=== PATIENT | female | born 1950 | race Hispanic/Latino ===

== ENCOUNTER 2017-12-27 13:54 | Inpatient (IN) | payer MEDICARE, OTHER ==
[2017-12-27] MEDS ORDERED: Sodium Chloride 0.9% 1,000 ML IV STA ×6 (14:08→19:44)
--- NOTE | 2017-12-27 14:12 | ED PDOC ---
HPI: General Adult Time Seen by Provider: 12/27/17 14:00 Chief Complaint (Nursing): Altered Mental Status History Per: Family Onset/Duration Of Symptoms: Days (3) Current Symptoms Are (Timing): Still Present Severity: Moderate Additional Complaint(s): Brought by family for poor PO intake x 3 days. Denies vomiting diarrhea or fever. Pt has not been seeing her MD x few months. Past Medical History Vital Signs: Last Vital Signs Temp Pulse 113 H 12/27/17 14:04 Resp 12 12/27/17 14:04 BP 113/47 L 12/27/17 14:04 Pulse Ox 97 12/27/17 14:04 - Medical History PMH: CAD, HTN Denies: Chronic Kidney Disease Other PMH: CREST - Family History Family History: States: Unknown Family Hx - Home Medications Home Medications: Ambulatory Orders Medication Instructions Recorded Cyclobenzaprine [Cyclobenzaprine 10 mg PO BID #15 tab 12/17/15 HCl] Ibuprofen [Motrin Tab] 600 mg PO Q6 #30 tab 12/17/15 - Allergies Allergies/Adverse Reactions: Allergies Allergy/AdvReac Type Severity Reaction Status Date / Time No Known Allergies Allergy Verified 12/17/15 03:08 Review of Systems Review Of Systems: ROS cannot be obtained secondary to pt's inabilty to answer questions. Physical Exam - Reviewed Nursing Documentation Reviewed: Yes Vital Signs Reviewed: Yes - Physical Exam Appears: Positive for: Non-toxic, No Acute Distress Head Exam: Positive for: ATRAUMATIC, NORMAL INSPECTION, NORMOCEPHALIC Skin: Positive for: Normal Color, Warm, DRY Eye Exam: Positive for: EOMI, Normal appearance, PERRL ENT: Positive for: Other (Mucous membranes dry) Neck: Positive for: Normal, Painless ROM Cardiovascular/Chest: Positive for: Regular Rate, Rhythm, Tachycardia Respiratory: Positive for: CNT, Normal Breath Sounds Gastrointestinal/Abdominal: Positive for: Normal Exam, Soft Back: Positive for: Normal Inspection Extremity: Positive for: Normal ROM Neurologic/Psych: Negative for: Alert (lethargic), Motor/Sensory Deficits - Laboratory Results Result Diagrams: 12/27/17 14:45 - ECG O2 Sat by Pulse Oximetry: 97 Disposition - Clinical Impression Clinical Impression: DKA (diabetic ketoacidoses) - Patient ED Disposition Is Patient to be Admitted: Transfer of Care - Disposition Disposition: Transfer of Care Disposition Time: 15:07 Condition: GUARDED Forms: [employer] (Emirati) Patient Signed Over To: Aggie Benson
[2017-12-27 14:32] LABS: ABG ALLEN TEST YES; ARTERIAL BLOOD GAS HCO3 13.1 mmol/L (21-28); ARTERIAL BLOOD GAS O2 SAT 74.8 % (95-98); ARTERIAL BLOOD GAS PCO2 30 mm/Hg (35-45); ARTERIAL BLOOD GAS PH 7.22 (7.35-7.45); ARTERIAL BLOOD GAS PO2 41 mm/Hg (80-100); ARTERIAL BLOOD GAS TCO2 13.2 mmol/L (22-28)
[2017-12-27] MEDS ORDERED: Glucagon Recombinant 1 mg Inj IM PRN ×2 (14:37→19:05)
[2017-12-27] MEDS ORDERED: Dextrose 50% SYRINGE Inj (50 ml) IV PRN (14:37)
[2017-12-27 14:56] LABS: BASO # 0.2 K/uL (0.0-0.2); BASO % 1.2 % (0.0-2.0); HEMOGLOBIN 14.1 g/dL (12.0-16.0); LYMPH # 0.4 K/uL (1.0-4.3); LYMPH % 2.6 % (20.0-40.0); MEAN CELL VOLUME 96.1 fl (81.0-99.0); MEAN CORPUSCULAR HEMOGLOBIN 28.8 pg (27.0-31.0); MEAN PLATELET VOLUME 11.7 fl (7.2-11.7); MONO # 0.5 K/uL (0.0-0.8); MONO % 3.7 % (0.0-10.0); NEUT # 13.7 K/uL (1.8-7.0); NEUT % 92.5 % (50.0-75.0); NRBC % 0.2 % (0.0-0.0); WHITE BLOOD COUNT 14.8 K/uL (4.8-10.8)
[2017-12-27 15:17] LABS: TROPONIN I 0.091 ng/mL (0.00-0.120)
[2017-12-27 15:32] LABS: ALBUMIN 3.4 g/dL (3.5-5.0); CALCIUM 7.1 mg/dL (8.4-10.2)
--- NOTE | 2017-12-27 15:44 | ED PDOC ---
- Laboratory Results Result Diagrams: 12/27/17 14:45 12/27/17 14:45 - ECG O2 Sat by Pulse Oximetry: 97 (RA) Pulse Ox Interpretation: Normal - Core Measure Core Measure Indicators: Code Sepsis - Critical Care Total Time (In Min): 60 Medical Decision Making Medical Decision Making: Time: 1500 -- Patient endorsed to me by Dr. Christensen, pending labs, reassessment and final ER disposition. 16:20 Unable to establish Randolph catheter, discussed with Dr. Young, will perform cystoscopy tomorrow @ 11 AM, NPO after midnight. 17:[address] Berry. 18:[address] Kang, states pt is 8 L behind, prerenal, recommends 150 cc/hr for next 4 L. Scribe Attestation: Documented by Senthil Choe, acting as a scribe Trung Benson MD. Provider Scribe Attestation: All medical record entries made by the Scribe were at my direction and personally dictated by me. I have reviewed the chart and agree that the record accurately reflects my personal performance of the history, physical exam, medical decision making, and the department course for this patient. I have also personally directed, reviewed, and agree with the discharge instructions and disposition. Disposition - Clinical Impression Clinical Impression: DKA (diabetic ketoacidoses), Sepsis - POA Present On Arrival: Poor Glycemic Control, Pressure Ulcer Core Measure Indicators: Code Sepsis - Disposition Disposition: Admitted as In-Patient Disposition Time: 17:06 Condition: SERIOUS
[2017-12-27] MEDS ORDERED: cefTRIAXone (Rocephin) 1 gm Inj ONE (15:57)
[2017-12-27 16:01] LABS: LYMPHOCYTE 2 % (20-50); MONOCYTE 3 % (0-10); NEUTROPHIL 95 % (42-75); TOTAL CELLS COUNTED 100
[2017-12-27 16:14] LABS: PLATELET ESTIMATE NORMAL (NORMAL)
[2017-12-27 16:16] LABS: ANISOCYTOSIS SLIGHT; OVALOCYTES SLIGHT; PLATELET CLUMPS PRESENT; POIKILOCYTOSIS SLIGHT
[2017-12-27 16:18] LABS: PLATELET COUNT 184 K/uL (130-400)
--- NOTE | 2017-12-27 16:18 | RAD ---
Date of service: 12/27/2017 HISTORY: cough COMPARISON: Comparison is made to the previous study dated 06/30/2013 FINDINGS: LUNGS: This suspicious for new consolidation or mass at the central portion of the left lung since the previous exam. Further assessment by CT is recommended. Left lung appears smaller than the right. PLEURA: No significant pleural effusion identified, no pneumothorax apparent. CARDIOVASCULAR: Normal. OSSEOUS STRUCTURES: No significant abnormalities. VISUALIZED UPPER ABDOMEN: Normal. OTHER FINDINGS: None. IMPRESSION: Suspicious for new mass in the central portion of the central portion of the left lung. Further assessment by CT is suggested.
[2017-12-27] MEDS ORDERED: Vancomycin 1 g Inj ONE (17:16)
--- NOTE | 2017-12-27 18:31 | CP.PCM.CON ---
History of Present Illness - History of Present Illness History of Present Illness: 67 YOF was brought to ER with confusion , being non-verbal . As per family she has been confused and lethargic for 2 days and today found on her bed with urine and fecal incontinent. She was brought to ER, was hypotensive and confused , barely verbal. He BS was > 1000 and blood work showed she was in sever e DKA. No fever, SOB or cough. She has h/o DM but was not taking any meds for sometimes, no previous lab result is available. In Er she was started on IVF, insulin drip and after 3 liters of NS bolus BP improved and pt was able to talk but still was confused when I saw the pt. She was moving alls her limbs , there was no sei zure, and there no facial droop. When she would talk, was talking in clear words. She was not in any respiratory distress, no cough, was not in any pain. Review of Systems - Review of Systems Systems not reviewed;Unavailable: Altered Mental Status - Constitutional Constitutional: As Per HPI - EENT Eyes: As Per HPI Nose/Mouth/Throat: As Per HPI - Cardiovascular Cardiovascular: As Per HPI - Respiratory Respiratory: As Per HPI - Gastrointestinal Gastrointestinal: As Per HPI Past Patient History - Past Social History Smoking Status: Never Smoked - CARDIAC Hx Hypertension: Yes - PULMONARY Hx Respiratory Disorders: No - NEUROLOGICAL Hx Neurological Disorder: No - HEENT Hx HEENT Problems: No - RENAL Hx Chronic Kidney Disease: No - ENDOCRINE/METABOLIC Hx Endocrine Disorders: No - HEMATOLOGICAL/ONCOLOGICAL Hx Blood Disorders: No - INTEGUMENTARY Hx Dermatological Problems: No - MUSCULOSKELETAL/RHEUMATOLOGICAL Hx Musculoskeletal Disorders: Yes - GASTROINTESTINAL Hx Gastrointestinal Disorders: No - GENITOURINARY/GYNECOLOGICAL Hx Genitourinary Disorders: No - PSYCHIATRIC Hx Psychophysiologic Disorder: No Hx Substance Use: No - SURGICAL HISTORY Hx Surgeries: No Meds Allergies/Adverse Reactions: Allergies Allergy/AdvReac Type Severity Reaction Status Date / Time No Known Allergies Allergy Verified 12/17/15 03:08 - Medications Medications: Current Medications Dextrose (Dextrose 50% Inj) 0 ml IV STAT PRN; Protocol PRN Reason: Hypoglycemia Protocol Dextrose (Glutose 15) 0 gm PO ONCE PRN; Protocol PRN Reason: Hypoglycemia Protocol Glucagon (Glucagen Diagnostic Kit) 0 mg IM STAT PRN; Protocol PRN Reason: Hypoglycemia Protocol Insulin Human Regular 100 (units/ Sodium Chloride) 101 mls @ 9.09 mls/hr IV [id number] PORFIRIO; Protocol Last Admin: 12/27/17 15:46 Dose: 9.09 mls/hr Vancomycin HCl 1 gm/ Sodium (Chloride) 250 mls @ 166.667 mls/hr IVPB STAT STA; Protocol Stop: 12/27/17 18:38 Last Admin: 12/27/17 17:10 Dose: 166.667 mls/hr Physical Exam - Constitutional Appears: Well - Head Exam Head Exam: ATRAUMATIC - Eye Exam Eye Exam: Normal appearance - ENT Exam ENT Exam: Mucous Membranes Dry, Mucous Membranes Moist - Neck Exam Neck exam: Positive for: Full Rom - Respiratory Exam Respiratory Exam: NORMAL BREATHING PATTERN - Cardiovascular Exam Cardiovascular Exam: REGULAR RHYTHM Results - Vital Signs Recent Vital Signs: Last Vital Signs Temp Pulse 130 H 12/27/17 15:46 Resp 22 12/27/17 15:46 BP 136/69 12/27/17 15:46 Pulse Ox 97 12/27/17 18:12 - Labs Result Diagrams: 12/27/17 14:45 12/27/17 14:45 Labs: Laboratory Results - last 24 hr 12/27/17 12/27/17 12/27/17 14:02 14:08 14:45 WBC 14.8 H RBC 4.90 Hgb 14.1 Hct 47.1 H MCV 96.1 MCH 28.8 MCHC 30.0 L RDW 17.0 H Plt Count 184 MPV 11.7 Neut % (Auto) 92.5 H Lymph % (Auto) 2.6 L [place] % (Auto) 3.7 Eos % (Auto) 0.0 Baso % (Auto) 1.2 Neut # (Auto) 13.7 H Lymph # (Auto) 0.4 L [place] # (Auto) 0.5 Eos # (Auto) 0.0 Baso # (Auto) 0.2 Neutrophils % (Manual) 95 H Lymphocytes % (Manual) 2 L Monocytes % (Manual) 3 Platelet Estimate Normal Plt Clumps, EDTA Present Poikilocytosis (manual Slight Anisocytosis (manual) Slight Ovalocytes Slight pCO2 30 L pO2 41 L* HCO3 13.1 L ABG pH 7.22 L ABG Total CO2 13.2 L ABG O2 Saturation 74.8 L ABG Base Excess -14.1 L Holden Test Yes ABG Potassium 5.6 H A-a O2 Difference 150.0 Sodium 142.0 Chloride 88.0 L Glucose > 750 H* Lactate 7.0 H* Vent Mode Nc FiO2 32.0 Blood Gas Comments Nc 3 lpm Crit Value Called To Dr. tina mitchell Crit Value Called By Dolores Crit Value Read Back Y Blood Gas Notified Time 1431 Potassium Carbon Dioxide Anion Gap BUN Creatinine Est GFR ( Amer) Est GFR (Non-Af Amer) POC Glucose (mg/dL) > 500 H* Random Glucose Calcium Total Bilirubin AST ALT Alkaline Phosphatase Troponin I Total Protein Albumin Globulin Albumin/Globulin Ratio Arterial Blood Potassium 5.6 H 12/27/17 12/27/17 14:45 17:01 WBC RBC Hgb Hct MCV MCH MCHC RDW Plt Count MPV Neut % (Auto) Lymph % (Auto) [place] % (Auto) Eos % (Auto) Baso % (Auto) Neut # (Auto) Lymph # (Auto) [place] # (Auto) Eos # (Auto) Baso # (Auto) Neutrophils % (Manual) Lymphocytes % (Manual) Monocytes % (Manual) Platelet Estimate Plt Clumps, EDTA Poikilocytosis (manual Anisocytosis (manual) Ovalocytes pCO2 pO2 HCO3 ABG pH ABG Total CO2 ABG O2 Saturation ABG Base Excess Holden Test ABG Potassium A-a O2 Difference Sodium 142 Chloride 92 L Glucose Lactate Vent Mode FiO2 Blood Gas Comments Crit Value Called To Crit Value Called By Crit Value Read Back Blood Gas Notified Time Potassium 5.3 H Carbon Dioxide 11 L* Anion Gap 44 H BUN 112 H* Creatinine 2.7 H Est GFR ( Amer) 21 Est GFR (Non-Af Amer) 18 POC Glucose (mg/dL) > 500 H* Random Glucose 1028 H* Calcium 7.1 L Total Bilirubin 2.8 H AST 334 H ALT 181 H Alkaline Phosphatase 281 H Troponin I 0.0910 Total Protein 6.7 Albumin 3.4 L Globulin 3.3 Albumin/Globulin Ratio 1.0 Arterial Blood Potassium Assessment & Plan - Assessment and Plan (Free Text) Assessment: DKA: h/o type 2 DM, was not taking any meds Acute kidney injury: pre-renal azotemia Hypotension: dehydartion AMS: DKA Plan: IVF NS 3 lit and then NS at 200 cc/h Insulin drip started at ER at 9 unit/h, will continue , BS q one hours BMP q 6 hours DVT prophlaxis , lovenox. endocrinology consult.
[2017-12-27 19:05] LABS: VENOUS BLOOD GAS BASE EXCESS -12.4 mmol/L (0.0-2.0); VENOUS BLOOD GAS PCO2 31 mmHg (40-60); VENOUS BLOOD GAS PO2 47 mm/Hg (30-55); VENOUS BLOOD PH 7.25 (7.32-7.43)
[2017-12-27 23:28] LABS: SQUAMOUS EPITHIAL 1 /hpf (0-5); URINE AMORPHOUS SEDIMENT RARE /ul (<OCC); URINE BACTERIA FEW (<OCC); URINE BILIRUBIN SMALL (NEGATIVE); URINE BLOOD LARGE (NEGATIVE); URINE CLARITY CLOUDY (Clear); URINE COLOR AMBER (YELLOW); URINE GLUCOSE (UA) >=500 mg/dL (Normal); URINE LEUKOCYTE ESTERASE LARGE Leu/uL (Negative); URINE PROTEIN 100 mg/dL (NEGATIVE); WBC CLUMPS FEW /hpf
[2017-12-27 23:38] LABS: ALB/GLOB RATIO 0.8 (1.0-2.1); ALBUMIN 2.7 g/dL (3.5-5.0); CALCIUM 6.3 mg/dL (8.4-10.2)
--- NOTE | 2017-12-28 00:46 | CP.PCM.HP ---
History of Present Illness - History of Present Illness History of Present Illness: CC: Lethargic and Poor PO Intake History of Present Illness: History from her son Julian nad Daughter Carmela who are at the bed side. A 67 yoF was brought to ER with Lethargy, poor Po intake, and being non-verbal . As per family she has been sick for a week but got confused and lethargic for the last 2 -3 days. Today she was found on her bed with urine and fecal incontinent when she was brought to ER. In the ER she was hypotensive, Le thargic, barely verbal, Dehydrated, and further work up showed Blood sugar > 1000 mg/dl, severe DKA/HHS with S. Osmolality>400, Acute Renal Failure, and UTI and Pressure Ulcers with Sepsis. No fever, SOB or cough. She has h/o DM but was not taking any meds for sometimes, no previous lab result is available. In the ER she was also Hypotensive improved after 3 liters of NS boluses BP improved. Patient was also stated with Insulin drip and IV Antibiotics. Pt was able to talk but still was drowsy. She was moving alls her limbs , there was no seizure, or facial droop. She was not in any respiratory distress, no cough, or was not in any pain. She was also found to have Lung Mass on CXR. Present on Admission - Present on Admission Any Indicators Present on Admission: Yes History of Uncontrolled Diabetes: Yes Decubitus Ulcer Present: Yes (Sacral) Decubitus Ulcer Stage: II Review of Systems - Review of Systems All systems: reviewed and no additional remarkable complaints except Review of Systems: As per HPI Past Patient History - Past Medical History & Family History Past Medical History?: Yes Pertinent Family History: Cancer in her Mother - Past Social History Smoking Status: Heavy Smoker > 10 Cigarettes Daily Alcohol: None Drugs: Denies - CARDIAC Hx Hypercholesterolemia: Yes Hx Hypertension: Yes - PULMONARY Hx Respiratory Disorders: No - NEUROLOGICAL Hx Neurological Disorder: No - HEENT Hx HEENT Problems: No - RENAL Hx Chronic Kidney Disease: No - ENDOCRINE/METABOLIC Hx Endocrine Disorders: No Hx Diabetes Mellitus Type 2: Yes - HEMATOLOGICAL/ONCOLOGICAL Hx Blood Disorders: No - INTEGUMENTARY Hx Dermatological Problems: No - MUSCULOSKELETAL/RHEUMATOLOGICAL Hx Musculoskeletal Disorders: Yes - GASTROINTESTINAL Hx Gastrointestinal Disorders: No - GENITOURINARY/GYNECOLOGICAL Hx Genitourinary Disorders: No - PSYCHIATRIC Hx Psychophysiologic Disorder: No - SURGICAL HISTORY Hx Surgeries: No Meds Allergies/Adverse Reactions: Allergies Allergy/AdvReac Type Severity Reaction Status Date / Time No Known Allergies Allergy Verified 12/17/15 03:08 Physical Exam - Constitutional Appears: Toxic, In Acute Distress, Older Than Stated Age, Confused, Chronically Ill - Head Exam Head Exam: ATRAUMATIC, NORMAL INSPECTION, NORMOCEPHALIC - Eye Exam Eye Exam: Normal appearance, PERRL - ENT Exam ENT Exam: Mucous Membranes Dry - Neck Exam Neck exam: Positive for: Normal Inspection. Negative for: Lymphadenopathy, Thyromegaly - Respiratory Exam Respiratory Exam: Clear to Auscultation Bilateral, NORMAL BREATHING PATTERN - Cardiovascular Exam Cardiovascular Exam: Tachycardia, +S1, +S2 - GI/Abdominal Exam GI & Abdominal Exam: Normal Bowel Sounds, Soft. absent: Guarding, Rebound, Rigid - Neurological Exam Neurological exam: Abnormal Gait, Altered, Motor Sensory Deficit - Psychiatric Exam Psychiatric exam: Flat Affect - Skin Skin Exam: Dry, Erythema, Normal Color Additional comments: Sacral Pressure Ulcer Results - Vital Signs Recent Vital Signs: Last Vital Signs Temp 98.7 F 12/27/17 23:25 Pulse 132 H 12/27/17 23:25 Resp 19 12/27/17 23:25 BP 117/72 12/27/17 23:25 Pulse Ox 100 12/27/17 22:47 - Labs Result Diagrams: 12/29/17 06:00 12/29/17 06:00 Labs: Laboratory Results - last 24 hr 12/27/17 12/27/17 12/27/17 14:02 14:08 14:45 WBC 14.8 H RBC 4.90 Hgb 14.1 Hct 47.1 H MCV 96.1 MCH 28.8 MCHC 30.0 L RDW 17.0 H Plt Count 184 MPV 11.7 Neut % (Auto) 92.5 H Lymph % (Auto) 2.6 L [place] % (Auto) 3.7 Eos % (Auto) 0.0 Baso % (Auto) 1.2 Neut # (Auto) 13.7 H Lymph # (Auto) 0.4 L [place] # (Auto) 0.5 Eos # (Auto) 0.0 Baso # (Auto) 0.2 Neutrophils % (Manual) 95 H Lymphocytes % (Manual) 2 L Monocytes % (Manual) 3 Platelet Estimate Normal Plt Clumps, EDTA Present Poikilocytosis (manual Slight Anisocytosis (manual) Slight Ovalocytes Slight pCO2 30 L pO2 41 L* HCO3 13.1 L ABG pH 7.22 L ABG Total CO2 13.2 L ABG O2 Saturation 74.8 L ABG Base Excess -14.1 L Holden Test Yes ABG Potassium 5.6 H VBG pH VBG pCO2 VBG HCO3 VBG Total CO2 VBG O2 Sat (Calc) VBG Base Excess A-a O2 Difference 150.0 Sodium 142.0 Chloride 88.0 L Glucose > 750 H* Lactate 7.0 H* Vent Mode Nc FiO2 32.0 Blood Gas Comments Nc 3 lpm Crit Value Called To Dr. tina mitchell Crit Value Called By Dolores Crit Value Read Back Y Blood Gas Notified Time 1431 Potassium Carbon Dioxide Anion Gap BUN Creatinine Est GFR ( Amer) Est GFR (Non-Af Amer) POC Glucose (mg/dL) > 500 H* Random Glucose Serum Osmolality Calcium Phosphorus Magnesium Total Bilirubin AST ALT Alkaline Phosphatase Troponin I Total Protein Albumin Globulin Albumin/Globulin Ratio Arterial Blood Potassium 5.6 H Urine Color Urine Clarity Urine pH Ur Specific Brant Urine Protein Urine Glucose (UA) Urine Ketones Urine Blood Urine Nitrate Urine Bilirubin Urine Urobilinogen Ur Leukocyte Esterase Urine RBC (Auto) Urine WBC Clumps (Auto) Urine Microscopic WBC Ur Squamous Epith Cells Amorphous Sediment Urine Bacteria Hyaline Casts 12/27/17 12/27/17 12/27/17 14:45 15:00 17:01 WBC RBC Hgb Hct MCV MCH MCHC RDW Plt Count MPV Neut % (Auto) Lymph % (Auto) [place] % (Auto) Eos % (Auto) Baso % (Auto) Neut # (Auto) Lymph # (Auto) [place] # (Auto) Eos # (Auto) Baso # (Auto) Neutrophils % (Manual) Lymphocytes % (Manual) Monocytes % (Manual) Platelet Estimate Plt Clumps, EDTA Poikilocytosis (manual Anisocytosis (manual) Ovalocytes pCO2 pO2 HCO3 ABG pH ABG Total CO2 ABG O2 Saturation ABG Base Excess Holden Test ABG Potassium VBG pH VBG pCO2 VBG HCO3 VBG Total CO2 VBG O2 Sat (Calc) VBG Base Excess A-a O2 Difference Sodium 142 Chloride 92 L Glucose Lactate Vent Mode FiO2 Blood Gas Comments Crit Value Called To Crit Value Called By Crit Value Read Back Blood Gas Notified Time Potassium 5.3 H Carbon Dioxide 11 L* Anion Gap 44 H BUN 112 H* Creatinine 2.7 H Est GFR ( Amer) 21 Est GFR (Non-Af Amer) 18 POC Glucose (mg/dL) > 500 H* Random Glucose 1028 H* Serum Osmolality Calcium 7.1 L Phosphorus Magnesium 3.0 H Total Bilirubin 2.8 H AST 334 H ALT 181 H Alkaline Phosphatase 281 H Troponin I 0.0910 Total Protein 6.7 Albumin 3.4 L Globulin 3.3 Albumin/Globulin Ratio 1.0 Arterial Blood Potassium Urine Color Urine Clarity Urine pH Ur Specific Brant Urine Protein Urine Glucose (UA) Urine Ketones Urine Blood Urine Nitrate Urine Bilirubin Urine Urobilinogen Ur Leukocyte Esterase Urine RBC (Auto) Urine WBC Clumps (Auto) Urine Microscopic WBC Ur Squamous Epith Cells Amorphous Sediment Urine Bacteria Hyaline Casts 12/27/17 12/27/17 12/27/17 18:25 18:30 18:52 WBC RBC Hgb Hct MCV MCH MCHC RDW Plt Count MPV Neut % (Auto) Lymph % (Auto) [place] % (Auto) Eos % (Auto) Baso % (Auto) Neut # (Auto) Lymph # (Auto) [place] # (Auto) Eos # (Auto) Baso # (Auto) Neutrophils % (Manual) Lymphocytes % (Manual) Monocytes % (Manual) Platelet Estimate Plt Clumps, EDTA Poikilocytosis (manual Anisocytosis (manual) Ovalocytes pCO2 pO2 47 HCO3 ABG pH ABG Total CO2 ABG O2 Saturation ABG Base Excess Holden Test ABG Potassium VBG pH 7.25 L VBG pCO2 31 L VBG HCO3 14.7 VBG Total CO2 14.6 L VBG O2 Sat (Calc) 80.0 H VBG Base Excess -12.4 L A-a O2 Difference Sodium 196.0 H* Chloride 124.0 H Glucose 598 H* D Lactate 4.9 H* Vent Mode FiO2 21.0 Blood Gas Comments Vbg Crit Value Called To Gia marin r.n. Crit Value Called By Dolores Crit Value Read Back Y Blood Gas Notified Time 190 Potassium Carbon Dioxide Anion Gap BUN Creatinine Est GFR ( Amer) Est GFR (Non-Af Amer) POC Glucose (mg/dL) > 500 H* Random Glucose Serum Osmolality 446 H Calcium Phosphorus Magnesium Total Bilirubin AST ALT Alkaline Phosphatase Troponin I Total Protein Albumin Globulin Albumin/Globulin Ratio Arterial Blood Potassium Urine Color Urine Clarity Urine pH Ur Specific Brant Urine Protein Urine Glucose (UA) Urine Ketones Urine Blood Urine Nitrate Urine Bilirubin Urine Urobilinogen Ur Leukocyte Esterase Urine RBC (Auto) Urine WBC Clumps (Auto) Urine Microscopic WBC Ur Squamous Epith Cells Amorphous Sediment Urine Bacteria Hyaline Casts 12/27/17 12/27/17 12/27/17 20:09 23:00 23:00 WBC RBC Hgb Hct MCV MCH MCHC RDW Plt Count MPV Neut % (Auto) Lymph % (Auto) [place] % (Auto) Eos % (Auto) Baso % (Auto) Neut # (Auto) Lymph # (Auto) [place] # (Auto) Eos # (Auto) Baso # (Auto) Neutrophils % (Manual) Lymphocytes % (Manual) Monocytes % (Manual) Platelet Estimate Plt Clumps, EDTA Poikilocytosis (manual Anisocytosis (manual) Ovalocytes pCO2 pO2 HCO3 ABG pH ABG Total CO2 ABG O2 Saturation ABG Base Excess Holden Test ABG Potassium VBG pH VBG pCO2 VBG HCO3 VBG Total CO2 VBG O2 Sat (Calc) VBG Base Excess A-a O2 Difference Sodium 148 Chloride 111 H D Glucose Lactate Vent Mode FiO2 Blood Gas Comments Crit Value Called To Crit Value Called By Crit Value Read Back Blood Gas Notified Time Potassium 3.1 L Carbon Dioxide 22 Anion Gap 18 BUN 104 H* Creatinine 2.4 H Est GFR ( Amer) 25 Est GFR (Non-Af Amer) 20 POC Glucose (mg/dL) > 500 H* Random Glucose 375 H Serum Osmolality Calcium 6.3 L Phosphorus Magnesium Total Bilirubin 1.8 H AST 313 H ALT 162 H Alkaline Phosphatase 223 H D Troponin I Total Protein 5.8 L Albumin 2.7 L D Globulin 3.1 Albumin/Globulin Ratio 0.8 L Arterial Blood Potassium Urine Color Michelle Urine Clarity Cloudy Urine pH 5.0 Ur Specific Brant 1.018 Urine Protein 100 Urine Glucose (UA) >=500 Urine Ketones 20 Urine Blood Large Urine Nitrate Negative Urine Bilirubin Small Urine Urobilinogen 4.0 H Ur Leukocyte Esterase Large Urine RBC (Auto) 67 H Urine WBC Clumps (Auto) Few H Urine Microscopic WBC 269 H Ur Squamous Epith Cells 1 Amorphous Sediment Rare H Urine Bacteria Few H Hyaline Casts 3-5 H 12/27/17 23:00 WBC RBC Hgb Hct MCV MCH MCHC RDW Plt Count MPV Neut % (Auto) Lymph % (Auto) [place] % (Auto) Eos % (Auto) Baso % (Auto) Neut # (Auto) Lymph # (Auto) [place] # (Auto) Eos # (Auto) Baso # (Auto) Neutrophils % (Manual) Lymphocytes % (Manual) Monocytes % (Manual) Platelet Estimate Plt Clumps, EDTA Poikilocytosis (manual Anisocytosis (manual) Ovalocytes pCO2 pO2 HCO3 ABG pH ABG Total CO2 ABG O2 Saturation ABG Base Excess Holden Test ABG Potassium VBG pH VBG pCO2 VBG HCO3 VBG Total CO2 VBG O2 Sat (Calc) VBG Base Excess A-a O2 Difference Sodium Chloride Glucose Lactate Vent Mode FiO2 Blood Gas Comments Crit Value Called To Crit Value Called By Crit Value Read Back Blood Gas Notified Time Potassium Carbon Dioxide Anion Gap BUN Creatinine Est GFR ( Amer) Est GFR (Non-Af Amer) POC Glucose (mg/dL) Random Glucose Serum Osmolality Calcium Phosphorus 3.8 Magnesium 2.1 Total Bilirubin AST ALT Alkaline Phosphatase Troponin I Total Protein Albumin Globulin Albumin/Globulin Ratio Arterial Blood Potassium Urine Color Urine Clarity Urine pH Ur Specific Brant Urine Protein Urine Glucose (UA) Urine Ketones Urine Blood Urine Nitrate Urine Bilirubin Urine Urobilinogen Ur Leukocyte Esterase Urine RBC (Auto) Urine WBC Clumps (Auto) Urine Microscopic WBC Ur Squamous Epith Cells Amorphous Sediment Urine Bacteria Hyaline Casts - Imaging and Cardiology Chest x-ray Status: Report reviewed by me Additional comment: Date of service: 12/27/2017 HISTORY: cough COMPARISON: Comparison is made to the previous study dated 06/30/2013 FINDINGS: LUNGS: This suspicious for new consolidation or mass at the central portion of the left lung since the previous exam. Further assessment by CT is recommended. Left lung appears smaller than the right. PLEURA: No significant pleural effusion identified, no pneumothorax apparent. CARDIOVASCULAR: Normal. OSSEOUS STRUCTURES: No significant abnormalities. VISUALIZED UPPER ABDOMEN: Normal. OTHER FINDINGS: None. IMPRESSION: Suspicious for new mass in the central portion of the central portion of the left lung. Further assessment by CT is suggested. Assessment & Plan (1) Altered mental status Assessment and Plan: Metabolic Encephalopathy: Sepsis, Uremia and Metabolic Acidosis Treat the Underlying Problem Monitor in ICU Status: Acute Priority: High (2) DKA (diabetic ketoacidoses) Assessment and Plan: HHS, Hypotension Bolus IVF PRN Hypotension Continue IVF Insulin Drip 9 Units/Hr Replenish Electrolytes BMP Q4hrs VBG Q4hrs Accu-check Q1hr HgA1C Status: Acute Priority: High (3) Sepsis Assessment and Plan: UTI and Sacral Pressure Ulcer Stage II IV Rocephin and Vamcomycin IVF Blood and Urine Cultures Wound CAre daily Status: Acute Priority: High (4) Lung mass Assessment and Plan: CT Chest W/O Contrast Status: Acute Priority: High (5) Acute renal failure (ARF) Assessment and Plan: Most Likely ATN due to Hypotension and Dehydration IVF RX DKA/HHS and Sepsis Urine NA Nephrology Consult Status: Acute Priority: High (6) Gait abnormality Status: Acute Priority: Medium (7) DVT prophylaxis Status: Inactive Priority: High
[2017-12-28] MEDS: Potassium Chloride 20 MEQ in Sodium Chloride 0.45% 1,000 ML IV SCH ×2 (02:00→03:55)
[2017-12-28] MEDS ORDERED: Pneumococcal 23-Valent Vaccine IM ONE (05:00)
[2017-12-28] MEDS ORDERED: Influenza Vaccine 60 MCG/0.5 ML SYR (3 yr & up) IM ONE (06:00)
[2017-12-28 06:19] LABS: CALCIUM 6.2 mg/dL (8.4-10.2)
[2017-12-28 06:31] LABS: BASO % 0.2 % (0.0-2.0); HEMOGLOBIN 12.2 g/dL (12.0-16.0); LYMPH # 0.8 K/uL (1.0-4.3); LYMPH % 5.9 % (20.0-40.0); MEAN CELL VOLUME 86.3 fl (81.0-99.0); MEAN CORPUSCULAR HEMOGLOBIN 28.9 pg (27.0-31.0); MEAN CORPUSCULAR HGB CONC 33.5 g/dL (33.0-37.0); MEAN PLATELET VOLUME 10.3 fl (7.2-11.7); MONO # 0.5 K/uL (0.0-0.8); MONO % 3.6 % (0.0-10.0); NEUT # 12.5 K/uL (1.8-7.0); NEUT % 90.3 % (50.0-75.0); NRBC % 0.1 % (0.0-0.0); PLATELET COUNT 116 K/uL (130-400); RBC 4.22 Mil/uL (3.80-5.20); RED CELL DISTRIBUTION WIDTH 16.1 % (11.5-14.5); WHITE BLOOD COUNT 13.9 K/uL (4.8-10.8)
[2017-12-28] MEDS ORDERED: Insulin Detemir 100 Units/ml Inj SC STA (06:33)
[2017-12-28] MEDS ORDERED: Dextrose 5%/0.45% NS 1,000 ML IV SCH (06:45)
--- NOTE | 2017-12-28 07:12 | CARD ---
APPROVED REPORT Date of service: 12/27/2017 EKG Measurement Heart [id number] <Conclusion> Atrial flutter with variable AV block Left anterior fascicular block Abnormal ECG
[2017-12-28 07:17] LABS: TROPONIN I 0.166 ng/mL (0.00-0.120)
[2017-12-28] MEDS ORDERED: Insulin Lispro (humaLOG) 100 Units/ml Inj SC SCH (07:30)
[2017-12-28 07:32] LABS: BANDS 2 % (0-2); LYMPHOCYTE 4 % (20-50); MONOCYTE 2 % (0-10); NEUTROPHIL 92 % (42-75); PLATELET ESTIMATE DECREASED (NORMAL); TOTAL CELLS COUNTED 100
--- NOTE | 2017-12-28 08:11 | CP.CCUPN ---
CCU Subjective - Physician Review Events Since Last Encounter (Free Text): 12/28/17 08:06 awake , looks comfortable, but very confused, does not know where she is or anything why she is here . Insulin was DCed last night as BS improved and IG closed, not on any s/q insulin at the moment, was held due to dropping BS. BP has been stable , still oliguric and bun/farmer vegetable not improving, has received 7 liters of fluid. Also has been in a flutter and SR intermittently overnight. Bladder scan did not show much urine in bladder. Bladder is not distended and abdomen is soft, non-tender. CT abdomen dose and report pending CCU Objective - Vital Signs / Intake & Output Vital Signs (Last 4 hours): Vital Signs Pulse Resp BP Pulse Ox 12/28/17 06:00 113 H 18 94/62 L 97 Intake and Output (Last 8hrs): Intake & Output 12/27/17 12/28/17 12/28/17 22:59 06:59 14:59 Intake Total 1961 Balance 1961 Weight 189 lb Intake: IV 1950 Intake, Piggyback 11 Oral 0 - Physical Exam Narrative Physical Exam (Free Text): 12/28/17 08:11 P/E Neck: No JVD Lungs: No ronchi, crackles Abdomen: soft, non-tender Ext: No edema heart: No gallop - Medications Active Medications: Active Medications Generic Name Dose Route Start Last Admin Trade Name Freq PRN Reason Stop Dose Admin Dextrose 0 ml 12/27/17 14:37 Dextrose 50% Inj IV STAT PRN Hypoglycemia Protocol Protocol Dextrose 0 gm 12/27/17 14:37 Glutose 15 PO ONCE PRN Hypoglycemia Protocol Protocol Dextrose 0 ml 12/27/17 19:05 Dextrose 50% Inj IV STAT PRN Hypoglycemia Protocol Protocol Dextrose 0 gm 12/27/17 19:05 Glutose 15 PO ONCE PRN Hypoglycemia Protocol Protocol Glucagon 0 mg 12/27/17 14:37 Glucagen Diagnostic Kit IM STAT PRN Hypoglycemia Protocol Protocol Glucagon 0 mg 12/27/17 19:05 Glucagen Diagnostic Kit IM STAT PRN Hypoglycemia Protocol Protocol Heparin Sodium (Porcine) 5,000 units 12/28/17 01:00 12/28/17 02:10 Heparin SC 5,000 units Q8 PORFIRIO Administration Protocol Dextrose/Sodium Chloride 1,000 mls @ 125 mls/hr 12/28/17 06:45 10/14/18 07:07 Dextrose 5%/0.45% Ns 1000 Ml IV 12/29/17 06:37 125 mls/hr .Q8H PORFIRIO Administration Insulin Human Lispro 0 units 12/28/17 07:30 12/28/17 07:41 Humalog SC Not Given ACHS [facility] Protocol - Patient Studies Lab Studies: Lab Studies 12/28/17 12/28/17 12/28/17 Range/Units 07:06 05:30 05:27 WBC 13.9 H (4.8-10.8) K/uL RBC 4.22 (3.80-5.20) Mil/uL Hgb 12.2 (12.0-16.0) g/dL Hct 36.4 (34.0-47.0) % MCV 86.3 D (81.0-99.0) fl MCH 28.9 (27.0-31.0) pg MCHC 33.5 (33.0-37.0) g/dL RDW 16.1 H (11.5-14.5) % Plt Count 116 L D (130-400) K/uL MPV 10.3 (7.2-11.7) fl Neut % (Auto) 90.3 H (50.0-75.0) % Lymph % (Auto) 5.9 L (20.0-40.0) % Blair % (Auto) 3.6 (0.0-10.0) % Eos % (Auto) 0.0 (0.0-4.0) % Baso % (Auto) 0.2 (0.0-2.0) % Neut # (Auto) 12.5 H (1.8-7.0) K/uL Lymph # (Auto) 0.8 L (1.0-4.3) K/uL Blair # (Auto) 0.5 (0.0-0.8) K/uL Eos # (Auto) 0.0 (0.0-0.7) K/uL Baso # (Auto) 0.0 (0.0-0.2) K/uL Neutrophils % (Manual) 92 H (42-75) % Band Neutrophils % 2 (0-2) % Lymphocytes % (Manual) 4 L (20-50) % Monocytes % (Manual) 2 (0-10) % Platelet Estimate Decreased L (NORMAL) Plt Clumps, EDTA Poikilocytosis (manual Anisocytosis (manual) Ovalocytes pCO2 (35-45) mm/Hg pO2 (80-100) mm/Hg HCO3 (21-28) mmol/L ABG pH (7.35-7.45) ABG Total CO2 (22-28) mmol/L ABG O2 Saturation (95-98) % ABG Base Excess (-2.0-3.0) mmol/L Holden Test ABG Potassium (3.6-5.2) mmol/L VBG pH (7.32-7.43) VBG pCO2 (40-60) mmHg VBG HCO3 mmol/L VBG Total CO2 (22-28) mmol/L VBG O2 Sat (Calc) (40-65) % VBG Base Excess (0.0-2.0) mmol/L A-a O2 Difference mm/Hg Sodium (132-148) mmol/L Chloride (98-107) mmol/L Glucose (65-105) mg/dL Lactate (0.7-2.1) mmol/L Vent Mode FiO2 % Blood Gas Comments Crit Value Called To Crit Value Called By Crit Value Read Back Blood Gas Notified Time Potassium (3.6-5.0) MMOL/L Carbon Dioxide (22-30) mmol/L Anion Gap (10-20) BUN (7-17) mg/dl Creatinine (0.7-1.2) mg/dl Est GFR ( Amer) Est GFR (Non-Af Amer) POC Glucose (mg/dL) 92 123 H (65-110) mg/dL Random Glucose (65-105) mg/dL Serum Osmolality (272-300) mosm/kg Calcium (8.4-10.2) mg/dL Phosphorus (2.5-4.5) mg/dl Magnesium (1.6-2.3) MG/DL Total Bilirubin (0.2-1.3) mg/dl AST (14-36) U/L ALT (9-52) U/L Alkaline Phosphatase (38-126) U/L Troponin I (0.00-0.120) ng/mL NT-Pro-B Natriuret Pep (0-900) pg/ml Total Protein (6.3-8.2) G/DL Albumin (3.5-5.0) g/dL Globulin (2.2-3.9) gm/dL Albumin/Globulin Ratio (1.0-2.1) TSH 3rd Generation (0.46-4.68) mIU/ML Arterial Blood Potassium (3.6-5.2) mmol/L Urine Color (YELLOW) Urine Clarity (Clear) Urine pH (5.0-8.0) Ur Specific Watson (1.003-1.030) Urine Protein (NEGATIVE) mg/dL Urine Glucose (UA) (Normal) mg/dL Urine Ketones (NEGATIVE) mg/dL Urine Blood (NEGATIVE) Urine Nitrate (NEGATIVE) Urine Bilirubin (NEGATIVE) Urine Urobilinogen (0.2-1.0) mg/dL Ur Leukocyte Esterase (Negative) Terry/uL Urine RBC (Auto) (0-3) /hpf Urine WBC Clumps (Auto) (NONE) /hpf Urine Microscopic WBC (0-5) /hpf Ur Squamous Epith Cells (0-5) /hpf Amorphous Sediment (<OCC) /ul Urine Bacteria (<OCC) Hyaline Casts (0-2) /hpf 12/28/17 12/28/17 12/28/17 Range/Units 05:00 04:41 03:42 WBC (4.8-10.8) K/uL RBC (3.80-5.20) Mil/uL Hgb (12.0-16.0) g/dL Hct (34.0-47.0) % MCV (81.0-99.0) fl MCH (27.0-31.0) pg MCHC (33.0-37.0) g/dL RDW (11.5-14.5) % Plt Count (130-400) K/uL MPV (7.2-11.7) fl Neut % (Auto) (50.0-75.0) % Lymph % (Auto) (20.0-40.0) % Blair % (Auto) (0.0-10.0) % Eos % (Auto) (0.0-4.0) % Baso % (Auto) (0.0-2.0) % Neut # (Auto) (1.8-7.0) K/uL Lymph # (Auto) (1.0-4.3) K/uL Blair # (Auto) (0.0-0.8) K/uL Eos # (Auto) (0.0-0.7) K/uL Baso # (Auto) (0.0-0.2) K/uL Neutrophils % (Manual) (42-75) % Band Neutrophils % (0-2) % Lymphocytes % (Manual) (20-50) % Monocytes % (Manual) (0-10) % Platelet Estimate (NORMAL) Plt Clumps, EDTA Poikilocytosis (manual Anisocytosis (manual) Ovalocytes pCO2 (35-45) mm/Hg pO2 (80-100) mm/Hg HCO3 (21-28) mmol/L ABG pH (7.35-7.45) ABG Total CO2 (22-28) mmol/L ABG O2 Saturation (95-98) % ABG Base Excess (-2.0-3.0) mmol/L Holden Test ABG Potassium (3.6-5.2) mmol/L VBG pH (7.32-7.43) VBG pCO2 (40-60) mmHg VBG HCO3 mmol/L VBG Total CO2 (22-28) mmol/L VBG O2 Sat (Calc) (40-65) % VBG Base Excess (0.0-2.0) mmol/L A-a O2 Difference mm/Hg Sodium 147 (132-148) mmol/L Chloride 113 H (98-107) mmol/L Glucose (65-105) mg/dL Lactate (0.7-2.1) mmol/L Vent Mode FiO2 % Blood Gas Comments Crit Value Called To Crit Value Called By Crit Value Read Back Blood Gas Notified Time Potassium 4.1 (3.6-5.0) MMOL/L Carbon Dioxide 30 (22-30) mmol/L Anion Gap 8 L (10-20) BUN 100 H* (7-17) mg/dl Creatinine 2.2 H (0.7-1.2) mg/dl Est GFR ( Amer) 27 Est GFR (Non-Af Amer) 22 POC Glucose (mg/dL) 179 H 188 H (65-110) mg/dL Random Glucose 99 (65-105) mg/dL Serum Osmolality (272-300) mosm/kg Calcium 6.2 L (8.4-10.2) mg/dL Phosphorus (2.5-4.5) mg/dl Magnesium (1.6-2.3) MG/DL Total Bilirubin (0.2-1.3) mg/dl AST (14-36) U/L ALT (9-52) U/L Alkaline Phosphatase (38-126) U/L Troponin I 0.1660 H* (0.00-0.120) ng/mL NT-Pro-B Natriuret Pep 5150 H (0-900) pg/ml Total Protein (6.3-8.2) G/DL Albumin (3.5-5.0) g/dL Globulin (2.2-3.9) gm/dL Albumin/Globulin Ratio (1.0-2.1) TSH 3rd Generation 0.19 L (0.46-4.68) mIU/ML Arterial Blood Potassium (3.6-5.2) mmol/L Urine Color (YELLOW) Urine Clarity (Clear) Urine pH (5.0-8.0) Ur Specific Watson (1.003-1.030) Urine Protein (NEGATIVE) mg/dL Urine Glucose (UA) (Normal) mg/dL Urine Ketones (NEGATIVE) mg/dL Urine Blood (NEGATIVE) Urine Nitrate (NEGATIVE) Urine Bilirubin (NEGATIVE) Urine Urobilinogen (0.2-1.0) mg/dL Ur Leukocyte Esterase (Negative) Terry/uL Urine RBC (Auto) (0-3) /hpf Urine WBC Clumps (Auto) (NONE) /hpf Urine Microscopic WBC (0-5) /hpf Ur Squamous Epith Cells (0-5) /hpf Amorphous Sediment (<OCC) /ul Urine Bacteria (<OCC) Hyaline Casts (0-2) /hpf 12/28/17 12/28/17 12/28/17 Range/Units 02:28 01:29 00:40 WBC (4.8-10.8) K/uL RBC (3.80-5.20) Mil/uL Hgb (12.0-16.0) g/dL Hct (34.0-47.0) % MCV (81.0-99.0) fl MCH (27.0-31.0) pg MCHC (33.0-37.0) g/dL RDW (11.5-14.5) % Plt Count (130-400) K/uL MPV (7.2-11.7) fl Neut % (Auto) (50.0-75.0) % Lymph % (Auto) (20.0-40.0) % Blair % (Auto) (0.0-10.0) % Eos % (Auto) (0.0-4.0) % Baso % (Auto) (0.0-2.0) % Neut # (Auto) (1.8-7.0) K/uL Lymph # (Auto) (1.0-4.3) K/uL Blair # (Auto) (0.0-0.8) K/uL Eos # (Auto) (0.0-0.7) K/uL Baso # (Auto) (0.0-0.2) K/uL Neutrophils % (Manual) (42-75) % Band Neutrophils % (0-2) % Lymphocytes % (Manual) (20-50) % Monocytes % (Manual) (0-10) % Platelet Estimate (NORMAL) Plt Clumps, EDTA Poikilocytosis (manual Anisocytosis (manual) Ovalocytes pCO2 (35-45) mm/Hg pO2 (80-100) mm/Hg HCO3 (21-28) mmol/L ABG pH (7.35-7.45) ABG Total CO2 (22-28) mmol/L ABG O2 Saturation (95-98) % ABG Base Excess (-2.0-3.0) mmol/L Holden Test ABG Potassium (3.6-5.2) mmol/L VBG pH (7.32-7.43) VBG pCO2 (40-60) mmHg VBG HCO3 mmol/L VBG Total CO2 (22-28) mmol/L VBG O2 Sat (Calc) (40-65) % VBG Base Excess (0.0-2.0) mmol/L A-a O2 Difference mm/Hg Sodium (132-148) mmol/L Chloride (98-107) mmol/L Glucose (65-105) mg/dL Lactate (0.7-2.1) mmol/L Vent Mode FiO2 % Blood Gas Comments Crit Value Called To Crit Value Called By Crit Value Read Back Blood Gas Notified Time Potassium (3.6-5.0) MMOL/L Carbon Dioxide (22-30) mmol/L Anion Gap (10-20) BUN (7-17) mg/dl Creatinine (0.7-1.2) mg/dl Est GFR ( Amer) Est GFR (Non-Af Amer) POC Glucose (mg/dL) 203 H 264 H 301 H (65-110) mg/dL Random Glucose (65-105) mg/dL Serum Osmolality (272-300) mosm/kg Calcium (8.4-10.2) mg/dL Phosphorus (2.5-4.5) mg/dl Magnesium (1.6-2.3) MG/DL Total Bilirubin (0.2-1.3) mg/dl AST (14-36) U/L ALT (9-52) U/L Alkaline Phosphatase (38-126) U/L Troponin I (0.00-0.120) ng/mL NT-Pro-B Natriuret Pep (0-900) pg/ml Total Protein (6.3-8.2) G/DL Albumin (3.5-5.0) g/dL Globulin (2.2-3.9) gm/dL Albumin/Globulin Ratio (1.0-2.1) TSH 3rd Generation (0.46-4.68) mIU/ML Arterial Blood Potassium (3.6-5.2) mmol/L Urine Color (YELLOW) Urine Clarity (Clear) Urine pH (5.0-8.0) Ur Specific Watson (1.003-1.030) Urine Protein (NEGATIVE) mg/dL Urine Glucose (UA) (Normal) mg/dL Urine Ketones (NEGATIVE) mg/dL Urine Blood (NEGATIVE) Urine Nitrate (NEGATIVE) Urine Bilirubin (NEGATIVE) Urine Urobilinogen (0.2-1.0) mg/dL Ur Leukocyte Esterase (Negative) Terry/uL Urine RBC (Auto) (0-3) /hpf Urine WBC Clumps (Auto) (NONE) /hpf Urine Microscopic WBC (0-5) /hpf Ur Squamous Epith Cells (0-5) /hpf Amorphous Sediment (<OCC) /ul Urine Bacteria (<OCC) Hyaline Casts (0-2) /hpf 12/27/17 12/27/17 12/27/17 Range/Units 23:55 23:00 23:00 WBC (4.8-10.8) K/uL RBC (3.80-5.20) Mil/uL Hgb (12.0-16.0) g/dL Hct (34.0-47.0) % MCV (81.0-99.0) fl MCH (27.0-31.0) pg MCHC (33.0-37.0) g/dL RDW (11.5-14.5) % Plt Count (130-400) K/uL MPV (7.2-11.7) fl Neut % (Auto) (50.0-75.0) % Lymph % (Auto) (20.0-40.0) % Blair % (Auto) (0.0-10.0) % Eos % (Auto) (0.0-4.0) % Baso % (Auto) (0.0-2.0) % Neut # (Auto) (1.8-7.0) K/uL Lymph # (Auto) (1.0-4.3) K/uL Blair # (Auto) (0.0-0.8) K/uL Eos # (Auto) (0.0-0.7) K/uL Baso # (Auto) (0.0-0.2) K/uL Neutrophils % (Manual) (42-75) % Band Neutrophils % (0-2) % Lymphocytes % (Manual) (20-50) % Monocytes % (Manual) (0-10) % Platelet Estimate (NORMAL) Plt Clumps, EDTA Poikilocytosis (manual Anisocytosis (manual) Ovalocytes pCO2 (35-45) mm/Hg pO2 (80-100) mm/Hg HCO3 (21-28) mmol/L ABG pH (7.35-7.45) ABG Total CO2 (22-28) mmol/L ABG O2 Saturation (95-98) % ABG Base Excess (-2.0-3.0) mmol/L Holden Test ABG Potassium (3.6-5.2) mmol/L VBG pH (7.32-7.43) VBG pCO2 (40-60) mmHg VBG HCO3 mmol/L VBG Total CO2 (22-28) mmol/L VBG O2 Sat (Calc) (40-65) % VBG Base Excess (0.0-2.0) mmol/L A-a O2 Difference mm/Hg Sodium 148 (132-148) mmol/L Chloride 111 H D (98-107) mmol/L Glucose (65-105) mg/dL Lactate (0.7-2.1) mmol/L Vent Mode FiO2 % Blood Gas Comments Crit Value Called To Crit Value Called By Crit Value Read Back Blood Gas Notified Time Potassium 3.1 L (3.6-5.0) MMOL/L Carbon Dioxide 22 (22-30) mmol/L Anion Gap 18 (10-20) BUN 104 H* (7-17) mg/dl Creatinine 2.4 H (0.7-1.2) mg/dl Est GFR ( Amer) 25 Est GFR (Non-Af Amer) 20 POC Glucose (mg/dL) 390 H (65-110) mg/dL Random Glucose 375 H (65-105) mg/dL Serum Osmolality (272-300) mosm/kg Calcium 6.3 L (8.4-10.2) mg/dL Phosphorus 3.8 (2.5-4.5) mg/dl Magnesium 2.1 (1.6-2.3) MG/DL Total Bilirubin 1.8 H (0.2-1.3) mg/dl AST 313 H (14-36) U/L ALT 162 H (9-52) U/L Alkaline Phosphatase 223 H D (38-126) U/L Troponin I (0.00-0.120) ng/mL NT-Pro-B Natriuret Pep (0-900) pg/ml Total Protein 5.8 L (6.3-8.2) G/DL Albumin 2.7 L D (3.5-5.0) g/dL Globulin 3.1 (2.2-3.9) gm/dL Albumin/Globulin Ratio 0.8 L (1.0-2.1) TSH 3rd Generation (0.46-4.68) mIU/ML Arterial Blood Potassium (3.6-5.2) mmol/L Urine Color (YELLOW) Urine Clarity (Clear) Urine pH (5.0-8.0) Ur Specific Watson (1.003-1.030) Urine Protein (NEGATIVE) mg/dL Urine Glucose (UA) (Normal) mg/dL Urine Ketones (NEGATIVE) mg/dL Urine Blood (NEGATIVE) Urine Nitrate (NEGATIVE) Urine Bilirubin (NEGATIVE) Urine Urobilinogen (0.2-1.0) mg/dL Ur Leukocyte Esterase (Negative) Terry/uL Urine RBC (Auto) (0-3) /hpf Urine WBC Clumps (Auto) (NONE) /hpf Urine Microscopic WBC (0-5) /hpf Ur Squamous Epith Cells (0-5) /hpf Amorphous Sediment (<OCC) /ul Urine Bacteria (<OCC) Hyaline Casts (0-2) /hpf 12/27/17 12/27/17 12/27/17 Range/Units 23:00 20:09 18:52 WBC (4.8-10.8) K/uL RBC (3.80-5.20) Mil/uL Hgb (12.0-16.0) g/dL Hct (34.0-47.0) % MCV (81.0-99.0) fl MCH (27.0-31.0) pg MCHC (33.0-37.0) g/dL RDW (11.5-14.5) % Plt Count (130-400) K/uL MPV (7.2-11.7) fl Neut % (Auto) (50.0-75.0) % Lymph % (Auto) (20.0-40.0) % Blair % (Auto) (0.0-10.0) % Eos % (Auto) (0.0-4.0) % Baso % (Auto) (0.0-2.0) % Neut # (Auto) (1.8-7.0) K/uL Lymph # (Auto) (1.0-4.3) K/uL Blair # (Auto) (0.0-0.8) K/uL Eos # (Auto) (0.0-0.7) K/uL Baso # (Auto) (0.0-0.2) K/uL Neutrophils % (Manual) (42-75) % Band Neutrophils % (0-2) % Lymphocytes % (Manual) (20-50) % Monocytes % (Manual) (0-10) % Platelet Estimate (NORMAL) Plt Clumps, EDTA Poikilocytosis (manual Anisocytosis (manual) Ovalocytes pCO2 (35-45) mm/Hg pO2 47 (80-100) mm/Hg HCO3 (21-28) mmol/L ABG pH (7.35-7.45) ABG Total CO2 (22-28) mmol/L ABG O2 Saturation (95-98) % ABG Base Excess (-2.0-3.0) mmol/L Holden Test ABG Potassium (3.6-5.2) mmol/L VBG pH 7.25 L (7.32-7.43) VBG pCO2 31 L (40-60) mmHg VBG HCO3 14.7 mmol/L VBG Total CO2 14.6 L (22-28) mmol/L VBG O2 Sat (Calc) 80.0 H (40-65) % VBG Base Excess -12.4 L (0.0-2.0) mmol/L A-a O2 Difference mm/Hg Sodium 196.0 H* (132-148) mmol/L Chloride 124.0 H (98-107) mmol/L Glucose 598 H* D (65-105) mg/dL Lactate 4.9 H* (0.7-2.1) mmol/L Vent Mode FiO2 21.0 % Blood Gas Comments Vbg Crit Value Called To Gia marin r.n. Crit Value Called By Dolores Crit Value Read Back Y Blood Gas Notified Time 190 Potassium (3.6-5.0) MMOL/L Carbon Dioxide (22-30) mmol/L Anion Gap (10-20) BUN (7-17) mg/dl Creatinine (0.7-1.2) mg/dl Est GFR ( Amer) Est GFR (Non-Af Amer) POC Glucose (mg/dL) > 500 H* (65-110) mg/dL Random Glucose (65-105) mg/dL Serum Osmolality (272-300) mosm/kg Calcium (8.4-10.2) mg/dL Phosphorus (2.5-4.5) mg/dl Magnesium (1.6-2.3) MG/DL Total Bilirubin (0.2-1.3) mg/dl AST (14-36) U/L ALT (9-52) U/L Alkaline Phosphatase (38-126) U/L Troponin I (0.00-0.120) ng/mL NT-Pro-B Natriuret Pep (0-900) pg/ml Total Protein (6.3-8.2) G/DL Albumin (3.5-5.0) g/dL Globulin (2.2-3.9) gm/dL Albumin/Globulin Ratio (1.0-2.1) TSH 3rd Generation (0.46-4.68) mIU/ML Arterial Blood Potassium (3.6-5.2) mmol/L Urine Color Michelle (YELLOW) Urine Clarity Cloudy (Clear) Urine pH 5.0 (5.0-8.0) Ur Specific Watson 1.018 (1.003-1.030) Urine Protein 100 (NEGATIVE) mg/dL Urine Glucose (UA) >=500 (Normal) mg/dL Urine Ketones 20 (NEGATIVE) mg/dL Urine Blood Large (NEGATIVE) Urine Nitrate Negative (NEGATIVE) Urine Bilirubin Small (NEGATIVE) Urine Urobilinogen 4.0 H (0.2-1.0) mg/dL Ur Leukocyte Esterase Large (Negative) Terry/uL Urine RBC (Auto) 67 H (0-3) /hpf Urine WBC Clumps (Auto) Few H (NONE) /hpf Urine Microscopic WBC 269 H (0-5) /hpf Ur Squamous Epith Cells 1 (0-5) /hpf Amorphous Sediment Rare H (<OCC) /ul Urine Bacteria Few H (<OCC) Hyaline Casts 3-5 H (0-2) /hpf 12/27/17 12/27/17 12/27/17 Range/Units 18:30 18:25 17:01 WBC (4.8-10.8) K/uL RBC (3.80-5.20) Mil/uL Hgb (12.0-16.0) g/dL Hct (34.0-47.0) % MCV (81.0-99.0) fl MCH (27.0-31.0) pg MCHC (33.0-37.0) g/dL RDW (11.5-14.5) % Plt Count (130-400) K/uL MPV (7.2-11.7) fl Neut % (Auto) (50.0-75.0) % Lymph % (Auto) (20.0-40.0) % Blair % (Auto) (0.0-10.0) % Eos % (Auto) (0.0-4.0) % Baso % (Auto) (0.0-2.0) % Neut # (Auto) (1.8-7.0) K/uL Lymph # (Auto) (1.0-4.3) K/uL Blair # (Auto) (0.0-0.8) K/uL Eos # (Auto) (0.0-0.7) K/uL Baso # (Auto) (0.0-0.2) K/uL Neutrophils % (Manual) (42-75) % Band Neutrophils % (0-2) % Lymphocytes % (Manual) (20-50) % Monocytes % (Manual) (0-10) % Platelet Estimate (NORMAL) Plt Clumps, EDTA Poikilocytosis (manual Anisocytosis (manual) Ovalocytes pCO2 (35-45) mm/Hg pO2 (80-100) mm/Hg HCO3 (21-28) mmol/L ABG pH (7.35-7.45) ABG Total CO2 (22-28) mmol/L ABG O2 Saturation (95-98) % ABG Base Excess (-2.0-3.0) mmol/L Holden Test ABG Potassium (3.6-5.2) mmol/L VBG pH (7.32-7.43) VBG pCO2 (40-60) mmHg VBG HCO3 mmol/L VBG Total CO2 (22-28) mmol/L VBG O2 Sat (Calc) (40-65) % VBG Base Excess (0.0-2.0) mmol/L A-a O2 Difference mm/Hg Sodium (132-148) mmol/L Chloride (98-107) mmol/L Glucose (65-105) mg/dL Lactate (0.7-2.1) mmol/L Vent Mode FiO2 % Blood Gas Comments Crit Value Called To Crit Value Called By Crit Value Read Back Blood Gas Notified Time Potassium (3.6-5.0) MMOL/L Carbon Dioxide (22-30) mmol/L Anion Gap (10-20) BUN (7-17) mg/dl Creatinine (0.7-1.2) mg/dl Est GFR ( Amer) Est GFR (Non-Af Amer) POC Glucose (mg/dL) > 500 H* > 500 H* (65-110) mg/dL Random Glucose (65-105) mg/dL Serum Osmolality 446 H (272-300) mosm/kg Calcium (8.4-10.2) mg/dL Phosphorus (2.5-4.5) mg/dl Magnesium (1.6-2.3) MG/DL Total Bilirubin (0.2-1.3) mg/dl AST (14-36) U/L ALT (9-52) U/L Alkaline Phosphatase (38-126) U/L Troponin I (0.00-0.120) ng/mL NT-Pro-B Natriuret Pep (0-900) pg/ml Total Protein (6.3-8.2) G/DL Albumin (3.5-5.0) g/dL Globulin (2.2-3.9) gm/dL Albumin/Globulin Ratio (1.0-2.1) TSH 3rd Generation (0.46-4.68) mIU/ML Arterial Blood Potassium (3.6-5.2) mmol/L Urine Color (YELLOW) Urine Clarity (Clear) Urine pH (5.0-8.0) Ur Specific Watson (1.003-1.030) Urine Protein (NEGATIVE) mg/dL Urine Glucose (UA) (Normal) mg/dL Urine Ketones (NEGATIVE) mg/dL Urine Blood (NEGATIVE) Urine Nitrate (NEGATIVE) Urine Bilirubin (NEGATIVE) Urine Urobilinogen (0.2-1.0) mg/dL Ur Leukocyte Esterase (Negative) Terry/uL Urine RBC (Auto) (0-3) /hpf Urine WBC Clumps (Auto) (NONE) /hpf Urine Microscopic WBC (0-5) /hpf Ur Squamous Epith Cells (0-5) /hpf Amorphous Sediment (<OCC) /ul Urine Bacteria (<OCC) Hyaline Casts (0-2) /hpf 12/27/17 12/27/17 12/27/17 Range/Units 15:00 14:45 14:45 WBC 14.8 H (4.8-10.8) K/uL RBC 4.90 (3.80-5.20) Mil/uL Hgb 14.1 (12.0-16.0) g/dL Hct 47.1 H (34.0-47.0) % MCV 96.1 (81.0-99.0) fl MCH 28.8 (27.0-31.0) pg MCHC 30.0 L (33.0-37.0) g/dL RDW 17.0 H (11.5-14.5) % Plt Count 184 (130-400) K/uL MPV 11.7 (7.2-11.7) fl Neut % (Auto) 92.5 H (50.0-75.0) % Lymph % (Auto) 2.6 L (20.0-40.0) % Blair % (Auto) 3.7 (0.0-10.0) % Eos % (Auto) 0.0 (0.0-4.0) % Baso % (Auto) 1.2 (0.0-2.0) % Neut # (Auto) 13.7 H (1.8-7.0) K/uL Lymph # (Auto) 0.4 L (1.0-4.3) K/uL Blair # (Auto) 0.5 (0.0-0.8) K/uL Eos # (Auto) 0.0 (0.0-0.7) K/uL Baso # (Auto) 0.2 (0.0-0.2) K/uL Neutrophils % (Manual) 95 H (42-75) % Band Neutrophils % (0-2) % Lymphocytes % (Manual) 2 L (20-50) % Monocytes % (Manual) 3 (0-10) % Platelet Estimate Normal (NORMAL) Plt Clumps, EDTA Present Poikilocytosis (manual Slight Anisocytosis (manual) Slight Ovalocytes Slight pCO2 (35-45) mm/Hg pO2 (80-100) mm/Hg HCO3 (21-28) mmol/L ABG pH (7.35-7.45) ABG Total CO2 (22-28) mmol/L ABG O2 Saturation (95-98) % ABG Base Excess (-2.0-3.0) mmol/L Holden Test ABG Potassium (3.6-5.2) mmol/L VBG pH (7.32-7.43) VBG pCO2 (40-60) mmHg VBG HCO3 mmol/L VBG Total CO2 (22-28) mmol/L VBG O2 Sat (Calc) (40-65) % VBG Base Excess (0.0-2.0) mmol/L A-a O2 Difference mm/Hg Sodium 142 (132-148) mmol/L Chloride 92 L (98-107) mmol/L Glucose (65-105) mg/dL Lactate (0.7-2.1) mmol/L Vent Mode FiO2 % Blood Gas Comments Crit Value Called To Crit Value Called By Crit Value Read Back Blood Gas Notified Time Potassium 5.3 H (3.6-5.0) MMOL/L Carbon Dioxide 11 L* (22-30) mmol/L Anion Gap 44 H (10-20) BUN 112 H* (7-17) mg/dl Creatinine 2.7 H (0.7-1.2) mg/dl Est GFR ( Amer) 21 Est GFR (Non-Af Amer) 18 POC Glucose (mg/dL) (65-110) mg/dL Random Glucose 1028 H* (65-105) mg/dL Serum Osmolality (272-300) mosm/kg Calcium 7.1 L (8.4-10.2) mg/dL Phosphorus (2.5-4.5) mg/dl Magnesium 3.0 H (1.6-2.3) MG/DL Total Bilirubin 2.8 H (0.2-1.3) mg/dl AST 334 H (14-36) U/L ALT 181 H (9-52) U/L Alkaline Phosphatase 281 H (38-126) U/L Troponin I 0.0910 (0.00-0.120) ng/mL NT-Pro-B Natriuret Pep (0-900) pg/ml Total Protein 6.7 (6.3-8.2) G/DL Albumin 3.4 L (3.5-5.0) g/dL Globulin 3.3 (2.2-3.9) gm/dL Albumin/Globulin Ratio 1.0 (1.0-2.1) TSH 3rd Generation (0.46-4.68) mIU/ML Arterial Blood Potassium (3.6-5.2) mmol/L Urine Color (YELLOW) Urine Clarity (Clear) Urine pH (5.0-8.0) Ur Specific Watson (1.003-1.030) Urine Protein (NEGATIVE) mg/dL Urine Glucose (UA) (Normal) mg/dL Urine Ketones (NEGATIVE) mg/dL Urine Blood (NEGATIVE) Urine Nitrate (NEGATIVE) Urine Bilirubin (NEGATIVE) Urine Urobilinogen (0.2-1.0) mg/dL Ur Leukocyte Esterase (Negative) Terry/uL Urine RBC (Auto) (0-3) /hpf Urine WBC Clumps (Auto) (NONE) /hpf Urine Microscopic WBC (0-5) /hpf Ur Squamous Epith Cells (0-5) /hpf Amorphous Sediment (<OCC) /ul Urine Bacteria (<OCC) Hyaline Casts (0-2) /hpf 12/27/17 12/27/17 Range/Units 14:08 14:02 WBC (4.8-10.8) K/uL RBC (3.80-5.20) Mil/uL Hgb (12.0-16.0) g/dL Hct (34.0-47.0) % MCV (81.0-99.0) fl MCH (27.0-31.0) pg MCHC (33.0-37.0) g/dL RDW (11.5-14.5) % Plt Count (130-400) K/uL MPV (7.2-11.7) fl Neut % (Auto) (50.0-75.0) % Lymph % (Auto) (20.0-40.0) % Blair % (Auto) (0.0-10.0) % Eos % (Auto) (0.0-4.0) % Baso % (Auto) (0.0-2.0) % Neut # (Auto) (1.8-7.0) K/uL Lymph # (Auto) (1.0-4.3) K/uL Blair # (Auto) (0.0-0.8) K/uL Eos # (Auto) (0.0-0.7) K/uL Baso # (Auto) (0.0-0.2) K/uL Neutrophils % (Manual) (42-75) % Band Neutrophils % (0-2) % Lymphocytes % (Manual) (20-50) % Monocytes % (Manual) (0-10) % Platelet Estimate (NORMAL) Plt Clumps, EDTA Poikilocytosis (manual Anisocytosis (manual) Ovalocytes pCO2 30 L (35-45) mm/Hg pO2 41 L* (80-100) mm/Hg HCO3 13.1 L (21-28) mmol/L ABG pH 7.22 L (7.35-7.45) ABG Total CO2 13.2 L (22-28) mmol/L ABG O2 Saturation 74.8 L (95-98) % ABG Base Excess -14.1 L (-2.0-3.0) mmol/L Holden Test Yes ABG Potassium 5.6 H (3.6-5.2) mmol/L VBG pH (7.32-7.43) VBG pCO2 (40-60) mmHg VBG HCO3 mmol/L VBG Total CO2 (22-28) mmol/L VBG O2 Sat (Calc) (40-65) % VBG Base Excess (0.0-2.0) mmol/L A-a O2 Difference 150.0 mm/Hg Sodium 142.0 (132-148) mmol/L Chloride 88.0 L (98-107) mmol/L Glucose > 750 H* (65-105) mg/dL Lactate 7.0 H* (0.7-2.1) mmol/L Vent Mode Nc FiO2 32.0 % Blood Gas Comments Nc 3 lpm Crit Value Called To Dr. tina mitchell Crit Value Called By Dolores Crit Value Read Back Y Blood Gas Notified Time 1431 Potassium (3.6-5.0) MMOL/L Carbon Dioxide (22-30) mmol/L Anion Gap (10-20) BUN (7-17) mg/dl Creatinine (0.7-1.2) mg/dl Est GFR ( Amer) Est GFR (Non-Af Amer) POC Glucose (mg/dL) > 500 H* (65-110) mg/dL Random Glucose (65-105) mg/dL Serum Osmolality (272-300) mosm/kg Calcium (8.4-10.2) mg/dL Phosphorus (2.5-4.5) mg/dl Magnesium (1.6-2.3) MG/DL Total Bilirubin (0.2-1.3) mg/dl AST (14-36) U/L ALT (9-52) U/L Alkaline Phosphatase (38-126) U/L Troponin I (0.00-0.120) ng/mL NT-Pro-B Natriuret Pep (0-900) pg/ml Total Protein (6.3-8.2) G/DL Albumin (3.5-5.0) g/dL Globulin (2.2-3.9) gm/dL Albumin/Globulin Ratio (1.0-2.1) TSH 3rd Generation (0.46-4.68) mIU/ML Arterial Blood Potassium 5.6 H (3.6-5.2) mmol/L Urine Color (YELLOW) Urine Clarity (Clear) Urine pH (5.0-8.0) Ur Specific Watson (1.003-1.030) Urine Protein (NEGATIVE) mg/dL Urine Glucose (UA) (Normal) mg/dL Urine Ketones (NEGATIVE) mg/dL Urine Blood (NEGATIVE) Urine Nitrate (NEGATIVE) Urine Bilirubin (NEGATIVE) Urine Urobilinogen (0.2-1.0) mg/dL Ur Leukocyte Esterase (Negative) Terry/uL Urine RBC (Auto) (0-3) /hpf Urine WBC Clumps (Auto) (NONE) /hpf Urine Microscopic WBC (0-5) /hpf Ur Squamous Epith Cells (0-5) /hpf Amorphous Sediment (<OCC) /ul Urine Bacteria (<OCC) Hyaline Casts (0-2) /hpf Laboratory Results - last 24 hr 12/27/17 12/27/17 12/27/17 14:02 14:08 14:45 WBC 14.8 H RBC 4.90 Hgb 14.1 Hct 47.1 H MCV 96.1 MCH 28.8 MCHC 30.0 L RDW 17.0 H Plt Count 184 MPV 11.7 Neut % (Auto) 92.5 H Lymph % (Auto) 2.6 L Blair % (Auto) 3.7 Eos % (Auto) 0.0 Baso % (Auto) 1.2 Neut # (Auto) 13.7 H Lymph # (Auto) 0.4 L Blair # (Auto) 0.5 Eos # (Auto) 0.0 Baso # (Auto) 0.2 Neutrophils % (Manual) 95 H Band Neutrophils % Lymphocytes % (Manual) 2 L Monocytes % (Manual) 3 Platelet Estimate Normal Plt Clumps, EDTA Present Poikilocytosis (manual Slight Anisocytosis (manual) Slight Ovalocytes Slight pCO2 30 L pO2 41 L* HCO3 13.1 L ABG pH 7.22 L ABG Total CO2 13.2 L ABG O2 Saturation 74.8 L ABG Base Excess -14.1 L Holden Test Yes ABG Potassium 5.6 H VBG pH VBG pCO2 VBG HCO3 VBG Total CO2 VBG O2 Sat (Calc) VBG Base Excess A-a O2 Difference 150.0 Sodium 142.0 Chloride 88.0 L Glucose > 750 H* Lactate 7.0 H* Vent Mode Nc FiO2 32.0 Blood Gas Comments Nc 3 lpm Crit Value Called To Dr. tina mitchell Crit Value Called By Dolores Crit Value Read Back Y Blood Gas Notified Time 1431 Potassium Carbon Dioxide Anion Gap BUN Creatinine Est GFR ( Amer) Est GFR (Non-Af Amer) POC Glucose (mg/dL) > 500 H* Random Glucose Serum Osmolality Calcium Phosphorus Magnesium Total Bilirubin AST ALT Alkaline Phosphatase Troponin I NT-Pro-B Natriuret Pep Total Protein Albumin Globulin Albumin/Globulin Ratio TSH 3rd Generation Arterial Blood Potassium 5.6 H Urine Color Urine Clarity Urine pH Ur Specific Watson Urine Protein Urine Glucose (UA) Urine Ketones Urine Blood Urine Nitrate Urine Bilirubin Urine Urobilinogen Ur Leukocyte Esterase Urine RBC (Auto) Urine WBC Clumps (Auto) Urine Microscopic WBC Ur Squamous Epith Cells Amorphous Sediment Urine Bacteria Hyaline Casts 12/27/17 12/27/17 12/27/17 14:45 15:00 17:01 WBC RBC Hgb Hct MCV MCH MCHC RDW Plt Count MPV Neut % (Auto) Lymph % (Auto) Blair % (Auto) Eos % (Auto) Baso % (Auto) Neut # (Auto) Lymph # (Auto) Blair # (Auto) Eos # (Auto) Baso # (Auto) Neutrophils % (Manual) Band Neutrophils % Lymphocytes % (Manual) Monocytes % (Manual) Platelet Estimate Plt Clumps, EDTA Poikilocytosis (manual Anisocytosis (manual) Ovalocytes pCO2 pO2 HCO3 ABG pH ABG Total CO2 ABG O2 Saturation ABG Base Excess Holden Test ABG Potassium VBG pH VBG pCO2 VBG HCO3 VBG Total CO2 VBG O2 Sat (Calc) VBG Base Excess A-a O2 Difference Sodium 142 Chloride 92 L Glucose Lactate Vent Mode FiO2 Blood Gas Comments Crit Value Called To Crit Value Called By Crit Value Read Back Blood Gas Notified Time Potassium 5.3 H Carbon Dioxide 11 L* Anion Gap 44 H BUN 112 H* Creatinine 2.7 H Est GFR ( Amer) 21 Est GFR (Non-Af Amer) 18 POC Glucose (mg/dL) > 500 H* Random Glucose 1028 H* Serum Osmolality Calcium 7.1 L Phosphorus Magnesium 3.0 H Total Bilirubin 2.8 H AST 334 H ALT 181 H Alkaline Phosphatase 281 H Troponin I 0.0910 NT-Pro-B Natriuret Pep Total Protein 6.7 Albumin 3.4 L Globulin 3.3 Albumin/Globulin Ratio 1.0 TSH 3rd Generation Arterial Blood Potassium Urine Color Urine Clarity Urine pH Ur Specific Watson Urine Protein Urine Glucose (UA) Urine Ketones Urine Blood Urine Nitrate Urine Bilirubin Urine Urobilinogen Ur Leukocyte Esterase Urine RBC (Auto) Urine WBC Clumps (Auto) Urine Microscopic WBC Ur Squamous Epith Cells Amorphous Sediment Urine Bacteria Hyaline Casts 12/27/17 12/27/17 12/27/17 18:25 18:30 18:52 WBC RBC Hgb Hct MCV MCH MCHC RDW Plt Count MPV Neut % (Auto) Lymph % (Auto) Blair % (Auto) Eos % (Auto) Baso % (Auto) Neut # (Auto) Lymph # (Auto) Blair # (Auto) Eos # (Auto) Baso # (Auto) Neutrophils % (Manual) Band Neutrophils % Lymphocytes % (Manual) Monocytes % (Manual) Platelet Estimate Plt Clumps, EDTA Poikilocytosis (manual Anisocytosis (manual) Ovalocytes pCO2 pO2 47 HCO3 ABG pH ABG Total CO2 ABG O2 Saturation ABG Base Excess Holden Test ABG Potassium VBG pH 7.25 L VBG pCO2 31 L VBG HCO3 14.7 VBG Total CO2 14.6 L VBG O2 Sat (Calc) 80.0 H VBG Base Excess -12.4 L A-a O2 Difference Sodium 196.0 H* Chloride 124.0 H Glucose 598 H* D Lactate 4.9 H* Vent Mode FiO2 21.0 Blood Gas Comments Vbg Crit Value Called To Gai marin r.n. Crit Value Called By Dolores Caballero Value Read Back Y Blood Gas Notified Time 1903 Potassium Carbon Dioxide Anion Gap BUN Creatinine Est GFR ( Amer) Est GFR (Non-Af Amer) POC Glucose (mg/dL) > 500 H* Random Glucose Serum Osmolality 446 H Calcium Phosphorus Magnesium Total Bilirubin AST ALT Alkaline Phosphatase Troponin I NT-Pro-B Natriuret Pep Total Protein Albumin Globulin Albumin/Globulin Ratio TSH 3rd Generation Arterial Blood Potassium Urine Color Urine Clarity Urine pH Ur Specific Watson Urine Protein Urine Glucose (UA) Urine Ketones Urine Blood Urine Nitrate Urine Bilirubin Urine Urobilinogen Ur Leukocyte Esterase Urine RBC (Auto) Urine WBC Clumps (Auto) Urine Microscopic WBC Ur Squamous Epith Cells Amorphous Sediment Urine Bacteria Hyaline Casts 12/27/17 12/27/17 12/27/17 20:09 23:00 23:00 WBC RBC Hgb Hct MCV MCH MCHC RDW Plt Count MPV Neut % (Auto) Lymph % (Auto) Blair % (Auto) Eos % (Auto) Baso % (Auto) Neut # (Auto) Lymph # (Auto) Blair # (Auto) Eos # (Auto) Baso # (Auto) Neutrophils % (Manual) Band Neutrophils % Lymphocytes % (Manual) Monocytes % (Manual) Platelet Estimate Plt Clumps, EDTA Poikilocytosis (manual Anisocytosis (manual) Ovalocytes pCO2 pO2 HCO3 ABG pH ABG Total CO2 ABG O2 Saturation ABG Base Excess Holden Test ABG Potassium VBG pH VBG pCO2 VBG HCO3 VBG Total CO2 VBG O2 Sat (Calc) VBG Base Excess A-a O2 Difference Sodium 148 Chloride 111 H D Glucose Lactate Vent Mode FiO2 Blood Gas Comments Crit Value Called To Crit Value Called By Crit Value Read Back Blood Gas Notified Time Potassium 3.1 L Carbon Dioxide 22 Anion Gap 18 BUN 104 H* Creatinine 2.4 H Est GFR ( Amer) 25 Est GFR (Non-Af Amer) 20 POC Glucose (mg/dL) > 500 H* Random Glucose 375 H Serum Osmolality Calcium 6.3 L Phosphorus Magnesium Total Bilirubin 1.8 H AST 313 H ALT 162 H Alkaline Phosphatase 223 H D Troponin I NT-Pro-B Natriuret Pep Total Protein 5.8 L Albumin 2.7 L D Globulin 3.1 Albumin/Globulin Ratio 0.8 L TSH 3rd Generation Arterial Blood Potassium Urine Color Michelle Urine Clarity Cloudy Urine pH 5.0 Ur Specific Watson 1.018 Urine Protein 100 Urine Glucose (UA) >=500 Urine Ketones 20 Urine Blood Large Urine Nitrate Negative Urine Bilirubin Small Urine Urobilinogen 4.0 H Ur Leukocyte Esterase Large Urine RBC (Auto) 67 H Urine WBC Clumps (Auto) Few H Urine Microscopic WBC 269 H Ur Squamous Epith Cells 1 Amorphous Sediment Rare H Urine Bacteria Few H Hyaline Casts 3-5 H 1012/27/17 12/28/17 23:00 23:55 00:40 WBC RBC Hgb Hct MCV MCH MCHC RDW Plt Count MPV Neut % (Auto) Lymph % (Auto) Blair % (Auto) Eos % (Auto) Baso % (Auto) Neut # (Auto) Lymph # (Auto) Blair # (Auto) Eos # (Auto) Baso # (Auto) Neutrophils % (Manual) Band Neutrophils % Lymphocytes % (Manual) Monocytes % (Manual) Platelet Estimate Plt Clumps, EDTA Poikilocytosis (manual Anisocytosis (manual) Ovalocytes pCO2 pO2 HCO3 ABG pH ABG Total CO2 ABG O2 Saturation ABG Base Excess Holden Test ABG Potassium VBG pH VBG pCO2 VBG HCO3 VBG Total CO2 VBG O2 Sat (Calc) VBG Base Excess A-a O2 Difference Sodium Chloride Glucose Lactate Vent Mode FiO2 Blood Gas Comments Crit Value Called To Crit Value Called By Crit Value Read Back Blood Gas Notified Time Potassium Carbon Dioxide Anion Gap BUN Creatinine Est GFR ( Amer) Est GFR (Non-Af Amer) POC Glucose (mg/dL) 390 H 301 H Random Glucose Serum Osmolality Calcium Phosphorus 3.8 Magnesium 2.1 Total Bilirubin AST ALT Alkaline Phosphatase Troponin I NT-Pro-B Natriuret Pep Total Protein Albumin Globulin Albumin/Globulin Ratio TSH 3rd Generation Arterial Blood Potassium Urine Color Urine Clarity Urine pH Ur Specific Watson Urine Protein Urine Glucose (UA) Urine Ketones Urine Blood Urine Nitrate Urine Bilirubin Urine Urobilinogen Ur Leukocyte Esterase Urine RBC (Auto) Urine WBC Clumps (Auto) Urine Microscopic WBC Ur Squamous Epith Cells Amorphous Sediment Urine Bacteria Hyaline Casts 12/28/17 12/28/17 12/28/17 01:29 02:28 03:42 WBC RBC Hgb Hct MCV MCH MCHC RDW Plt Count MPV Neut % (Auto) Lymph % (Auto) Blair % (Auto) Eos % (Auto) Baso % (Auto) Neut # (Auto) Lymph # (Auto) Blair # (Auto) Eos # (Auto) Baso # (Auto) Neutrophils % (Manual) Band Neutrophils % Lymphocytes % (Manual) Monocytes % (Manual) Platelet Estimate Plt Clumps, EDTA Poikilocytosis (manual Anisocytosis (manual) Ovalocytes pCO2 pO2 HCO3 ABG pH ABG Total CO2 ABG O2 Saturation ABG Base Excess Holden Test ABG Potassium VBG pH VBG pCO2 VBG HCO3 VBG Total CO2 VBG O2 Sat (Calc) VBG Base Excess A-a O2 Difference Sodium Chloride Glucose Lactate Vent Mode FiO2 Blood Gas Comments Crit Value Called To Crit Value Called By Crit Value Read Back Blood Gas Notified Time Potassium Carbon Dioxide Anion Gap BUN Creatinine Est GFR ( Amer) Est GFR (Non-Af Amer) POC Glucose (mg/dL) 264 H 203 H 188 H Random Glucose Serum Osmolality Calcium Phosphorus Magnesium Total Bilirubin AST ALT Alkaline Phosphatase Troponin I NT-Pro-B Natriuret Pep Total Protein Albumin Globulin Albumin/Globulin Ratio TSH 3rd Generation Arterial Blood Potassium Urine Color Urine Clarity Urine pH Ur Specific Watson Urine Protein Urine Glucose (UA) Urine Ketones Urine Blood Urine Nitrate Urine Bilirubin Urine Urobilinogen Ur Leukocyte Esterase Urine RBC (Auto) Urine WBC Clumps (Auto) Urine Microscopic WBC Ur Squamous Epith Cells Amorphous Sediment Urine Bacteria Hyaline Casts 12/28/17 12/28/17 12/28/17 04:41 05:00 05:27 WBC RBC Hgb Hct MCV MCH MCHC RDW Plt Count MPV Neut % (Auto) Lymph % (Auto) Blair % (Auto) Eos % (Auto) Baso % (Auto) Neut # (Auto) Lymph # (Auto) Blair # (Auto) Eos # (Auto) Baso # (Auto) Neutrophils % (Manual) Band Neutrophils % Lymphocytes % (Manual) Monocytes % (Manual) Platelet Estimate Plt Clumps, EDTA Poikilocytosis (manual Anisocytosis (manual) Ovalocytes pCO2 pO2 HCO3 ABG pH ABG Total CO2 ABG O2 Saturation ABG Base Excess Holden Test ABG Potassium VBG pH VBG pCO2 VBG HCO3 VBG Total CO2 VBG O2 Sat (Calc) VBG Base Excess A-a O2 Difference Sodium 147 Chloride 113 H Glucose Lactate Vent Mode FiO2 Blood Gas Comments Crit Value Called To Crit Value Called By Crit Value Read Back Blood Gas Notified Time Potassium 4.1 Carbon Dioxide 30 Anion Gap 8 L BUN 100 H* Creatinine 2.2 H Est GFR ( Amer) 27 Est GFR (Non-Af Amer) 22 POC Glucose (mg/dL) 179 H 123 H Random Glucose 99 Serum Osmolality Calcium 6.2 L Phosphorus Magnesium Total Bilirubin AST ALT Alkaline Phosphatase Troponin I 0.1660 H* NT-Pro-B Natriuret Pep 5150 H Total Protein Albumin Globulin Albumin/Globulin Ratio TSH 3rd Generation 0.19 L Arterial Blood Potassium Urine Color Urine Clarity Urine pH Ur Specific Watson Urine Protein Urine Glucose (UA) Urine Ketones Urine Blood Urine Nitrate Urine Bilirubin Urine Urobilinogen Ur Leukocyte Esterase Urine RBC (Auto) Urine WBC Clumps (Auto) Urine Microscopic WBC Ur Squamous Epith Cells Amorphous Sediment Urine Bacteria Hyaline Casts 12/28/17 12/28/17 05:30 07:06 WBC 13.9 H RBC 4.22 Hgb 12.2 Hct 36.4 MCV 86.3 D MCH 28.9 MCHC 33.5 RDW 16.1 H Plt Count 116 L D MPV 10.3 Neut % (Auto) 90.3 H Lymph % (Auto) 5.9 L Blair % (Auto) 3.6 Eos % (Auto) 0.0 Baso % (Auto) 0.2 Neut # (Auto) 12.5 H Lymph # (Auto) 0.8 L Blair # (Auto) 0.5 Eos # (Auto) 0.0 Baso # (Auto) 0.0 Neutrophils % (Manual) 92 H Band Neutrophils % 2 Lymphocytes % (Manual) 4 L Monocytes % (Manual) 2 Platelet Estimate Decreased L Plt Clumps, EDTA Poikilocytosis (manual Anisocytosis (manual) Ovalocytes pCO2 pO2 HCO3 ABG pH ABG Total CO2 ABG O2 Saturation ABG Base Excess Holden Test ABG Potassium VBG pH VBG pCO2 VBG HCO3 VBG Total CO2 VBG O2 Sat (Calc) VBG Base Excess A-a O2 Difference Sodium Chloride Glucose Lactate Vent Mode FiO2 Blood Gas Comments Crit Value Called To Crit Value Called By Crit Value Read Back Blood Gas Notified Time Potassium Carbon Dioxide Anion Gap BUN Creatinine Est GFR ( Amer) Est GFR (Non-Af Amer) POC Glucose (mg/dL) 92 Random Glucose Serum Osmolality Calcium Phosphorus Magnesium Total Bilirubin AST ALT Alkaline Phosphatase Troponin I NT-Pro-B Natriuret Pep Total Protein Albumin Globulin Albumin/Globulin Ratio TSH 3rd Generation Arterial Blood Potassium Urine Color Urine Clarity Urine pH Ur Specific Watson Urine Protein Urine Glucose (UA) Urine Ketones Urine Blood Urine Nitrate Urine Bilirubin Urine Urobilinogen Ur Leukocyte Esterase Urine RBC (Auto) Urine WBC Clumps (Auto) Urine Microscopic WBC Ur Squamous Epith Cells Amorphous Sediment Urine Bacteria Hyaline Casts EKG/Cardiology Studies: Cardiology / EKG Studies 12/27/17 14:08 ELECTROCARDIOGRAM Stat Comment: Mode Of Transportation: Reason For Exam: Dehydration Fingerstick Blood Sugar Results: 92 Critical Care Progress Note - Nutrition Nutrition: Nutrition Category Date Time Status Heart Healthy Diet [DIET] Diets 12/28/17 Breakfast Active Assessment/Plan - Assessment and Plan (Free Text) Assessment: ASSESSMENT: DKA: non-complaint to diabetic meds: DKA improved with aggressive hydration and insulin drip, now developing mild hypernatremia due to 7 liters of NS infusion. AMS: not sure its new or old, will talk to family to get history, will consult neuro, if new. Some degree of AMS was expected with DKA but it not improving, again probably due to hyperosmolar effect of very high BS and very severe dehydration. JOVANNA : pre-renal/ATN from dehydration, DKA, r/o hydro, A flutter: New onset , due to electrolytes shift, imbalance. also has slightly high TNI, due t JOVANNA HTN: h/o HTN, BP is slightly low now UTI: UA this morning suggesting UTI with high count of WBCs in urine, PLAN: Change IVF to 1/2 NS at 75 cc/h, Endocrinology consult Cardiology consult Urologist to see the pt today Urine culture and sensitivity , will start ceftriaxone, empirically Will consider neuro consult if AMS found to a be a new finding CT abdomen.
[2017-12-28] MEDS ORDERED: Sodium Chloride 0.45% 1,000 ML IV SCH (08:30)
[2017-12-28 08:31] LABS: CALCIUM 6.5 mg/dL (8.4-10.2)
--- NOTE | 2017-12-28 10:36 | CP.PCM.CON ---
History of Present Illness - History of Present Illness History of Present Illness: 67 u/o female was brought to ER with confusion , being non-verbal . As per family she has been confused and lethargic for 2 days today found on her bed with urine and fecal incontinent. She was brought to ER, was hypotensive and confused , barely verbal. BS was > 1000 and blood work showed she was in sever e DKA. No fever, SOB or cough. She has h/o DM but was not taking any meds for sometimes. Pt is awake this AM but ? confused .. cannot answer questions Caradiology consul called for Atrial Flutter w/ RVR and elevated Troponin EKG: Atrial Flutter @ 114BPM Troponin: 0.1660 Creatinine: 2.2 BNP: 104 PMH: DM DKA ATN HTN UTI Dehydration Review of Systems - Review of Systems Systems not reviewed;Unavailable: Altered Mental Status - Constitutional Constitutional: Fatigue, Malaise, Weakness Past Patient History - Past Medical History & Family History Past Medical History?: Yes - Past Social History Smoking Status: Never Smoked - CARDIAC Hx Hypertension: Yes - PULMONARY Hx Respiratory Disorders: No - NEUROLOGICAL Hx Neurological Disorder: No - HEENT Hx HEENT Problems: No - RENAL Hx Chronic Kidney Disease: No - ENDOCRINE/METABOLIC Hx Endocrine Disorders: No Hx Diabetes Mellitus Type 2: Yes - HEMATOLOGICAL/ONCOLOGICAL Hx Blood Disorders: No - INTEGUMENTARY Hx Dermatological Problems: No - MUSCULOSKELETAL/RHEUMATOLOGICAL Hx Musculoskeletal Disorders: Yes - GASTROINTESTINAL Hx Gastrointestinal Disorders: No - GENITOURINARY/GYNECOLOGICAL Hx Genitourinary Disorders: No - PSYCHIATRIC Hx Psychophysiologic Disorder: No - SURGICAL HISTORY Hx Surgeries: No - ANESTHESIA Hx Anesthesia: No Meds Allergies/Adverse Reactions: Allergies Allergy/AdvReac Type Severity Reaction Status Date / Time No Known Allergies Allergy Verified 12/17/15 03:08 - Medications Medications: Current Medications Dextrose (Dextrose 50% Inj) 0 ml IV STAT PRN; Protocol PRN Reason: Hypoglycemia Protocol Dextrose (Glutose 15) 0 gm PO ONCE PRN; Protocol PRN Reason: Hypoglycemia Protocol Dextrose (Dextrose 50% Inj) 0 ml IV STAT PRN; Protocol PRN Reason: Hypoglycemia Protocol Dextrose (Glutose 15) 0 gm PO ONCE PRN; Protocol PRN Reason: Hypoglycemia Protocol Digoxin (Lanoxin) 0.25 mg IVP DAILY PORFIRIO Glucagon (Glucagen Diagnostic Kit) 0 mg IM STAT PRN; Protocol PRN Reason: Hypoglycemia Protocol Glucagon (Glucagen Diagnostic Kit) 0 mg IM STAT PRN; Protocol PRN Reason: Hypoglycemia Protocol Heparin Sodium (Porcine) (Heparin) 5,000 units SC Q8 PORFRIIO; Protocol Last Admin: 12/28/17 10:00 Dose: 5,000 units Dextrose/Sodium Chloride (Dextrose 5%/0.45% Ns 1000 Ml) 1,000 mls @ 125 mls/hr IV .Q8H PORFIRIO Stop: 12/29/17 06:37 Last Admin: 12/28/17 07:07 Dose: 125 mls/hr Sodium Chloride (Sodium Chloride 0.45%) 1,000 mls @ 75 mls/hr IV .[id number] PORFIRIO Stop: 12/29/17 08:24 Last Admin: 12/28/17 10:02 Dose: 75 mls/hr Insulin Human Lispro (Humalog) 0 units SC ACHS PORFIRIO; Protocol Last Admin: 12/28/17 07:41 Dose: Not Given Physical Exam - Constitutional Appears: Toxic, Unkempt, Older Than Stated Age, Confused - Head Exam Head Exam: ATRAUMATIC - Respiratory Exam Respiratory Exam: Rales, Rhonchi - Cardiovascular Exam Cardiovascular Exam: Irregular Rhythm Results - Vital Signs Recent Vital Signs: Last Vital Signs Temp 96.6 F L 12/28/17 08:00 Pulse 121 H 12/28/17 08:00 Resp 23 12/28/17 08:00 BP 98/41 L 12/28/17 08:00 Pulse Ox 98 12/28/17 08:00 - Labs Result Diagrams: 12/28/17 05:30 12/28/17 07:50 Labs: Laboratory Results - last 24 hr 12/27/17 12/27/17 12/27/17 14:02 14:08 14:45 WBC 14.8 H RBC 4.90 Hgb 14.1 Hct 47.1 H MCV 96.1 MCH 28.8 MCHC 30.0 L RDW 17.0 H Plt Count 184 MPV 11.7 Neut % (Auto) 92.5 H Lymph % (Auto) 2.6 L [place] % (Auto) 3.7 Eos % (Auto) 0.0 Baso % (Auto) 1.2 Neut # (Auto) 13.7 H Lymph # (Auto) 0.4 L [place] # (Auto) 0.5 Eos # (Auto) 0.0 Baso # (Auto) 0.2 Neutrophils % (Manual) 95 H Band Neutrophils % Lymphocytes % (Manual) 2 L Monocytes % (Manual) 3 Platelet Estimate Normal Plt Clumps, EDTA Present Poikilocytosis (manual Slight Anisocytosis (manual) Slight Ovalocytes Slight pCO2 30 L pO2 41 L* HCO3 13.1 L ABG pH 7.22 L ABG Total CO2 13.2 L ABG O2 Saturation 74.8 L ABG Base Excess -14.1 L [place] Test Yes ABG Potassium 5.6 H VBG pH VBG pCO2 VBG HCO3 VBG Total CO2 VBG O2 Sat (Calc) VBG Base Excess A-a O2 Difference 150.0 Sodium 142.0 Chloride 88.0 L Glucose > 750 H* Lactate 7.0 H* Vent Mode Nc FiO2 32.0 Blood Gas Comments Nc 3 lpm Crit Value Called To Dr. tina mitchell Crit Value Called By Dolores Crit Value Read Back Y Blood Gas Notified Time 1431 Potassium Carbon Dioxide Anion Gap BUN Creatinine Est GFR ( Amer) Est GFR (Non-Af Amer) POC Glucose (mg/dL) > 500 H* Random Glucose Serum Osmolality Calcium Phosphorus Magnesium Total Bilirubin AST ALT Alkaline Phosphatase Troponin I NT-Pro-B Natriuret Pep Total Protein Albumin Globulin Albumin/Globulin Ratio TSH 3rd Generation Arterial Blood Potassium 5.6 H Urine Color Urine Clarity Urine pH Ur Specific [place] Urine Protein Urine Glucose (UA) Urine Ketones Urine Blood Urine Nitrate Urine Bilirubin Urine Urobilinogen Ur Leukocyte Esterase Urine RBC (Auto) Urine WBC Clumps (Auto) Urine Microscopic WBC Ur Squamous Epith Cells Amorphous Sediment Urine Bacteria Hyaline Casts 12/27/17 12/27/17 12/27/17 14:45 15:00 17:01 WBC RBC Hgb Hct MCV MCH MCHC RDW Plt Count MPV Neut % (Auto) Lymph % (Auto) [place] % (Auto) Eos % (Auto) Baso % (Auto) Neut # (Auto) Lymph # (Auto) [place] # (Auto) Eos # (Auto) Baso # (Auto) Neutrophils % (Manual) Band Neutrophils % Lymphocytes % (Manual) Monocytes % (Manual) Platelet Estimate Plt Clumps, EDTA Poikilocytosis (manual Anisocytosis (manual) Ovalocytes pCO2 pO2 HCO3 ABG pH ABG Total CO2 ABG O2 Saturation ABG Base Excess [place] Test ABG Potassium VBG pH VBG pCO2 VBG HCO3 VBG Total CO2 VBG O2 Sat (Calc) VBG Base Excess A-a O2 Difference Sodium 142 Chloride 92 L Glucose Lactate Vent Mode FiO2 Blood Gas Comments Crit Value Called To Crit Value Called By Crit Value Read Back Blood Gas Notified Time Potassium 5.3 H Carbon Dioxide 11 L* Anion Gap 44 H BUN 112 H* Creatinine 2.7 H Est GFR ( Amer) 21 Est GFR (Non-Af Amer) 18 POC Glucose (mg/dL) > 500 H* Random Glucose 1028 H* Serum Osmolality Calcium 7.1 L Phosphorus Magnesium 3.0 H Total Bilirubin 2.8 H AST 334 H ALT 181 H Alkaline Phosphatase 281 H Troponin I 0.0910 NT-Pro-B Natriuret Pep Total Protein 6.7 Albumin 3.4 L Globulin 3.3 Albumin/Globulin Ratio 1.0 TSH 3rd Generation Arterial Blood Potassium Urine Color Urine Clarity Urine pH Ur Specific [place] Urine Protein Urine Glucose (UA) Urine Ketones Urine Blood Urine Nitrate Urine Bilirubin Urine Urobilinogen Ur Leukocyte Esterase Urine RBC (Auto) Urine WBC Clumps (Auto) Urine Microscopic WBC Ur Squamous Epith Cells Amorphous Sediment Urine Bacteria Hyaline Casts 12/27/17 12/27/17 12/27/17 18:25 18:30 18:52 WBC RBC Hgb Hct MCV MCH MCHC RDW Plt Count MPV Neut % (Auto) Lymph % (Auto) [place] % (Auto) Eos % (Auto) Baso % (Auto) Neut # (Auto) Lymph # (Auto) [place] # (Auto) Eos # (Auto) Baso # (Auto) Neutrophils % (Manual) Band Neutrophils % Lymphocytes % (Manual) Monocytes % (Manual) Platelet Estimate Plt Clumps, EDTA Poikilocytosis (manual Anisocytosis (manual) Ovalocytes pCO2 pO2 47 HCO3 ABG pH ABG Total CO2 ABG O2 Saturation ABG Base Excess [place] Test ABG Potassium VBG pH 7.25 L VBG pCO2 31 L VBG HCO3 14.7 VBG Total CO2 14.6 L VBG O2 Sat (Calc) 80.0 H VBG Base Excess -12.4 L A-a O2 Difference Sodium 196.0 H* Chloride 124.0 H Glucose 598 H* D Lactate 4.9 H* Vent Mode FiO2 21.0 Blood Gas Comments Vbg Crit Value Called To Gia marin r.n. Crit Value Called By Dolores Crit Value Read Back Y Blood Gas Notified Time 1903 Potassium Carbon Dioxide Anion Gap BUN Creatinine Est GFR ( Amer) Est GFR (Non-Af Amer) POC Glucose (mg/dL) > 500 H* Random Glucose Serum Osmolality 446 H Calcium Phosphorus Magnesium Total Bilirubin AST ALT Alkaline Phosphatase Troponin I NT-Pro-B Natriuret Pep Total Protein Albumin Globulin Albumin/Globulin Ratio TSH 3rd Generation Arterial Blood Potassium Urine Color Urine Clarity Urine pH Ur Specific [place] Urine Protein Urine Glucose (UA) Urine Ketones Urine Blood Urine Nitrate Urine Bilirubin Urine Urobilinogen Ur Leukocyte Esterase Urine RBC (Auto) Urine WBC Clumps (Auto) Urine Microscopic WBC Ur Squamous Epith Cells Amorphous Sediment Urine Bacteria Hyaline Casts 12/27/17 12/27/17 12/27/17 20:09 23:00 23:00 WBC RBC Hgb Hct MCV MCH MCHC RDW Plt Count MPV Neut % (Auto) Lymph % (Auto) [place] % (Auto) Eos % (Auto) Baso % (Auto) Neut # (Auto) Lymph # (Auto) [place] # (Auto) Eos # (Auto) Baso # (Auto) Neutrophils % (Manual) Band Neutrophils % Lymphocytes % (Manual) Monocytes % (Manual) Platelet Estimate Plt Clumps, EDTA Poikilocytosis (manual Anisocytosis (manual) Ovalocytes pCO2 pO2 HCO3 ABG pH ABG Total CO2 ABG O2 Saturation ABG Base Excess [place] Test ABG Potassium VBG pH VBG pCO2 VBG HCO3 VBG Total CO2 VBG O2 Sat (Calc) VBG Base Excess A-a O2 Difference Sodium 148 Chloride 111 H D Glucose Lactate Vent Mode FiO2 Blood Gas Comments Crit Value Called To Crit Value Called By Crit Value Read Back Blood Gas Notified Time Potassium 3.1 L Carbon Dioxide 22 Anion Gap 18 BUN 104 H* Creatinine 2.4 H Est GFR ( Amer) 25 Est GFR (Non-Af Amer) 20 POC Glucose (mg/dL) > 500 H* Random Glucose 375 H Serum Osmolality Calcium 6.3 L Phosphorus Magnesium Total Bilirubin 1.8 H AST 313 H ALT 162 H Alkaline Phosphatase 223 H D Troponin I NT-Pro-B Natriuret Pep Total Protein 5.8 L Albumin 2.7 L D Globulin 3.1 Albumin/Globulin Ratio 0.8 L TSH 3rd Generation Arterial Blood Potassium Urine Color Michelle Urine Clarity Cloudy Urine pH 5.0 Ur Specific [place] 1.018 Urine Protein 100 Urine Glucose (UA) >=500 Urine Ketones 20 Urine Blood Large Urine Nitrate Negative Urine Bilirubin Small Urine Urobilinogen 4.0 H Ur Leukocyte Esterase Large Urine RBC (Auto) 67 H Urine WBC Clumps (Auto) Few H Urine Microscopic WBC 269 H Ur Squamous Epith Cells 1 Amorphous Sediment Rare H Urine Bacteria Few H Hyaline Casts 3-5 H 12/27/17 12/27/17 12/28/17 23:00 23:55 00:40 WBC RBC Hgb Hct MCV MCH MCHC RDW Plt Count MPV Neut % (Auto) Lymph % (Auto) [place] % (Auto) Eos % (Auto) Baso % (Auto) Neut # (Auto) Lymph # (Auto) [place] # (Auto) Eos # (Auto) Baso # (Auto) Neutrophils % (Manual) Band Neutrophils % Lymphocytes % (Manual) Monocytes % (Manual) Platelet Estimate Plt Clumps, EDTA Poikilocytosis (manual Anisocytosis (manual) Ovalocytes pCO2 pO2 HCO3 ABG pH ABG Total CO2 ABG O2 Saturation ABG Base Excess [place] Test ABG Potassium VBG pH VBG pCO2 VBG HCO3 VBG Total CO2 VBG O2 Sat (Calc) VBG Base Excess A-a O2 Difference Sodium Chloride Glucose Lactate Vent Mode FiO2 Blood Gas Comments Crit Value Called To Crit Value Called By Crit Value Read Back Blood Gas Notified Time Potassium Carbon Dioxide Anion Gap BUN Creatinine Est GFR ( Amer) Est GFR (Non-Af Amer) POC Glucose (mg/dL) 390 H 301 H Random Glucose Serum Osmolality Calcium Phosphorus 3.8 Magnesium 2.1 Total Bilirubin AST ALT Alkaline Phosphatase Troponin I NT-Pro-B Natriuret Pep Total Protein Albumin Globulin Albumin/Globulin Ratio TSH 3rd Generation Arterial Blood Potassium Urine Color Urine Clarity Urine pH Ur Specific [place] Urine Protein Urine Glucose (UA) Urine Ketones Urine Blood Urine Nitrate Urine Bilirubin Urine Urobilinogen Ur Leukocyte Esterase Urine RBC (Auto) Urine WBC Clumps (Auto) Urine Microscopic WBC Ur Squamous Epith Cells Amorphous Sediment Urine Bacteria Hyaline Casts 12/28/17 12/28/17 12/28/17 01:29 02:28 03:42 WBC RBC Hgb Hct MCV MCH MCHC RDW Plt Count MPV Neut % (Auto) Lymph % (Auto) [place] % (Auto) Eos % (Auto) Baso % (Auto) Neut # (Auto) Lymph # (Auto) [place] # (Auto) Eos # (Auto) Baso # (Auto) Neutrophils % (Manual) Band Neutrophils % Lymphocytes % (Manual) Monocytes % (Manual) Platelet Estimate Plt Clumps, EDTA Poikilocytosis (manual Anisocytosis (manual) Ovalocytes pCO2 pO2 HCO3 ABG pH ABG Total CO2 ABG O2 Saturation ABG Base Excess [place] Test ABG Potassium VBG pH VBG pCO2 VBG HCO3 VBG Total CO2 VBG O2 Sat (Calc) VBG Base Excess A-a O2 Difference Sodium Chloride Glucose Lactate Vent Mode FiO2 Blood Gas Comments Crit Value Called To Crit Value Called By Crit Value Read Back Blood Gas Notified Time Potassium Carbon Dioxide Anion Gap BUN Creatinine Est GFR ( Amer) Est GFR (Non-Af Amer) POC Glucose (mg/dL) 264 H 203 H 188 H Random Glucose Serum Osmolality Calcium Phosphorus Magnesium Total Bilirubin AST ALT Alkaline Phosphatase Troponin I NT-Pro-B Natriuret Pep Total Protein Albumin Globulin Albumin/Globulin Ratio TSH 3rd Generation Arterial Blood Potassium Urine Color Urine Clarity Urine pH Ur Specific [place] Urine Protein Urine Glucose (UA) Urine Ketones Urine Blood Urine Nitrate Urine Bilirubin Urine Urobilinogen Ur Leukocyte Esterase Urine RBC (Auto) Urine WBC Clumps (Auto) Urine Microscopic WBC Ur Squamous Epith Cells Amorphous Sediment Urine Bacteria Hyaline Casts 12/28/17 12/28/17 12/28/17 04:41 05:00 05:27 WBC RBC Hgb Hct MCV MCH MCHC RDW Plt Count MPV Neut % (Auto) Lymph % (Auto) [place] % (Auto) Eos % (Auto) Baso % (Auto) Neut # (Auto) Lymph # (Auto) [place] # (Auto) Eos # (Auto) Baso # (Auto) Neutrophils % (Manual) Band Neutrophils % Lymphocytes % (Manual) Monocytes % (Manual) Platelet Estimate Plt Clumps, EDTA Poikilocytosis (manual Anisocytosis (manual) Ovalocytes pCO2 pO2 HCO3 ABG pH ABG Total CO2 ABG O2 Saturation ABG Base Excess [place] Test ABG Potassium VBG pH VBG pCO2 VBG HCO3 VBG Total CO2 VBG O2 Sat (Calc) VBG Base Excess A-a O2 Difference Sodium 147 Chloride 113 H Glucose Lactate Vent Mode FiO2 Blood Gas Comments Crit Value Called To Crit Value Called By Crit Value Read Back Blood Gas Notified Time Potassium 4.1 Carbon Dioxide 30 Anion Gap 8 L BUN 100 H* Creatinine 2.2 H Est GFR ( Amer) 27 Est GFR (Non-Af Amer) 22 POC Glucose (mg/dL) 179 H 123 H Random Glucose 99 Serum Osmolality Calcium 6.2 L Phosphorus Magnesium Total Bilirubin AST ALT Alkaline Phosphatase Troponin I 0.1660 H* NT-Pro-B Natriuret Pep 5150 H Total Protein Albumin Globulin Albumin/Globulin Ratio TSH 3rd Generation 0.19 L Arterial Blood Potassium Urine Color Urine Clarity Urine pH Ur Specific [place] Urine Protein Urine Glucose (UA) Urine Ketones Urine Blood Urine Nitrate Urine Bilirubin Urine Urobilinogen Ur Leukocyte Esterase Urine RBC (Auto) Urine WBC Clumps (Auto) Urine Microscopic WBC Ur Squamous Epith Cells Amorphous Sediment Urine Bacteria Hyaline Casts 12/28/17 12/28/17 12/28/17 05:30 07:06 07:50 WBC 13.9 H RBC 4.22 Hgb 12.2 Hct 36.4 MCV 86.3 D MCH 28.9 MCHC 33.5 RDW 16.1 H Plt Count 116 L D MPV 10.3 Neut % (Auto) 90.3 H Lymph % (Auto) 5.9 L [place] % (Auto) 3.6 Eos % (Auto) 0.0 Baso % (Auto) 0.2 Neut # (Auto) 12.5 H Lymph # (Auto) 0.8 L [place] # (Auto) 0.5 Eos # (Auto) 0.0 Baso # (Auto) 0.0 Neutrophils % (Manual) 92 H Band Neutrophils % 2 Lymphocytes % (Manual) 4 L Monocytes % (Manual) 2 Platelet Estimate Decreased L Plt Clumps, EDTA Poikilocytosis (manual Anisocytosis (manual) Ovalocytes pCO2 pO2 HCO3 ABG pH ABG Total CO2 ABG O2 Saturation ABG Base Excess [place] Test ABG Potassium VBG pH VBG pCO2 VBG HCO3 VBG Total CO2 VBG O2 Sat (Calc) VBG Base Excess A-a O2 Difference Sodium 146 Chloride 111 H Glucose Lactate Vent Mode FiO2 Blood Gas Comments Crit Value Called To Crit Value Called By Crit Value Read Back Blood Gas Notified Time Potassium 4.7 Carbon Dioxide 28 Anion Gap 12 BUN 104 H* Creatinine 2.2 H Est GFR ( Amer) 27 Est GFR (Non-Af Amer) 22 POC Glucose (mg/dL) 92 Random Glucose 135 H Serum Osmolality Calcium 6.5 L Phosphorus Magnesium Total Bilirubin AST ALT Alkaline Phosphatase Troponin I NT-Pro-B Natriuret Pep Total Protein Albumin Globulin Albumin/Globulin Ratio TSH 3rd Generation Arterial Blood Potassium Urine Color Urine Clarity Urine pH Ur Specific [place] Urine Protein Urine Glucose (UA) Urine Ketones Urine Blood Urine Nitrate Urine Bilirubin Urine Urobilinogen Ur Leukocyte Esterase Urine RBC (Auto) Urine WBC Clumps (Auto) Urine Microscopic WBC Ur Squamous Epith Cells Amorphous Sediment Urine Bacteria Hyaline Casts Assessment & Plan (1) Atrial flutter with rapid ventricular response Assessment and Plan: Pt's is in Atrial Flutter w/ RVR HR will not come down until metabolic status improves Elevated troponin secondary to Atrial Flutter w/RVR and ATN and dehydration Status: Acute (2) DKA (diabetic ketoacidoses) Status: Acute (3) ATN (acute tubular necrosis) Status: Acute (4) Dehydration Status: Acute (5) Sepsis Status: Acute
[2017-12-28] MEDS: Digoxin 500 mcg/2ml (0.5 mg/2ml) Inj IVP SCH (10:38)
--- NOTE | 2017-12-28 11:05 | CT ---
Date of service: 12/27/2017 PROCEDURE: CT Chest without contrast HISTORY: Mass on CXR COMPARISON: Comparison is made to the previous CT of the abdomen and pelvis with contrast dated 09/24/2012 TECHNIQUE: Contiguous axial images were obtained through the chest without intravenous contrast enhancement. Sagittal and coronal reconstructions were performed. Radiation dose (DLP): 821.22 mGy-cm. This CT exam was performed using one or more of the following dose reduction techniques: Automated exposure control, adjustment of the mA and/or kV according to patient size, and/or use of iterative reconstruction technique. FINDINGS: LUNGS: There is large central left upper lobe mass lesion associated with almost complete collapse of left upper lobe. The mass is extending to the left hilum and associated with complete obstruction of the left upper lobe pulmonary artery. The exact size and border of this mass is not well visualized due lack of IV contrast administration. The mass is likely extending to the right hilum and associated with bulging in the left fissure. Findings highly suspicious for malignant neoplasm in the left lung upper lobe. There are small nodular opacity seen in the left lung lower lobe may represent infectious process or less likely metastasis. There is calcified nodule in the right lung upper lobe measures 4 millimeter image 71 series 3. MEDIASTINUM: The thoracic aorta is ectatic and tortuous. The main pulmonary artery is mildly enlarged . the heart is upper normal limit in size. No evidence of pericardial effusion. Suspicious for right hilar lymphadenopathy extending to the left precarinal region. PLEURA: No pleural fluid. No pneumothorax. BONES: There is sclerotic heterogeneous bony lesion in the T9 vertebral body suspicious for osseous metastasis. UPPER ABDOMEN: The patient had at CT of the abdomen was performed concurrently and reported separately. Multiple metastasis in the liver noted. Large nodule or mass in the right adrenal gland. OTHER FINDINGS: Diffuse mild esophageal mucosal thickening noted. The thyroid gland is heterogeneous mildly enlarged without evidence of discrete mass. There is lobulated soft tissue mass lesion at the right breast measures 2.7 x 2.8 centimeter suspicious for malignant breast neoplasm. The differential consideration includes metastasis. IMPRESSION: Large left upper lobe central mass extending to the left hilum and associated with post obstruction atelectasis of the left upper lobe highly suspicious for left upper lobe bronchial carcinoma. Further assessment by bronchoscopy is recommended. Right hilar lymphadenopathy extending to the left precarinal region. Small nodular opacity at the left lung lower lobe may represent infectious process versus less likely metastasis. Heterogeneous sclerotic bony lesion at T9 vertebral body suspicious for metastasis. Adjacent soft tissue mass in the T9 perivertebral region likely represent metastasis. Liver metastasis. Soft tissue mass lesion at the right breast measures 2.8 centimeter in the largest transverse diameter and 2.7 centimeter in the AP diameter suspicious for malignant neoplasm. Preliminary report with concordance findings was submitted by [facility] Radiology at 828 p.m. on 12/27/2017.
--- NOTE | 2017-12-28 11:21 | CT ---
Date of service: 12/27/2017 PROCEDURE: CT Abdomen and Pelvis without intravenous contrast HISTORY: Abd pain COMPARISON: Comparison is made to the previous CT of the abdomen and pelvis with contrast dated 09/24/[address] of the chest with contrast dated 12/18/2011 TECHNIQUE: Axial and reformatted coronal and sagittal CT images of the abdomen and pelvis were obtained without IV or oral contrast administration. CT of the chest was obtained concurrently and reported separately.. Contrast dose: 0 Radiation dose: Total exam DLP = 821.22 mGy-cm. This CT exam was performed using one or more of the following dose reduction techniques: Automated exposure control, adjustment of the mA and/or kV according to patient size, and/or use of iterative reconstruction technique. FINDINGS: LOWER THORAX: Small nodular opacities noted at the left lung lower lobe may represent infectious process versus less likely metastasis. Soft tissue mass lesion at the right breast measures 3 centimeter suspicious for primary breast neoplasm. LIVER: Multiple heterogeneous slightly low-attenuation mass lesion in the liver likely represent metastasis. GALLBLADDER AND BILE DUCTS: No evidence of acute cholecystitis. The gallbladder is mildly to moderately distended. PANCREAS: Unremarkable. No gross lesion or ductal dilatation. SPLEEN: Unremarkable. ADRENALS: Mild nodular enlargement of the right adrenal gland is again noted. KIDNEYS AND URETERS: Unremarkable. No hydronephrosis. No solid mass. VASCULATURE: There is mild aneurysmal dilatation of the abdominal aorta measures up to 3.8 centimeter which has increased since the previous exam in 2012. Diffuse atherosclerotic calcification is noted. The IVC is normal in caliber. BOWEL: Colonic diverticulosis are noted without evidence of diverticulitis. No obstruction. No gross mural thickening. APPENDIX: No evidence of appendicitis. PERITONEUM: Unremarkable. No free fluid. No free air. LYMPH NODES: Unremarkable. No enlarged lymph nodes. BLADDER: Unremarkable. REPRODUCTIVE: Unremarkable. BONES: There is subacute fracture at the left inferior pubic ramus noted. There is mildly sclerotic heterogeneous bony lesion at the posterior aspect of the left iliac bone. Findings suspicious for metastasis. Again noted is sclerotic bony lesion adjacent to the left sacroiliac joint likely benign. Interval appearance of sclerotic destructive bony lesion at L1 vertebral body since the previous exam. The possibility of metastasis should be considered. T9 sclerotic bony lesion is also noted suspicious for osseous metastasis. There are severe degenerative changes at the mid and lower lumbar spine. OTHER FINDINGS: . IMPRESSION: Multiple soft tissue mass lesions in the liver consistent with liver metastasis. Stable nodular opacities at the right adrenal since the previous study likely benign. Distended gallbladder without evidence of acute cholecystitis. Interval appearance of sclerotic bony lesion at L1 and left posterior iliac bone suspicious for metastasis. Interval worsening of infra renal aortic aneurysm since the previous study measures 3.8 centimeter. Additional findings as described above. Preliminary report with concordance findings [facility] at 8:40 p.m. on 12/27/2017.
--- NOTE | 2017-12-28 12:27 | CT ---
Date of service: 12/28/2017 PROCEDURE: CT HEAD WITHOUT CONTRAST. HISTORY: AMS, acute , COMPARISON: None available. TECHNIQUE: Axial computed tomography images were obtained through the head/brain without intravenous contrast. Radiation dose: Total exam DLP = 818.06 mGy-cm. This CT exam was performed using one or more of the following dose reduction techniques: Automated exposure control, adjustment of the mA and/or kV according to patient size, and/or use of iterative reconstruction technique. FINDINGS: HEMORRHAGE: No intracranial hemorrhage. BRAIN: No mass effect or edema. Mild atrophy and mild white matter changes suggestive but nonspecific for chronic microvascular ischemic disease. VENTRICLES: Unremarkable. No hydrocephalus. CALVARIUM: Unremarkable. PARANASAL SINUSES: Unremarkable as visualized. No significant inflammatory changes. MASTOID AIR CELLS: Unremarkable as visualized. No inflammatory changes. OTHER FINDINGS: None. IMPRESSION: No evidence of acute intracranial hemorrhage mass effect or midline shift. Mild atrophy and mild white matter changes suggestive of chronic microvascular ischemic disease.
[2017-12-28] MEDS: Insulin Lispro (humaLOG) 100 Units/ml Inj SC SCH ×3 (12:46→22:30)
[2017-12-28] MEDS ORDERED: Piperacillin/Tazobact 3.375 GM in Sodium Chloride 0.9% 100 ML IVPB SCH (13:00)
--- NOTE | 2017-12-28 13:05 | CP.PCM.CON ---
History of Present Illness - History of Present Illness History of Present Illness: Infectious Disease Consultation Note- asked to see this patient at the request of for UTi/ bacteremia and sepsis. HPI- History obtained from the patient and her family at he bedside. Pt. is a 67 year old female who was brought in to the ED by her family because of increased weakness and lethargy in past few days and pt. was apparently found incontinent of bowel or urine at home. per family pt. does have h/o asthma but she as found to be in DKA here in hospital and they mention that this is new diagnosis and she did not have h/o diabetes. Patient herself states that she has been weak and more lethargic in past couple of weeks along with nausea and vomiting.She denies any diarrhea. She was found to have high wbc, + UA and prelim blood cx GNR and hence i'm asked to evaluate and help with antibiotic management. per nurse pt. has stage 1-2 sacral decub as well. pt. is also hypotensive with minimal urine output. Review of Systems - Review of Systems Review of Systems: ROS- denies any fever or chills, + cough , denies any sob,d enies any chest pain, + nausea , + weakness, denies any dysurea. as per nurse has BM but was not diarrhea Past Patient History - Past Medical History & Family History Past Medical History?: Yes - Past Social History Smoking Status: Never Smoked Home Situation {Lives}: With Family - CARDIAC Hx Hypertension: Yes - PULMONARY Hx Asthma: Yes - NEUROLOGICAL Hx Neurological Disorder: No - HEENT Hx HEENT Problems: No - RENAL Hx Chronic Kidney Disease: No - ENDOCRINE/METABOLIC Hx Endocrine Disorders: No - HEMATOLOGICAL/ONCOLOGICAL Hx Blood Disorders: No - INTEGUMENTARY Hx Dermatological Problems: No - MUSCULOSKELETAL/RHEUMATOLOGICAL Hx Musculoskeletal Disorders: Yes - GASTROINTESTINAL Hx Gastrointestinal Disorders: No - GENITOURINARY/GYNECOLOGICAL Hx Genitourinary Disorders: No - PSYCHIATRIC Hx Psychophysiologic Disorder: No - SURGICAL HISTORY Hx Surgeries: No - ANESTHESIA Hx Anesthesia: No Meds Allergies/Adverse Reactions: Allergies Allergy/AdvReac Type Severity Reaction Status Date / Time No Known Allergies Allergy Verified 12/17/15 03:08 - Medications Medications: Current Medications Dextrose (Dextrose 50% Inj) 0 ml IV STAT PRN; Protocol PRN Reason: Hypoglycemia Protocol Dextrose (Glutose 15) 0 gm PO ONCE PRN; Protocol PRN Reason: Hypoglycemia Protocol Dextrose (Dextrose 50% Inj) 0 ml IV STAT PRN; Protocol PRN Reason: Hypoglycemia Protocol Dextrose (Glutose 15) 0 gm PO ONCE PRN; Protocol PRN Reason: Hypoglycemia Protocol Digoxin (Lanoxin) 0.25 mg IVP DAILY [facility] Last Admin: 12/28/17 10:38 Dose: 0.25 mg Glucagon (Glucagen Diagnostic Kit) 0 mg IM STAT PRN; Protocol PRN Reason: Hypoglycemia Protocol Glucagon (Glucagen Diagnostic Kit) 0 mg IM STAT PRN; Protocol PRN Reason: Hypoglycemia Protocol Heparin Sodium (Porcine) (Heparin) 5,000 units SC Q8 [facility]; Protocol Last Admin: 12/28/17 10:00 Dose: 5,000 units Dextrose/Sodium Chloride (Dextrose 5%/0.45% Ns 1000 Ml) 1,000 mls @ 125 mls/hr IV .Q8H [facility] Stop: 12/29/17 06:37 Last Admin: 12/28/17 07:07 Dose: 125 mls/hr Sodium Chloride (Sodium Chloride 0.45%) 1,000 mls @ 75 mls/hr IV .[id number] [facility] Stop: 12/29/17 08:24 Last Admin: 12/28/17 10:02 Dose: 75 mls/hr Ceftriaxone Sodium 1 gm/ (Sodium Chloride) 100 mls @ 100 mls/hr IVPB DAILY [facility]; Protocol Last Admin: 12/28/17 12:32 Dose: 100 mls/hr Vasopressin 100 units/ Sodium (Chloride) 105 mls @ 1.89 mls/hr IV .Q24H [facility]; Protocol Piperacillin Sod/Tazobactam (Sod 3.375 gm/ Sodium Chloride) 100 mls @ 100 mls/hr IVPB Q8 [facility]; Protocol Insulin Human Lispro (Humalog) 0 units SC ACHS [facility] Last Admin: 12/28/17 12:46 Dose: 3 units Methimazole (Tapazole) 5 mg PO BID [facility] Physical Exam - Constitutional Appears: Chronically Ill Additional comments: weak - Head Exam Head Exam: ATRAUMATIC - ENT Exam ENT Exam: Normal Oropharynx - Neck Exam Neck exam: Positive for: Full Rom - Respiratory Exam Respiratory Exam: NORMAL BREATHING PATTERN Additional comments: exp wheezing b/l - Cardiovascular Exam Cardiovascular Exam: RRR, +S1, +S2 - GI/Abdominal Exam GI & Abdominal Exam: Normal Bowel Sounds, Soft Additional comments: + mild tenderness with palpation no guarding, no rebound - Extremities Exam Additional comments: no edema b/l LE - Neurological Exam Additional comments: awake oriented x 2 - Skin Additional comments: sacral decub very small opening scant stage 1-2 clear dischartge, no malodor - Additional Findings Additional findings: lines- right femoral TLC ho cath Results - Vital Signs Recent Vital Signs: Last Vital Signs Temp 96.6 F L 12/28/17 08:00 Pulse 121 H 12/28/17 08:00 Resp 23 12/28/17 08:00 BP 98/41 L 12/28/17 08:00 Pulse Ox 98 12/28/17 08:00 - Labs Result Diagrams: 12/28/17 05:30 12/28/17 07:50 Labs: Laboratory Results - last 24 hr 12/27/17 12/27/17 12/27/17 14:02 14:08 14:45 WBC 14.8 H RBC 4.90 Hgb 14.1 Hct 47.1 H MCV 96.1 MCH 28.8 MCHC 30.0 L RDW 17.0 H Plt Count 184 MPV 11.7 Neut % (Auto) 92.5 H Lymph % (Auto) 2.6 L [place] % (Auto) 3.7 Eos % (Auto) 0.0 Baso % (Auto) 1.2 Neut # (Auto) 13.7 H Lymph # (Auto) 0.4 L [place] # (Auto) 0.5 Eos # (Auto) 0.0 Baso # (Auto) 0.2 Neutrophils % (Manual) 95 H Band Neutrophils % Lymphocytes % (Manual) 2 L Monocytes % (Manual) 3 Platelet Estimate Normal Plt Clumps, EDTA Present Poikilocytosis (manual Slight Anisocytosis (manual) Slight Ovalocytes Slight pCO2 30 L pO2 41 L* HCO3 13.1 L ABG pH 7.22 L ABG Total CO2 13.2 L ABG O2 Saturation 74.8 L ABG Base Excess -14.1 L Holden Test Yes ABG Potassium 5.6 H VBG pH VBG pCO2 VBG HCO3 VBG Total CO2 VBG O2 Sat (Calc) VBG Base Excess A-a O2 Difference 150.0 Sodium 142.0 Chloride 88.0 L Glucose > 750 H* Lactate 7.0 H* Vent Mode Nc FiO2 32.0 Blood Gas Comments Nc 3 lpm Crit Value Called To Dr. tina mitchell Crit Value Called By Dolores Crit Value Read Back Y Blood Gas Notified Time 1431 Potassium Carbon Dioxide Anion Gap BUN Creatinine Est GFR ( Amer) Est GFR (Non-Af Amer) POC Glucose (mg/dL) > 500 H* Random Glucose Serum Osmolality Calcium Phosphorus Magnesium Total Bilirubin AST ALT Alkaline Phosphatase Troponin I NT-Pro-B Natriuret Pep Total Protein Albumin Globulin Albumin/Globulin Ratio TSH 3rd Generation Arterial Blood Potassium 5.6 H Urine Color Urine Clarity Urine pH Ur Specific [place] Urine Protein Urine Glucose (UA) Urine Ketones Urine Blood Urine Nitrate Urine Bilirubin Urine Urobilinogen Ur Leukocyte Esterase Urine RBC (Auto) Urine WBC Clumps (Auto) Urine Microscopic WBC Ur Squamous Epith Cells Amorphous Sediment Urine Bacteria Hyaline Casts 12/27/17 12/27/17 12/27/17 14:45 15:00 17:01 WBC RBC Hgb Hct MCV MCH MCHC RDW Plt Count MPV Neut % (Auto) Lymph % (Auto) [place] % (Auto) Eos % (Auto) Baso % (Auto) Neut # (Auto) Lymph # (Auto) [place] # (Auto) Eos # (Auto) Baso # (Auto) Neutrophils % (Manual) Band Neutrophils % Lymphocytes % (Manual) Monocytes % (Manual) Platelet Estimate Plt Clumps, EDTA Poikilocytosis (manual Anisocytosis (manual) Ovalocytes pCO2 pO2 HCO3 ABG pH ABG Total CO2 ABG O2 Saturation ABG Base Excess [place] Test ABG Potassium VBG pH VBG pCO2 VBG HCO3 VBG Total CO2 VBG O2 Sat (Calc) VBG Base Excess A-a O2 Difference Sodium 142 Chloride 92 L Glucose Lactate Vent Mode FiO2 Blood Gas Comments Crit Value Called To Crit Value Called By Crit Value Read Back Blood Gas Notified Time Potassium 5.3 H Carbon Dioxide 11 L* Anion Gap 44 H BUN 112 H* Creatinine 2.7 H Est GFR ( Amer) 21 Est GFR (Non-Af Amer) 18 POC Glucose (mg/dL) > 500 H* Random Glucose 1028 H* Serum Osmolality Calcium 7.1 L Phosphorus Magnesium 3.0 H Total Bilirubin 2.8 H AST 334 H ALT 181 H Alkaline Phosphatase 281 H Troponin I 0.0910 NT-Pro-B Natriuret Pep Total Protein 6.7 Albumin 3.4 L Globulin 3.3 Albumin/Globulin Ratio 1.0 TSH 3rd Generation Arterial Blood Potassium Urine Color Urine Clarity Urine pH Ur Specific [place] Urine Protein Urine Glucose (UA) Urine Ketones Urine Blood Urine Nitrate Urine Bilirubin Urine Urobilinogen Ur Leukocyte Esterase Urine RBC (Auto) Urine WBC Clumps (Auto) Urine Microscopic WBC Ur Squamous Epith Cells Amorphous Sediment Urine Bacteria Hyaline Casts 12/27/17 12/27/17 12/27/17 18:25 18:30 18:52 WBC RBC Hgb Hct MCV MCH MCHC RDW Plt Count MPV Neut % (Auto) Lymph % (Auto) [place] % (Auto) Eos % (Auto) Baso % (Auto) Neut # (Auto) Lymph # (Auto) [place] # (Auto) Eos # (Auto) Baso # (Auto) Neutrophils % (Manual) Band Neutrophils % Lymphocytes % (Manual) Monocytes % (Manual) Platelet Estimate Plt Clumps, EDTA Poikilocytosis (manual Anisocytosis (manual) Ovalocytes pCO2 pO2 47 HCO3 ABG pH ABG Total CO2 ABG O2 Saturation ABG Base Excess [place] Test ABG Potassium VBG pH 7.25 L VBG pCO2 31 L VBG HCO3 14.7 VBG Total CO2 14.6 L VBG O2 Sat (Calc) 80.0 H VBG Base Excess -12.4 L A-a O2 Difference Sodium 196.0 H* Chloride 124.0 H Glucose 598 H* D Lactate 4.9 H* Vent Mode FiO2 21.0 Blood Gas Comments Vbg Crit Value Called To Gia marin r.n. Crit Value Called By Dolores Crijaison Value Read Back Y Blood Gas Notified Time 1903 Potassium Carbon Dioxide Anion Gap BUN Creatinine Est GFR ( Amer) Est GFR (Non-Af Amer) POC Glucose (mg/dL) > 500 H* Random Glucose Serum Osmolality 446 H Calcium Phosphorus Magnesium Total Bilirubin AST ALT Alkaline Phosphatase Troponin I NT-Pro-B Natriuret Pep Total Protein Albumin Globulin Albumin/Globulin Ratio TSH 3rd Generation Arterial Blood Potassium Urine Color Urine Clarity Urine pH Ur Specific [place] Urine Protein Urine Glucose (UA) Urine Ketones Urine Blood Urine Nitrate Urine Bilirubin Urine Urobilinogen Ur Leukocyte Esterase Urine RBC (Auto) Urine WBC Clumps (Auto) Urine Microscopic WBC Ur Squamous Epith Cells Amorphous Sediment Urine Bacteria Hyaline Casts 12/27/17 12/27/17 12/27/17 20:09 23:00 23:00 WBC RBC Hgb Hct MCV MCH MCHC RDW Plt Count MPV Neut % (Auto) Lymph % (Auto) [place] % (Auto) Eos % (Auto) Baso % (Auto) Neut # (Auto) Lymph # (Auto) [place] # (Auto) Eos # (Auto) Baso # (Auto) Neutrophils % (Manual) Band Neutrophils % Lymphocytes % (Manual) Monocytes % (Manual) Platelet Estimate Plt Clumps, EDTA Poikilocytosis (manual Anisocytosis (manual) Ovalocytes pCO2 pO2 HCO3 ABG pH ABG Total CO2 ABG O2 Saturation ABG Base Excess [place] Test ABG Potassium VBG pH VBG pCO2 VBG HCO3 VBG Total CO2 VBG O2 Sat (Calc) VBG Base Excess A-a O2 Difference Sodium 148 Chloride 111 H D Glucose Lactate Vent Mode FiO2 Blood Gas Comments Crit Value Called To Crit Value Called By Crit Value Read Back Blood Gas Notified Time Potassium 3.1 L Carbon Dioxide 22 Anion Gap 18 BUN 104 H* Creatinine 2.4 H Est GFR ( Amer) 25 Est GFR (Non-Af Amer) 20 POC Glucose (mg/dL) > 500 H* Random Glucose 375 H Serum Osmolality Calcium 6.3 L Phosphorus Magnesium Total Bilirubin 1.8 H AST 313 H ALT 162 H Alkaline Phosphatase 223 H D Troponin I NT-Pro-B Natriuret Pep Total Protein 5.8 L Albumin 2.7 L D Globulin 3.1 Albumin/Globulin Ratio 0.8 L TSH 3rd Generation Arterial Blood Potassium Urine Color Michelle Urine Clarity Cloudy Urine pH 5.0 Ur Specific [place] 1.018 Urine Protein 100 Urine Glucose (UA) >=500 Urine Ketones 20 Urine Blood Large Urine Nitrate Negative Urine Bilirubin Small Urine Urobilinogen 4.0 H Ur Leukocyte Esterase Large Urine RBC (Auto) 67 H Urine WBC Clumps (Auto) Few H Urine Microscopic WBC 269 H Ur Squamous Epith Cells 1 Amorphous Sediment Rare H Urine Bacteria Few H Hyaline Casts 3-5 H 12/27/17 12/27/17 12/28/17 23:00 23:55 00:40 WBC RBC Hgb Hct MCV MCH MCHC RDW Plt Count MPV Neut % (Auto) Lymph % (Auto) [place] % (Auto) Eos % (Auto) Baso % (Auto) Neut # (Auto) Lymph # (Auto) [place] # (Auto) Eos # (Auto) Baso # (Auto) Neutrophils % (Manual) Band Neutrophils % Lymphocytes % (Manual) Monocytes % (Manual) Platelet Estimate Plt Clumps, EDTA Poikilocytosis (manual Anisocytosis (manual) Ovalocytes pCO2 pO2 HCO3 ABG pH ABG Total CO2 ABG O2 Saturation ABG Base Excess [place] Test ABG Potassium VBG pH VBG pCO2 VBG HCO3 VBG Total CO2 VBG O2 Sat (Calc) VBG Base Excess A-a O2 Difference Sodium Chloride Glucose Lactate Vent Mode FiO2 Blood Gas Comments Crit Value Called To Crit Value Called By Crit Value Read Back Blood Gas Notified Time Potassium Carbon Dioxide Anion Gap BUN Creatinine Est GFR ( Amer) Est GFR (Non-Af Amer) POC Glucose (mg/dL) 390 H 301 H Random Glucose Serum Osmolality Calcium Phosphorus 3.8 Magnesium 2.1 Total Bilirubin AST ALT Alkaline Phosphatase Troponin I NT-Pro-B Natriuret Pep Total Protein Albumin Globulin Albumin/Globulin Ratio TSH 3rd Generation Arterial Blood Potassium Urine Color Urine Clarity Urine pH Ur Specific [place] Urine Protein Urine Glucose (UA) Urine Ketones Urine Blood Urine Nitrate Urine Bilirubin Urine Urobilinogen Ur Leukocyte Esterase Urine RBC (Auto) Urine WBC Clumps (Auto) Urine Microscopic WBC Ur Squamous Epith Cells Amorphous Sediment Urine Bacteria Hyaline Casts 12/28/17 12/28/17 12/28/17 01:29 02:28 03:42 WBC RBC Hgb Hct MCV MCH MCHC RDW Plt Count MPV Neut % (Auto) Lymph % (Auto) [place] % (Auto) Eos % (Auto) Baso % (Auto) Neut # (Auto) Lymph # (Auto) [place] # (Auto) Eos # (Auto) Baso # (Auto) Neutrophils % (Manual) Band Neutrophils % Lymphocytes % (Manual) Monocytes % (Manual) Platelet Estimate Plt Clumps, EDTA Poikilocytosis (manual Anisocytosis (manual) Ovalocytes pCO2 pO2 HCO3 ABG pH ABG Total CO2 ABG O2 Saturation ABG Base Excess [place] Test ABG Potassium VBG pH VBG pCO2 VBG HCO3 VBG Total CO2 VBG O2 Sat (Calc) VBG Base Excess A-a O2 Difference Sodium Chloride Glucose Lactate Vent Mode FiO2 Blood Gas Comments Crit Value Called To Crit Value Called By Crit Value Read Back Blood Gas Notified Time Potassium Carbon Dioxide Anion Gap BUN Creatinine Est GFR ( Amer) Est GFR (Non-Af Amer) POC Glucose (mg/dL) 264 H 203 H 188 H Random Glucose Serum Osmolality Calcium Phosphorus Magnesium Total Bilirubin AST ALT Alkaline Phosphatase Troponin I NT-Pro-B Natriuret Pep Total Protein Albumin Globulin Albumin/Globulin Ratio TSH 3rd Generation Arterial Blood Potassium Urine Color Urine Clarity Urine pH Ur Specific [place] Urine Protein Urine Glucose (UA) Urine Ketones Urine Blood Urine Nitrate Urine Bilirubin Urine Urobilinogen Ur Leukocyte Esterase Urine RBC (Auto) Urine WBC Clumps (Auto) Urine Microscopic WBC Ur Squamous Epith Cells Amorphous Sediment Urine Bacteria Hyaline Casts 12/28/17 12/28/17 12/28/17 04:41 05:00 05:27 WBC RBC Hgb Hct MCV MCH MCHC RDW Plt Count MPV Neut % (Auto) Lymph % (Auto) [place] % (Auto) Eos % (Auto) Baso % (Auto) Neut # (Auto) Lymph # (Auto) [place] # (Auto) Eos # (Auto) Baso # (Auto) Neutrophils % (Manual) Band Neutrophils % Lymphocytes % (Manual) Monocytes % (Manual) Platelet Estimate Plt Clumps, EDTA Poikilocytosis (manual Anisocytosis (manual) Ovalocytes pCO2 pO2 HCO3 ABG pH ABG Total CO2 ABG O2 Saturation ABG Base Excess [place] Test ABG Potassium VBG pH VBG pCO2 VBG HCO3 VBG Total CO2 VBG O2 Sat (Calc) VBG Base Excess A-a O2 Difference Sodium 147 Chloride 113 H Glucose Lactate Vent Mode FiO2 Blood Gas Comments Crit Value Called To Crit Value Called By Crit Value Read Back Blood Gas Notified Time Potassium 4.1 Carbon Dioxide 30 Anion Gap 8 L BUN 100 H* Creatinine 2.2 H Est GFR ( Amer) 27 Est GFR (Non-Af Amer) 22 POC Glucose (mg/dL) 179 H 123 H Random Glucose 99 Serum Osmolality Calcium 6.2 L Phosphorus Magnesium Total Bilirubin AST ALT Alkaline Phosphatase Troponin I 0.1660 H* NT-Pro-B Natriuret Pep 5150 H Total Protein Albumin Globulin Albumin/Globulin Ratio TSH 3rd Generation 0.19 L Arterial Blood Potassium Urine Color Urine Clarity Urine pH Ur Specific [place] Urine Protein Urine Glucose (UA) Urine Ketones Urine Blood Urine Nitrate Urine Bilirubin Urine Urobilinogen Ur Leukocyte Esterase Urine RBC (Auto) Urine WBC Clumps (Auto) Urine Microscopic WBC Ur Squamous Epith Cells Amorphous Sediment Urine Bacteria Hyaline Casts 12/28/17 12/28/1718 05:30 07:06 07:50 WBC 13.9 H RBC 4.22 Hgb 12.2 Hct 36.4 MCV 86.3 D MCH 28.9 MCHC 33.5 RDW 16.1 H Plt Count 116 L D MPV 10.3 Neut % (Auto) 90.3 H Lymph % (Auto) 5.9 L [place] % (Auto) 3.6 Eos % (Auto) 0.0 Baso % (Auto) 0.2 Neut # (Auto) 12.5 H Lymph # (Auto) 0.8 L [place] # (Auto) 0.5 Eos # (Auto) 0.0 Baso # (Auto) 0.0 Neutrophils % (Manual) 92 H Band Neutrophils % 2 Lymphocytes % (Manual) 4 L Monocytes % (Manual) 2 Platelet Estimate Decreased L Plt Clumps, EDTA Poikilocytosis (manual Anisocytosis (manual) Ovalocytes pCO2 pO2 HCO3 ABG pH ABG Total CO2 ABG O2 Saturation ABG Base Excess [place] Test ABG Potassium VBG pH VBG pCO2 VBG HCO3 VBG Total CO2 VBG O2 Sat (Calc) VBG Base Excess A-a O2 Difference Sodium 146 Chloride 111 H Glucose Lactate Vent Mode FiO2 Blood Gas Comments Crit Value Called To Crit Value Called By Crit Value Read Back Blood Gas Notified Time Potassium 4.7 Carbon Dioxide 28 Anion Gap 12 BUN 104 H* Creatinine 2.2 H Est GFR ( Amer) 27 Est GFR (Non-Af Amer) 22 POC Glucose (mg/dL) 92 Random Glucose 135 H Serum Osmolality Calcium 6.5 L Phosphorus Magnesium Total Bilirubin AST ALT Alkaline Phosphatase Troponin I NT-Pro-B Natriuret Pep Total Protein Albumin Globulin Albumin/Globulin Ratio TSH 3rd Generation Arterial Blood Potassium Urine Color Urine Clarity Urine pH Ur Specific [place] Urine Protein Urine Glucose (UA) Urine Ketones Urine Blood Urine Nitrate Urine Bilirubin Urine Urobilinogen Ur Leukocyte Esterase Urine RBC (Auto) Urine WBC Clumps (Auto) Urine Microscopic WBC Ur Squamous Epith Cells Amorphous Sediment Urine Bacteria Hyaline Casts Laboratory Results - last 72 hr 12/27/17 12/27/17 12/27/17 14:02 14:08 14:45 WBC 14.8 H RBC 4.90 Hgb 14.1 Hct 47.1 H MCV 96.1 MCH 28.8 MCHC 30.0 L RDW 17.0 H Plt Count 184 MPV 11.7 Neut % (Auto) 92.5 H Lymph % (Auto) 2.6 L [place] % (Auto) 3.7 Eos % (Auto) 0.0 Baso % (Auto) 1.2 Neut # (Auto) 13.7 H Lymph # (Auto) 0.4 L [place] # (Auto) 0.5 Eos # (Auto) 0.0 Baso # (Auto) 0.2 Neutrophils % (Manual) 95 H Band Neutrophils % Lymphocytes % (Manual) 2 L Monocytes % (Manual) 3 Platelet Estimate Normal Plt Clumps, EDTA Present Poikilocytosis (manual Slight Anisocytosis (manual) Slight Ovalocytes Slight pCO2 30 L pO2 41 L* HCO3 13.1 L ABG pH 7.22 L ABG Total CO2 13.2 L ABG O2 Saturation 74.8 L ABG Base Excess -14.1 L Hold[place] Test Yes ABG Potassium 5.6 H VBG pH VBG pCO2 VBG HCO3 VBG Total CO2 VBG O2 Sat (Calc) VBG Base Excess A-a O2 Difference 150.0 Sodium 142.0 Chloride 88.0 L Glucose > 750 H* Lactate 7.0 H* Vent Mode Nc FiO2 32.0 Blood Gas Comments Nc 3 lpm Crit Value Called To Dr. tina mitchell Crit Value Called By Dolores Crit Value Read Back Y Blood Gas Notified Time 1431 Potassium Carbon Dioxide Anion Gap BUN Creatinine Est GFR ( Amer) Est GFR (Non-Af Amer) POC Glucose (mg/dL) > 500 H* Random Glucose Serum Osmolality Calcium Phosphorus Magnesium Total Bilirubin AST ALT Alkaline Phosphatase Troponin I NT-Pro-B Natriuret Pep Total Protein Albumin Globulin Albumin/Globulin Ratio TSH 3rd Generation Arterial Blood Potassium 5.6 H Urine Color Urine Clarity Urine pH Ur Specific [place] Urine Protein Urine Glucose (UA) Urine Ketones Urine Blood Urine Nitrate Urine Bilirubin Urine Urobilinogen Ur Leukocyte Esterase Urine RBC (Auto) Urine WBC Clumps (Auto) Urine Microscopic WBC Ur Squamous Epith Cells Amorphous Sediment Urine Bacteria Hyaline Casts 12/27/17 12/27/17 12/27/17 14:45 15:00 17:01 WBC RBC Hgb Hct MCV MCH MCHC RDW Plt Count MPV Neut % (Auto) Lymph % (Auto) [place] % (Auto) Eos % (Auto) Baso % (Auto) Neut # (Auto) Lymph # (Auto) [place] # (Auto) Eos # (Auto) Baso # (Auto) Neutrophils % (Manual) Band Neutrophils % Lymphocytes % (Manual) Monocytes % (Manual) Platelet Estimate Plt Clumps, EDTA Poikilocytosis (manual Anisocytosis (manual) Ovalocytes pCO2 pO2 HCO3 ABG pH ABG Total CO2 ABG O2 Saturation ABG Base Excess [place] Test ABG Potassium VBG pH VBG pCO2 VBG HCO3 VBG Total CO2 VBG O2 Sat (Calc) VBG Base Excess A-a O2 Difference Sodium 142 Chloride 92 L Glucose Lactate Vent Mode FiO2 Blood Gas Comments Crit Value Called To Crit Value Called By Crit Value Read Back Blood Gas Notified Time Potassium 5.3 H Carbon Dioxide 11 L* Anion Gap 44 H BUN 112 H* Creatinine 2.7 H Est GFR ( Amer) 21 Est GFR (Non-Af Amer) 18 POC Glucose (mg/dL) > 500 H* Random Glucose 1028 H* Serum Osmolality Calcium 7.1 L Phosphorus Magnesium 3.0 H Total Bilirubin 2.8 H AST 334 H ALT 181 H Alkaline Phosphatase 281 H Troponin I 0.0910 NT-Pro-B Natriuret Pep Total Protein 6.7 Albumin 3.4 L Globulin 3.3 Albumin/Globulin Ratio 1.0 TSH 3rd Generation Arterial Blood Potassium Urine Color Urine Clarity Urine pH Ur Specific [place] Urine Protein Urine Glucose (UA) Urine Ketones Urine Blood Urine Nitrate Urine Bilirubin Urine Urobilinogen Ur Leukocyte Esterase Urine RBC (Auto) Urine WBC Clumps (Auto) Urine Microscopic WBC Ur Squamous Epith Cells Amorphous Sediment Urine Bacteria Hyaline Casts 12/27/17 12/27/17 12/27/17 18:25 18:30 18:52 WBC RBC Hgb Hct MCV MCH MCHC RDW Plt Count MPV Neut % (Auto) Lymph % (Auto) [place] % (Auto) Eos % (Auto) Baso % (Auto) Neut # (Auto) Lymph # (Auto) [place] # (Auto) Eos # (Auto) Baso # (Auto) Neutrophils % (Manual) Band Neutrophils % Lymphocytes % (Manual) Monocytes % (Manual) Platelet Estimate Plt Clumps, EDTA Poikilocytosis (manual Anisocytosis (manual) Ovalocytes pCO2 pO2 47 HCO3 ABG pH ABG Total CO2 ABG O2 Saturation ABG Base Excess [place] Test ABG Potassium VBG pH 7.25 L VBG pCO2 31 L VBG HCO3 14.7 VBG Total CO2 14.6 L VBG O2 Sat (Calc) 80.0 H VBG Base Excess -12.4 L A-a O2 Difference Sodium 196.0 H* Chloride 124.0 H Glucose 598 H* D Lactate 4.9 H* Vent Mode FiO2 21.0 Blood Gas Comments Vbg Crit Value Called To Gia marin r.n. Crit Value Called By Dolores Crit Value Read Back Y Blood Gas Notified Time 190 Potassium Carbon Dioxide Anion Gap BUN Creatinine Est GFR ( Amer) Est GFR (Non-Af Amer) POC Glucose (mg/dL) > 500 H* Random Glucose Serum Osmolality 446 H Calcium Phosphorus Magnesium Total Bilirubin AST ALT Alkaline Phosphatase Troponin I NT-Pro-B Natriuret Pep Total Protein Albumin Globulin Albumin/Globulin Ratio TSH 3rd Generation Arterial Blood Potassium Urine Color Urine Clarity Urine pH Ur Specific [place] Urine Protein Urine Glucose (UA) Urine Ketones Urine Blood Urine Nitrate Urine Bilirubin Urine Urobilinogen Ur Leukocyte Esterase Urine RBC (Auto) Urine WBC Clumps (Auto) Urine Microscopic WBC Ur Squamous Epith Cells Amorphous Sediment Urine Bacteria Hyaline Casts 12/27/17 12/27/17 12/27/17 20:09 23:00 23:00 WBC RBC Hgb Hct MCV MCH MCHC RDW Plt Count MPV Neut % (Auto) Lymph % (Auto) [place] % (Auto) Eos % (Auto) Baso % (Auto) Neut # (Auto) Lymph # (Auto) [place] # (Auto) Eos # (Auto) Baso # (Auto) Neutrophils % (Manual) Band Neutrophils % Lymphocytes % (Manual) Monocytes % (Manual) Platelet Estimate Plt Clumps, EDTA Poikilocytosis (manual Anisocytosis (manual) Ovalocytes pCO2 pO2 HCO3 ABG pH ABG Total CO2 ABG O2 Saturation ABG Base Excess [place] Test ABG Potassium VBG pH VBG pCO2 VBG HCO3 VBG Total CO2 VBG O2 Sat (Calc) VBG Base Excess A-a O2 Difference Sodium 148 Chloride 111 H D Glucose Lactate Vent Mode FiO2 Blood Gas Comments Crit Value Called To Crit Value Called By Crit Value Read Back Blood Gas Notified Time Potassium 3.1 L Carbon Dioxide 22 Anion Gap 18 BUN 104 H* Creatinine 2.4 H Est GFR ( Amer) 25 Est GFR (Non-Af Amer) 20 POC Glucose (mg/dL) > 500 H* Random Glucose 375 H Serum Osmolality Calcium 6.3 L Phosphorus Magnesium Total Bilirubin 1.8 H AST 313 H ALT 162 H Alkaline Phosphatase 223 H D Troponin I NT-Pro-B Natriuret Pep Total Protein 5.8 L Albumin 2.7 L D Globulin 3.1 Albumin/Globulin Ratio 0.8 L TSH 3rd Generation Arterial Blood Potassium Urine Color Michelle Urine Clarity Cloudy Urine pH 5.0 Ur Specific [place] 1.018 Urine Protein 100 Urine Glucose (UA) >=500 Urine Ketones 20 Urine Blood Large Urine Nitrate Negative Urine Bilirubin Small Urine Urobilinogen 4.0 H Ur Leukocyte Esterase Large Urine RBC (Auto) 67 H Urine WBC Clumps (Auto) Few H Urine Microscopic WBC 269 H Ur Squamous Epith Cells 1 Amorphous Sediment Rare H Urine Bacteria Few H Hyaline Casts 3-5 H 12/27/17 12/27/17 12/28/17 23:00 23:55 00:40 WBC RBC Hgb Hct MCV MCH MCHC RDW Plt Count MPV Neut % (Auto) Lymph % (Auto) [place] % (Auto) Eos % (Auto) Baso % (Auto) Neut # (Auto) Lymph # (Auto) [place] # (Auto) Eos # (Auto) Baso # (Auto) Neutrophils % (Manual) Band Neutrophils % Lymphocytes % (Manual) Monocytes % (Manual) Platelet Estimate Plt Clumps, EDTA Poikilocytosis (manual Anisocytosis (manual) Ovalocytes pCO2 pO2 HCO3 ABG pH ABG Total CO2 ABG O2 Saturation ABG Base Excess Hold[place] Test ABG Potassium VBG pH VBG pCO2 VBG HCO3 VBG Total CO2 VBG O2 Sat (Calc) VBG Base Excess A-a O2 Difference Sodium Chloride Glucose Lactate Vent Mode FiO2 Blood Gas Comments Crit Value Called To Crit Value Called By Crit Value Read Back Blood Gas Notified Time Potassium Carbon Dioxide Anion Gap BUN Creatinine Est GFR ( Amer) Est GFR (Non-Af Amer) POC Glucose (mg/dL) 390 H 301 H Random Glucose Serum Osmolality Calcium Phosphorus 3.8 Magnesium 2.1 Total Bilirubin AST ALT Alkaline Phosphatase Troponin I NT-Pro-B Natriuret Pep Total Protein Albumin Globulin Albumin/Globulin Ratio TSH 3rd Generation Arterial Blood Potassium Urine Color Urine Clarity Urine pH Ur Specific [place] Urine Protein Urine Glucose (UA) Urine Ketones Urine Blood Urine Nitrate Urine Bilirubin Urine Urobilinogen Ur Leukocyte Esterase Urine RBC (Auto) Urine WBC Clumps (Auto) Urine Microscopic WBC Ur Squamous Epith Cells Amorphous Sediment Urine Bacteria Hyaline Casts 12/28/17 12/28/17 12/28/17 01:29 02:28 03:42 WBC RBC Hgb Hct MCV MCH MCHC RDW Plt Count MPV Neut % (Auto) Lymph % (Auto) [place] % (Auto) Eos % (Auto) Baso % (Auto) Neut # (Auto) Lymph # (Auto) [place] # (Auto) Eos # (Auto) Baso # (Auto) Neutrophils % (Manual) Band Neutrophils % Lymphocytes % (Manual) Monocytes % (Manual) Platelet Estimate Plt Clumps, EDTA Poikilocytosis (manual Anisocytosis (manual) Ovalocytes pCO2 pO2 HCO3 ABG pH ABG Total CO2 ABG O2 Saturation ABG Base Excess Holden Test ABG Potassium VBG pH VBG pCO2 VBG HCO3 VBG Total CO2 VBG O2 Sat (Calc) VBG Base Excess A-a O2 Difference Sodium Chloride Glucose Lactate Vent Mode FiO2 Blood Gas Comments Crit Value Called To Crit Value Called By Crit Value Read Back Blood Gas Notified Time Potassium Carbon Dioxide Anion Gap BUN Creatinine Est GFR ( Amer) Est GFR (Non-Af Amer) POC Glucose (mg/dL) 264 H 203 H 188 H Random Glucose Serum Osmolality Calcium Phosphorus Magnesium Total Bilirubin AST ALT Alkaline Phosphatase Troponin I NT-Pro-B Natriuret Pep Total Protein Albumin Globulin Albumin/Globulin Ratio TSH 3rd Generation Arterial Blood Potassium Urine Color Urine Clarity Urine pH Ur Specific [place] Urine Protein Urine Glucose (UA) Urine Ketones Urine Blood Urine Nitrate Urine Bilirubin Urine Urobilinogen Ur Leukocyte Esterase Urine RBC (Auto) Urine WBC Clumps (Auto) Urine Microscopic WBC Ur Squamous Epith Cells Amorphous Sediment Urine Bacteria Hyaline Casts 12/28/17 12/28/17 12/28/17 04:41 05:00 05:27 WBC RBC Hgb Hct MCV MCH MCHC RDW Plt Count MPV Neut % (Auto) Lymph % (Auto) [place] % (Auto) Eos % (Auto) Baso % (Auto) Neut # (Auto) Lymph # (Auto) [place] # (Auto) Eos # (Auto) Baso # (Auto) Neutrophils % (Manual) Band Neutrophils % Lymphocytes % (Manual) Monocytes % (Manual) Platelet Estimate Plt Clumps, EDTA Poikilocytosis (manual Anisocytosis (manual) Ovalocytes pCO2 pO2 HCO3 ABG pH ABG Total CO2 ABG O2 Saturation ABG Base Excess Holden Test ABG Potassium VBG pH VBG pCO2 VBG HCO3 VBG Total CO2 VBG O2 Sat (Calc) VBG Base Excess A-a O2 Difference Sodium 147 Chloride 113 H Glucose Lactate Vent Mode FiO2 Blood Gas Comments Crit Value Called To Crit Value Called By Crit Value Read Back Blood Gas Notified Time Potassium 4.1 Carbon Dioxide 30 Anion Gap 8 L BUN 100 H* Creatinine 2.2 H Est GFR ( Amer) 27 Est GFR (Non-Af Amer) 22 POC Glucose (mg/dL) 179 H 123 H Random Glucose 99 Serum Osmolality Calcium 6.2 L Phosphorus Magnesium Total Bilirubin AST ALT Alkaline Phosphatase Troponin I 0.1660 H* NT-Pro-B Natriuret Pep 5150 H Total Protein Albumin Globulin Albumin/Globulin Ratio TSH 3rd Generation 0.19 L Arterial Blood Potassium Urine Color Urine Clarity Urine pH Ur Specific [place] Urine Protein Urine Glucose (UA) Urine Ketones Urine Blood Urine Nitrate Urine Bilirubin Urine Urobilinogen Ur Leukocyte Esterase Urine RBC (Auto) Urine WBC Clumps (Auto) Urine Microscopic WBC Ur Squamous Epith Cells Amorphous Sediment Urine Bacteria Hyaline Casts 12/28/17 12/28/17 12/28/17 05:30 07:06 07:50 WBC 13.9 H RBC 4.22 Hgb 12.2 Hct 36.4 MCV 86.3 D MCH 28.9 MCHC 33.5 RDW 16.1 H Plt Count 116 L D MPV 10.3 Neut % (Auto) 90.3 H Lymph % (Auto) 5.9 L [place] % (Auto) 3.6 Eos % (Auto) 0.0 Baso % (Auto) 0.2 Neut # (Auto) 12.5 H Lymph # (Auto) 0.8 L [place] # (Auto) 0.5 Eos # (Auto) 0.0 Baso # (Auto) 0.0 Neutrophils % (Manual) 92 H Band Neutrophils % 2 Lymphocytes % (Manual) 4 L Monocytes % (Manual) 2 Platelet Estimate Decreased L Plt Clumps, EDTA Poikilocytosis (manual Anisocytosis (manual) Ovalocytes pCO2 pO2 HCO3 ABG pH ABG Total CO2 ABG O2 Saturation ABG Base Excess Holden Test ABG Potassium VBG pH VBG pCO2 VBG HCO3 VBG Total CO2 VBG O2 Sat (Calc) VBG Base Excess A-a O2 Difference Sodium 146 Chloride 111 H Glucose Lactate Vent Mode FiO2 Blood Gas Comments Crit Value Called To Crit Value Called By Crit Value Read Back Blood Gas Notified Time Potassium 4.7 Carbon Dioxide 28 Anion Gap 12 BUN 104 H* Creatinine 2.2 H Est GFR ( Amer) 27 Est GFR (Non-Af Amer) 22 POC Glucose (mg/dL) 92 Random Glucose 135 H Serum Osmolality Calcium 6.5 L Phosphorus Magnesium Total Bilirubin AST ALT Alkaline Phosphatase Troponin I NT-Pro-B Natriuret Pep Total Protein Albumin Globulin Albumin/Globulin Ratio TSH 3rd Generation Arterial Blood Potassium Urine Color Urine Clarity Urine pH Ur Specific [place] Urine Protein Urine Glucose (UA) Urine Ketones Urine Blood Urine Nitrate Urine Bilirubin Urine Urobilinogen Ur Leukocyte Esterase Urine RBC (Auto) Urine WBC Clumps (Auto) Urine Microscopic WBC Ur Squamous Epith Cells Amorphous Sediment Urine Bacteria Hyaline Casts Microbiology 12/27/17 14:49 Blood-Venous Blood Culture - Preliminary Gram Negative Zacarias 12/27/17 14:49 Blood-Venous Gram Stain - Final Accession No. 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 Further assessment by CT is recommended. Left lung appears smaller than the right. PLEURA: No significant pleural effusion identified, no pneumothorax apparent. CARDIOVASCULAR: Normal. OSSEOUS STRUCTURES: No significant abnormalities. VISUALIZED UPPER ABDOMEN: Normal. OTHER FINDINGS: None. IMPRESSION: Suspicious for new mass in the central portion of the central portion of the left lung. Further assessment by CT is suggested. Accession No. 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 Sagittal and coronal reconstructions were performed. Radiation dose (DLP): 821.22 mGy-cm. This CT exam was performed using one or more of the following dose reduction techniques: Automated exposure control, adjustment of the mA and/or kV according to patient size, and/or use of iterative reconstruction technique. FINDINGS: LUNGS: There is large central left upper lobe mass lesion associated with almost complete collapse of left upper lobe. The mass is extending to the left hilum and associated with complete obstruction of the left upper lobe pulmonary artery. The exact size and border of this mass is not well visualized due lack of IV contrast administration. The mass is likely extending to the right hilum and associated with bulging in the left fissure. Findings highly suspicious for malignant neoplasm in the left lung upper lobe. There are small nodular opacity seen in the left lung lower lobe may represent infectious process or less likely metastasis. There is calcified nodule in the right lung upper lobe measures 4 millimeter image 71 series 3. MEDIASTINUM: The thoracic aorta is ectatic and tortuous. The main pulmonary artery is mildly enlarged . the heart is upper normal limit in size. No evidence of pericardial effusion. Suspicious for right hilar lymphadenopathy extending to the left precarinal region. PLEURA: No pleural fluid. No pneumothorax. BONES: There is sclerotic heterogeneous bony lesion in the T9 vertebral body suspicious for osseous metastasis. UPPER ABDOMEN: The patient had at CT of the abdomen was performed concurrently and reported separately. Multiple metastasis in the liver noted. Large nodule or mass in the right adrenal gland. OTHER FINDINGS: Diffuse mild esophageal mucosal thickening noted. The thyroid gland is heterogeneous mildly enlarged without evidence of discrete mass. There is lobulated soft tissue mass lesion at the right breast measures 2.7 x 2.8 centimeter suspicious for malignant breast neoplasm. The differential consideration includes metastasis. IMPRESSION: Large left upper lobe central mass extending to the left hilum and associated with post obstruction atelectasis of the left upper lobe highly suspicious for left upper lobe bronchial carcinoma. Further assessment by bronchoscopy is recommended. Right hilar lymphadenopathy extending to the left precarinal region. Small nodular opacity at the left lung lower lobe may represent infectious process versus less likely metastasis. Heterogeneous sclerotic bony lesion at T9 vertebral body suspicious for metastasis. Adjacent soft tissue mass in the T9 perivertebral region likely represent metastasis. Liver metastasis. Soft tissue mass lesion at the right breast measures 2.8 centimeter in the largest transverse diameter and 2.7 centimeter in the AP diameter suspicious for malignant neoplasm. Preliminary report with concordance findings was submitted by [facility] at 828 p.m. on 12/27/2017. Accession No. 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 CT of the chest was obtained concurrently and reported separately.. Contrast dose: 0 Radiation dose: Total exam DLP = 821.22 mGy-cm. This CT exam was performed using one or more of the following dose reduction techniques: Automated exposure control, adjustment of the mA and/or kV according to patient size, and/or use of iterative reconstruction technique. FINDINGS: LOWER THORAX: Small nodular opacities noted at the left lung lower lobe may represent infectious process versus less likely metastasis. Soft tissue mass lesion at the right breast measures 3 centimeter suspicious for primary breast neoplasm. LIVER: Multiple heterogeneous slightly low-attenuation mass lesion in the liver likely represent metastasis. GALLBLADDER AND BILE DUCTS: No evidence of acute cholecystitis. The gallbladder is mildly to moderately distended. PANCREAS: Unremarkable. No gross lesion or ductal dilatation. SPLEEN: Unremarkable. ADRENALS: Mild nodular enlargement of the right adrenal gland is again noted. KIDNEYS AND URETERS: Unremarkable. No hydronephrosis. No solid mass. VASCULATURE: There is mild aneurysmal dilatation of the abdominal aorta measures up to 3.8 centimeter which has increased since the previous exam in 2012. Diffuse a therosclerotic calcification is noted. The IVC is normal in caliber. BOWEL: Colonic diverticulosis are noted without evidence of diverticulitis. No obstruction. No gross mural thickening. APPENDIX: No evidence of appendicitis. PERITONEUM: Unremarkable. No free fluid. No free air. LYMPH NODES: Unremarkable. No enlarged lymph nodes. BLADDER: Unremarkable. REPRODUCTIVE: Unremarkable. BONES: There is subacute fracture at the left inferior pubic ramus noted. There is mildly sclerotic heterogeneous bony lesion at the posterior aspect of the left iliac bone. Findings suspicious for metastasis. Again noted is sclerotic bony lesion adjacent to the left sacroiliac joint likely benign. Interval appearance of sclerotic destructive bony lesion at L1 vertebral body since the previous exam. The possibility of metastasis should be considered. T9 sclerotic bony lesion is also noted suspicious for osseous metastasis. There are severe degenerative changes at the mid and lower lumbar spine. OTHER FINDINGS: . IMPRESSION: Multiple soft tissue mass lesions in the liver consistent with liver metastasis. Stable nodular opacities at the right adrenal since the previous study likely benign. Distended gallbladder without evidence of acute cholecystitis. Interval appearance of sclerotic bony lesion at L1 and left posterior iliac bone suspicious for metastasis. Interval worsening of infra renal aortic aneurysm since the previous study measures 3.8 centimeter. Additional findings as described above. Preliminary report with concordance findings was submitted by [facility] at 8:40 p.m. on 12/27/2017. Accession No. 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 HISTORY: AMS, acute , COMPARISON: None available. TECHNIQUE: Axial computed tomography images were obtained through the head/brain without intravenous contrast. Radiation dose: Total exam DLP = 818.06 mGy-cm. This CT exam was performed using one or more of the following dose reduction techniques: Automated exposure control, adjustment of the mA and/or kV according to patient size, and/or use of iterative reconstruction technique. FINDINGS: HEMORRHAGE: No intracranial hemorrhage. BRAIN: No mass effect or edema. Mild atrophy and mild white matter changes suggestive but nonspecific for chronic microvascular ischemic disease. VENTRICLES: Unremarkable. No hydrocephalus. CALVARIUM: Unremarkable. PARANASAL SINUSES: Unremarkable as visualized. No significant inflammatory changes. MASTOID AIR CELLS: Unremarkable as visualized. No inflammatory changes. OTHER FINDINGS: None. IMPRESSION: No evidence of acute intracranial hemorrhage mass effect or midline shift. Mild atrophy and mild white matter changes suggestive of chronic microvascular ischemic disease. Assessment & Plan (1) Sepsis Status: Acute (2) Dehydration Status: Acute (3) DKA (diabetic ketoacidoses) Status: Acute (4) Acute renal disease Status: Acute (5) Bacteremia due to Gram-negative bacteria Status: Acute (6) UTI (urinary tract infection) Status: Acute - Assessment and Plan (Free Text) Assessment: A/P- 67 year old female admitted with weakness and lethargy found to be in DKA and GNR bacteremia and ct abd/chest reported as left lung mass with liver mets . pt. is weak but foolows commands. afebrile has minimal leukocytosis. GNR bacteremia source most lilkey new findings of lung mass with liver mets . plan- await ID and sensitivity of the GNR in blood cx. check urien cx. advise to start pt. on IV meropnem pending Id and sens of the GNR in blood cx. in light of the acute renal insufficienct advise to start pt. on linezolid for empiric staph coverage for now. monitor platelts while on linezolid. check 2 more blood cx. check TTE r/o vegetations. advise oncology consultation based on CT reports. all labs and imaging and chart notes reviewed. case d/w at length. Thank you for allowing met o take part in the care of this patient. Critical care time spent 50 minutes.
[2017-12-28] MEDS: Albuterol-Ipratrop 3 mg / 0.5 (3 ml) UD INH PRN (13:51)
[2017-12-28] MEDS ORDERED: Phenylephrine 60 MG in Sodium Chloride 0.9% 250 ML IV SCH (15:15)
[2017-12-28] MEDS ORDERED: Sodium Chloride 0.9% 500 ML IV ONE (15:19)
--- NOTE | 2017-12-28 15:22 | CP.PCM.CON ---
History of Present Illness - History of Present Illness History of Present Illness: 67 yo female with pmh/o hypertension, ? dm, ex smomer was admitted to ICU thru ER with poor po intake for few days as per pt's family, pt was found to have very high blood sugars >1000, scacty, thick ,yellow urine , elkevated bun/cr, acidosis. pt was admitted to ICU for DKA. renal consult is requsted by ER physician Aggie Fagan . case d/w Er physicial last night. now is awake following simple command, pt is in A flutter, hypotensive, received about 7-8 lit ivf since admission. now blood c/w are positive for GNR. pt has a living will, now DNR/ DNI. on pressors and on iv abx as per ID Review of Systems - Review of Systems All systems: reviewed and no additional remarkable complaints except Review of Systems: poor po intake, severe dehydration - Constitutional Constitutional: As Per HPI Additional comments: poor po intake for few days - EENT Eyes: As Per HPI Ears: As Per HPI Nose/Mouth/Throat: As Per HPI - Breasts Breasts: As Per HPI - Cardiovascular Cardiovascular: As Per HPI - Respiratory Respiratory: As Per HPI - Genitourinary Genitourinary: As Per HPI - Musculoskeletal Musculoskeletal: As Per HPI - Integumentary Integumentary: As Per HPI - Neurological Neurological: As Per HPI - Psychiatric Psychiatric: As Per HPI - Endocrine Endocrine: As Per HPI - Hematologic/Lymphatic Hematologic: As Per HPI Past Patient History - Past Medical History & Family History Past Medical History?: Yes - Past Social History Smoking Status: Never Smoked Home Situation {Lives}: With Family - CARDIAC Hx Hypertension: Yes - PULMONARY Hx Asthma: Yes - NEUROLOGICAL Hx Neurological Disorder: No - HEENT Hx HEENT Problems: No - RENAL Hx Chronic Kidney Disease: No - ENDOCRINE/METABOLIC Hx Endocrine Disorders: No - HEMATOLOGICAL/ONCOLOGICAL Hx Blood Disorders: No - INTEGUMENTARY Hx Dermatological Problems: No - MUSCULOSKELETAL/RHEUMATOLOGICAL Hx Musculoskeletal Disorders: Yes - GASTROINTESTINAL Hx Gastrointestinal Disorders: No - GENITOURINARY/GYNECOLOGICAL Hx Genitourinary Disorders: No - PSYCHIATRIC Hx Psychophysiologic Disorder: No - SURGICAL HISTORY Hx Surgeries: No - ANESTHESIA Hx Anesthesia: No Meds Allergies/Adverse Reactions: Allergies Allergy/AdvReac Type Severity Reaction Status Date / Time No Known Allergies Allergy Verified 10/02/16 03:08 - Medications Medications: Current Medications Albuterol/Ipratropium (Duoneb 3 Mg/0.5 Mg (3 Ml) Ud) 3 ml INH RQ4 PRN PRN Reason: Shortness of Breath Last Admin: 12/28/17 13:51 Dose: 3 ml Dextrose (Dextrose 50% Inj) 0 ml IV STAT PRN; Protocol PRN Reason: Hypoglycemia Protocol Dextrose (Glutose 15) 0 gm PO ONCE PRN; Protocol PRN Reason: Hypoglycemia Protocol Dextrose (Dextrose 50% Inj) 0 ml IV STAT PRN; Protocol PRN Reason: Hypoglycemia Protocol Dextrose (Glutose 15) 0 gm PO ONCE PRN; Protocol PRN Reason: Hypoglycemia Protocol Digoxin (Lanoxin) 0.25 mg IVP DAILY PORFIRIO Last Admin: 12/28/17 10:38 Dose: 0.25 mg Glucagon (Glucagen Diagnostic Kit) 0 mg IM STAT PRN; Protocol PRN Reason: Hypoglycemia Protocol Glucagon (Glucagen Diagnostic Kit) 0 mg IM STAT PRN; Protocol PRN Reason: Hypoglycemia Protocol Heparin Sodium (Porcine) (Heparin) 5,000 units SC Q8 PORFIRIO; Protocol Last Admin: 12/28/17 10:00 Dose: 5,000 units Vasopressin 100 units/ Sodium (Chloride) 105 mls @ 1.89 mls/hr IV .Q24H PORFIRIO; Protocol Last Titration: 12/28/17 15:10 Dose: 0.04 units/min, 2.52 mls/hr Meropenem 1 gm/ Sodium (Chloride) 100 mls @ 100 mls/hr IVPB Q12 PORFIRIO; Protocol Daptomycin 340 mg/ Sodium (Chloride) 100 mls @ 100 mls/hr IV Q24H PORFIRIO; Protocol Stop: 01/02/18 14:01 Phenylephrine HCl 60 mg/ (Sodium Chloride) 256 mls @ 5.12 mls/hr IV .Q24H PORFIRIO; Protocol Stop: 12/29/17 15:14 Sodium Chloride (Sodium Chloride 0.9%) 1,000 mls @ 100 mls/hr IV .Q10H PORFIRIO Stop: 12/29/17 15:19 Sodium Chloride (Sodium Chloride 0.9%) 500 mls @ 500 mls/hr IV .Q1H ONE Stop: 12/28/17 16:18 Insulin Human Lispro (Humalog) 0 units SC ACHS PORFIRIO Last Admin: 12/28/17 12:46 Dose: 3 units Methimazole (Tapazole) 5 mg PO BID [facility] Physical Exam - Constitutional Appears: Toxic, Chronically Ill - Head Exam Head Exam: ATRAUMATIC, NORMAL INSPECTION, NORMOCEPHALIC - Eye Exam Eye Exam: EOMI, Normal appearance, PERRL Pupil Exam: NORMAL ACCOMODATION - ENT Exam ENT Exam: Mucous Membranes Dry - Neck Exam Neck exam: Positive for: Full Rom, Normal Inspection - Respiratory Exam Respiratory Exam: Decreased Breath Sounds Additional comments: left upper lung decreased bs - Cardiovascular Exam Cardiovascular Exam: Tachycardia, Irregular Rhythm, REGULAR RHYTHM, +S1, +S2 - GI/Abdominal Exam GI & Abdominal Exam: Normal Bowel Sounds, Soft - Rectal Exam Rectal Exam: Deferred - Extremities Exam Additional comments: no edema - Neurological Exam Additional comments: pt ids drowsy, arousable, try to follow commands - Skin Skin Exam: Dry Results - Vital Signs Recent Vital Signs: Last Vital Signs Temp 96.6 F L 12/28/17 08:00 Pulse 100 H 12/28/17 15:00 Resp 33 H 12/28/17 15:00 BP 53/19 L 12/28/17 15:00 Pulse Ox 100 12/28/17 15:00 - Labs Result Diagrams: 12/28/17 05:30 12/28/17 07:50 Labs: Laboratory Results - last 24 hr 12/27/17 12/27/17 12/27/17 14:45 14:45 15:00 WBC RBC Hgb Hct MCV MCH MCHC RDW Plt Count 184 MPV Neut % (Auto) Lymph % (Auto) [place] % (Auto) Eos % (Auto) Baso % (Auto) Neut # (Auto) Lymph # (Auto) [place] # (Auto) Eos # (Auto) Baso # (Auto) Neutrophils % (Manual) 95 H Band Neutrophils % Lymphocytes % (Manual) 2 L Monocytes % (Manual) 3 Platelet Estimate Normal Plt Clumps, EDTA Present Poikilocytosis (manual Slight Anisocytosis (manual) Slight Ovalocytes Slight pO2 VBG pH VBG pCO2 VBG HCO3 VBG Total CO2 VBG O2 Sat (Calc) VBG Base Excess Glucose Lactate FiO2 Blood Gas Comments Crit Value Called To Crit Value Called By Crit Value Read Back Blood Gas Notified Time Sodium 142 Potassium 5.3 H Chloride 92 L Carbon Dioxide 11 L* Anion Gap 44 H BUN 112 H* Creatinine 2.7 H Est GFR ( Amer) 21 Est GFR (Non-Af Amer) 18 POC Glucose (mg/dL) Random Glucose 1028 H* Serum Osmolality Calcium 7.1 L Phosphorus Magnesium 3.0 H Total Bilirubin 2.8 H AST 334 H ALT 181 H Alkaline Phosphatase 281 H Troponin I NT-Pro-B Natriuret Pep Total Protein 6.7 Albumin 3.4 L Globulin 3.3 Albumin/Globulin Ratio 1.0 TSH 3rd Generation Urine Color Urine Clarity Urine pH Ur Specific Cameron Urine Protein Urine Glucose (UA) Urine Ketones Urine Blood Urine Nitrate Urine Bilirubin Urine Urobilinogen Ur Leukocyte Esterase Urine RBC (Auto) Urine WBC Clumps (Auto) Urine Microscopic WBC Ur Squamous Epith Cells Amorphous Sediment Urine Bacteria Hyaline Casts 12/27/17 12/27/17 12/27/17 17:01 18:25 18:30 WBC RBC Hgb Hct MCV MCH MCHC RDW Plt Count MPV Neut % (Auto) Lymph % (Auto) [place] % (Auto) Eos % (Auto) Baso % (Auto) Neut # (Auto) Lymph # (Auto) [place] # (Auto) Eos # (Auto) Baso # (Auto) Neutrophils % (Manual) Band Neutrophils % Lymphocytes % (Manual) Monocytes % (Manual) Platelet Estimate Plt Clumps, EDTA Poikilocytosis (manual Anisocytosis (manual) Ovalocytes pO2 VBG pH VBG pCO2 VBG HCO3 VBG Total CO2 VBG O2 Sat (Calc) VBG Base Excess Glucose Lactate FiO2 Blood Gas Comments Crit Value Called To Crit Value Called By Crit Value Read Back Blood Gas Notified Time Sodium Potassium Chloride Carbon Dioxide Anion Gap BUN Creatinine Est GFR ( Amer) Est GFR (Non-Af Amer) POC Glucose (mg/dL) > 500 H* > 500 H* Random Glucose Serum Osmolality 446 H Calcium Phosphorus Magnesium Total Bilirubin AST ALT Alkaline Phosphatase Troponin I NT-Pro-B Natriuret Pep Total Protein Albumin Globulin Albumin/Globulin Ratio TSH 3rd Generation Urine Color Urine Clarity Urine pH Ur Specific Cameron Urine Protein Urine Glucose (UA) Urine Ketones Urine Blood Urine Nitrate Urine Bilirubin Urine Urobilinogen Ur Leukocyte Esterase Urine RBC (Auto) Urine WBC Clumps (Auto) Urine Microscopic WBC Ur Squamous Epith Cells Amorphous Sediment Urine Bacteria Hyaline Casts 12/27/17 12/27/17 12/27/17 18:52 20:09 23:00 WBC RBC Hgb Hct MCV MCH MCHC RDW Plt Count MPV Neut % (Auto) Lymph % (Auto) [place] % (Auto) Eos % (Auto) Baso % (Auto) Neut # (Auto) Lymph # (Auto) [place] # (Auto) Eos # (Auto) Baso # (Auto) Neutrophils % (Manual) Band Neutrophils % Lymphocytes % (Manual) Monocytes % (Manual) Platelet Estimate Plt Clumps, EDTA Poikilocytosis (manual Anisocytosis (manual) Ovalocytes pO2 47 VBG pH 7.25 L VBG pCO2 31 L VBG HCO3 14.7 VBG Total CO2 14.6 L VBG O2 Sat (Calc) 80.0 H VBG Base Excess -12.4 L Glucose 598 H* D Lactate 4.9 H* FiO2 21.0 Blood Gas Comments Vbg Crit Value Called To Gia marin r.n. Crit Value Called By Dolores Crijaison Value Read Back Y Blood Gas Notified Time 1903 Sodium 196.0 H* Potassium Chloride 124.0 H Carbon Dioxide Anion Gap BUN Creatinine Est GFR ( Amer) Est GFR (Non-Af Amer) POC Glucose (mg/dL) > 500 H* Random Glucose Serum Osmolality Calcium Phosphorus Magnesium Total Bilirubin AST ALT Alkaline Phosphatase Troponin I NT-Pro-B Natriuret Pep Total Protein Albumin Globulin Albumin/Globulin Ratio TSH 3rd Generation Urine Color Michelle Urine Clarity Cloudy Urine pH 5.0 Ur Specific [place] 1.018 Urine Protein 100 Urine Glucose (UA) >=500 Urine Ketones 20 Urine Blood Large Urine Nitrate Negative Urine Bilirubin Small Urine Urobilinogen 4.0 H Ur Leukocyte Esterase Large Urine RBC (Auto) 67 H Urine WBC Clumps (Auto) Few H Urine Microscopic WBC 269 H Ur Squamous Epith Cells 1 Amorphous Sediment Rare H Urine Bacteria Few H Hyaline Casts 3-5 H 12/27/17 12/27/17 12/27/17 23:00 23:00 23:55 WBC RBC Hgb Hct MCV MCH MCHC RDW Plt Count MPV Neut % (Auto) Lymph % (Auto) [place] % (Auto) Eos % (Auto) Baso % (Auto) Neut # (Auto) Lymph # (Auto) [place] # (Auto) Eos # (Auto) Baso # (Auto) Neutrophils % (Manual) Band Neutrophils % Lymphocytes % (Manual) Monocytes % (Manual) Platelet Estimate Plt Clumps, EDTA Poikilocytosis (manual Anisocytosis (manual) Ovalocytes pO2 VBG pH VBG pCO2 VBG HCO3 VBG Total CO2 VBG O2 Sat (Calc) VBG Base Excess Glucose Lactate FiO2 Blood Gas Comments Crit Value Called To Crit Value Called By Crit Value Read Back Blood Gas Notified Time Sodium 148 Potassium 3.1 L Chloride 111 H D Carbon Dioxide 22 Anion Gap 18 BUN 104 H* Creatinine 2.4 H Est GFR ( Amer) 25 Est GFR (Non-Af Amer) 20 POC Glucose (mg/dL) 390 H Random Glucose 375 H Serum Osmolality Calcium 6.3 L Phosphorus 3.8 Magnesium 2.1 Total Bilirubin 1.8 H AST 313 H ALT 162 H Alkaline Phosphatase 223 H D Troponin I NT-Pro-B Natriuret Pep Total Protein 5.8 L Albumin 2.7 L D Globulin 3.1 Albumin/Globulin Ratio 0.8 L TSH 3rd Generation Urine Color Urine Clarity Urine pH Ur Specific [place] Urine Protein Urine Glucose (UA) Urine Ketones Urine Blood Urine Nitrate Urine Bilirubin Urine Urobilinogen Ur Leukocyte Esterase Urine RBC (Auto) Urine WBC Clumps (Auto) Urine Microscopic WBC Ur Squamous Epith Cells Amorphous Sediment Urine Bacteria Hyaline Casts 12/28/17 12/28/17 12/28/17 00:40 01:29 02:28 WBC RBC Hgb Hct MCV MCH MCHC RDW Plt Count MPV Neut % (Auto) Lymph % (Auto) [place] % (Auto) Eos % (Auto) Baso % (Auto) Neut # (Auto) Lymph # (Auto) [place] # (Auto) Eos # (Auto) Baso # (Auto) Neutrophils % (Manual) Band Neutrophils % Lymphocytes % (Manual) Monocytes % (Manual) Platelet Estimate Plt Clumps, EDTA Poikilocytosis (manual Anisocytosis (manual) Ovalocytes pO2 VBG pH VBG pCO2 VBG HCO3 VBG Total CO2 VBG O2 Sat (Calc) VBG Base Excess Glucose Lactate FiO2 Blood Gas Comments Crit Value Called To Crit Value Called By Crit Value Read Back Blood Gas Notified Time Sodium Potassium Chloride Carbon Dioxide Anion Gap BUN Creatinine Est GFR ( Amer) Est GFR (Non-Af Amer) POC Glucose (mg/dL) 301 H 264 H 203 H Random Glucose Serum Osmolality Calcium Phosphorus Magnesium Total Bilirubin AST ALT Alkaline Phosphatase Troponin I NT-Pro-B Natriuret Pep Total Protein Albumin Globulin Albumin/Globulin Ratio TSH 3rd Generation Urine Color Urine Clarity Urine pH Ur Specific [place] Urine Protein Urine Glucose (UA) Urine Ketones Urine Blood Urine Nitrate Urine Bilirubin Urine Urobilinogen Ur Leukocyte Esterase Urine RBC (Auto) Urine WBC Clumps (Auto) Urine Microscopic WBC Ur Squamous Epith Cells Amorphous Sediment Urine Bacteria Hyaline Casts 12/28/17 12/28/17 12/28/17 03:42 04:41 05:00 WBC RBC Hgb Hct MCV MCH MCHC RDW Plt Count MPV Neut % (Auto) Lymph % (Auto) [place] % (Auto) Eos % (Auto) Baso % (Auto) Neut # (Auto) Lymph # (Auto) [place] # (Auto) Eos # (Auto) Baso # (Auto) Neutrophils % (Manual) Band Neutrophils % Lymphocytes % (Manual) Monocytes % (Manual) Platelet Estimate Plt Clumps, EDTA Poikilocytosis (manual Anisocytosis (manual) Ovalocytes pO2 VBG pH VBG pCO2 VBG HCO3 VBG Total CO2 VBG O2 Sat (Calc) VBG Base Excess Glucose Lactate FiO2 Blood Gas Comments Crit Value Called To Crit Value Called By Crit Value Read Back Blood Gas Notified Time Sodium 147 Potassium 4.1 Chloride 113 H Carbon Dioxide 30 Anion Gap 8 L BUN 100 H* Creatinine 2.2 H Est GFR ( Amer) 27 Est GFR (Non-Af Amer) 22 POC Glucose (mg/dL) 188 H 179 H Random Glucose 99 Serum Osmolality Calcium 6.2 L Phosphorus Magnesium Total Bilirubin AST ALT Alkaline Phosphatase Troponin I 0.1660 H* NT-Pro-B Natriuret Pep 5150 H Total Protein Albumin Globulin Albumin/Globulin Ratio TSH 3rd Generation 0.19 L Urine Color Urine Clarity Urine pH Ur Specific [place] Urine Protein Urine Glucose (UA) Urine Ketones Urine Blood Urine Nitrate Urine Bilirubin Urine Urobilinogen Ur Leukocyte Esterase Urine RBC (Auto) Urine WBC Clumps (Auto) Urine Microscopic WBC Ur Squamous Epith Cells Amorphous Sediment Urine Bacteria Hyaline Casts 12/28/17 12/28/17 12/28/17 05:27 05:30 07:06 WBC 13.9 H RBC 4.22 Hgb 12.2 Hct 36.4 MCV 86.3 D MCH 28.9 MCHC 33.5 RDW 16.1 H Plt Count 116 L D MPV 10.3 Neut % (Auto) 90.3 H Lymph % (Auto) 5.9 L [place] % (Auto) 3.6 Eos % (Auto) 0.0 Baso % (Auto) 0.2 Neut # (Auto) 12.5 H Lymph # (Auto) 0.8 L [place] # (Auto) 0.5 Eos # (Auto) 0.0 Baso # (Auto) 0.0 Neutrophils % (Manual) 92 H Band Neutrophils % 2 Lymphocytes % (Manual) 4 L Monocytes % (Manual) 2 Platelet Estimate Decreased L Plt Clumps, EDTA Poikilocytosis (manual Anisocytosis (manual) Ovalocytes pO2 VBG pH VBG pCO2 VBG HCO3 VBG Total CO2 VBG O2 Sat (Calc) VBG Base Excess Glucose Lactate FiO2 Blood Gas Comments Crit Value Called To Crit Value Called By Crit Value Read Back Blood Gas Notified Time Sodium Potassium Chloride Carbon Dioxide Anion Gap BUN Creatinine Est GFR ( Amer) Est GFR (Non-Af Amer) POC Glucose (mg/dL) 123 H 92 Random Glucose Serum Osmolality Calcium Phosphorus Magnesium Total Bilirubin AST ALT Alkaline Phosphatase Troponin I NT-Pro-B Natriuret Pep Total Protein Albumin Globulin Albumin/Globulin Ratio TSH 3rd Generation Urine Color Urine Clarity Urine pH Ur Specific [place] Urine Protein Urine Glucose (UA) Urine Ketones Urine Blood Urine Nitrate Urine Bilirubin Urine Urobilinogen Ur Leukocyte Esterase Urine RBC (Auto) Urine WBC Clumps (Auto) Urine Microscopic WBC Ur Squamous Epith Cells Amorphous Sediment Urine Bacteria Hyaline Casts 12/28/17 07:50 WBC RBC Hgb Hct MCV MCH MCHC RDW Plt Count MPV Neut % (Auto) Lymph % (Auto) [place] % (Auto) Eos % (Auto) Baso % (Auto) Neut # (Auto) Lymph # (Auto) [place] # (Auto) Eos # (Auto) Baso # (Auto) Neutrophils % (Manual) Band Neutrophils % Lymphocytes % (Manual) Monocytes % (Manual) Platelet Estimate Plt Clumps, EDTA Poikilocytosis (manual Anisocytosis (manual) Ovalocytes pO2 VBG pH VBG pCO2 VBG HCO3 VBG Total CO2 VBG O2 Sat (Calc) VBG Base Excess Glucose Lactate FiO2 Blood Gas Comments Crit Value Called To Crit Value Called By Crit Value Read Back Blood Gas Notified Time Sodium 146 Potassium 4.7 Chloride 111 H Carbon Dioxide 28 Anion Gap 12 BUN 104 H* Creatinine 2.2 H Est GFR ( Amer) 27 Est GFR (Non-Af Amer) 22 POC Glucose (mg/dL) Random Glucose 135 H Serum Osmolality Calcium 6.5 L Phosphorus Magnesium Total Bilirubin AST ALT Alkaline Phosphatase Troponin I NT-Pro-B Natriuret Pep Total Protein Albumin Globulin Albumin/Globulin Ratio TSH 3rd Generation Urine Color Urine Clarity Urine pH Ur Specific [place] Urine Protein Urine Glucose (UA) Urine Ketones Urine Blood Urine Nitrate Urine Bilirubin Urine Urobilinogen Ur Leukocyte Esterase Urine RBC (Auto) Urine WBC Clumps (Auto) Urine Microscopic WBC Ur Squamous Epith Cells Amorphous Sediment Urine Bacteria Hyaline Casts - Imaging and Cardiology CT scan - abdomen Status: Report reviewed by me Additional comment: liver mets, rt adreanl mass CT scan - chest Status: Report reviewed by me Additional comment: left upper lobe mass, post obstructive atelectasis of left upper lobe, rt breast mass 2.[address] scan - pelvis Status: Report reviewed by me Chest x-ray Status: Report reviewed by me Assessment & Plan - Assessment and Plan (Free Text) Assessment: 67 yo female with htn, high sugars, increased bun/cr, cluidy urine with nitrite + ve, LE +, wbc+ acidosis, left upper lobe mass, rt breast mass, liver mests, T( vertebralesion, rt adreanl lesion, blood c/s + for GNR 1. Renal failure, most karen JOVANNA sec to severe dehydration sec to DKA and high sugare 2. DKA 3. Granm negative sepsis, most likely source is urine 4. A. flutter 5. hypotension sec to sepsis, 6. left lung mass with liver mets, most karen lung cancer 7. rt breast mass, r/o breast cancer , or mets agree with ivf bolus and ns at 100 m l/hr c/w iv abx asper ID c/w pressors f/u urine c/s pt is DNR/ DNI over all prognosis is very poor consider Hospice evaluation Plan: As above
[2017-12-28] MEDS ORDERED: Sodium Chloride 0.9% 1,000 ML IV SCH (15:30)
[2017-12-28 16:10] LABS: SQUAMOUS EPITHIAL 2 /hpf (0-5); URINE BACTERIA OCC (<OCC); URINE BILIRUBIN NEGATIVE (NEGATIVE); URINE BLOOD LARGE (NEGATIVE); URINE CLARITY CLOUDY (Clear); URINE COLOR AMBER (YELLOW); URINE GLUCOSE (UA) 50 mg/dL (Normal); URINE LEUKOCYTE ESTERASE MOD Leu/uL (Negative); URINE PROTEIN 100 mg/dL (NEGATIVE)
[2017-12-28 16:17] LABS: TROPONIN I 0.162 ng/mL (0.00-0.120)
[2017-12-28] MEDS: methIMAzole 5 MG TAB PO SCH (16:37)
--- NOTE | 2017-12-28 17:47 | RAD ---
Date of service: 12/28/2017 PROCEDURE: CHEST RADIOGRAPH, 1 VIEW HISTORY: CHF, SOB COMPARISON: Comparison is made with 12/27/2017 FINDINGS: LUNGS: Redemonstrated is left central lung mass lesion. The left lung appears smaller than the right. PLEURA: No pneumothorax or pleural fluid seen. CARDIOVASCULAR: Normal. OSSEOUS STRUCTURES: No significant abnormalities. VISUALIZED UPPER ABDOMEN: Normal. OTHER FINDINGS: None. IMPRESSION: No significant interval changes.
[2017-12-28] MEDS: Sodium Chloride 0.9% 1,000 ML IV SCH (19:15)
[2017-12-28] MEDS: Meropenem 1 GM in Sodium Chloride 0.9% 100 ML IVPB SCH (20:37)
--- NOTE | 2017-12-28 21:53 | CON ---
DATE: 12/28/2017 ENDOCRINOLOGY CONSULTATION LOCATION: ICU room 435. HISTORY OF PRESENT ILLNESS: This is a 67-year-old female with progressively worsening generalized body weakness with confusion and hypersomnolence who was admitted here and was found to have marked hyperglycemic accelerations with underlying diabetic ketoacidosis and is now being referred for diabetic evaluation and management. She also was in new onset of rapid atrial flutter and the initial TSH is 0.19 as noted. PAST MEDICAL HISTORY: History of hypertension but has been off medications as per the family. FAMILY HISTORY: Positive for diabetes and hypertension. SOCIAL HISTORY: The patient has a supportive family. No known substance use. REVIEW OF SYSTEMS: Has been noted with the family to have increasing bouts of generalized body weakness with easy fatigability and tiredness and suboptimal energy level. Moreover, she was found to have increasing confusion, disorientation and hypersomnolence as noted. Also admits to visual blurring and bifrontal headaches. No chest pains or palpitations, but admits to progressive shortness of breath especially on exertion. Her oral intake has been variable with nausea, dyspepsia, and suboptimal meal portions. She also admits to marked polyuria, nocturia and polydipsia and was actually found by the family to have recent urinary and fecal incontinence as noted on the day of admission. PHYSICAL EXAMINATION: GENERAL: Average-built female in no apparent distress. VITAL SIGNS: With a blood pressure of 150/90, pulse of 110 beats per minute and irregular, temperature 99, respirations 20. Height is 5 feet 7 inches. Weight is 189 pounds. HEENT: Head is normocephalic. Eyes anicteric with pink conjunctivae. Funduscopy not possible at this time. Ears, nose, and throat otherwise normal. NECK: Supple. Thyroid gland is normal in size. No carotid bruits or any cervical adenopathy. CARDIOPULMONARY: Some adynamic precordium. S1 and S2 are rapid and irregular. Lungs are clear to auscultation. ABDOMEN: Flat, soft with positive bowel sounds. EXTREMITIES: No peripheral edema. Pulses are +2 bilaterally. LABORATORY DATA: Chemistry initially showed a BUN of 112, sodium 142, potassium 5.3, chloride 92, CO2 was 11, glucose 1028, and creatinine 2.7. The glucose was over 500 yesterday but was placed on an insulin drip infusion with remarkable response thereof. ASSESSMENT: This is a 67-year-old female with uncontrolled and decompensated type 2 insulin-requiring diabetes, presenting here with diabetic ketoacidosis and dehydration with concomitant hyperosmolar hyperglycemic state. She also has rapid atrial flutter with a concomitant abnormal thyroid-stimulating hormone suppressed level as noted and the possibility always of subclinical hyperthyroidism, especially with the elderly cannot be excluded at this point in time. PLAN OF MANAGEMENT: The patient received vigorous IV hydration and intensive insulin therapy but because of the supervening early heart failure, the IV fluids have been adjusted and tapered down as noted. She is currently off the insulin drip as noted. We will observe her glycemic fluctuations overnight as the glucose values already have improved remarkably. The glucose values overnight showed glucose levels of 92 to 123 mg/dL. We will continue the minimal IV hydration as given and obtain serial chemistries and supplement accordingly as needed. We will obtain a hemoglobin A1c to confirm her prior glycemic control and the baseline more comprehensive thyroid function testing will be undertaken and detailed orders have been given. We will start her right away on Tapazole given at the low dose of 5 mg b.i.d. especially with underlying atrial flutter as noted. We will titrate incrementally as indicated to optimize metabolic control. We will modify the coverage scale to obviate hypoglycemia and detailed orders have been given. We will consider the addition of oral hypoglycemic therapy after oral intake is resumed as she has a swallowing evaluation pending at this time. We will follow. Angela Copeland MD
--- NOTE | 2017-12-28 23:39 | CP.PCM.PN ---
Subjective - Date & Time of Evaluation Date of Evaluation: 12/28/17 Time of Evaluation: 14:00 - Subjective Subjective: Seen and examined at the bed side. Continue to be Lethargic, and today Hypotensive on Pressors. Also Patient was confirmed to have Possible Stage IV CA from CT scan. ICU Conduit Reamer Operator and I have informed the Children CT finding, and agree with Mother Living will of DNR/DNI. Blood Culture also growing G-ve Rods today. Denies any pain. Objective - Vital Signs/Intake and Output Vital Signs (last 24 hours): Temp Pulse Resp BP Pulse Ox 97.9 F 72 27 H 122/50 L 100 12/28/17 16:48 12/28/17 18:00 12/28/17 18:00 12/28/17 18:00 12/28/17 18:00 Intake and Output: 12/28/17 12/29/17 18:59 06:59 Intake Total 500 Output Total 50 Balance 450 - Medications Medications: Current Medications Albuterol/Ipratropium (Duoneb 3 Mg/0.5 Mg (3 Ml) Ud) 3 ml INH RQ4 PRN PRN Reason: Shortness of Breath Last Admin: 12/28/17 13:51 Dose: 3 ml Dextrose (Dextrose 50% Inj) 0 ml IV STAT PRN; Protocol PRN Reason: Hypoglycemia Protocol Dextrose (Glutose 15) 0 gm PO ONCE PRN; Protocol PRN Reason: Hypoglycemia Protocol Dextrose (Dextrose 50% Inj) 0 ml IV STAT PRN; Protocol PRN Reason: Hypoglycemia Protocol Dextrose (Glutose 15) 0 gm PO ONCE PRN; Protocol PRN Reason: Hypoglycemia Protocol Digoxin (Lanoxin) 0.25 mg IVP DAILY [facility] Last Admin: 12/28/17 10:38 Dose: 0.25 mg Glucagon (Glucagen Diagnostic Kit) 0 mg IM STAT PRN; Protocol PRN Reason: Hypoglycemia Protocol Glucagon (Glucagen Diagnostic Kit) 0 mg IM STAT PRN; Protocol PRN Reason: Hypoglycemia Protocol Heparin Sodium (Porcine) (Heparin) 5,000 units SC Q8 PORFIRIO; Protocol Last Admin: 12/28/17 16:36 Dose: 5,000 units Vasopressin 100 units/ Sodium (Chloride) 105 mls @ 1.89 mls/hr IV .Q24H PORFIRIO; Protocol Last Titration: 12/28/17 17:03 Dose: 0.02 units/min, 1.26 mls/hr Meropenem 1 gm/ Sodium (Chloride) 100 mls @ 100 mls/hr IVPB Q12 PORFIRIO; Protocol Last Admin: 12/28/17 20:37 Dose: 100 mls/hr Daptomycin 340 mg/ Sodium (Chloride) 100 mls @ 100 mls/hr IV Q24H PORFIRIO; Protocol Stop: 01/02/18 14:01 Last Admin: 12/28/17 15:33 Dose: 100 mls/hr Phenylephrine HCl 60 mg/ (Sodium Chloride) 256 mls @ 5.12 mls/hr IV .Q24H PORFIRIO; Protocol Stop: 12/29/17 15:14 Last Admin: 12/28/17 15:51 Dose: 20 mcg/min, 5.12 mls/hr Sodium Chloride (Sodium Chloride 0.9%) 1,000 mls @ 60 mls/hr IV .[id number] PORFIRIO Stop: 12/29/17 19:04 Last Admin: 12/28/17 19:15 Dose: 60 mls/hr Insulin Human Lispro (Humalog) 0 units SC ACHS [facility] Last Admin: 12/28/17 16:37 Dose: 3 units Methimazole (Tapazole) 5 mg PO BID PORFIRIO Last Admin: 12/28/17 16:37 Dose: Not Given - Labs Labs: 12/28/17 05:30 12/28/17 07:50 - Constitutional Appears: No Acute Distress, Older Than Stated Age, Chronically Ill - Head Exam Head Exam: ATRAUMATIC, NORMAL INSPECTION, NORMOCEPHALIC - Eye Exam Eye Exam: EOMI, Normal appearance, PERRL Pupil Exam: NORMAL ACCOMODATION, PERRL - ENT Exam ENT Exam: Mucous Membranes Dry, Normal Exam - Neck Exam Neck Exam: Full ROM, Normal Inspection. absent: Lymphadenopathy - Respiratory Exam Respiratory Exam: Decreased Breath Sounds, Prolonged Expiratory Phase Additional comments: Congested - Cardiovascular Exam Cardiovascular Exam: REGULAR RHYTHM, +S1, +S2. absent: Murmur - GI/Abdominal Exam GI & Abdominal Exam: Soft, Normal Bowel Sounds. absent: Tenderness - Extremities Exam Extremities Exam: Full ROM, Normal Capillary Refill, Normal Inspection. absent: Joint Swelling, Pedal Edema - Back Exam Back Exam: NORMAL INSPECTION - Neurological Exam Neurological Exam: Alert, Altered, Awake, CN II-XII Intact, Normal Gait, Orie nted x3 - Psychiatric Exam Psychiatric exam: Normal Affect, Normal Mood - Skin Skin Exam: Dry, Normal Color, Warm - Additional Findings Additional findings: Date of service: 12/27/2017 PROCEDURE: CT Chest without contrast HISTORY: Mass on CXR COMPARISON: Comparison is made to the previous CT of the abdomen and pelvis with contrast dated 09/24/2012 TECHNIQUE: Contiguous axial images were obtained through the chest without intravenous contrast enhancement. Sagittal and coronal reconstructions were performed. Radiation dose (DLP): 821.22 mGy-cm. This CT exam was performed using one or more of the following dose reduction techniques: Automated exposure control, adjustment of the mA and/or kV according to patient size, and/or use of iterative reconstruction technique. FINDINGS: LUNGS: There is large central left upper lobe mass lesion associated with almost complete collapse of left upper lobe. The mass is extending to the left hilum and associated with complete obstruction of the left upper lobe pulmonary artery. The exact size and border of this mass is not well visualized due lack of IV contrast administration. The mass is likely extending to the right hilum and associated with bulging in the left fissure. Findings highly suspicious for malignant neoplasm in the left lung upper lobe. There are small nodular opacity seen in the left lung lower lobe may represent infectious process or less likely metastasis. There is calcified nodule in the right lung upper lobe measures 4 millimeter image 71 series 3. MEDIASTINUM: The thoracic aorta is ectatic and tortuous. The main pulmonary artery is mildly enlarged . the heart is upper normal limit in size. No evidence of pericardial effusion. Suspicious for right hilar lymphadenopathy extending to the left precarinal region. PLEURA: No pleural fluid. No pneumothorax. BONES: There is sclerotic heterogeneous bony lesion in the T9 vertebral body suspicious for osseous metastasis. UPPER ABDOMEN: The patient had at CT of the abdomen was performed concurrently and reported se parately. Multiple metastasis in the liver noted. Large nodule or mass in the right adrenal gland. OTHER FINDINGS: Diffuse mild esophageal mucosal thickening noted. The thyroid gland is heterogeneous mildly enlarged without evidence of discrete mass. There is lobulated soft tissue mass lesion at the right breast measures 2.7 x 2.8 centimeter suspicious for malignant breast neoplasm. The differential consideration includes metastasis. IMPRESSION: Large left upper lobe central mass extending to the left hilum and associated with post obstruction atelectasis of the left upper lobe highly suspicious for left upper lobe bronchial carcinoma. Further assessment by bronchoscopy is recommended. Right hilar lymphadenopathy extending to the left precarinal region. Small nodular opacity at the left lung lower lobe may represent infectious process versus less likely metastasis. Heterogeneous sclerotic bony lesion at T9 vertebral body suspicious for metastasis. Adjacent soft tissue mass in the T9 perivertebral region likely represent metastasis. Liver metastasis. Soft tissue mass lesion at the right breast measures 2.8 centimeter in the largest transverse diameter and 2.7 centimeter in the AP diameter suspicious for malignant neoplasm. Preliminary report with concordance findings was submitted by [facility] Rad[facility] at 828 p.m. on 12/27/2017. Assessment and Plan (1) Altered mental status Assessment & Plan: Metabolic Encephalopathy: Sepsis, Uremia and Metabolic Acidosis Treat the Underlying Problem Monitor in ICU Status: Acute Priority: High (2) DKA (diabetic ketoacidoses) Assessment and Plan: HHS, Hypotension Bolus IVF PRN Hypotension Continue IVF Insulin Drip 9 Units/Hr Replenish Electrolytes BMP Q4hrs VBG Q4hrs Accu-check Q1hr HgA1C Status: Acute Priority: High (3) Sepstic Shock, Give bactremia Assessment and Plan: UTI and Sacral Pressure Ulcer Stage II IV Merem and Vamcomycin IVF Blood and Urine Cultures Wound CAre daily Status: Acute Priority: High (4) Lung mass, Possible Stage IV Lung Cancer Assessment and Plan: Family Aware Status: Acute Priority: High (5) Acute renal failure (ARF) Assessment and Plan: Most Likely ATN due to Hypotension and Dehydration IVF RX DKA/HHS and Sepsis Urine NA Nephrology Consult Status: Acute Priority: High (6) Gait abnormality Status: Acute Priority: Medium (7) DVT prophylaxis Status: Inactive Priority: High (8) DNR/DNI Status: Acute
[2017-12-29 06:24] LABS: BASO % 0.1 % (0.0-2.0); EOS % 0.3 % (0.0-4.0); HEMOGLOBIN 11.4 g/dL (12.0-16.0); LYMPH # 0.2 K/uL (1.0-4.3); LYMPH % 2.6 % (20.0-40.0); MEAN CELL VOLUME 89.3 fl (81.0-99.0); MEAN CORPUSCULAR HEMOGLOBIN 28.6 pg (27.0-31.0); MEAN PLATELET VOLUME 11.3 fl (7.2-11.7); MONO # 0.3 K/uL (0.0-0.8); NEUT # 8.9 K/uL (1.8-7.0); NRBC % 0.5 % (0.0-0.0); RBC 3.98 Mil/uL (3.80-5.20); RED CELL DISTRIBUTION WIDTH 16.2 % (11.5-14.5); WHITE BLOOD COUNT 9.5 K/uL (4.8-10.8)
[2017-12-29] MEDS: Insulin Lispro (humaLOG) 100 Units/ml Inj SC SCH ×4 (06:33→23:09)
[2017-12-29 06:34] LABS: ALB/GLOB RATIO 0.8 (1.0-2.1); ALBUMIN 2.3 g/dL (3.5-5.0); CALCIUM 6.8 mg/dL (8.4-10.2)
[2017-12-29 06:49] LABS: T4 2.2 ug/dl (5.5-11.0)
[2017-12-29 07:05] LABS: LYMPHOCYTE 2 % (20-50); MONOCYTE 2 % (0-10); NEUTROPHIL 96 % (42-75); TOTAL CELLS COUNTED 100
[2017-12-29 07:06] LABS: PLATELET ESTIMATE DECREASED (NORMAL)
[2017-12-29 07:08] LABS: ANISOCYTOSIS SLIGHT; OVALOCYTES SLIGHT; POIKILOCYTOSIS SLIGHT; TEARDROP CELLS SLIGHT
[2017-12-29 07:09] LABS: PLATELET COUNT 83 K/uL (130-400)
--- NOTE | 2017-12-29 07:35 | CP.CCUPN ---
CCU Subjective - Physician Review Events Since Last Encounter (Free Text): 12/29/17 The patient was Seen/interviewed and examined by me at the bedside during ICU round, Medical records reviewed and Management issues were discussed and formulated with the house staff. Events reviewed Patient awake, looks comfortable, but very confused, follows some commands Remains on Vasopressors Insulin was DCed as BS improved and IG closed, not on any s/q insulin at the moment, was held due to dropping BS. Pt on Insulin Human Lispro (Humalog) 0 units SC ACHS Gram negative bacteremia Afebrile , Reprat Blood C/S negative On IV Meropenem and Daptomycin CCU Objective - Vital Signs / Intake & Output Vital Signs (Last 4 hours): Vital Signs Temp Pulse Resp BP Pulse Ox 12/29/17 07:00 78 29 H 104/71 100 12/29/17 06:30 71 26 H 102/62 99 12/29/17 05:00 69 26 H 97/48 L 98 12/29/17 04:00 98.8 F 103 H 31 H 104/65 99 Intake and Output (Last 8hrs): Intake & Output 12/28/17 12/29/17 12/29/17 22:59 06:59 14:59 Intake Total 680 480 Output Total 50 250 Balance 630 230 Weight 189 lb Intake: IV 580 480 Intake, Piggyback 100 Output: Urine 50 250 Urethral (Randolph) 50 250 Other: # Bowel Movements 3 1 - Physical Exam Physical Exam Limitations: Positive for: Clinical Condition Head: Positive for: Atraumatic, Normocephalic Pupils: Positive for: PERRL Extroacular Muscles: Positive for: EOMI Conjunctiva: Positive for: Normal Mouth: Positive for: Moist Mucous Membranes Pharnyx: Positive for: Normal Neck: Positive for: Normal Range of Motion, Trachea Midline. Negative for: Meningeal Signs, MIDLINE TENDERNESS, Paraspinal Tenderness, JVD, Lymphadenopathy, Bruit, Other Respiratory/Chest: Positive for: Rhonchi. Negative for: Respiratory Distress, Accessory Muscle Use, Wheezes Cardiovascular: Positive for: Regular Rate and Rhythm, Normal S1, S2, Peripheal Pulses Present. Negative for: Tachycardic, Bradycardic Abdomen: Positive for: Normal Bowel Sounds. Negative for: Tenderness, Distention Back: Positive for: Normal Inspection. Negative for: CVA Tenderness Psychiatric: Positive for: Alert. Negative for: Oriented x 3, Anxious, Agitated - Medications Active Medications: Active Medications Generic Name Dose Route Start Last Admin Trade Name Freq PRN Reason Stop Dose Admin Albuterol/Ipratropium 3 ml 12/28/17 13:36 12/28/17 13:51 Duoneb 3 Mg/0.5 Mg (3 Ml) Ud INH 3 ml RQ4 PRN Administration Shortness of Breath Dextrose 0 ml 12/27/17 14:37 Dextrose 50% Inj IV STAT PRN Hypoglycemia Protocol Protocol Dextrose 0 gm 12/27/17 14:37 Glutose 15 PO ONCE PRN Hypoglycemia Protocol Protocol Dextrose 0 ml 12/27/17 19:05 Dextrose 50% Inj IV STAT PRN Hypoglycemia Protocol Protocol Dextrose 0 gm 12/27/17 19:05 Glutose 15 PO ONCE PRN Hypoglycemia Protocol Protocol Digoxin 0.25 mg 12/28/17 10:15 12/28/17 10:38 Lanoxin IVP 0.25 mg DAILY PORFIRIO Administration Glucagon 0 mg 12/27/17 14:37 Glucagen Diagnostic Kit IM STAT PRN Hypoglycemia Protocol Protocol Glucagon 0 mg 12/27/17 19:05 Glucagen Diagnostic Kit IM STAT PRN Hypoglycemia Protocol Protocol Heparin Sodium (Porcine) 5,000 units 12/28/17 01:00 12/29/17 01:30 Heparin SC 5,000 units Q8 PORFIRIO Administration Protocol Vasopressin 100 units/ Sodium 105 mls @ 1.89 mls/hr 12/28/17 13:00 12/28/17 17:03 Chloride IV 0.02 units/min .Q24H PORFIRIO 1.26 mls/hr Titration Protocol 0.03 UNITS/MIN Meropenem 1 gm/ Sodium 100 mls @ 100 mls/hr 12/28/17 21:00 12/28/17 20:37 Chloride IVPB 100 mls/hr Q12 PORFIRIO Administration Protocol Daptomycin 340 mg/ Sodium 100 mls @ 100 mls/hr 12/28/17 14:00 12/28/17 15:33 Chloride IV 01/02/18 14:01 100 mls/hr Q24H PORFIRIO Administration Protocol Phenylephrine HCl 60 mg/ 256 mls @ 5.12 mls/hr 12/28/17 15:15 12/28/17 15:51 Sodium Chloride IV 12/29/17 15:14 20 mcg/min .Q24H PORFIRIO 5.12 mls/hr Administration Protocol 20 MCG/MIN Sodium Chloride 1,000 mls @ 60 mls/hr 12/28/17 19:15 12/28/17 19:15 Sodium Chloride 0.9% IV 12/29/17 19:04 60 mls/hr .[id number] PORFIRIO Administration Insulin Human Lispro 0 units 12/28/17 11:30 12/29/17 06:33 Humalog SC 3 units ACHS PORFIRIO Administration Methimazole 5 mg 12/28/17 17:00 12/28/17 16:37 Tapazole PO Not Given BID PORFIRIO - Patient Studies Lab Studies: Microbiology Studies 12/27/17 14:49 Blood Culture - Preliminary Blood-Venous Gram Negative Zacarias Gram Stain - Final Lab Studies 12/29/17 12/29/17 12/29/17 Range/Units 06:00 06:00 06:00 WBC 9.5 (4.8-10.8) K/uL RBC 3.98 (3.80-5.20) Mil/uL Hgb 11.4 L (12.0-16.0) g/dL Hct 35.6 (34.0-47.0) % MCV 89.3 D (81.0-99.0) fl MCH 28.6 (27.0-31.0) pg MCHC 32.0 L (33.0-37.0) g/dL RDW 16.2 H (11.5-14.5) % Plt Count 83 L D (130-400) K/uL MPV 11.3 (7.2-11.7) fl Neut % (Auto) 94.0 H (50.0-75.0) % Lymph % (Auto) 2.6 L (20.0-40.0) % [place] % (Auto) 3.0 (0.0-10.0) % Eos % (Auto) 0.3 (0.0-4.0) % Baso % (Auto) 0.1 (0.0-2.0) % Neut # (Auto) 8.9 H (1.8-7.0) K/uL Lymph # (Auto) 0.2 L (1.0-4.3) K/uL [place] # (Auto) 0.3 (0.0-0.8) K/uL Eos # (Auto) 0.0 (0.0-0.7) K/uL Baso # (Auto) 0.0 (0.0-0.2) K/uL Neutrophils % (Manual) 96 H (42-75) % Lymphocytes % (Manual) 2 L (20-50) % Monocytes % (Manual) 2 (0-10) % Platelet Estimate Decreased L (NORMAL) Poikilocytosis (manual Slight Anisocytosis (manual) Slight Tear Drop Cells Slight Ovalocytes Slight Sodium 147 (132-148) mmol/l Potassium 4.8 (3.6-5.0) MMOL/L Chloride 112 H (98-107) mmol/L Carbon Dioxide 17 L (22-30) mmol/L Anion Gap 23 H (10-20) BUN 99 H (7-17) mg/dl Creatinine 2.6 H (0.7-1.2) mg/dl Est GFR ( Amer) 22 Est GFR (Non-Af Amer) 18 POC Glucose (mg/dL) (65-110) mg/dL Random Glucose 336 H (65-105) mg/dL Calcium 6.8 L (8.4-10.2) mg/dL Phosphorus 5.6 H (2.5-4.5) mg/dl Magnesium 1.9 (1.6-2.3) MG/DL Total Bilirubin 1.6 H (0.2-1.3) mg/dl AST 234 H D (14-36) U/L ALT 136 H (9-52) U/L Alkaline Phosphatase 325 H D (38-126) U/L Total Creatine Kinase (30-135) U/L Troponin I (0.00-0.120) ng/mL Total Protein 5.1 L (6.3-8.2) G/DL Albumin 2.3 L (3.5-5.0) g/dL Globulin 2.8 (2.2-3.9) gm/dL Albumin/Globulin Ratio 0.8 L (1.0-2.1) Free T4 0.89 (0.78-2.19) ng/dL Thyroxine (T4) 2.20 L (5.5-11.0) ug/dl TSH 3rd Generation 0.15 L (0.46-4.68) mIU/ML Urine Color (YELLOW) Urine Clarity (Clear) Urine pH (5.0-8.0) Ur Specific Cameron (1.003-1.030) Urine Protein (NEGATIVE) mg/dL Urine Glucose (UA) (Normal) mg/dL Urine Ketones (NEGATIVE) mg/dL Urine Blood (NEGATIVE) Urine Nitrate (NEGATIVE) Urine Bilirubin (NEGATIVE) Urine Urobilinogen (0.2-1.0) mg/dL Ur Leukocyte Esterase (Negative) Terry/uL Urine RBC (Auto) (0-3) /hpf Urine Microscopic WBC (0-5) /hpf Ur Squamous Epith Cells (0-5) /hpf Urine Bacteria (<OCC) Urine Yeast (Budding) (NEGATIVE) /hpf 12/29/17 12/28/17 12/28/17 Range/Units 04:09 21:25 16:25 WBC (4.8-10.8) K/uL RBC (3.80-5.20) Mil/uL Hgb (12.0-16.0) g/dL Hct (34.0-47.0) % MCV (81.0-99.0) fl MCH (27.0-31.0) pg MCHC (33.0-37.0) g/dL RDW (11.5-14.5) % Plt Count (130-400) K/uL MPV (7.2-11.7) fl Neut % (Auto) (50.0-75.0) % Lymph % (Auto) (20.0-40.0) % [place] % (Auto) (0.0-10.0) % Eos % (Auto) (0.0-4.0) % Baso % (Auto) (0.0-2.0) % Neut # (Auto) (1.8-7.0) K/uL Lymph # (Auto) (1.0-4.3) K/uL [place] # (Auto) (0.0-0.8) K/uL Eos # (Auto) (0.0-0.7) K/uL Baso # (Auto) (0.0-0.2) K/uL Neutrophils % (Manual) (42-75) % Lymphocytes % (Manual) (20-50) % Monocytes % (Manual) (0-10) % Platelet Estimate (NORMAL) Poikilocytosis (manual Anisocytosis (manual) Tear Drop Cells Ovalocytes Sodium (132-148) mmol/l Potassium (3.6-5.0) MMOL/L Chloride (98-107) mmol/L Carbon Dioxide (22-30) mmol/L Anion Gap (10-20) BUN (7-17) mg/dl Creatinine (0.7-1.2) mg/dl Est GFR ( Amer) Est GFR (Non-Af Amer) POC Glucose (mg/dL) 344 H 297 H 301 H (65-110) mg/dL Random Glucose (65-105) mg/dL Calcium (8.4-10.2) mg/dL Phosphorus (2.5-4.5) mg/dl Magnesium (1.6-2.3) MG/DL Total Bilirubin (0.2-1.3) mg/dl AST (14-36) U/L ALT (9-52) U/L Alkaline Phosphatase (38-126) U/L Total Creatine Kinase (30-135) U/L Troponin I (0.00-0.120) ng/mL Total Protein (6.3-8.2) G/DL Albumin (3.5-5.0) g/dL Globulin (2.2-3.9) gm/dL Albumin/Globulin Ratio (1.0-2.1) Free T4 (0.78-2.19) ng/dL Thyroxine (T4) (5.5-11.0) ug/dl TSH 3rd Generation (0.46-4.68) mIU/ML Urine Color (YELLOW) Urine Clarity (Clear) Urine pH (5.0-8.0) Ur Specific Cameron (1.003-1.030) Urine Protein (NEGATIVE) mg/dL Urine Glucose (UA) (Normal) mg/dL Urine Ketones (NEGATIVE) mg/dL Urine Blood (NEGATIVE) Urine Nitrate (NEGATIVE) Urine Bilirubin (NEGATIVE) Urine Urobilinogen (0.2-1.0) mg/dL Ur Leukocyte Esterase (Negative) Terry/uL Urine RBC (Auto) (0-3) /hpf Urine Microscopic WBC (0-5) /hpf Ur Squamous Epith Cells (0-5) /hpf Urine Bacteria (<OCC) Urine Yeast (Budding) (NEGATIVE) /hpf 12/28/17 12/28/17 12/28/17 Range/Units 15:56 14:40 12:43 WBC (4.8-10.8) K/uL RBC (3.80-5.20) Mil/uL Hgb (12.0-16.0) g/dL Hct (34.0-47.0) % MCV (81.0-99.0) fl MCH (27.0-31.0) pg MCHC (33.0-37.0) g/dL RDW (11.5-14.5) % Plt Count (130-400) K/uL MPV (7.2-11.7) fl Neut % (Auto) (50.0-75.0) % Lymph % (Auto) (20.0-40.0) % [place] % (Auto) (0.0-10.0) % Eos % (Auto) (0.0-4.0) % Baso % (Auto) (0.0-2.0) % Neut # (Auto) (1.8-7.0) K/uL Lymph # (Auto) (1.0-4.3) K/uL [place] # (Auto) (0.0-0.8) K/uL Eos # (Auto) (0.0-0.7) K/uL Baso # (Auto) (0.0-0.2) K/uL Neutrophils % (Manual) (42-75) % Lymphocytes % (Manual) (20-50) % Monocytes % (Manual) (0-10) % Platelet Estimate (NORMAL) Poikilocytosis (manual Anisocytosis (manual) Tear Drop Cells Ovalocytes Sodium (132-148) mmol/l Potassium (3.6-5.0) MMOL/L Chloride (98-107) mmol/L Carbon Dioxide (22-30) mmol/L Anion Gap (10-20) BUN (7-17) mg/dl Creatinine (0.7-1.2) mg/dl Est GFR ( Amer) Est GFR (Non-Af Amer) POC Glucose (mg/dL) 322 H (65-110) mg/dL Random Glucose (65-105) mg/dL Calcium (8.4-10.2) mg/dL Phosphorus (2.5-4.5) mg/dl Magnesium (1.6-2.3) MG/DL Total Bilirubin (0.2-1.3) mg/dl AST (14-36) U/L ALT (9-52) U/L Alkaline Phosphatase (38-126) U/L Total Creatine Kinase 210 H (30-135) U/L Troponin I 0.1620 H* (0.00-0.120) ng/mL Total Protein (6.3-8.2) G/DL Albumin (3.5-5.0) g/dL Globulin (2.2-3.9) gm/dL Albumin/Globulin Ratio (1.0-2.1) Free T4 (0.78-2.19) ng/dL Thyroxine (T4) (5.5-11.0) ug/dl TSH 3rd Generation (0.46-4.68) mIU/ML Urine Color Michelle (YELLOW) Urine Clarity Cloudy (Clear) Urine pH 5.0 (5.0-8.0) Ur Specific Cameron 1.016 (1.003-1.030) Urine Protein 100 (NEGATIVE) mg/dL Urine Glucose (UA) 50 (Normal) mg/dL Urine Ketones Negative (NEGATIVE) mg/dL Urine Blood Large (NEGATIVE) Urine Nitrate Negative (NEGATIVE) Urine Bilirubin Negative (NEGATIVE) Urine Urobilinogen 4.0 H (0.2-1.0) mg/dL Ur Leukocyte Esterase Mod (Negative) Terry/uL Urine RBC (Auto) 7 H (0-3) /hpf Urine Microscopic WBC 29 H (0-5) /hpf Ur Squamous Epith Cells 2 (0-5) /hpf Urine Bacteria Occ H (<OCC) Urine Yeast (Budding) Occ H (NEGATIVE) /hpf 12/28/17 12/28/17 Range/Units 10:36 07:50 WBC (4.8-10.8) K/uL RBC (3.80-5.20) Mil/uL Hgb (12.0-16.0) g/dL Hct (34.0-47.0) % MCV (81.0-99.0) fl MCH (27.0-31.0) pg MCHC (33.0-37.0) g/dL RDW (11.5-14.5) % Plt Count (130-400) K/uL MPV (7.2-11.7) fl Neut % (Auto) (50.0-75.0) % Lymph % (Auto) (20.0-40.0) % [place] % (Auto) (0.0-10.0) % Eos % (Auto) (0.0-4.0) % Baso % (Auto) (0.0-2.0) % Neut # (Auto) (1.8-7.0) K/uL Lymph # (Auto) (1.0-4.3) K/uL [place] # (Auto) (0.0-0.8) K/uL Eos # (Auto) (0.0-0.7) K/uL Baso # (Auto) (0.0-0.2) K/uL Neutrophils % (Manual) (42-75) % Lymphocytes % (Manual) (20-50) % Monocytes % (Manual) (0-10) % Platelet Estimate (NORMAL) Poikilocytosis (manual Anisocytosis (manual) Tear Drop Cells Ovalocytes Sodium 146 (132-148) mmol/l Potassium 4.7 (3.6-5.0) MMOL/L Chloride 111 H (98-107) mmol/L Carbon Dioxide 28 (22-30) mmol/L Anion Gap 12 (10-20) BUN 104 H* (7-17) mg/dl Creatinine 2.2 H (0.7-1.2) mg/dl Est GFR ( Amer) 27 Est GFR (Non-Af Amer) 22 POC Glucose (mg/dL) 175 H (65-110) mg/dL Random Glucose 135 H (65-105) mg/dL Calcium 6.5 L (8.4-10.2) mg/dL Phosphorus (2.5-4.5) mg/dl Magnesium (1.6-2.3) MG/DL Total Bilirubin (0.2-1.3) mg/dl AST (14-36) U/L ALT (9-52) U/L Alkaline Phosphatase (38-126) U/L Total Creatine Kinase (30-135) U/L Troponin I (0.00-0.120) ng/mL Total Protein (6.3-8.2) G/DL Albumin (3.5-5.0) g/dL Globulin (2.2-3.9) gm/dL Albumin/Globulin Ratio (1.0-2.1) Free T4 (0.78-2.19) ng/dL Thyroxine (T4) (5.5-11.0) ug/dl TSH 3rd Generation (0.46-4.68) mIU/ML Urine Color (YELLOW) Urine Clarity (Clear) Urine pH (5.0-8.0) Ur Specific Cameron (1.003-1.030) Urine Protein (NEGATIVE) mg/dL Urine Glucose (UA) (Normal) mg/dL Urine Ketones (NEGATIVE) mg/dL Urine Blood (NEGATIVE) Urine Nitrate (NEGATIVE) Urine Bilirubin (NEGATIVE) Urine Urobilinogen (0.2-1.0) mg/dL Ur Leukocyte Esterase (Negative) Terry/uL Urine RBC (Auto) (0-3) /hpf Urine Microscopic WBC (0-5) /hpf Ur Squamous Epith Cells (0-5) /hpf Urine Bacteria (<OCC) Urine Yeast (Budding) (NEGATIVE) /hpf Laboratory Results - last 24 hr 12/28/17 12/28/17 12/28/17 07:50 10:36 12:43 WBC RBC Hgb Hct MCV MCH MCHC RDW Plt Count MPV Neut % (Auto) Lymph % (Auto) [place] % (Auto) Eos % (Auto) Baso % (Auto) Neut # (Auto) Lymph # (Auto) [place] # (Auto) Eos # (Auto) Baso # (Auto) Neutrophils % (Manual) Lymphocytes % (Manual) Monocytes % (Manual) Platelet Estimate Poikilocytosis (manual Anisocytosis (manual) Tear Drop Cells Ovalocytes Sodium 146 Potassium 4.7 Chloride 111 H Carbon Dioxide 28 Anion Gap 12 BUN 104 H* Creatinine 2.2 H Est GFR ( Amer) 27 Est GFR (Non-Af Amer) 22 POC Glucose (mg/dL) 175 H 322 H Random Glucose 135 H Calcium 6.5 L Phosphorus Magnesium Total Bilirubin AST ALT Alkaline Phosphatase Total Creatine Kinase Troponin I Total Protein Albumin Globulin Albumin/Globulin Ratio Free T4 Thyroxine (T4) TSH 3rd Generation Urine Color Urine Clarity Urine pH Ur Specific Cameron Urine Protein Urine Glucose (UA) Urine Ketones Urine Blood Urine Nitrate Urine Bilirubin Urine Urobilinogen Ur Leukocyte Esterase Urine RBC (Auto) Urine Microscopic WBC Ur Squamous Epith Cells Urine Bacteria Urine Yeast (Budding) 12/28/17 12/28/17 12/28/17 14:40 15:56 16:25 WBC RBC Hgb Hct MCV MCH MCHC RDW Plt Count MPV Neut % (Auto) Lymph % (Auto) [place] % (Auto) Eos % (Auto) Baso % (Auto) Neut # (Auto) Lymph # (Auto) [place] # (Auto) Eos # (Auto) Baso # (Auto) Neutrophils % (Manual) Lymphocytes % (Manual) Monocytes % (Manual) Platelet Estimate Poikilocytosis (manual Anisocytosis (manual) Tear Drop Cells Ovalocytes Sodium Potassium Chloride Carbon Dioxide Anion Gap BUN Creatinine Est GFR ( Amer) Est GFR (Non-Af Amer) POC Glucose (mg/dL) 301 H Random Glucose Calcium Phosphorus Magnesium Total Bilirubin AST ALT Alkaline Phosphatase Total Creatine Kinase 210 H Troponin I 0.1620 H* Total Protein Albumin Globulin Albumin/Globulin Ratio Free T4 Thyroxine (T4) TSH 3rd Generation Urine Color Michelle Urine Clarity Cloudy Urine pH 5.0 Ur Specific Cameron 1.016 Urine Protein 100 Urine Glucose (UA) 50 Urine Ketones Negative Urine Blood Large Urine Nitrate Negative Urine Bilirubin Negative Urine Urobilinogen 4.0 H Ur Leukocyte Esterase Mod Urine RBC (Auto) 7 H Urine Microscopic WBC 29 H Ur Squamous Epith Cells 2 Urine Bacteria Occ H Urine Yeast (Budding) Occ H 12/28/17 12/29/17 12/29/17 21:25 04:09 06:00 WBC RBC Hgb Hct MCV MCH MCHC RDW Plt Count MPV Neut % (Auto) Lymph % (Auto) [place] % (Auto) Eos % (Auto) Baso % (Auto) Neut # (Auto) Lymph # (Auto) [place] # (Auto) Eos # (Auto) Baso # (Auto) Neutrophils % (Manual) Lymphocytes % (Manual) Monocytes % (Manual) Platelet Estimate Poikilocytosis (manual Anisocytosis (manual) Tear Drop Cells Ovalocytes Sodium 147 Potassium 4.8 Chloride 112 H Carbon Dioxide 17 L Anion Gap 23 H BUN 99 H Creatinine 2.6 H Est GFR ( Amer) 22 Est GFR (Non-Af Amer) 18 POC Glucose (mg/dL) 297 H 344 H Random Glucose 336 H Calcium 6.8 L Phosphorus 5.6 H Magnesium 1.9 Total Bilirubin 1.6 H AST 234 H D ALT 136 H Alkaline Phosphatase 325 H D Total Creatine Kinase Troponin I Total Protein 5.1 L Albumin 2.3 L Globulin 2.8 Albumin/Globulin Ratio 0.8 L Free T4 Thyroxine (T4) 2.20 L TSH 3rd Generation 0.15 L Urine Color Urine Clarity Urine pH Ur Specific Cameron Urine Protein Urine Glucose (UA) Urine Ketones Urine Blood Urine Nitrate Urine Bilirubin Urine Urobilinogen Ur Leukocyte Esterase Urine RBC (Auto) Urine Microscopic WBC Ur Squamous Epith Cells Urine Bacteria Urine Yeast (Budding) 12/29/17 12/29/17 06:00 06:00 WBC 9.5 RBC 3.98 Hgb 11.4 L Hct 35.6 MCV 89.3 D MCH 28.6 MCHC 32.0 L RDW 16.2 H Plt Count 83 L D MPV 11.3 Neut % (Auto) 94.0 H Lymph % (Auto) 2.6 L [place] % (Auto) 3.0 Eos % (Auto) 0.3 Baso % (Auto) 0.1 Neut # (Auto) 8.9 H Lymph # (Auto) 0.2 L [place] # (Auto) 0.3 Eos # (Auto) 0.0 Baso # (Auto) 0.0 Neutrophils % (Manual) 96 H Lymphocytes % (Manual) 2 L Monocytes % (Manual) 2 Platelet Estimate Decreased L Poikilocytosis (manual Slight Anisocytosis (manual) Slight Tear Drop Cells Slight Ovalocytes Slight Sodium Potassium Chloride Carbon Dioxide Anion Gap BUN Creatinine Est GFR ( Amer) Est GFR (Non-Af Amer) POC Glucose (mg/dL) Random Glucose Calcium Phosphorus Magnesium Total Bilirubin AST ALT Alkaline Phosphatase Total Creatine Kinase Troponin I Total Protein Albumin Globulin Albumin/Globulin Ratio Free T4 0.89 Thyroxine (T4) TSH 3rd Generation Urine Color Urine Clarity Urine pH Ur Specific Cameron Urine Protein Urine Glucose (UA) Urine Ketones Urine Blood Urine Nitrate Urine Bilirubin Urine Urobilinogen Ur Leukocyte Esterase Urine RBC (Auto) Urine Microscopic WBC Ur Squamous Epith Cells Urine Bacteria Urine Yeast (Budding) Fingerstick Blood Sugar Results: 344 Review of Systems - Cardiovascular Cardiovascular: absent: Chest Pain - Respiratory Respiratory: Cough, Dyspnea, Dyspnea on Exertion. absent: Hemoptysis, Wheezing - Gastrointestinal Gastrointestinal: absent: Abdominal Pain Critical Care Progress Note - Extremities/Vascular Does the Patient have a Central Venous Catheter?: Yes Does the Patient need a Central Venous Catheter?: Yes - Nutrition Nutrition: Nutrition Category Date Time Status NPO Diet [DIET] Diets 12/28/17 Breakfast Active Assessment/Plan (1) Sepsis Current Visit: Yes Status: Acute Priority: High Comment: Gram negative bacteremia Reprat Blood C/S negative Meropenem 1 gm IVPB Q12 PORFIRIO Daptomycin 340 mg/ Sodium (Chloride) 100 mls IV Q24H PORFIRIO (2) UTI (urinary tract infection) Current Visit: Yes Status: Acute Comment: UA this morning suggesting UTI with high count of WBCs in urine Continue current IV Antibiotics (3) ATN (acute tubular necrosis) Current Visit: Yes Status: Acute Priority: High Comment: pre-renal/ATN from dehydration, DKA, R/O hydro IVF to 1/2 NS at 75 cc/H (4) Altered mental status Current Visit: Yes Status: Acute Priority: High (5) Atrial flutter with rapid ventricular response Current Visit: Yes Status: Acute (6) Bacteremia due to Gram-negative bacteria Current Visit: Yes Status: Acute Priority: High (7) DKA (diabetic ketoacidoses) Current Visit: Yes Status: Resolved Priority: Medium Comment: non-complaint to diabetic meds: DKA improved with aggressive hydration and insulin drip Now off insulin drip Endocrinology consult
[2017-12-29] MEDS: Meropenem 1 GM in Sodium Chloride 0.9% 100 ML IVPB SCH ×2 (09:09→23:08)
[2017-12-29] MEDS: methIMAzole 5 MG TAB PO SCH ×2 (09:10→16:08)
[2017-12-29] MEDS: Digoxin 500 mcg/2ml (0.5 mg/2ml) Inj IVP SCH (09:11)
--- NOTE | 2017-12-29 09:17 | CP.PCM.PN ---
Subjective - Date & Time of Evaluation Date of Evaluation: 12/29/17 Time of Evaluation: 09:00 - Subjective Subjective: This morning the patient appears resting comfortably flat in bed, breathing at 16 breaths per minute. Opens her eyes radially on calling and answer simple questions appropriately. The patient was afebrile with sinus rhythm at 84 bpm. Her blood pressure was 104/70 mmHg. Jugular venous pressure was not elevated and there was no edema over lower extremities. Her extremities were warm and nailbeds were pink. There was no central or peripheral cyanosis. Pedal pulses were feeble but present. Lab data was noted. Blood sugar continues to exceed 300 mg percent Azotemia persists, Serum sodium and potassium were normal Findings of CT of the chest and abdomen were noted. Hemodynamically and metabolically the patient appears to be improving with intravenous fluids and anti-biotics. I have requested an electrocardiogram and a portable echocardiogram to assess her left ventricular systolic function Review off an echocardiogram from 2013 reveals a preserved left ventricular systolic function at that time. Given the diffuse nature of her metastatic disease her prognosis appears to be poor. The family has requested a DO NOT RE SUSCITATE status. Objective - Vital Signs/Intake and Output Vital Signs (last 24 hours): Temp Pulse Resp BP Pulse Ox 98.8 F 78 29 H 104/71 100 12/29/17 04:00 12/29/17 07:00 12/29/17 07:00 12/29/17 07:00 12/29/17 07:00 Intake and Output: 12/29/17 12/29/17 06:59 18:59 Intake Total 660 Output Total 250 Balance 410 - Medications Medications: Current Medications Albuterol/Ipratropium (Duoneb 3 Mg/0.5 Mg (3 Ml) Ud) 3 ml INH RQ4 PRN PRN Reason: Shortness of Breath Last Admin: 12/28/17 13:51 Dose: 3 ml Dextrose (Dextrose 50% Inj) 0 ml IV STAT PRN; Protocol PRN Reason: Hypoglycemia Protocol Dextrose (Glutose 15) 0 gm PO ONCE PRN; Protocol PRN Reason: Hypoglycemia Protocol Dextrose (Dextrose 50% Inj) 0 ml IV STAT PRN; Protocol PRN Reason: Hypoglycemia Protocol Dextrose (Glutose 15) 0 gm PO ONCE PRN; Protocol PRN Reason: Hypoglycemia Protocol Digoxin (Lanoxin) 0.25 mg IVP DAILY PORFIRIO Last Admin: 12/29/17 09:11 Dose: 0.25 mg Glucagon (Glucagen Diagnostic Kit) 0 mg IM STAT PRN; Protocol PRN Reason: Hypoglycemia Protocol Glucagon (Glucagen Diagnostic Kit) 0 mg IM STAT PRN; Protocol PRN Reason: Hypoglycemia Protocol Heparin Sodium (Porcine) (Heparin) 5,000 units SC Q8 PORFIRIO; Protocol Last Admin: 12/29/17 09:08 Dose: 5,000 units Vasopressin 100 units/ Sodium (Chloride) 105 mls @ 1.89 mls/hr IV .Q24H PORFIRIO; Protocol Last Titration: 12/28/17 17:03 Dose: 0.02 units/min, 1.26 mls/hr Meropenem 1 gm/ Sodium (Chloride) 100 mls @ 100 mls/hr IVPB Q12 PORFIRIO; Protocol Last Admin: 12/29/17 09:09 Dose: 100 mls/hr Daptomycin 340 mg/ Sodium (Chloride) 100 mls @ 100 mls/hr IV Q24H PORFIRIO; Protocol Stop: 01/02/18 14:01 Last Admin: 12/28/17 15:33 Dose: 100 mls/hr Phenylephrine HCl 60 mg/ (Sodium Chloride) 256 mls @ 5.12 mls/hr IV .Q24H PORFIRIO; Protocol Stop: 12/29/17 15:14 Last Admin: 12/28/17 15:51 Dose: 20 mcg/min, 5.12 mls/hr Sodium Chloride (Sodium Chloride 0.9%) 1,000 mls @ 60 mls/hr IV .[id number] PORFIRIO Stop: 12/29/17 19:04 Last Admin: 12/28/17 19:15 Dose: 60 mls/hr Insulin Human Lispro (Humalog) 0 units SC ACHS [facility] Last Admin: 12/29/17 06:33 Dose: 3 units Methimazole (Tapazole) 5 mg PO BID [facility] Last Admin: 12/29/17 09:10 Dose: Not Given - Labs Labs: 12/29/17 06:00 12/29/17 06:00
[2017-12-29 12:24] VITALS: BMI 29.6
[2017-12-29] MEDS: Sodium Chloride 0.9% 1,000 ML IV SCH (12:28)
--- NOTE | 2017-12-29 13:41 | CP.PCM.PN ---
Subjective - Date & Time of Evaluation Date of Evaluation: 12/29/17 Time of Evaluation: 13:41 - Subjective Subjective: Id note- Pt. seen and examined today in ICU. pt. awake but weak and tired. She denies any fever or chills. Objective - Vital Signs/Intake and Output Vital Signs (last 24 hours): Temp Pulse Resp BP Pulse Ox 97.1 F L 97 H 27 H 108/60 100 12/29/17 12:00 12/29/17 13:00 12/29/17 13:00 12/29/17 13:00 12/29/17 13:00 Intake and Output: 12/29/17 12/29/17 06:59 18:59 Intake Total 660 400 Output Total 250 50 Balance 410 350 - Medications Medications: Current Medications Albuterol/Ipratropium (Duoneb 3 Mg/0.5 Mg (3 Ml) Ud) 3 ml INH RQ4 PRN PRN Reason: Shortness of Breath Last Admin: 12/28/17 13:51 Dose: 3 ml Dextrose (Dextrose 50% Inj) 0 ml IV STAT PRN; Protocol PRN Reason: Hypoglycemia Protocol Dextrose (Glutose 15) 0 gm PO ONCE PRN; Protocol PRN Reason: Hypoglycemia Protocol Dextrose (Dextrose 50% Inj) 0 ml IV STAT PRN; Protocol PRN Reason: Hypoglycemia Protocol Dextrose (Glutose 15) 0 gm PO ONCE PRN; Protocol PRN Reason: Hypoglycemia Protocol Digoxin (Lanoxin) 0.25 mg IVP DAILY [facility] Last Admin: 12/29/17 09:11 Dose: 0.25 mg Glipizide (Glucotrol) 10 mg PO BIDAC PORFIRIO Glucagon (Glucagen Diagnostic Kit) 0 mg IM STAT PRN; Protocol PRN Reason: Hypoglycemia Protocol Glucagon (Glucagen Diagnostic Kit) 0 mg IM STAT PRN; Protocol PRN Reason: Hypoglycemia Protocol Heparin Sodium (Porcine) (Heparin) 5,000 units SC Q8 PORFIRIO; Protocol Last Admin: 12/29/17 09:08 Dose: 5,000 units Vasopressin 100 units/ Sodium (Chloride) 105 mls @ 1.89 mls/hr IV .Q24H PORFIRIO; Protocol Last Titration: 12/28/17 17:03 Dose: 0.02 units/min, 1.26 mls/hr Meropenem 1 gm/ Sodium (Chloride) 100 mls @ 100 mls/hr IVPB Q12 PORFIRIO; Protocol Last Admin: 12/29/17 09:09 Dose: 100 mls/hr Daptomycin 340 mg/ Sodium (Chloride) 100 mls @ 100 mls/hr IV Q24H PORFIRIO; Protocol Stop: 01/02/18 14:01 Last Admin: 12/28/17 15:33 Dose: 100 mls/hr Phenylephrine HCl 60 mg/ (Sodium Chloride) 256 mls @ 5.12 mls/hr IV .Q24H PORFIRIO; Protocol Stop: 12/29/17 15:14 Last Admin: 12/28/17 15:51 Dose: 20 mcg/min, 5.12 mls/hr Sodium Chloride (Sodium Chloride 0.9%) 1,000 mls @ 60 mls/hr IV .[id number] PORFIRIO Stop: 12/29/17 19:04 Last Admin: 12/29/17 12:28 Dose: 60 mls/hr Insulin Detemir (Levemir) 20 units SC HS PORFIRIO Insulin Human Lispro (Humalog) 0 units SC ACHS PORFIRIO Last Admin: 12/29/17 12:27 Dose: 3 units Methimazole (Tapazole) 5 mg PO BID PORFIRIO Last Admin: 12/29/17 09:10 Dose: Not Given - Labs Labs: - Additional Findings Additional findings: Physical Exam - Constitutional Appears: Chronically Ill Additional comments: weak - Head Exam Head Exam: ATRAUMATIC - ENT Exam ENT Exam: Normal Oropharynx - Neck Exam Neck exam: Positive for: Full Rom - Respiratory Exam Respiratory Exam: NORMAL BREATHING PATTERN Additional comments: decreased Breath sounds at bases, no wheezing today - Cardiovascular Exam Cardiovascular Exam: RRR, +S1, +S2 - GI/Abdominal Exam GI & Abdominal Exam: Normal Bowel Sounds, Soft Additional comments: + mild tenderness with palpation no guarding, no rebound - Extremities Exam Additional comments: no edema b/l LE - Neurological Exam Additional comments: awake oriented x 2 Laboratory Results - last 72 hr 12/27/17 12/27/17 12/27/17 14:02 14:08 14:45 WBC 14.8 H RBC 4.90 Hgb 14.1 Hct 47.1 H MCV 96.1 MCH 28.8 MCHC 30.0 L RDW 17.0 H Plt Count 184 MPV 11.7 Neut % (Auto) 92.5 H Lymph % (Auto) 2.6 L [place] % (Auto) 3.7 Eos % (Auto) 0.0 Baso % (Auto) 1.2 Neut # (Auto) 13.7 H Lymph # (Auto) 0.4 L [place] # (Auto) 0.5 Eos # (Auto) 0.0 Baso # (Auto) 0.2 Neutrophils % (Manual) 95 H Band Neutrophils % Lymphocytes % (Manual) 2 L Monocytes % (Manual) 3 Platelet Estimate Normal Plt Clumps, EDTA Present Poikilocytosis (manual Slight Anisocytosis (manual) Slight Tear Drop Cells Ovalocytes Slight pCO2 30 L pO2 41 L* HCO3 13.1 L ABG pH 7.22 L ABG Total CO2 13.2 L ABG O2 Saturation 74.8 L ABG Base Excess -14.1 L Holden Test Yes ABG Potassium 5.6 H VBG pH VBG pCO2 VBG HCO3 VBG Total CO2 VBG O2 Sat (Calc) VBG Base Excess A-a O2 Difference 150.0 Sodium 142.0 Chloride 88.0 L Glucose > 750 H* Lactate 7.0 H* Vent Mode Nc FiO2 32.0 Blood Gas Comments Nc 3 lpm Crit Value Called To Dr. tina mitchell Crit Value Called By Dolores Crit Value Read Back Y Blood Gas Notified Time 1431 Potassium Carbon Dioxide Anion Gap BUN Creatinine Est GFR ( Amer) Est GFR (Non-Af Amer) POC Glucose (mg/dL) > 500 H* Random Glucose Hemoglobin A1c Serum Osmolality Calcium Phosphorus Magnesium Total Bilirubin AST ALT Alkaline Phosphatase Total Creatine Kinase Troponin I NT-Pro-B Natriuret Pep Total Protein Albumin Globulin Albumin/Globulin Ratio Free T4 Thyroxine (T4) TSH 3rd Generation Arterial Blood Potassium 5.6 H Urine Color Urine Clarity Urine pH Ur Specific [place] Urine Protein Urine Glucose (UA) Urine Ketones Urine Blood Urine Nitrate Urine Bilirubin Urine Urobilinogen Ur Leukocyte Esterase Urine RBC (Auto) Urine WBC Clumps (Auto) Urine Microscopic WBC Ur Squamous Epith Cells Amorphous Sediment Urine Bacteria Hyaline Casts Urine Yeast (Budding) 12/27/17 12/27/17 12/27/17 14:45 15:00 17:01 WBC RBC Hgb Hct MCV MCH MCHC RDW Plt Count MPV Neut % (Auto) Lymph % (Auto) [place] % (Auto) Eos % (Auto) Baso % (Auto) Neut # (Auto) Lymph # (Auto) [place] # (Auto) Eos # (Auto) Baso # (Auto) Neutrophils % (Manual) Band Neutrophils % Lymphocytes % (Manual) Monocytes % (Manual) Platelet Estimate Plt Clumps, EDTA Poikilocytosis (manual Anisocytosis (manual) Tear Drop Cells Ovalocytes pCO2 pO2 HCO3 ABG pH ABG Total CO2 ABG O2 Saturation ABG Base Excess Hold[place] Test ABG Potassium VBG pH VBG pCO2 VBG HCO3 VBG Total CO2 VBG O2 Sat (Calc) VBG Base Excess A-a O2 Difference Sodium 142 Chloride 92 L Glucose Lactate Vent Mode FiO2 Blood Gas Comments Crit Value Called To Crit Value Called By Crit Value Read Back Blood Gas Notified Time Potassium 5.3 H Carbon Dioxide 11 L* Anion Gap 44 H BUN 112 H* Creatinine 2.7 H Est GFR ( Amer) 21 Est GFR (Non-Af Amer) 18 POC Glucose (mg/dL) > 500 H* Random Glucose 1028 H* Hemoglobin A1c Serum Osmolality Calcium 7.1 L Phosphorus Magnesium 3.0 H Total Bilirubin 2.8 H AST 334 H ALT 181 H Alkaline Phosphatase 281 H Total Creatine Kinase Troponin I 0.0910 NT-Pro-B Natriuret Pep Total Protein 6.7 Albumin 3.4 L Globulin 3.3 Albumin/Globulin Ratio 1.0 Free T4 Thyroxine (T4) TSH 3rd Generation Arterial Blood Potassium Urine Color Urine Clarity Urine pH Ur Specific [place] Urine Protein Urine Glucose (UA) Urine Ketones Urine Blood Urine Nitrate Urine Bilirubin Urine Urobilinogen Ur Leukocyte Esterase Urine RBC (Auto) Urine WBC Clumps (Auto) Urine Microscopic WBC Ur Squamous Epith Cells Amorphous Sediment Urine Bacteria Hyaline Casts Urine Yeast (Budding) 12/27/17 12/27/17 12/27/17 18:25 18:30 18:52 WBC RBC Hgb Hct MCV MCH MCHC RDW Plt Count MPV Neut % (Auto) Lymph % (Auto) [place] % (Auto) Eos % (Auto) Baso % (Auto) Neut # (Auto) Lymph # (Auto) [place] # (Auto) Eos # (Auto) Baso # (Auto) Neutrophils % (Manual) Band Neutrophils % Lymphocytes % (Manual) Monocytes % (Manual) Platelet Estimate Plt Clumps, EDTA Poikilocytosis (manual Anisocytosis (manual) Tear Drop Cells Ovalocytes pCO2 pO2 47 HCO3 ABG pH ABG Total CO2 ABG O2 Saturation ABG Base Excess Holden Test ABG Potassium VBG pH 7.25 L VBG pCO2 31 L VBG HCO3 14.7 VBG Total CO2 14.6 L VBG O2 Sat (Calc) 80.0 H VBG Base Excess -12.4 L A-a O2 Difference Sodium 196.0 H* Chloride 124.0 H Glucose 598 H* D Lactate 4.9 H* Vent Mode FiO2 21.0 Blood Gas Comments Vbg Crit Value Called To Gia marin r.n. Crit Value Called By Dolores Crit Value Read Back Y Blood Gas Notified Time 190 Potassium Carbon Dioxide Anion Gap BUN Creatinine Est GFR ( Amer) Est GFR (Non-Af Amer) POC Glucose (mg/dL) > 500 H* Random Glucose Hemoglobin A1c Serum Osmolality 446 H Calcium Phosphorus Magnesium Total Bilirubin AST ALT Alkaline Phosphatase Total Creatine Kinase Troponin I NT-Pro-B Natriuret Pep Total Protein Albumin Globulin Albumin/Globulin Ratio Free T4 Thyroxine (T4) TSH 3rd Generation Arterial Blood Potassium Urine Color Urine Clarity Urine pH Ur Specific [place] Urine Protein Urine Glucose (UA) Urine Ketones Urine Blood Urine Nitrate Urine Bilirubin Urine Urobilinogen Ur Leukocyte Esterase Urine RBC (Auto) Urine WBC Clumps (Auto) Urine Microscopic WBC Ur Squamous Epith Cells Amorphous Sediment Urine Bacteria Hyaline Casts Urine Yeast (Budding) 12/27/17 12/27/17 12/27/17 20:09 23:00 23:00 WBC RBC Hgb Hct MCV MCH MCHC RDW Plt Count MPV Neut % (Auto) Lymph % (Auto) [place] % (Auto) Eos % (Auto) Baso % (Auto) Neut # (Auto) Lymph # (Auto) [place] # (Auto) Eos # (Auto) Baso # (Auto) Neutrophils % (Manual) Band Neutrophils % Lymphocytes % (Manual) Monocytes % (Manual) Platelet Estimate Plt Clumps, EDTA Poikilocytosis (manual Anisocytosis (manual) Tear Drop Cells Ovalocytes pCO2 pO2 HCO3 ABG pH ABG Total CO2 ABG O2 Saturation ABG Base Excess [place] Test ABG Potassium VBG pH VBG pCO2 VBG HCO3 VBG Total CO2 VBG O2 Sat (Calc) VBG Base Excess A-a O2 Difference Sodium 148 Chloride 111 H D Glucose Lactate Vent Mode FiO2 Blood Gas Comments Crit Value Called To Crit Value Called By Crit Value Read Back Blood Gas Notified Time Potassium 3.1 L Carbon Dioxide 22 Anion Gap 18 BUN 104 H* Creatinine 2.4 H Est GFR ( Amer) 25 Est GFR (Non-Af Amer) 20 POC Glucose (mg/dL) > 500 H* Random Glucose 375 H Hemoglobin A1c Serum Osmolality Calcium 6.3 L Phosphorus Magnesium Total Bilirubin 1.8 H AST 313 H ALT 162 H Alkaline Phosphatase 223 H D Total Creatine Kinase Troponin I NT-Pro-B Natriuret Pep Total Protein 5.8 L Albumin 2.7 L D Globulin 3.1 Albumin/Globulin Ratio 0.8 L Free T4 Thyroxine (T4) TSH 3rd Generation Arterial Blood Potassium Urine Color Michelle Urine Clarity Cloudy Urine pH 5.0 Ur Specific [place] 1.018 Urine Protein 100 Urine Glucose (UA) >=500 Urine Ketones 20 Urine Blood Large Urine Nitrate Negative Urine Bilirubin Small Urine Urobilinogen 4.0 H Ur Leukocyte Esterase Large Urine RBC (Auto) 67 H Urine WBC Clumps (Auto) Few H Urine Microscopic WBC 269 H Ur Squamous Epith Cells 1 Amorphous Sediment Rare H Urine Bacteria Few H Hyaline Casts 3-5 H Urine Yeast (Budding) 12/27/17 12/27/17 12/28/17 23:00 23:55 00:40 WBC RBC Hgb Hct MCV MCH MCHC RDW Plt Count MPV Neut % (Auto) Lymph % (Auto) [place] % (Auto) Eos % (Auto) Baso % (Auto) Neut # (Auto) Lymph # (Auto) [place] # (Auto) Eos # (Auto) Baso # (Auto) Neutrophils % (Manual) Band Neutrophils % Lymphocytes % (Manual) Monocytes % (Manual) Platelet Estimate Plt Clumps, EDTA Poikilocytosis (manual Anisocytosis (manual) Tear Drop Cells Ovalocytes pCO2 pO2 HCO3 ABG pH ABG Total CO2 ABG O2 Saturation ABG Base Excess [place] Test ABG Potassium VBG pH VBG pCO2 VBG HCO3 VBG Total CO2 VBG O2 Sat (Calc) VBG Base Excess A-a O2 Difference Sodium Chloride Glucose Lactate Vent Mode FiO2 Blood Gas Comments Crit Value Called To Crit Value Called By Crit Value Read Back Blood Gas Notified Time Potassium Carbon Dioxide Anion Gap BUN Creatinine Est GFR ( Amer) Est GFR (Non-Af Amer) POC Glucose (mg/dL) 390 H 301 H Random Glucose Hemoglobin A1c Serum Osmolality Calcium Phosphorus 3.8 Magnesium 2.1 Total Bilirubin AST ALT Alkaline Phosphatase Total Creatine Kinase Troponin I NT-Pro-B Natriuret Pep Total Protein Albumin Globulin Albumin/Globulin Ratio Free T4 Thyroxine (T4) TSH 3rd Generation Arterial Blood Potassium Urine Color Urine Clarity Urine pH Ur Specific [place] Urine Protein Urine Glucose (UA) Urine Ketones Urine Blood Urine Nitrate Urine Bilirubin Urine Urobilinogen Ur Leukocyte Esterase Urine RBC (Auto) Urine WBC Clumps (Auto) Urine Microscopic WBC Ur Squamous Epith Cells Amorphous Sediment Urine Bacteria Hyaline Casts Urine Yeast (Budding) 12/28/17 12/28/17 12/28/17 01:29 02:28 03:42 WBC RBC Hgb Hct MCV MCH MCHC RDW Plt Count MPV Neut % (Auto) Lymph % (Auto) [place] % (Auto) Eos % (Auto) Baso % (Auto) Neut # (Auto) Lymph # (Auto) [place] # (Auto) Eos # (Auto) Baso # (Auto) Neutrophils % (Manual) Band Neutrophils % Lymphocytes % (Manual) Monocytes % (Manual) Platelet Estimate Plt Clumps, EDTA Poikilocytosis (manual Anisocytosis (manual) Tear Drop Cells Ovalocytes pCO2 pO2 HCO3 ABG pH ABG Total CO2 ABG O2 Saturation ABG Base Excess [place] Test ABG Potassium VBG pH VBG pCO2 VBG HCO3 VBG Total CO2 VBG O2 Sat (Calc) VBG Base Excess A-a O2 Difference Sodium Chloride Glucose Lactate Vent Mode FiO2 Blood Gas Comments Crit Value Called To Crit Value Called By Crit Value Read Back Blood Gas Notified Time Potassium Carbon Dioxide Anion Gap BUN Creatinine Est GFR ( Amer) Est GFR (Non-Af Amer) POC Glucose (mg/dL) 264 H 203 H 188 H Random Glucose Hemoglobin A1c Serum Osmolality Calcium Phosphorus Magnesium Total Bilirubin AST ALT Alkaline Phosphatase Total Creatine Kinase Troponin I NT-Pro-B Natriuret Pep Total Protein Albumin Globulin Albumin/Globulin Ratio Free T4 Thyroxine (T4) TSH 3rd Generation Arterial Blood Potassium Urine Color Urine Clarity Urine pH Ur Specific [place] Urine Protein Urine Glucose (UA) Urine Ketones Urine Blood Urine Nitrate Urine Bilirubin Urine Urobilinogen Ur Leukocyte Esterase Urine RBC (Auto) Urine WBC Clumps (Auto) Urine Microscopic WBC Ur Squamous Epith Cells Amorphous Sediment Urine Bacteria Hyaline Casts Urine Yeast (Budding) 12/28/17 12/28/17 12/28/17 04:41 05:00 05:27 WBC RBC Hgb Hct MCV MCH MCHC RDW Plt Count MPV Neut % (Auto) Lymph % (Auto) [place] % (Auto) Eos % (Auto) Baso % (Auto) Neut # (Auto) Lymph # (Auto) [place] # (Auto) Eos # (Auto) Baso # (Auto) Neutrophils % (Manual) Band Neutrophils % Lymphocytes % (Manual) Monocytes % (Manual) Platelet Estimate Plt Clumps, EDTA Poikilocytosis (manual Anisocytosis (manual) Tear Drop Cells Ovalocytes pCO2 pO2 HCO3 ABG pH ABG Total CO2 ABG O2 Saturation ABG Base Excess [place] Test ABG Potassium VBG pH VBG pCO2 VBG HCO3 VBG Total CO2 VBG O2 Sat (Calc) VBG Base Excess A-a O2 Difference Sodium 147 Chloride 113 H Glucose Lactate Vent Mode FiO2 Blood Gas Comments Crit Value Called To Crit Value Called By Crit Value Read Back Blood Gas Notified Time Potassium 4.1 Carbon Dioxide 30 Anion Gap 8 L BUN 100 H* Creatinine 2.2 H Est GFR ( Amer) 27 Est GFR (Non-Af Amer) 22 POC Glucose (mg/dL) 179 H 123 H Random Glucose 99 Hemoglobin A1c Serum Osmolality Calcium 6.2 L Phosphorus Magnesium Total Bilirubin AST ALT Alkaline Phosphatase Total Creatine Kinase Troponin I 0.1660 H* NT-Pro-B Natriuret Pep 5150 H Total Protein Albumin Globulin Albumin/Globulin Ratio Free T4 Thyroxine (T4) TSH 3rd Generation 0.19 L Arterial Blood Potassium Urine Color Urine Clarity Urine pH Ur Specific [place] Urine Protein Urine Glucose (UA) Urine Ketones Urine Blood Urine Nitrate Urine Bilirubin Urine Urobilinogen Ur Leukocyte Esterase Urine RBC (Auto) Urine WBC Clumps (Auto) Urine Microscopic WBC Ur Squamous Epith Cells Amorphous Sediment Urine Bacteria Hyaline Casts Urine Yeast (Budding) 12/28/17 12/28/17 12/28/17 05:30 07:06 07:50 WBC 13.9 H RBC 4.22 Hgb 12.2 Hct 36.4 MCV 86.3 D MCH 28.9 MCHC 33.5 RDW 16.1 H Plt Count 116 L D MPV 10.3 Neut % (Auto) 90.3 H Lymph % (Auto) 5.9 L [place] % (Auto) 3.6 Eos % (Auto) 0.0 Baso % (Auto) 0.2 Neut # (Auto) 12.5 H Lymph # (Auto) 0.8 L [place] # (Auto) 0.5 Eos # (Auto) 0.0 Baso # (Auto) 0.0 Neutrophils % (Manual) 92 H Band Neutrophils % 2 Lymphocytes % (Manual) 4 L Monocytes % (Manual) 2 Platelet Estimate Decreased L Plt Clumps, EDTA Poikilocytosis (manual Anisocytosis (manual) Tear Drop Cells Ovalocytes pCO2 pO2 HCO3 ABG pH ABG Total CO2 ABG O2 Saturation ABG Base Excess [place] Test ABG Potassium VBG pH VBG pCO2 VBG HCO3 VBG Total CO2 VBG O2 Sat (Calc) VBG Base Excess A-a O2 Difference Sodium 146 Chloride 111 H Glucose Lactate Vent Mode FiO2 Blood Gas Comments Crit Value Called To Crit Value Called By Crit Value Read Back Blood Gas Notified Time Potassium 4.7 Carbon Dioxide 28 Anion Gap 12 BUN 104 H* Creatinine 2.2 H Est GFR ( Amer) 27 Est GFR (Non-Af Amer) 22 POC Glucose (mg/dL) 92 Random Glucose 135 H Hemoglobin A1c Serum Osmolality Calcium 6.5 L Phosphorus Magnesium Total Bilirubin AST ALT Alkaline Phosphatase Total Creatine Kinase Troponin I NT-Pro-B Natriuret Pep Total Protein Albumin Globulin Albumin/Globulin Ratio Free T4 Thyroxine (T4) TSH 3rd Generation Arterial Blood Potassium Urine Color Urine Clarity Urine pH Ur Specific [place] Urine Protein Urine Glucose (UA) Urine Ketones Urine Blood Urine Nitrate Urine Bilirubin Urine Urobilinogen Ur Leukocyte Esterase Urine RBC (Auto) Urine WBC Clumps (Auto) Urine Microscopic WBC Ur Squamous Epith Cells Amorphous Sediment Urine Bacteria Hyaline Casts Urine Yeast (Budding) 12/28/17 12/28/17 12/28/17 10:36 12:43 14:40 WBC RBC Hgb Hct MCV MCH MCHC RDW Plt Count MPV Neut % (Auto) Lymph % (Auto) [place] % (Auto) Eos % (Auto) Baso % (Auto) Neut # (Auto) Lymph # (Auto) [place] # (Auto) Eos # (Auto) Baso # (Auto) Neutrophils % (Manual) Band Neutrophils % Lymphocytes % (Manual) Monocytes % (Manual) Platelet Estimate Plt Clumps, EDTA Poikilocytosis (manual Anisocytosis (manual) Tear Drop Cells Ovalocytes pCO2 pO2 HCO3 ABG pH ABG Total CO2 ABG O2 Saturation ABG Base Excess [place] Test ABG Potassium VBG pH VBG pCO2 VBG HCO3 VBG Total CO2 VBG O2 Sat (Calc) VBG Base Excess A-a O2 Difference Sodium Chloride Glucose Lactate Vent Mode FiO2 Blood Gas Comments Crit Value Called To Crit Value Called By Crit Value Read Back Blood Gas Notified Time Potassium Carbon Dioxide Anion Gap BUN Creatinine Est GFR ( Amer) Est GFR (Non-Af Amer) POC Glucose (mg/dL) 175 H 322 H Random Glucose Hemoglobin A1c Serum Osmolality Calcium Phosphorus Magnesium Total Bilirubin AST ALT Alkaline Phosphatase Total Creatine Kinase 210 H Troponin I 0.1620 H* NT-Pro-B Natriuret Pep Total Protein Albumin Globulin Albumin/Globulin Ratio Free T4 Thyroxine (T4) TSH 3rd Generation Arterial Blood Potassium Urine Color Urine Clarity Urine pH Ur Specific [place] Urine Protein Urine Glucose (UA) Urine Ketones Urine Blood Urine Nitrate Urine Bilirubin Urine Urobilinogen Ur Leukocyte Esterase Urine RBC (Auto) Urine WBC Clumps (Auto) Urine Microscopic WBC Ur Squamous Epith Cells Amorphous Sediment Urine Bacteria Hyaline Casts Urine Yeast (Budding) 12/28/17 12/28/17 12/28/17 15:56 16:25 21:25 WBC RBC Hgb Hct MCV MCH MCHC RDW Plt Count MPV Neut % (Auto) Lymph % (Auto) [place] % (Auto) Eos % (Auto) Baso % (Auto) Neut # (Auto) Lymph # (Auto) [place] # (Auto) Eos # (Auto) Baso # (Auto) Neutrophils % (Manual) Band Neutrophils % Lymphocytes % (Manual) Monocytes % (Manual) Platelet Estimate Plt Clumps, EDTA Poikilocytosis (manual Anisocytosis (manual) Tear Drop Cells Ovalocytes pCO2 pO2 HCO3 ABG pH ABG Total CO2 ABG O2 Saturation ABG Base Excess [place] Test ABG Potassium VBG pH VBG pCO2 VBG HCO3 VBG Total CO2 VBG O2 Sat (Calc) VBG Base Excess A-a O2 Difference Sodium Chloride Glucose Lactate Vent Mode FiO2 Blood Gas Comments Crit Value Called To Crit Value Called By Crit Value Read Back Blood Gas Notified Time Potassium Carbon Dioxide Anion Gap BUN Creatinine Est GFR ( Amer) Est GFR (Non-Af Amer) POC Glucose (mg/dL) 301 H 297 H Random Glucose Hemoglobin A1c Serum Osmolality Calcium Phosphorus Magnesium Total Bilirubin AST ALT Alkaline Phosphatase Total Creatine Kinase Troponin I NT-Pro-B Natriuret Pep Total Protein Albumin Globulin Albumin/Globulin Ratio Free T4 Thyroxine (T4) TSH 3rd Generation Arterial Blood Potassium Urine Color Michelle Urine Clarity Cloudy Urine pH 5.0 Ur Specific [place] 1.016 Urine Protein 100 Urine Glucose (UA) 50 Urine Ketones Negative Urine Blood Large Urine Nitrate Negative Urine Bilirubin Negative Urine Urobilinogen 4.0 H Ur Leukocyte Esterase Mod Urine RBC (Auto) 7 H Urine WBC Clumps (Auto) Urine Microscopic WBC 29 H Ur Squamous Epith Cells 2 Amorphous Sediment Urine Bacteria Occ H Hyaline Casts Urine Yeast (Budding) Occ H 12/29/17 12/29/17 12/29/17 04:09 06:00 06:00 WBC RBC Hgb Hct MCV MCH MCHC RDW Plt Count MPV Neut % (Auto) Lymph % (Auto) [place] % (Auto) Eos % (Auto) Baso % (Auto) Neut # (Auto) Lymph # (Auto) [place] # (Auto) Eos # (Auto) Baso # (Auto) Neutrophils % (Manual) Band Neutrophils % Lymphocytes % (Manual) Monocytes % (Manual) Platelet Estimate Plt Clumps, EDTA Poikilocytosis (manual Anisocytosis (manual) Tear Drop Cells Ovalocytes pCO2 pO2 HCO3 ABG pH ABG Total CO2 ABG O2 Saturation ABG Base Excess [place] Test ABG Potassium VBG pH VBG pCO2 VBG HCO3 VBG Total CO2 VBG O2 Sat (Calc) VBG Base Excess A-a O2 Difference Sodium 147 Chloride 112 H Glucose Lactate Vent Mode FiO2 Blood Gas Comments Crit Value Called To Crit Value Called By Crit Value Read Back Blood Gas Notified Time Potassium 4.8 Carbon Dioxide 17 L Anion Gap 23 H BUN 99 H Creatinine 2.6 H Est GFR ( Amer) 22 Est GFR (Non-Af Amer) 18 POC Glucose (mg/dL) 344 H Random Glucose 336 H Hemoglobin A1c 11.6 H Serum Osmolality Calcium 6.8 L Phosphorus 5.6 H Magnesium 1.9 Total Bilirubin 1.6 H AST 234 H D ALT 136 H Alkaline Phosphatase 325 H D Total Creatine Kinase Troponin I NT-Pro-B Natriuret Pep Total Protein 5.1 L Albumin 2.3 L Globulin 2.8 Albumin/Globulin Ratio 0.8 L Free T4 Thyroxine (T4) 2.20 L TSH 3rd Generation 0.15 L Arterial Blood Potassium Urine Color Urine Clarity Urine pH Ur Specific [place] Urine Protein Urine Glucose (UA) Urine Ketones Urine Blood Urine Nitrate Urine Bilirubin Urine Urobilinogen Ur Leukocyte Esterase Urine RBC (Auto) Urine WBC Clumps (Auto) Urine Microscopic WBC Ur Squamous Epith Cells Amorphous Sediment Urine Bacteria Hyaline Casts Urine Yeast (Budding) 12/29/17 12/29/17 06:00 06:00 WBC 9.5 RBC 3.98 Hgb 11.4 L Hct 35.6 MCV 89.3 D MCH 28.6 MCHC 32.0 L RDW 16.2 H Plt Count 83 L D MPV 11.3 Neut % (Auto) 94.0 H Lymph % (Auto) 2.6 L [place] % (Auto) 3.0 Eos % (Auto) 0.3 Baso % (Auto) 0.1 Neut # (Auto) 8.9 H Lymph # (Auto) 0.2 L [place] # (Auto) 0.3 Eos # (Auto) 0.0 Baso # (Auto) 0.0 Neutrophils % (Manual) 96 H Band Neutrophils % Lymphocytes % (Manual) 2 L Monocytes % (Manual) 2 Platelet Estimate Decreased L Plt Clumps, EDTA Poikilocytosis (manual Slight Anisocytosis (manual) Slight Tear Drop Cells Slight Ovalocytes Slight pCO2 pO2 HCO3 ABG pH ABG Total CO2 ABG O2 Saturation ABG Base Excess [place] Test ABG Potassium VBG pH VBG pCO2 VBG HCO3 VBG Total CO2 VBG O2 Sat (Calc) VBG Base Excess A-a O2 Difference Sodium Chloride Glucose Lactate Vent Mode FiO2 Blood Gas Comments Crit Value Called To Crit Value Called By Crit Value Read Back Blood Gas Notified Time Potassium Carbon Dioxide Anion Gap BUN Creatinine Est GFR ( Amer) Est GFR (Non-Af Amer) POC Glucose (mg/dL) Random Glucose Hemoglobin A1c Serum Osmolality Calcium Phosphorus Magnesium Total Bilirubin AST ALT Alkaline Phosphatase Total Creatine Kinase Troponin I NT-Pro-B Natriuret Pep Total Protein Albumin Globulin Albumin/Globulin Ratio Free T4 0.89 Thyroxine (T4) TSH 3rd Generation Arterial Blood Potassium Urine Color Urine Clarity Urine pH Ur Specific [place] Urine Protein Urine Glucose (UA) Urine Ketones Urine Blood Urine Nitrate Urine Bilirubin Urine Urobilinogen Ur Leukocyte Esterase Urine RBC (Auto) Urine WBC Clumps (Auto) Urine Microscopic WBC Ur Squamous Epith Cells Amorphous Sediment Urine Bacteria Hyaline Casts Urine Yeast (Budding) Microbiology 12/28/17 14:40 Blood-Venous Blood Culture - Preliminary NO GROWTH AFTER 24 HOURS 12/28/17 14:40 Blood-Venous Blood Culture - Preliminary NO GROWTH AFTER 24 HOURS 12/27/17 06:00 Naris MRSA Culture (Admit) - Final MRSA NOT DETECTED 12/27/17 14:49 Blood-Venous Blood Culture - Preliminary Gram Negative Zacarias 12/27/17 14:49 Blood-Venous Gram Stain - Final 12/27/17 14:49 Urine,Randolph Urine Culture - Final No Growth (<1,000 CFU/ML) Assessment and Plan (1) Sepsis Status: Acute (2) Dehydration Status: Acute (3) DKA (diabetic ketoacidoses) Status: Acute (4) Acute renal disease Status: Acute (5) Bacteremia due to Gram-negative bacteria Status: Acute (6) UTI (urinary tract infection) Status: Acute - Assessment and Plan (Free Text) Assessment: A/P- 67 year old female admitted with weakness and lethargy found to be in DKA and GNR bacteremia and ct abd/chest reported as left lung mass with liver mets . afebrile minimal leukocytosis has resolved. blood cx- prelim GNR x1 Urine cx- <1000 repeat blood cx 12/28/2017*- neg x 2 so far new findings of lung mass with liver mets . plan- await ID and sensitivity of the GNR in blood cx. advise to continue with IV meropnem pending Id and sens of the GNR in blood cx. day #2 continue with empiric daprtomycin for empiric staph coverage in light of decub ulcer. check TTE r/o vegetations. advise oncology consultation based on CT reports. all labs and imaging and chart notes reviewed. case d/w at length. Critical care time spent 35 min.
--- NOTE | 2017-12-29 13:49 | CP.PCM.CON ---
History of Present Illness - History of Present Illness History of Present Illness: Orthopedic consult: Dr. Burks Patient is a 67 y/o female with PMH of HTN, HLD and DMII admitted due to mental status change. Found to be in DKA/HSS and treated accordingly in ICU. Patient is poor historian, drowsy but answering most questions and following commands. Orthopedics was consulted due to superior and inferior left pubic rami fractures seen on CT pelvis, among multiple site of possible metastasis. Patient does not recall any recent history of falls or injuries. Currently, the patient has no complaints of pain at the left hip/groin, as well as any associated symptoms. She currently denies CP/SOB/N/V/D/fever. Review of Systems - Review of Systems All systems: reviewed and no additional remarkable complaints except Review of Systems: as per HPI Past Patient History - Past Medical History & Family History Past Medical History?: Yes Past Family History: Reviewed and not pertinent - Past Social History Smoking Status: Heavy Smoker > 10 Cigarettes Daily Alcohol: None Drugs: Denies - CARDIAC Hx Hypercholesterolemia: Yes Hx Hypertension: Yes - PULMONARY Hx Respiratory Disorders: No - NEUROLOGICAL Hx Neurological Disorder: No - HEENT Hx HEENT Problems: No - RENAL Hx Chronic Kidney Disease: No - ENDOCRINE/METABOLIC Hx Endocrine Disorders: No Hx Diabetes Mellitus Type 2: Yes - HEMATOLOGICAL/ONCOLOGICAL Hx Blood Disorders: No - INTEGUMENTARY Hx Dermatological Problems: No - MUSCULOSKELETAL/RHEUMATOLOGICAL Hx Musculoskeletal Disorders: Yes - GASTROINTESTINAL Hx Gastrointestinal Disorders: No - GENITOURINARY/GYNECOLOGICAL Hx Genitourinary Disorders: No - PSYCHIATRIC Hx Psychophysiologic Disorder: No - SURGICAL HISTORY Hx Surgeries: No - ANESTHESIA Hx Anesthesia: No Meds Allergies/Adverse Reactions: Allergies Allergy/AdvReac Type Severity Reaction Status Date / Time No Known Allergies Allergy Verified 12/17/15 03:08 - Medications Medications: Current Medications Albuterol/Ipratropium (Duoneb 3 Mg/0.5 Mg (3 Ml) Ud) 3 ml INH RQ4 PRN PRN Reason: Shortness of Breath Last Admin: 12/28/17 13:51 Dose: 3 ml Dextrose (Dextrose 50% Inj) 0 ml IV STAT PRN; Protocol PRN Reason: Hypoglycemia Protocol Dextrose (Glutose 15) 0 gm PO ONCE PRN; Protocol PRN Reason: Hypoglycemia Protocol Dextrose (Dextrose 50% Inj) 0 ml IV STAT PRN; Protocol PRN Reason: Hypoglycemia Protocol Dextrose (Glutose 15) 0 gm PO ONCE PRN; Protocol PRN Reason: Hypoglycemia Protocol Digoxin (Lanoxin) 0.25 mg IVP DAILY [facility] Last Admin: 12/29/17 09:11 Dose: 0.25 mg Glipizide (Glucotrol) 10 mg PO BIDAC [facility] Glucagon (Glucagen Diagnostic Kit) 0 mg IM STAT PRN; Protocol PRN Reason: Hypoglycemia Protocol Glucagon (Glucagen Diagnostic Kit) 0 mg IM STAT PRN; Protocol PRN Reason: Hypoglycemia Protocol Heparin Sodium (Porcine) (Heparin) 5,000 units SC Q8 P[facility]IO; Protocol Last Admin: 12/29/17 09:08 Dose: 5,000 units Vasopressin 100 units/ Sodium (Chloride) 105 mls @ 1.89 mls/hr IV .Q24H P[facility]IRIO; Protocol Last Titration: 12/28/17 17:03 Dose: 0.02 units/min, 1.26 mls/hr Meropenem 1 gm/ Sodium (Chloride) 100 mls @ 100 mls/hr IVPB Q12 P[facility]IO; Protocol Last Admin: 12/29/17 09:09 Dose: 100 mls/hr Daptomycin 340 mg/ Sodium (Chloride) 100 mls @ 100 mls/hr IV Q24H P[facility]FIRIO; Protocol Stop: 01/02/18 14:01 Last Admin: 12/28/17 15:33 Dose: 100 mls/hr Phenylephrine HCl 60 mg/ (Sodium Chloride) 256 mls @ 5.12 mls/hr IV .Q24H P[facility]IO; Protocol Stop: 12/29/17 15:14 Last Admin: 12/28/17 15:51 Dose: 20 mcg/min, 5.12 mls/hr Sodium Chloride (Sodium Chloride 0.9%) 1,000 mls @ 60 mls/hr IV .[id number] [facility] Stop: 12/29/17 19:04 Last Admin: 12/29/17 12:28 Dose: 60 mls/hr Insulin Detemir (Levemir) 20 units SC HS [facility]IO Insulin Human Lispro (Humalog) 0 units SC ACHS [facility] Last Admin: 12/29/17 12:27 Dose: 3 units Methimazole (Tapazole) 5 mg PO BID [facility] Last Admin: 12/29/17 09:10 Dose: Not Given Physical Exam - Constitutional Appears: Well, No Acute Distress Additional comments: drowsy - Head Exam Head Exam: ATRAUMATIC, NORMOCEPHALIC - ENT Exam ENT Exam: Mucous Membranes Moist - Respiratory Exam Respiratory Exam: NORMAL BREATHING PATTERN - Cardiovascular Exam Cardiovascular Exam: +S1, +S2 - GI/Abdominal Exam GI & Abdominal Exam: Soft. absent: Tenderness - Extremities Exam Additional comments: L hip: no tenderness to lateral hip/groin tenderness no lesions/masses sensation intact SP/DP/TN motor intact EHL/FHL/TA/G comps soft NT Results - Vital Signs Recent Vital Signs: Last Vital Signs Temp 97.1 F L 12/29/17 12:00 Pulse 97 H 12/29/17 13:00 Resp 27 H 12/29/17 13:00 BP 108/60 12/29/17 13:00 Pulse Ox 100 12/29/17 13:00 - Labs Result Diagrams: 12/29/17 06:00 12/29/17 06:00 Labs: Laboratory Results - last 24 hr 12/28/17 12/28/17 12/28/17 10:36 12:43 14:40 WBC RBC Hgb Hct MCV MCH MCHC RDW Plt Count MPV Neut % (Auto) Lymph % (Auto) [place] % (Auto) Eos % (Auto) Baso % (Auto) Neut # (Auto) Lymph # (Auto) [place] # (Auto) Eos # (Auto) Baso # (Auto) Neutrophils % (Manual) Lymphocytes % (Manual) Monocytes % (Manual) Platelet Estimate Poikilocytosis (manual Anisocytosis (manual) Tear Drop Cells Ovalocytes Sodium Potassium Chloride Carbon Dioxide Anion Gap BUN Creatinine Est GFR ( Amer) Est GFR (Non-Af Amer) POC Glucose (mg/dL) 175 H 322 H Random Glucose Hemoglobin A1c Calcium Phosphorus Magnesium Total Bilirubin AST ALT Alkaline Phosphatase Total Creatine Kinase 210 H Troponin I 0.1620 H* Total Protein Albumin Globulin Albumin/Globulin Ratio Free T4 Thyroxine (T4) TSH 3rd Generation Urine Color Urine Clarity Urine pH Ur Specific [place] Urine Protein Urine Glucose (UA) Urine Ketones Urine Blood Urine Nitrate Urine Bilirubin Urine Urobilinogen Ur Leukocyte Esterase Urine RBC (Auto) Urine Microscopic WBC Ur Squamous Epith Cells Urine Bacteria Urine Yeast (Budding) 12/28/17 12/28/17 12/28/17 15:56 16:25 21:25 WBC RBC Hgb Hct MCV MCH MCHC RDW Plt Count MPV Neut % (Auto) Lymph % (Auto) [place] % (Auto) Eos % (Auto) Baso % (Auto) Neut # (Auto) Lymph # (Auto) [place] # (Auto) Eos # (Auto) Baso # (Auto) Neutrophils % (Manual) Lymphocytes % (Manual) Monocytes % (Manual) Platelet Estimate Poikilocytosis (manual Anisocytosis (manual) Tear Drop Cells Ovalocytes Sodium Potassium Chloride Carbon Dioxide Anion Gap BUN Creatinine Est GFR ( Amer) Est GFR (Non-Af Amer) POC Glucose (mg/dL) 301 H 297 H Random Glucose Hemoglobin A1c Calcium Phosphorus Magnesium Total Bilirubin AST ALT Alkaline Phosphatase Total Creatine Kinase Troponin I Total Protein Albumin Globulin Albumin/Globulin Ratio Free T4 Thyroxine (T4) TSH 3rd Generation Urine Color Michelle Urine Clarity Cloudy Urine pH 5.0 Ur Specific [place] 1.016 Urine Protein 100 Urine Glucose (UA) 50 Urine Ketones Negative Urine Blood Large Urine Nitrate Negative Urine Bilirubin Negative Urine Urobilinogen 4.0 H Ur Leukocyte Esterase Mod Urine RBC (Auto) 7 H Urine Microscopic WBC 29 H Ur Squamous Epith Cells 2 Urine Bacteria Occ H Urine Yeast (Budding) Occ H 12/29/17 12/29/17 12/29/17 04:09 06:00 06:00 WBC RBC Hgb Hct MCV MCH MCHC RDW Plt Count MPV Neut % (Auto) Lymph % (Auto) [place] % (Auto) Eos % (Auto) Baso % (Auto) Neut # (Auto) Lymph # (Auto) [place] # (Auto) Eos # (Auto) Baso # (Auto) Neutrophils % (Manual) Lymphocytes % (Manual) Monocytes % (Manual) Platelet Estimate Poikilocytosis (manual Anisocytosis (manual) Tear Drop Cells Ovalocytes Sodium 147 Potassium 4.8 Chloride 112 H Carbon Dioxide 17 L Anion Gap 23 H BUN 99 H Creatinine 2.6 H Est GFR ( Amer) 22 Est GFR (Non-Af Amer) 18 POC Glucose (mg/dL) 344 H Random Glucose 336 H Hemoglobin A1c 11.6 H Calcium 6.8 L Phosphorus 5.6 H Magnesium 1.9 Total Bilirubin 1.6 H AST 234 H D ALT 136 H Alkaline Phosphatase 325 H D Total Creatine Kinase Troponin I Total Protein 5.1 L Albumin 2.3 L Globulin 2.8 Albumin/Globulin Ratio 0.8 L Free T4 Thyroxine (T4) 2.20 L TSH 3rd Generation 0.15 L Urine Color Urine Clarity Urine pH Ur Specific [place] Urine Protein Urine Glucose (UA) Urine Ketones Urine Blood Urine Nitrate Urine Bilirubin Urine Urobilinogen Ur Leukocyte Esterase Urine RBC (Auto) Urine Microscopic WBC Ur Squamous Epith Cells Urine Bacteria Urine Yeast (Budding) 12/29/17 12/29/17 06:00 06:00 WBC 9.5 RBC 3.98 Hgb 11.4 L Hct 35.6 MCV 89.3 D MCH 28.6 MCHC 32.0 L RDW 16.2 H Plt Count 83 L D MPV 11.3 Neut % (Auto) 94.0 H Lymph % (Auto) 2.6 L [place] % (Auto) 3.0 Eos % (Auto) 0.3 Baso % (Auto) 0.1 Neut # (Auto) 8.9 H Lymph # (Auto) 0.2 L [place] # (Auto) 0.3 Eos # (Auto) 0.0 Baso # (Auto) 0.0 Neutrophils % (Manual) 96 H Lymphocytes % (Manual) 2 L Monocytes % (Manual) 2 Platelet Estimate Decreased L Poikilocytosis (manual Slight Anisocytosis (manual) Slight Tear Drop Cells Slight Ovalocytes Slight Sodium Potassium Chloride Carbon Dioxide Anion Gap BUN Creatinine Est GFR ( Amer) Est GFR (Non-Af Amer) POC Glucose (mg/dL) Random Glucose Hemoglobin A1c Calcium Phosphorus Magnesium Total Bilirubin AST ALT Alkaline Phosphatase Total Creatine Kinase Troponin I Total Protein Albumin Globulin Albumin/Globulin Ratio Free T4 0.89 Thyroxine (T4) TSH 3rd Generation Urine Color Urine Clarity Urine pH Ur Specific [place] Urine Protein Urine Glucose (UA) Urine Ketones Urine Blood Urine Nitrate Urine Bilirubin Urine Urobilinogen Ur Leukocyte Esterase Urine RBC (Auto) Urine Microscopic WBC Ur Squamous Epith Cells Urine Bacteria Urine Yeast (Budding) Assessment & Plan (1) Closed fracture of pubic ramus Assessment and Plan: Patient is a 67y/o with incidental subacute/healing left superior and inferior pubic rami fractures -No acute orthopedic intervention needed, recommend conservative management -PT/OT WBAT with assistive device once medically cleared -dedicated pelvic xray -above d/w Dr. Burks in agreement Status: Inactive - Date & Time Date: 12/29/17 Time: 08:30 Radiology Interpretation - Notes: Notes:: Accession No. : [id number] Patient Name / ID : WILLI GRANDA / [id number] Exam Date : 12/27/2017 19:59:18 ( Approved ) Study Comment : Sex / Age : F / 67Y Creator : Yair Orlando MD Dictator : Yair Orlando MD Can Patcher : Quality Analyst/Technical Writer : Yair Orlando MD Approver2 : Report Date : 12/28/2017 11:17:32 My Comment : Date of service: 12/27/2017 PROCEDURE: CT Abdomen and Pelvis without intravenous contrast HISTORY: Abd pain COMPARISON: Comparison is made to the previous CT of the abdomen and pelvis with contrast dated 09/24/[address] of the chest with contrast dated 12/18/2011 TECHNIQUE: Axial and reformatted coronal and sagittal CT images of the abdomen and pelvis were obtained without IV or oral contrast administration. CT of the chest was obtained concurrently and reported separately.. Contrast dose: 0 Radiation dose: Total exam DLP = 821.22 mGy-cm. This CT exam was performed using one or more of the following dose reduction techniques: Automated exposure control, adjustment of the mA and/or kV according to patient size, and/or use of iterative reconstruction technique. FINDINGS: LOWER THORAX: Small nodular opacities noted at the left lung lower lobe may represent infectious process versus less likely metastasis. Soft tissue mass lesion at the right breast measures 3 centimeter suspicious for primary breast neoplasm. LIVER: Multiple heterogeneous slightly low-attenuation mass lesion in the liver likely represent metastasis. GALLBLADDER AND BILE DUCTS: No evidence of acute cholecystitis. The gallbladder is mildly to moderately distended. PANCREAS: Unremarkable. No gross lesion or ductal dilatation. SPLEEN: Unremarkable. ADRENALS: Mild nodular enlargement of the right adrenal gland is again noted. KIDNEYS AND URETERS: Unremarkable. No hydronephrosis. No solid mass. VASCULATURE: There is mild aneurysmal dilatation of the abdominal aorta measures up to 3.8 centimeter which has increased since the previous exam in 2012. Diffuse atherosclerotic calcification is noted. The IVC is normal in caliber. BOWEL: Colonic diverticulosis are noted without evidence of diverticulitis. No obstr uction. No gross mural thickening. APPENDIX: No evidence of appendicitis. PERITONEUM: Unremarkable. No free fluid. No free air. LYMPH NODES: Unremarkable. No enlarged lymph nodes. BLADDER: Unremarkable. REPRODUCTIVE: Unremarkable. BONES: There is subacute fracture at the left inferior pubic ramus noted. There is mildly sclerotic heterogeneous bony lesion at the posterior aspect of the left iliac bone. Findings suspicious for metastasis. Again noted is sclerotic bony lesion adjacent to the left sacroiliac joint likely benign. Interval appearance of sclerotic destructive bony lesion at L1 vertebral body since the previous exam. The possibility of metastasis should be considered. T9 sclerotic bony lesion is also noted suspicious for osseous metastasis. There are severe degenerative changes at the mid and lower lumbar spine. OTHER FINDINGS: . IMPRESSION: Multiple soft tissue mass lesions in the liver consistent with liver metastasis. Stable nodular opacities at the right adrenal since the previous study likely benign. Distended gallbladder without evidence of acute cholecystitis. Interval appearance of sclerotic bony lesion at L1 and left posterior iliac bone suspicious for metastasis. Interval worsening of infra renal aortic aneurysm since the previous study measures 3.8 centimeter. Additional findings as described above. Preliminary report with concordance findings was submitted by [facility] at 8:40 p.m. on 12/27/2017.
--- NOTE | 2017-12-29 15:11 | CARD ---
APPROVED REPORT Date of service: 12/29/2017 EKG Measurement Heart [id number] <Conclusion> Normal sinus rhythm ST & Marked T wave abnormality, consider anterolateral ischemia Prolonged QT Abnormal ECG
--- NOTE | 2017-12-29 15:53 | PN ---
DATE: 12/29/2017 ENDO FOLLOWUP NOTE LOCATION: In room 435 ICU. SUBJECTIVE: This is a 67-year-old female with recent uncontrolled type 2 insulin-requiring diabetes, presenting here with marked hyperglycemic accelerations with concomitant diabetic ketoacidosis and has since then been slowly improving with glycemic fluctuations as noted overnight. She has been taken off the insulin drip at this time. Her glucose values have ranged overnight from 297 to 344 mg/dL. LABORATORY DATA: Her latest chemistry showed a BUN of 99, sodium 147, potassium 4.8, chloride 112, CO2 of 17, glucose is 336, and creatinine is 2.6 ASSESSMENT AND PLAN: So at this time, we will consider the addition of both basal and bolus insulin regimen to optimize metabolic control. However, at this point to simplify her regimen, we will start with basal insulin and Levemir given as 20 units subcutaneously at bedtime daily to start tonight. We will add glipizide given as 10 mg b.i.d. before meals as ordered. We will consider the addition of Januvia adjusted to underlying renal insufficiency if indicated. We will modify the coverage scale to obviate hypoglycemia and detailed orders have been given. We will continue also the intravenous hydration as given to optimize the lost fluids and electrolytes as noted. We will follow and advise accordingly. We will also continue the Tapazole given as 5 mg b.i.d. after meals because of the initial presentation of atrial flutter with suppressed thyroid stimulating hormone as noted. We will follow and advise accordingly. Angela Copeland MD
--- NOTE | 2017-12-29 17:46 | RAD ---
PROCEDURE: Left Hip X-ray Radiographs. HISTORY: Left pelvic fracture. COMPARISON: 12/27/2017 CT abdomen and pelvis. Summary of findings on the comparison examination: Subacute fracture left inferior pubic ramus. FINDINGS: BONES: Incompletely visible left ischial fracture. The finding is marked on the study for review. JOINTS: Evidence of osteonecrosis right hip. SOFT TISSUES: Normal. OTHER FINDINGS: Catheter identified in the pelvis likely within a decompressed urinary bladder. Venous access catheter identified in the left common iliac vein. IMPRESSION: Confirmation left ischial fracture. No significant interval change compared to the prior examination(s).
--- NOTE | 2017-12-29 18:54 | CP.PCM.PN ---
Subjective - Date & Time of Evaluation Date of Evaluation: 12/29/17 Time of Evaluation: 18:54 - Subjective Subjective: 67 yo WF with pmh/o htn, dm, DKA, gram neg sepsis, s/p A flutter, left UL mass, possible livermets, rt breast mass, rt adrenal mass with renal failure, pt is drowsy, arousable, not in distress Objective - Vital Signs/Intake and Output Vital Signs (last 24 hours): Temp Pulse Resp BP Pulse Ox 97.4 F L 93 H 22 102/58 L 99 12/29/17 16:00 12/29/17 18:00 12/29/17 18:00 12/29/17 18:00 12/29/17 18:00 Intake and Output: 12/29/17 12/29/17 06:59 18:59 Intake Total 660 860 Output Total 250 200 Balance 410 660 - Medications Medications: Current Medications Albuterol/Ipratropium (Duoneb 3 Mg/0.5 Mg (3 Ml) Ud) 3 ml INH RQ4 PRN PRN Reason: Shortness of Breath Last Admin: 12/28/17 13:51 Dose: 3 ml Dextrose (Dextrose 50% Inj) 0 ml IV STAT PRN; Protocol PRN Reason: Hypoglycemia Protocol Dextrose (Glutose 15) 0 gm PO ONCE PRN; Protocol PRN Reason: Hypoglycemia Protocol Dextrose (Dextrose 50% Inj) 0 ml IV STAT PRN; Protocol PRN Reason: Hypoglycemia Protocol Dextrose (Glutose 15) 0 gm PO ONCE PRN; Protocol PRN Reason: Hypoglycemia Protocol Digoxin (Lanoxin) 0.25 mg IVP DAILY [facility] Last Admin: 12/29/17 09:11 Dose: 0.25 mg Glipizide (Glucotrol) 10 mg PO BIDAC [facility] Last Admin: 12/29/17 16:08 Dose: Not Given Glucagon (Glucagen Diagnostic Kit) 0 mg IM STAT PRN; Protocol PRN Reason: Hypoglycemia Protocol Glucagon (Glucagen Diagnostic Kit) 0 mg IM STAT PRN; Protocol PRN Reason: Hypoglycemia Protocol Heparin Sodium (Porcine) (Heparin) 5,000 units SC Q8 [facility]; Protocol Last Admin: 12/29/17 16:06 Dose: 5,000 units Vasopressin 100 units/ Sodium (Chloride) 105 mls @ 1.89 mls/hr IV .Q24H [facility]; Protocol Last Titration: 12/28/17 17:03 Dose: 0.02 units/min, 1.26 mls/hr Meropenem 1 gm/ Sodium (Chloride) 100 mls @ 100 mls/hr IVPB Q12 [facility]; Protocol Last Admin: 12/29/17 09:09 Dose: 100 mls/hr Daptomycin 340 mg/ Sodium (Chloride) 100 mls @ 100 mls/hr IV Q24H [facility]; Protocol Stop: 01/02/18 14:01 Last Admin: 12/29/17 14:57 Dose: 100 mls/hr Sodium Chloride (Sodium Chloride 0.9%) 1,000 mls @ 60 mls/hr IV .[id number] [facility] Stop: 12/29/17 19:04 Last Admin: 12/29/17 12:28 Dose: 60 mls/hr Insulin Detemir (Levemir) 20 units SC HS [facility] Insulin Human Lispro (Humalog) 0 units SC ACHS [facility] Last Admin: 12/29/17 16:07 Dose: Not Given Methimazole (Tapazole) 5 mg PO BID [facility] Last Admin: 12/29/17 16:08 Dose: Not Given - Labs Labs: 12/29/17 06:00 12/29/17 06:00 - Constitutional Appears: Well, No Acute Distress - Head Exam Head Exam: ATRAUMATIC - Eye Exam Eye Exam: EOMI, Normal appearance, PERRL - ENT Exam ENT Exam: Mucous Membranes Moist - Neck Exam Neck Exam: Full ROM, Normal Inspection - Respiratory Exam Respiratory Exam: Decreased Breath Sounds Additional comments: decreased bs left upper chest, clear b/l - Cardiovascular Exam Cardiovascular Exam: +S1, +S2 - GI/Abdominal Exam GI & Abdominal Exam: Soft, Normal Bowel Sounds - Rectal Exam Rectal Exam: Deferred - Extremities Exam Additional comments: no edema of legs - Neurological Exam Additional comments: drowsy,arousable - Skin Skin Exam: Normal Color, Warm Assessment and Plan - Assessment and Plan (Free Text) Assessment: 67 yo female with htn, high sugars, increased bun/cr, cluidy urine with nitrite + ve, LE +, wbc+ acidosis, left upper lobe mass, rt breast mass, liver mests, T( vertebral lesion, rt adreanl lesion, blood c/s + for GNR 1. Renal failure, most likley JOVANNA sec to severe dehydration sec to DKA and high sugare 2. DKA 3. Granm negative sepsis, most likely source is urine 4. A. flutter 5. hypotension sec to sepsis, 6. left lung mass with liver mets, most likley lung cancer 7. Rt breast mass, r/o breast cancer , or mets renal function is slightly better c/w iv abx as per ID c/w pressors f/u urine c/s pt is DNR/ DNI over all prognosis is very poor d/w pt's family at bed side
[2017-12-29] MEDS ORDERED: Insulin Detemir 100 Units/ml Inj SC SCH (22:00)
[2017-12-29] MEDS: Proshield Plus GEL TOP SCH (23:10)
[2017-12-30] MEDS: Proshield Plus GEL TOP SCH ×3 (01:30→17:13)
[2017-12-30 05:19] LABS: BASO % 0.1 % (0.0-2.0); HEMOGLOBIN 11.3 g/dL (12.0-16.0); LYMPH # 0.6 K/uL (1.0-4.3); MEAN CELL VOLUME 87.4 fl (81.0-99.0); MEAN CORPUSCULAR HEMOGLOBIN 28.8 pg (27.0-31.0); MEAN CORPUSCULAR HGB CONC 32.9 g/dL (33.0-37.0); MEAN PLATELET VOLUME 10.8 fl (7.2-11.7); MONO # 0.1 K/uL (0.0-0.8); MONO % 1.2 % (0.0-10.0); NEUT # 10.4 K/uL (1.8-7.0); NEUT % 93.7 % (50.0-75.0); NRBC % 0.3 % (0.0-0.0); PLATELET COUNT 51 K/uL (130-400); RBC 3.93 Mil/uL (3.80-5.20); RED CELL DISTRIBUTION WIDTH 16.3 % (11.5-14.5); WHITE BLOOD COUNT 11.1 K/uL (4.8-10.8)
[2017-12-30 05:48] LABS: ALB/GLOB RATIO 0.8 (1.0-2.1); ALBUMIN 2.2 g/dL (3.5-5.0); CALCIUM 7.3 mg/dL (8.4-10.2)
[2017-12-30] MEDS: Insulin Lispro (humaLOG) 100 Units/ml Inj SC SCH ×4 (06:42→21:42)
[2017-12-30 08:30] LABS: BANDS 5 % (0-2); LYMPHOCYTE 4 % (20-50); MONOCYTE 3 % (0-10); NEUTROPHIL 88 % (42-75); NUCLEATED RED BLOOD CELL 1 % (0-0); TOTAL CELLS COUNTED 100
[2017-12-30 08:31] LABS: ANISOCYTOSIS SLIGHT; PLATELET ESTIMATE DECREASED (NORMAL)
[2017-12-30 08:32] LABS: HYPOCHROMIC SLIGHT; OVALOCYTES SLIGHT; TOXIC GRANULATION PRESENT
--- NOTE | 2017-12-30 08:46 | CARD ---
APPROVED REPORT Date of service: 12/29/2017 EXAM: Two-dimensional and M-mode echocardiogram with Doppler and color Doppler. Other Information Quality : GoodRhythm : NSR INDICATION Infection:Subacute bacterial endocarditis 2D DIMENSIONS IVSd1.42 (0.7-1.1cm)LVDd4.41 (3.9-5.9cm) LVOT Diameter2.43 (1.8-2.4cm)PWd1.17 (0.7-1.1cm) IVSs1.66 (0.8-1.2cm)LVDs2.86 (2.5-4.0cm) FS (%) 35.2 %PWs1.40 (0.8-1.2cm) M-Mode DIMENSIONS Left Atrium (MM)4.32 (2.5-4.0cm)Aortic Root3.26 (2.2-3.7cm) Aortic Cusp Exc.2.15 (1.5-2.0cm) Mitral Valve E/A ratio0.0 TDI E/Lateral E'0.0E/Medial E'0.0 Tricuspid Valve TR Peak [id number] [id number] Peak Gr.30mmHg [id number] LEFT VENTRICLE The left ventricle is normal size. There is mild concentric left ventricular hypertrophy. The left ventricular function is normal. LVEF is 65-70%. There is normal LV segmental wall motion. Pt has atrial flutter. RIGHT VENTRICLE The right ventricle is normal size. There is normal right ventricular wall thickness. The right ventricular systolic function is normal. ATRIA The left atrium is mildly dilated. The right atrium size is normal. AORTIC VALVE The aortic valve is mildly sclerotic. No aortic regurgitation is present. There is no aortic valvular stenosis. MITRAL VALVE The mitral valve is normal in structure. There is no mitral valve stenosis. Mitral regurgitation is trace. TRICUSPID VALVE The tricuspid valve is normal in structure. There is moderate to severe tricuspid regurgitation. Right ventricular systolic pressure is estimated at 43 mmHg. There is moderate pulmonary hypertension. PULMONIC VALVE The pulmonary valve is normal in structure. There is no pulmonic valvular regurgitation. GREAT VESSELS The aortic root is normal in size. The IVC is normal in size and collapses >50% with inspiration. PERICARDIAL EFFUSION The pericardium appears normal. <Conclusion> The left ventricle is normal size. There is mild concentric left ventricular hypertrophy. There is normal LV segmental wall motion. The left ventricular function is normal. LVEF is 65-70%. There is moderate to severe tricuspid regurgitation. There is moderate pulmonary hypertension.
[2017-12-30] MEDS: Meropenem 1 GM in Sodium Chloride 0.9% 100 ML IVPB SCH (08:53)
[2017-12-30] MEDS: methIMAzole 5 MG TAB PO SCH ×2 (08:58→17:15)
--- NOTE | 2017-12-30 09:26 | CP.PCM.PN ---
Subjective - Date & Time of Evaluation Date of Evaluation: 12/30/17 Time of Evaluation: 09:26 - Subjective Subjective: 67 yo WF with pmh/o htn, dm, DKA, gram neg sepsis, s/p A flutter, left UL mass, possible livermets, rt breast mass, rt adrenal mass with renal failure, pt is drowsy, arousable, pt not in distress, no complaints, no sob Objective - Vital Signs/Intake and Output Vital Signs (last 24 hours): Temp Pulse Resp BP Pulse Ox 98.5 F 65 19 112/58 L 97 12/30/17 08:00 12/30/17 08:00 12/30/17 08:00 12/30/17 08:00 12/30/17 07:00 Intake and Output: 12/30/17 12/30/17 06:59 18:59 Intake Total 660 200 Output Total 2300 Balance -1640 200 - Medications Medications: Current Medications Albuterol/Ipratropium (Duoneb 3 Mg/0.5 Mg (3 Ml) Ud) 3 ml INH RQ4 PRN PRN Reason: Shortness of Breath Last Admin: 12/28/17 13:51 Dose: 3 ml Dextrose (Dextrose 50% Inj) 0 ml IV STAT PRN; Protocol PRN Reason: Hypoglycemia Protocol Dextrose (Glutose 15) 0 gm PO ONCE PRN; Protocol PRN Reason: Hypoglycemia Protocol Dextrose (Dextrose 50% Inj) 0 ml IV STAT PRN; Protocol PRN Reason: Hypoglycemia Protocol Dextrose (Glutose 15) 0 gm PO ONCE PRN; Protocol PRN Reason: Hypoglycemia Protocol Digoxin (Lanoxin) 0.25 mg IVP DAILY [facility] Last Admin: 12/29/17 09:11 Dose: 0.25 mg Dimethicone (Proshield Plus Skin Protectant) 1 applic TOP Q8 [facility] Last Admin: 12/30/17 08:56 Dose: 1 applic Glipizide (Glucotrol) 10 mg PO BIDAC [facility] Last Admin: 12/30/17 08:59 Dose: Not Given Glucagon (Glucagen Diagnostic Kit) 0 mg IM STAT PRN; Protocol PRN Reason: Hypoglycemia Protocol Glucagon (Glucagen Diagnostic Kit) 0 mg IM STAT PRN; Protocol PRN Reason: Hypoglycemia Protocol Heparin Sodium (Porcine) (Heparin) 5,000 units SC Q8 [facility]; Protocol Last Admin: 12/30/17 08:55 Dose: 5,000 units Vasopressin 100 units/ Sodium (Chloride) 105 mls @ 1.89 mls/hr IV .Q24H [facility]; Protocol Last Titration: 12/28/17 17:03 Dose: 0.02 units/min, 1.26 mls/hr Meropenem 1 gm/ Sodium (Chloride) 100 mls @ 100 mls/hr IVPB Q12 [facility]; Protocol Last Admin: 12/30/17 08:53 Dose: 100 mls/hr Daptomycin 340 mg/ Sodium (Chloride) 100 mls @ 100 mls/hr IV Q24H [facility]; Protocol Stop: 01/02/18 14:01 Last Admin: 12/29/17 14:57 Dose: 100 mls/hr Insulin Detemir (Levemir) 20 units SC HS [facility] Last Admin: 12/29/17 23:10 Dose: 20 units Insulin Human Lispro (Humalog) 0 units SC ACHS [facility] Last Admin: 12/30/17 06:42 Dose: Not Given Methimazole (Tapazole) 5 mg PO BID [facility] Last Admin: 12/30/17 08:58 Dose: Not Given Nystatin (Nystop Topical Powder) 1 applic TOP TID [facility] Last Admin: 12/30/17 08:58 Dose: 1 applic - Labs Labs: 12/30/17 04:35 12/30/17 04:35 - Constitutional Appears: No Acute Distress - Head Exam Head Exam: ATRAUMATIC, NORMAL INSPECTION, NORMOCEPHALIC - Eye Exam Eye Exam: EOMI, Normal appearance, PERRL Pupil Exam: NORMAL ACCOMODATION - ENT Exam ENT Exam: Mucous Membranes Moist - Neck Exam Neck Exam: Full ROM, Normal Inspection - Respiratory Exam Additional comments: decreased bs left upper chest, rt side crackles + - Cardiovascular Exam Cardiovascular Exam: REGULAR RHYTHM, +S1, +S2 - GI/Abdominal Exam GI & Abdominal Exam: Soft, Normal Bowel Sounds - Rectal Exam Rectal Exam: Deferred - Neurological Exam Neurological Exam: Alert, Awake, CN II-XII Intact, Oriented x3 - Psychiatric Exam Psychiatric exam: Normal Affect - Skin Skin Exam: Normal Color, Warm Assessment and Plan - Assessment and Plan (Free Text) Assessment: 67 yo female with htn, high sugars, increased bun/cr, cluidy urine with nitrite + ve, LE +, wbc+ acidosis, left upper lobe mass, rt breast mass, liver mests, T( vertebral lesion, rt adreanl lesion, blood c/s + for GNR 1. Renal failure, most likely JOVANNA sec to severe dehydration sec to DKA and high sugars 2. DKA 3. Granm negative sepsis, most likely source is urine 4. A. flutter 5. hypotension sec to sepsis, 6. left lung mass with liver mets, most likley lung cancer 7. Rt breast mass, r/o breast cancer , or mets renal function is slightly better, s.r 2.3 today c/w iv abx as per ID c/w pressors as needed pt is DNR/ DNI over all prognosis is very poor
--- NOTE | 2017-12-30 09:51 | CP.PCM.PN ---
Subjective - Date & Time of Evaluation Date of Evaluation: 12/30/17 Time of Evaluation: 09:20 - Subjective Subjective: Easily arousable (Pt appears drowsy) In no distress Answers simple questions readily, appropriately Afebrile Sinus rhythm at 84 BPM, BP 108/66 mm Hg No rales, no gallop Copious urine out put Azotemia begining to resolve AST/ALT improving Echo images from yesterday's study rewiewed LV syst function preserved Mild/Moderate pulm hypertension (PA syst pressure 43 mm Hg) Stable from cardiac point of view. Objective - Vital Signs/Intake and Output Vital Signs (last 24 hours): Temp Pulse Resp BP Pulse Ox 98.5 F 65 19 112/58 L 97 12/30/17 08:00 12/30/17 08:00 12/30/17 08:00 12/30/17 08:00 12/30/17 07:00 Intake and Output: 12/30/17 12/30/17 06:59 18:59 Intake Total 660 200 Output Total 2300 Balance -1640 200 - Medications Medications: Current Medications Albuterol/Ipratropium (Duoneb 3 Mg/0.5 Mg (3 Ml) Ud) 3 ml INH RQ4 PRN PRN Reason: Shortness of Breath Last Admin: 12/28/17 13:51 Dose: 3 ml Dextrose (Dextrose 50% Inj) 0 ml IV STAT PRN; Protocol PRN Reason: Hypoglycemia Protocol Dextrose (Glutose 15) 0 gm PO ONCE PRN; Protocol PRN Reason: Hypoglycemia Protocol Dextrose (Dextrose 50% Inj) 0 ml IV STAT PRN; Protocol PRN Reason: Hypoglycemia Protocol Dextrose (Glutose 15) 0 gm PO ONCE PRN; Protocol PRN Reason: Hypoglycemia Protocol Digoxin (Lanoxin) 0.25 mg IVP DAILY [facility] Last Admin: 12/29/17 09:11 Dose: 0.25 mg Dimethicone (Proshield Plus Skin Protectant) 1 applic TOP Q8 [facility] Last Admin: 12/30/17 08:56 Dose: 1 applic Glipizide (Glucotrol) 10 mg PO BIDAC [facility] Last Admin: 12/30/17 08:59 Dose: Not Given Glucagon (Glucagen Diagnostic Kit) 0 mg IM STAT PRN; Protocol PRN Reason: Hypoglycemia Protocol Glucagon (Glucagen Diagnostic Kit) 0 mg IM STAT PRN; Protocol PRN Reason: Hypoglycemia Protocol Heparin Sodium (Porcine) (Heparin) 5,000 units SC Q8 [facility]; Protocol Last Admin: 12/30/17 08:55 Dose: 5,000 units Vasopressin 100 units/ Sodium (Chloride) 105 mls @ 1.89 mls/hr IV .Q24H [facility]; Protocol Last Titration: 12/28/17 17:03 Dose: 0.02 units/min, 1.26 mls/hr Meropenem 1 gm/ Sodium (Chloride) 100 mls @ 100 mls/hr IVPB Q12 [facility]; Protocol Last Admin: 12/30/17 08:53 Dose: 100 mls/hr Daptomycin 340 mg/ Sodium (Chloride) 100 mls @ 100 mls/hr IV Q24H [facility]; Protocol Stop: 01/02/18 14:01 Last Admin: 12/29/17 14:57 Dose: 100 mls/hr Insulin Detemir (Levemir) 20 units SC HS [facility] Last Admin: 12/29/17 23:10 Dose: 20 units Insulin Human Lispro (Humalog) 0 units SC ACHS [facility] Last Admin: 12/30/17 06:42 Dose: Not Given Methimazole (Tapazole) 5 mg PO BID [facility] Last Admin: 12/30/17 08:58 Dose: Not Given Nystatin (Nystop Topical Powder) 1 applic TOP TID [facility] Last Admin: 12/30/17 08:58 Dose: 1 applic - Labs Labs: 12/30/17 04:35 12/30/17 04:35
--- NOTE | 2017-12-30 10:40 | CP.PCM.PN ---
Subjective - Date & Time of Evaluation Date of Evaluation: 12/29/17 Time of Evaluation: 21:45 - Subjective Subjective: Seen and examined at the bed side. Patient is critically sick on 2 Pressors with Vasopressin and Levophed, and Minimal Urine output. Patient continue to be drowsy but arousable. No fever or Hypothermia. Blood culture growing G- Negative Rods. Patient denies pain. ID, Cardiology, Pulmonary and Orthopedist input appreciated. Objective - Vital Signs/Intake and Output Vital Signs (last 24 hours): Temp Pulse Resp BP Pulse Ox 98.5 F 65 19 112/58 L 97 12/30/17 08:00 12/30/17 08:00 12/30/17 08:00 12/30/17 08:00 12/30/17 07:00 Intake and Output: 12/30/17 12/30/17 06:59 18:59 Intake Total 660 200 Output Total 2300 Balance -1640 200 - Medications Medications: Current Medications Albuterol/Ipratropium (Duoneb 3 Mg/0.5 Mg (3 Ml) Ud) 3 ml INH RQ4 PRN PRN Reason: Shortness of Breath Last Admin: 12/28/17 13:51 Dose: 3 ml Dextrose (Dextrose 50% Inj) 0 ml IV STAT PRN; Protocol PRN Reason: Hypoglycemia Protocol Dextrose (Glutose 15) 0 gm PO ONCE PRN; Protocol PRN Reason: Hypoglycemia Protocol Dextrose (Dextrose 50% Inj) 0 ml IV STAT PRN; Protocol PRN Reason: Hypoglycemia Protocol Dextrose (Glutose 15) 0 gm PO ONCE PRN; Protocol PRN Reason: Hypoglycemia Protocol Digoxin (Lanoxin) 0.25 mg IVP DAILY [facility] Last Admin: 12/29/17 09:11 Dose: 0.25 mg Dimethicone (Proshield Plus Skin Protectant) 1 applic TOP Q8 [facility] Last Admin: 12/30/17 08:56 Dose: 1 applic Glipizide (Glucotrol) 10 mg PO BIDAC [facility] Last Admin: 12/30/17 08:59 Dose: Not Given Glucagon (Glucagen Diagnostic Kit) 0 mg IM STAT PRN; Protocol PRN Reason: Hypoglycemia Protocol Glucagon (Glucagen Diagnostic Kit) 0 mg IM STAT PRN; Protocol PRN Reason: Hypoglycemia Protocol Heparin Sodium (Porcine) (Heparin) 5,000 units SC Q8 [facility]; Protocol Last Admin: 12/30/17 08:55 Dose: 5,000 units Vasopressin 100 units/ Sodium (Chloride) 105 mls @ 1.89 mls/hr IV .Q24H [facility]; Protocol Last Titration: 12/28/17 17:03 Dose: 0.02 units/min, 1.26 mls/hr Meropenem 1 gm/ Sodium (Chloride) 100 mls @ 100 mls/hr IVPB Q12 [facility]; Protocol Last Admin: 12/30/17 08:53 Dose: 100 mls/hr Daptomycin 340 mg/ Sodium (Chloride) 100 mls @ 100 mls/hr IV Q24H [facility]; Protocol Stop: 01/02/18 14:01 Last Admin: 12/29/17 14:57 Dose: 100 mls/hr Insulin Detemir (Levemir) 20 units SC HS [facility] Last Admin: 12/29/17 23:10 Dose: 20 units Insulin Human Lispro (Humalog) 0 units SC ACHS [facility] Last Admin: 12/30/17 06:42 Dose: Not Given Methimazole (Tapazole) 5 mg PO BID [facility] Last Admin: 12/30/17 08:58 Dose: Not Given Nystatin (Nystop Topical Powder) 1 applic TOP TID [facility] Last Admin: 12/30/17 08:58 Dose: 1 applic - Labs Labs: 12/30/17 04:35 12/30/17 04:35 - Constitutional Appears: Toxic, In Acute Distress, Older Than Stated Age - Eye Exam Eye Exam: PERRL Pupil Exam: NORMAL ACCOMODATION - ENT Exam ENT Exam: Mucous Membranes Dry - Neck Exam Neck Exam: Full ROM - Respiratory Exam Respiratory Exam: Decreased Breath Sounds, NORMAL BREATHING PATTERN - Cardiovascular Exam Cardiovascular Exam: REGULAR RHYTHM, +S1, +S2, Murmur - GI/Abdominal Exam GI & Abdominal Exam: Soft, Normal Bowel Sounds. absent: Tenderness - Extremities Exam Extremities Exam: absent: Pedal Edema - Back Exam Back Exam: NORMAL INSPECTION Additional comments: + Stage II Sacral Decubitus Ulcer, and Bruises - Neurological Exam Neurological Exam: Altered, Awake - Psychiatric Exam Psychiatric exam: Flat Affect - Skin Skin Exam: Abrasion, Dry, Pallor, Warm Assessment and Plan (1) Altered mental status Assessment & Plan: Metabolic Encephalopathy: Sepsis, Uremia and Metabolic Acidosis Treat the Underlying Problem Continue monitor in ICU Status: Acute Priority: High (2) DKA (diabetic ketoacidoses)- Resolved Type II DM Assessment and Plan: HHS, Hypotension on Levophed and Vasopressin Bolus IVF PRN Continue IVF Replenish Electrolytes BMP Q12 hrs ACHS with Coverage HgA1C- 11.6 Status: Acute Priority: High (3) Septic Shock, G -ve Bactremia Assessment and Plan: UTI and Sacral Pressure Ulcer Stage II IV Merem and Vamcomycin IVF Blood and Urine Cultures Wound Care daily Status: Acute Priority: High (4) Lung mass, Possible Stage IV Lung Cancer Assessment and Plan: Family Aware Will Need Tissue Dx when patient stable Status: Acute Priority: High (5) Acute Renal Failure (ARF) Assessment and Plan: Most Likely ATN due to Hypotension and Dehydration IVF RX DKA/HHS and Sepsis Urine NA Nephrology Consult Status: Acute Priority: High (6) Gait abnormality Status: Acute Priority: Medium (7) DVT prophylaxis Status: Inactive Priority: High (8) DNR/DNI Status: Acute Status: Chronic
--- NOTE | 2017-12-30 11:02 | CP.PCM.PN ---
Subjective - Date & Time of Evaluation Date of Evaluation: 12/30/17 Time of Evaluation: 11:02 - Subjective Subjective: ID Note- Pt. seen and examined today in ICU. awake and answers some questions but is weak and tired. Objective - Vital Signs/Intake and Output Vital Signs (last 24 hours): Temp Pulse Resp BP Pulse Ox 98.5 F 65 19 112/58 L 97 12/30/17 08:00 12/30/17 08:00 12/30/17 08:00 12/30/17 08:00 12/30/17 07:00 Intake and Output: 12/30/17 12/30/17 06:59 18:59 Intake Total 660 200 Output Total 2300 Balance -1640 200 - Medications Medications: Current Medications Albuterol/Ipratropium (Duoneb 3 Mg/0.5 Mg (3 Ml) Ud) 3 ml INH RQ4 PRN PRN Reason: Shortness of Breath Last Admin: 12/28/17 13:51 Dose: 3 ml Dextrose (Dextrose 50% Inj) 0 ml IV STAT PRN; Protocol PRN Reason: Hypoglycemia Protocol Dextrose (Glutose 15) 0 gm PO ONCE PRN; Protocol PRN Reason: Hypoglycemia Protocol Dextrose (Dextrose 50% Inj) 0 ml IV STAT PRN; Protocol PRN Reason: Hypoglycemia Protocol Dextrose (Glutose 15) 0 gm PO ONCE PRN; Protocol PRN Reason: Hypoglycemia Protocol Digoxin (Lanoxin) 0.25 mg IVP DAILY [facility] Last Admin: 12/29/17 09:11 Dose: 0.25 mg Dimethicone (Proshield Plus Skin Protectant) 1 applic TOP Q8 [facility] Last Admin: 12/30/17 08:56 Dose: 1 applic Glipizide (Glucotrol) 10 mg PO BIDAC [facility] Last Admin: 12/30/17 08:59 Dose: Not Given Glucagon (Glucagen Diagnostic Kit) 0 mg IM STAT PRN; Protocol PRN Reason: Hypoglycemia Protocol Glucagon (Glucagen Diagnostic Kit) 0 mg IM STAT PRN; Protocol PRN Reason: Hypoglycemia Protocol Heparin Sodium (Porcine) (Heparin) 5,000 units SC Q8 [facility]; Protocol Last Admin: 12/30/17 08:55 Dose: 5,000 units Vasopressin 100 units/ Sodium (Chloride) 105 mls @ 1.89 mls/hr IV .Q24H [facility]; Protocol Last Titration: 12/28/17 17:03 Dose: 0.02 units/min, 1.26 mls/hr Meropenem 1 gm/ Sodium (Chloride) 100 mls @ 100 mls/hr IVPB Q12 [facility]; Protocol Last Admin: 12/30/17 08:53 Dose: 100 mls/hr Daptomycin 340 mg/ Sodium (Chloride) 100 mls @ 100 mls/hr IV Q24H [facility]; Protocol Stop: 01/02/18 14:01 Last Admin: 12/29/17 14:57 Dose: 100 mls/hr Insulin Detemir (Levemir) 20 units SC HS [facility] Last Admin: 12/29/17 23:10 Dose: 20 units Insulin Human Lispro (Humalog) 0 units SC ACHS [facility] Last Admin: 12/30/17 06:42 Dose: Not Given Methimazole (Tapazole) 5 mg PO BID [facility] Last Admin: 12/30/17 08:58 Dose: Not Given Nystatin (Nystop Topical Powder) 1 applic TOP TID [facility] Last Admin: 12/30/17 08:58 Dose: 1 applic - Labs Labs: - Additional Findings Additional findings: - Constitutional Appears: Chronically Ill Additional comments: weak - Head Exam Head Exam: ATRAUMATIC - ENT Exam ENT Exam: Normal Oropharynx - Neck Exam Neck exam: Positive for: Full Rom - Respiratory Exam Respiratory Exam: NORMAL BREATHING PATTERN Additional comments: no wheezing - Cardiovascular Exam Cardiovascular Exam: RRR, +S1, +S2 - GI/Abdominal Exam GI & Abdominal Exam: Normal Bowel Sounds, Soft Additional comments: no tenderness no guarding, no rebound - Extremities Exam Additional comments: no edema b/l LE - Neurological Exam Additional comments: awakens when name is called and answers some questions but tired Laboratory Results - last 72 hr 12/27/17 12/27/17 12/27/17 15:00 17:01 18:25 WBC RBC Hgb Hct MCV MCH MCHC RDW Plt Count MPV Neut % (Auto) Lymph % (Auto) [place] % (Auto) Eos % (Auto) Baso % (Auto) Neut # (Auto) Lymph # (Auto) [place] # (Auto) Eos # (Auto) Baso # (Auto) Neutrophils % (Manual) Band Neutrophils % Lymphocytes % (Manual) Monocytes % (Manual) Nucleated RBC % Toxic Granulation Platelet Estimate Hypochromasia (manual) Poikilocytosis (manual Anisocytosis (manual) Tear Drop Cells Ovalocytes pO2 VBG pH VBG pCO2 VBG HCO3 VBG Total CO2 VBG O2 Sat (Calc) VBG Base Excess Sodium Chloride Glucose Lactate FiO2 Blood Gas Comments Crit Value Called To Crit Value Called By Crit Value Read Back Blood Gas Notified Time Potassium Carbon Dioxide Anion Gap BUN Creatinine Est GFR ( Amer) Est GFR (Non-Af Amer) POC Glucose (mg/dL) > 500 H* > 500 H* Random Glucose Hemoglobin A1c Serum Osmolality Calcium Phosphorus Magnesium 3.0 H Total Bilirubin AST ALT Alkaline Phosphatase Total Creatine Kinase Troponin I NT-Pro-B Natriuret Pep Total Protein Albumin Globulin Albumin/Globulin Ratio Free T4 Thyroxine (T4) TSH 3rd Generation Urine Color Urine Clarity Urine pH Ur Specific [place] Urine Protein Urine Glucose (UA) Urine Ketones Urine Blood Urine Nitrate Urine Bilirubin Urine Urobilinogen Ur Leukocyte Esterase Urine RBC (Auto) Urine WBC Clumps (Auto) Urine Microscopic WBC Ur Squamous Epith Cells Amorphous Sediment Urine Bacteria Hyaline Casts Urine Yeast (Budding) 12/27/17 12/27/17 12/27/17 18:30 18:52 20:09 WBC RBC Hgb Hct MCV MCH MCHC RDW Plt Count MPV Neut % (Auto) Lymph % (Auto) [place] % (Auto) Eos % (Auto) Baso % (Auto) Neut # (Auto) Lymph # (Auto) [place] # (Auto) Eos # (Auto) Baso # (Auto) Neutrophils % (Manual) Band Neutrophils % Lymphocytes % (Manual) Monocytes % (Manual) Nucleated RBC % Toxic Granulation Platelet Estimate Hypochromasia (manual) Poikilocytosis (manual Anisocytosis (manual) Tear Drop Cells Ovalocytes pO2 47 VBG pH 7.25 L VBG pCO2 31 L VBG HCO3 14.7 VBG Total CO2 14.6 L VBG O2 Sat (Calc) 80.0 H VBG Base Excess -12.4 L Sodium 196.0 H* Chloride 124.0 H Glucose 598 H* D Lactate 4.9 H* FiO2 21.0 Blood Gas Comments Vbg Crit Value Called To Gia marin r.n. Crit Value Called By Dolores Crit Value Read Back Y Blood Gas Notified Time 190 Potassium Carbon Dioxide Anion Gap BUN Creatinine Est GFR ( Amer) Est GFR (Non-Af Amer) POC Glucose (mg/dL) > 500 H* Random Glucose Hemoglobin A1c Serum Osmolality 446 H Calcium Phosphorus Magnesium Total Bilirubin AST ALT Alkaline Phosphatase Total Creatine Kinase Troponin I NT-Pro-B Natriuret Pep Total Protein Albumin Globulin Albumin/Globulin Ratio Free T4 Thyroxine (T4) TSH 3rd Generation Urine Color Urine Clarity Urine pH Ur Specific [place] Urine Protein Urine Glucose (UA) Urine Ketones Urine Blood Urine Nitrate Urine Bilirubin Urine Urobilinogen Ur Leukocyte Esterase Urine RBC (Auto) Urine WBC Clumps (Auto) Urine Microscopic WBC Ur Squamous Epith Cells Amorphous Sediment Urine Bacteria Hyaline Casts Urine Yeast (Budding) 12/27/17 12/27/17 12/27/17 23:00 23:00 23:00 WBC RBC Hgb Hct MCV MCH MCHC RDW Plt Count MPV Neut % (Auto) Lymph % (Auto) [place] % (Auto) Eos % (Auto) Baso % (Auto) Neut # (Auto) Lymph # (Auto) [place] # (Auto) Eos # (Auto) Baso # (Auto) Neutrophils % (Manual) Band Neutrophils % Lymphocytes % (Manual) Monocytes % (Manual) Nucleated RBC % Toxic Granulation Platelet Estimate Hypochromasia (manual) Poikilocytosis (manual Anisocytosis (manual) Tear Drop Cells Ovalocytes pO2 VBG pH VBG pCO2 VBG HCO3 VBG Total CO2 VBG O2 Sat (Calc) VBG Base Excess Sodium 148 Chloride 111 H D Glucose Lactate FiO2 Blood Gas Comments Crit Value Called To Crit Value Called By Crit Value Read Back Blood Gas Notified Time Potassium 3.1 L Carbon Dioxide 22 Anion Gap 18 BUN 104 H* Creatinine 2.4 H Est GFR ( Amer) 25 Est GFR (Non-Af Amer) 20 POC Glucose (mg/dL) Random Glucose 375 H Hemoglobin A1c Serum Osmolality Calcium 6.3 L Phosphorus 3.8 Magnesium 2.1 Total Bilirubin 1.8 H AST 313 H ALT 162 H Alkaline Phosphatase 223 H D Total Creatine Kinase Troponin I NT-Pro-B Natriuret Pep Total Protein 5.8 L Albumin 2.7 L D Globulin 3.1 Albumin/Globulin Ratio 0.8 L Free T4 Thyroxine (T4) TSH 3rd Generation Urine Color [place] Urine Clarity Cloudy Urine pH 5.0 Ur Specific [place] 1.018 Urine Protein 100 Urine Glucose (UA) >=500 Urine Ketones 20 Urine Blood Large Urine Nitrate Negative Urine Bilirubin Small Urine Urobilinogen 4.0 H Ur Leukocyte Esterase Large Urine RBC (Auto) 67 H Urine WBC Clumps (Auto) Few H Urine Microscopic WBC 269 H Ur Squamous Epith Cells 1 Amorphous Sediment Rare H Urine Bacteria Few H Hyaline Casts 3-5 H Urine Yeast (Budding) 12/27/17 12/28/17 12/28/17 23:55 00:40 01:29 WBC RBC Hgb Hct MCV MCH MCHC RDW Plt Count MPV Neut % (Auto) Lymph % (Auto) [place] % (Auto) Eos % (Auto) Baso % (Auto) Neut # (Auto) Lymph # (Auto) [place] # (Auto) Eos # (Auto) Baso # (Auto) Neutrophils % (Manual) Band Neutrophils % Lymphocytes % (Manual) Monocytes % (Manual) Nucleated RBC % Toxic Granulation Platelet Estimate Hypochromasia (manual) Poikilocytosis (manual Anisocytosis (manual) Tear Drop Cells Ovalocytes pO2 VBG pH VBG pCO2 VBG HCO3 VBG Total CO2 VBG O2 Sat (Calc) VBG Base Excess Sodium Chloride Glucose Lactate FiO2 Blood Gas Comments Crit Value Called To Crit Value Called By Crit Value Read Back Blood Gas Notified Time Potassium Carbon Dioxide Anion Gap BUN Creatinine Est GFR ( Amer) Est GFR (Non-Af Amer) POC Glucose (mg/dL) 390 H 301 H 264 H Random Glucose Hemoglobin A1c Serum Osmolality Calcium Phosphorus Magnesium Total Bilirubin AST ALT Alkaline Phosphatase Total Creatine Kinase Troponin I NT-Pro-B Natriuret Pep Total Protein Albumin Globulin Albumin/Globulin Ratio Free T4 Thyroxine (T4) TSH 3rd Generation Urine Color Urine Clarity Urine pH Ur Specific [place] Urine Protein Urine Glucose (UA) Urine Ketones Urine Blood Urine Nitrate Urine Bilirubin Urine Urobilinogen Ur Leukocyte Esterase Urine RBC (Auto) Urine WBC Clumps (Auto) Urine Microscopic WBC Ur Squamous Epith Cells Amorphous Sediment Urine Bacteria Hyaline Casts Urine Yeast (Budding) 12/28/17 12/28/17 12/28/17 02:28 03:42 04:41 WBC RBC Hgb Hct MCV MCH MCHC RDW Plt Count MPV Neut % (Auto) Lymph % (Auto) [place] % (Auto) Eos % (Auto) Baso % (Auto) Neut # (Auto) Lymph # (Auto) [place] # (Auto) Eos # (Auto) Baso # (Auto) Neutrophils % (Manual) Band Neutrophils % Lymphocytes % (Manual) Monocytes % (Manual) Nucleated RBC % Toxic Granulation Platelet Estimate Hypochromasia (manual) Poikilocytosis (manual Anisocytosis (manual) Tear Drop Cells Ovalocytes pO2 VBG pH VBG pCO2 VBG HCO3 VBG Total CO2 VBG O2 Sat (Calc) VBG Base Excess Sodium Chloride Glucose Lactate FiO2 Blood Gas Comments Crit Value Called To Crit Value Called By Crit Value Read Back Blood Gas Notified Time Potassium Carbon Dioxide Anion Gap BUN Creatinine Est GFR ( Amer) Est GFR (Non-Af Amer) POC Glucose (mg/dL) 203 H 188 H 179 H Random Glucose Hemoglobin A1c Serum Osmolality Calcium Phosphorus Magnesium Total Bilirubin AST ALT Alkaline Phosphatase Total Creatine Kinase Troponin I NT-Pro-B Natriuret Pep Total Protein Albumin Globulin Albumin/Globulin Ratio Free T4 Thyroxine (T4) TSH 3rd Generation Urine Color Urine Clarity Urine pH Ur Specific [place] Urine Protein Urine Glucose (UA) Urine Ketones Urine Blood Urine Nitrate Urine Bilirubin Urine Urobilinogen Ur Leukocyte Esterase Urine RBC (Auto) Urine WBC Clumps (Auto) Urine Microscopic WBC Ur Squamous Epith Cells Amorphous Sediment Urine Bacteria Hyaline Casts Urine Yeast (Budding) 12/28/17 12/28/17 12/28/17 05:00 05:27 05:30 WBC 13.9 H RBC 4.22 Hgb 12.2 Hct 36.4 MCV 86.3 D MCH 28.9 MCHC 33.5 RDW 16.1 H Plt Count 116 L D MPV 10.3 Neut % (Auto) 90.3 H Lymph % (Auto) 5.9 L [place] % (Auto) 3.6 Eos % (Auto) 0.0 Baso % (Auto) 0.2 Neut # (Auto) 12.5 H Lymph # (Auto) 0.8 L [place] # (Auto) 0.5 Eos # (Auto) 0.0 Baso # (Auto) 0.0 Neutrophils % (Manual) 92 H Band Neutrophils % 2 Lymphocytes % (Manual) 4 L Monocytes % (Manual) 2 Nucleated RBC % Toxic Granulation Platelet Estimate Decreased L Hypochromasia (manual) Poikilocytosis (manual Anisocytosis (manual) Tear Drop Cells Ovalocytes pO2 VBG pH VBG pCO2 VBG HCO3 VBG Total CO2 VBG O2 Sat (Calc) VBG Base Excess Sodium 147 Chloride 113 H Glucose Lactate FiO2 Blood Gas Comments Crit Value Called To Crit Value Called By Crit Value Read Back Blood Gas Notified Time Potassium 4.1 Carbon Dioxide 30 Anion Gap 8 L BUN 100 H* Creatinine 2.2 H Est GFR ( Amer) 27 Est GFR (Non-Af Amer) 22 POC Glucose (mg/dL) 123 H Random Glucose 99 Hemoglobin A1c Serum Osmolality Calcium 6.2 L Phosphorus Magnesium Total Bilirubin AST ALT Alkaline Phosphatase Total Creatine Kinase Troponin I 0.1660 H* NT-Pro-B Natriuret Pep 5150 H Total Protein Albumin Globulin Albumin/Globulin Ratio Free T4 Thyroxine (T4) TSH 3rd Generation 0.19 L Urine Color Urine Clarity Urine pH Ur Specific [place] Urine Protein Urine Glucose (UA) Urine Ketones Urine Blood Urine Nitrate Urine Bilirubin Urine Urobilinogen Ur Leukocyte Esterase Urine RBC (Auto) Urine WBC Clumps (Auto) Urine Microscopic WBC Ur Squamous Epith Cells Amorphous Sediment Urine Bacteria Hyaline Casts Urine Yeast (Budding) 12/28/17 12/28/17 12/28/17 07:06 07:50 10:36 WBC RBC Hgb Hct MCV MCH MCHC RDW Plt Count MPV Neut % (Auto) Lymph % (Auto) [place] % (Auto) Eos % (Auto) Baso % (Auto) Neut # (Auto) Lymph # (Auto) [place] # (Auto) Eos # (Auto) Baso # (Auto) Neutrophils % (Manual) Band Neutrophils % Lymphocytes % (Manual) Monocytes % (Manual) Nucleated RBC % Toxic Granulation Platelet Estimate Hypochromasia (manual) Poikilocytosis (manual Anisocytosis (manual) Tear Drop Cells Ovalocytes pO2 VBG pH VBG pCO2 VBG HCO3 VBG Total CO2 VBG O2 Sat (Calc) VBG Base Excess Sodium 146 Chloride 111 H Glucose Lactate FiO2 Blood Gas Comments Crit Value Called To Crit Value Called By Crit Value Read Back Blood Gas Notified Time Potassium 4.7 Carbon Dioxide 28 Anion Gap 12 BUN 104 H* Creatinine 2.2 H Est GFR ( Amer) 27 Est GFR (Non-Af Amer) 22 POC Glucose (mg/dL) 92 175 H Random Glucose 135 H Hemoglobin A1c Serum Osmolality Calcium 6.5 L Phosphorus Magnesium Total Bilirubin AST ALT Alkaline Phosphatase Total Creatine Kinase Troponin I NT-Pro-B Natriuret Pep Total Protein Albumin Globulin Albumin/Globulin Ratio Free T4 Thyroxine (T4) TSH 3rd Generation Urine Color Urine Clarity Urine pH Ur Specific [place] Urine Protein Urine Glucose (UA) Urine Ketones Urine Blood Urine Nitrate Urine Bilirubin Urine Urobilinogen Ur Leukocyte Esterase Urine RBC (Auto) Urine WBC Clumps (Auto) Urine Microscopic WBC Ur Squamous Epith Cells Amorphous Sediment Urine Bacteria Hyaline Casts Urine Yeast (Budding) 12/28/17 12/28/17 12/28/17 12:43 14:40 15:56 WBC RBC Hgb Hct MCV MCH MCHC RDW Plt Count MPV Neut % (Auto) Lymph % (Auto) [place] % (Auto) Eos % (Auto) Baso % (Auto) Neut # (Auto) Lymph # (Auto) [place] # (Auto) Eos # (Auto) Baso # (Auto) Neutrophils % (Manual) Band Neutrophils % Lymphocytes % (Manual) Monocytes % (Manual) Nucleated RBC % Toxic Granulation Platelet Estimate Hypochromasia (manual) Poikilocytosis (manual Anisocytosis (manual) Tear Drop Cells Ovalocytes pO2 VBG pH VBG pCO2 VBG HCO3 VBG Total CO2 VBG O2 Sat (Calc) VBG Base Excess Sodium Chloride Glucose Lactate FiO2 Blood Gas Comments Crit Value Called To Crit Value Called By Crit Value Read Back Blood Gas Notified Time Potassium Carbon Dioxide Anion Gap BUN Creatinine Est GFR ( Amer) Est GFR (Non-Af Amer) POC Glucose (mg/dL) 322 H Random Glucose Hemoglobin A1c Serum Osmolality Calcium Phosphorus Magnesium Total Bilirubin AST ALT Alkaline Phosphatase Total Creatine Kinase 210 H Troponin I 0.1620 H* NT-Pro-B Natriuret Pep Total Protein Albumin Globulin Albumin/Globulin Ratio Free T4 Thyroxine (T4) TSH 3rd Generation Urine Color Michelle Urine Clarity Cloudy Urine pH 5.0 Ur Specific [place] 1.016 Urine Protein 100 Urine Glucose (UA) 50 Urine Ketones Negative Urine Blood Large Urine Nitrate Negative Urine Bilirubin Negative Urine Urobilinogen 4.0 H Ur Leukocyte Esterase Mod Urine RBC (Auto) 7 H Urine WBC Clumps (Auto) Urine Microscopic WBC 29 H Ur Squamous Epith Cells 2 Amorphous Sediment Urine Bacteria Occ H Hyaline Casts Urine Yeast (Budding) Occ H 12/28/17 12/28/17 12/29/17 16:25 21:25 04:09 WBC RBC Hgb Hct MCV MCH MCHC RDW Plt Count MPV Neut % (Auto) Lymph % (Auto) [place] % (Auto) Eos % (Auto) Baso % (Auto) Neut # (Auto) Lymph # (Auto) [place] # (Auto) Eos # (Auto) Baso # (Auto) Neutrophils % (Manual) Band Neutrophils % Lymphocytes % (Manual) Monocytes % (Manual) Nucleated RBC % Toxic Granulation Platelet Estimate Hypochromasia (manual) Poikilocytosis (manual Anisocytosis (manual) Tear Drop Cells Ovalocytes pO2 VBG pH VBG pCO2 VBG HCO3 VBG Total CO2 VBG O2 Sat (Calc) VBG Base Excess Sodium Chloride Glucose Lactate FiO2 Blood Gas Comments Crit Value Called To Crit Value Called By Crit Value Read Back Blood Gas Notified Time Potassium Carbon Dioxide Anion Gap BUN Creatinine Est GFR ( Amer) Est GFR (Non-Af Amer) POC Glucose (mg/dL) 301 H 297 H 344 H Random Glucose Hemoglobin A1c Serum Osmolality Calcium Phosphorus Magnesium Total Bilirubin AST ALT Alkaline Phosphatase Total Creatine Kinase Troponin I NT-Pro-B Natriuret Pep Total Protein Albumin Globulin Albumin/Globulin Ratio Free T4 Thyroxine (T4) TSH 3rd Generation Urine Color Urine Clarity Urine pH Ur Specific [place] Urine Protein Urine Glucose (UA) Urine Ketones Urine Blood Urine Nitrate Urine Bilirubin Urine Urobilinogen Ur Leukocyte Esterase Urine RBC (Auto) Urine WBC Clumps (Auto) Urine Microscopic WBC Ur Squamous Epith Cells Amorphous Sediment Urine Bacteria Hyaline Casts Urine Yeast (Budding) 12/29/17 12/29/17 12/29/17 06:00 06:00 06:00 WBC RBC Hgb Hct MCV MCH MCHC RDW Plt Count MPV Neut % (Auto) Lymph % (Auto) [place] % (Auto) Eos % (Auto) Baso % (Auto) Neut # (Auto) Lymph # (Auto) [place] # (Auto) Eos # (Auto) Baso # (Auto) Neutrophils % (Manual) Band Neutrophils % Lymphocytes % (Manual) Monocytes % (Manual) Nucleated RBC % Toxic Granulation Platelet Estimate Hypochromasia (manual) Poikilocytosis (manual Anisocytosis (manual) Tear Drop Cells Ovalocytes pO2 VBG pH VBG pCO2 VBG HCO3 VBG Total CO2 VBG O2 Sat (Calc) VBG Base Excess Sodium 147 Chloride 112 H Glucose Lactate FiO2 Blood Gas Comments Crit Value Called To Crit Value Called By Crit Value Read Back Blood Gas Notified Time Potassium 4.8 Carbon Dioxide 17 L Anion Gap 23 H BUN 99 H Creatinine 2.6 H Est GFR ( Amer) 22 Est GFR (Non-Af Amer) 18 POC Glucose (mg/dL) Random Glucose 336 H Hemoglobin A1c 11.6 H Serum Osmolality Calcium 6.8 L Phosphorus 5.6 H Magnesium 1.9 Total Bilirubin 1.6 H AST 234 H D ALT 136 H Alkaline Phosphatase 325 H D Total Creatine Kinase Troponin I NT-Pro-B Natriuret Pep Total Protein 5.1 L Albumin 2.3 L Globulin 2.8 Albumin/Globulin Ratio 0.8 L Free T4 0.89 Thyroxine (T4) 2.20 L TSH 3rd Generation 0.15 L Urine Color Urine Clarity Urine pH Ur Specific [place] Urine Protein Urine Glucose (UA) Urine Ketones Urine Blood Urine Nitrate Urine Bilirubin Urine Urobilinogen Ur Leukocyte Esterase Urine RBC (Auto) Urine WBC Clumps (Auto) Urine Microscopic WBC Ur Squamous Epith Cells Amorphous Sediment Urine Bacteria Hyaline Casts Urine Yeast (Budding) 12/29/17 12/29/17 12/29/17 06:00 12:09 15:43 WBC 9.5 RBC 3.98 Hgb 11.4 L Hct 35.6 MCV 89.3 D MCH 28.6 MCHC 32.0 L RDW 16.2 H Plt Count 83 L D MPV 11.3 Neut % (Auto) 94.0 H Lymph % (Auto) 2.6 L [place] % (Auto) 3.0 Eos % (Auto) 0.3 Baso % (Auto) 0.1 Neut # (Auto) 8.9 H Lymph # (Auto) 0.2 L [place] # (Auto) 0.3 Eos # (Auto) 0.0 Baso # (Auto) 0.0 Neutrophils % (Manual) 96 H Band Neutrophils % Lymphocytes % (Manual) 2 L Monocytes % (Manual) 2 Nucleated RBC % Toxic Granulation Platelet Estimate Decreased L Hypochromasia (manual) Poikilocytosis (manual Slight Anisocytosis (manual) Slight Tear Drop Cells Slight Ovalocytes Slight pO2 VBG pH VBG pCO2 VBG HCO3 VBG Total CO2 VBG O2 Sat (Calc) VBG Base Excess Sodium Chloride Glucose Lactate FiO2 Blood Gas Comments Crit Value Called To Crit Value Called By Crit Value Read Back Blood Gas Notified Time Potassium Carbon Dioxide Anion Gap BUN Creatinine Est GFR ( Amer) Est GFR (Non-Af Amer) POC Glucose (mg/dL) 323 H 260 H Random Glucose Hemoglobin A1c Serum Osmolality Calcium Phosphorus Magnesium Total Bilirubin AST ALT Alkaline Phosphatase Total Creatine Kinase Troponin I NT-Pro-B Natriuret Pep Total Protein Albumin Globulin Albumin/Globulin Ratio Free T4 Thyroxine (T4) TSH 3rd Generation Urine Color Urine Clarity Urine pH Ur Specific [place] Urine Protein Urine Glucose (UA) Urine Ketones Urine Blood Urine Nitrate Urine Bilirubin Urine Urobilinogen Ur Leukocyte Esterase Urine RBC (Auto) Urine WBC Clumps (Auto) Urine Microscopic WBC Ur Squamous Epith Cells Amorphous Sediment Urine Bacteria Hyaline Casts Urine Yeast (Budding) 12/29/17 12/30/17 12/30/17 22:14 04:35 04:35 WBC 11.1 H RBC 3.93 Hgb 11.3 L Hct 34.3 MCV 87.4 MCH 28.8 MCHC 32.9 L RDW 16.3 H Plt Count 51 L D MPV 10.8 Neut % (Auto) 93.7 H Lymph % (Auto) 5.0 L [place] % (Auto) 1.2 Eos % (Auto) 0.0 Baso % (Auto) 0.1 Neut # (Auto) 10.4 H Lymph # (Auto) 0.6 L [place] # (Auto) 0.1 Eos # (Auto) 0.0 Baso # (Auto) 0.0 Neutrophils % (Manual) 88 H Band Neutrophils % 5 H Lymphocytes % (Manual) 4 L Monocytes % (Manual) 3 Nucleated RBC % 1 H Toxic Granulation Present Platelet Estimate Decreased L Hypochromasia (manual) Slight Poikilocytosis (manual Anisocytosis (manual) Slight Tear Drop Cells Ovalocytes Slight pO2 VBG pH VBG pCO2 VBG HCO3 VBG Total CO2 VBG O2 Sat (Calc) VBG Base Excess Sodium 151 H Chloride 116 H Glucose Lactate FiO2 Blood Gas Comments Crit Value Called To Crit Value Called By Crit Value Read Back Blood Gas Notified Time Potassium 3.5 L Carbon Dioxide 27 Anion Gap 12 BUN 97 H Creatinine 2.3 H Est GFR ( Amer) 26 Est GFR (Non-Af Amer) 21 POC Glucose (mg/dL) 310 H Random Glucose 201 H Hemoglobin A1c Serum Osmolality Calcium 7.3 L Phosphorus Magnesium Total Bilirubin 1.3 AST 203 H ALT 122 H Alkaline Phosphatase 360 H Total Creatine Kinase Troponin I NT-Pro-B Natriuret Pep Total Protein 5.2 L Albumin 2.2 L Globulin 3.0 Albumin/Globulin Ratio 0.8 L Free T4 Thyroxine (T4) TSH 3rd Generation Urine Color Urine Clarity Urine pH Ur Specific [place] Urine Protein Urine Glucose (UA) Urine Ketones Urine Blood Urine Nitrate Urine Bilirubin Urine Urobilinogen Ur Leukocyte Esterase Urine RBC (Auto) Urine WBC Clumps (Auto) Urine Microscopic WBC Ur Squamous Epith Cells Amorphous Sediment Urine Bacteria Hyaline Casts Urine Yeast (Budding) Microbiology 12/28/17 14:40 Blood-Venous Blood Culture - Preliminary NO GROWTH AFTER 48 HOURS 12/28/17 14:40 Blood-Venous Blood Culture - Preliminary NO GROWTH AFTER 48 HOURS 12/28/17 16:39 Urine,Catheterized Urine Culture - Final Yeast Species 12/27/17 14:49 Blood-Venous Blood Culture - Final Escherichia Coli 12/27/17 14:49 Blood-Venous Gram Stain - Final 12/27/17 06:00 Naris MRSA Culture (Admit) - Final MRSA NOT DETECTED 12/27/17 14:49 Urine,Randolph Urine Culture - Final No Growth (<1,000 CFU/ML) Assessment and Plan (1) Sepsis Status: Acute (2) Dehydration Status: Acute (3) DKA (diabetic ketoacidoses) Status: Resolved (4) Acute renal disease Status: Acute (5) Bacteremia due to Gram-negative bacteria Status: Acute (6) UTI (urinary tract infection) Status: Acute - Assessment and Plan (Free Text) Assessment: A/P- 67 year old female admitted with weakness and lethargy found to be in DKA and GNR bacteremia and ct abd/chest reported as left lung mass with liver mets . afebrile minimal leukocytosis has resolved. blood cx- e.coli pansensitive Urine cx- <1000 repeat blood cx 12/28/2017- neg x 2 TTE- no mention of any vegetations as per report. new findings of lung mass with liver mets . plan- has completed 3 days of Iv meropnem but since e.coli in blood cx is sens to ceftriaoxne will de-escalate to ceftriaxone for the remainder course of bacteremia treatment. can d/c empiric daptomycin today. check 2 more blood cx. advise oncology consultation based on CT reports. all labs and imaging and chart notes reviewed. Critical care time spent 35 min.
[2017-12-30] MEDS ORDERED: Dextrose 50% SYRINGE Inj (50 ml) ONE (12:33)
[2017-12-30] MEDS: Digoxin 500 mcg/2ml (0.5 mg/2ml) Inj IVP SCH (13:03)
[2017-12-30] MEDS: Sodium Chloride 0.9% 1,000 ML IV SCH (14:22)
--- NOTE | 2017-12-30 17:05 | CP.CCUPN ---
CCU Subjective - Physician Review Subjective (Free Text): 12/30/17 16:20 The patient was Seen and examined by me at the bedside during ICU round, Medical records reviewed and Management issues were discussed and formulated with the house staff. Events reviewed 67 Years old Female with PMHx of HTN and CAD Who was brought to Emergency department with confusion, being non-verbal, As per family she has been confused and lethargic for 2 days and was found on her bed with urine and fecal incontinent. In the ER, she was hypotensive and confused, barely verbal, BS was > 1000 She was admitted to the ICU with DKA, septic shock, and now Gram negative bacteremia Patient awake, looks comfortable, but very confused, follows some commands Remains on Vasopressors Insulin was DCed as BS improved and IG closed, not on any s/q insulin at the moment, was held due to dropping BS. Pt on Insulin Human Lispro (Humalog) 0 units SC ACHS Afebrile , Reprat Blood C/S negative On IV Meropenem and Daptomycin CCU Objective - Vital Signs / Intake & Output Vital Signs (Last 4 hours): Vital Signs Temp Pulse Resp BP Pulse Ox 12/30/17 14:26 101/55 L 12/30/17 14:00 62 20 101/55 L 96 12/30/17 13:00 97.9 F 64 23 102/55 L 96 Intake and Output (Last 8hrs): Intake & Output 12/30/17 12/30/17 12/30/17 06:59 14:59 22:59 Intake Total 480 795 Output Total 2300 Balance -1820 795 Weight 189 lb Intake: IV 480 695 Intake, Piggyback 100 Output: Urine 2300 Urethral (Randolph) 2300 Other: # Bowel Movements 1 1 - Physical Exam Physical Exam Limitations: Positive for: Altered Mental Status Head: Positive for: Atraumatic, Normocephalic Pupils: Positive for: PERRL Extroacular Muscles: Positive for: EOMI Conjunctiva: Positive for: Normal Mouth: Positive for: Moist Mucous Membranes Pharnyx: Positive for: Normal Neck: Positive for: Normal Range of Motion, Trachea Midline. Negative for: Meningeal Signs, MIDLINE TENDERNESS, Paraspinal Tenderness, JVD, Lymphadenopathy, Bruit, Other Respiratory/Chest: Positive for: Rhonchi. Negative for: Respiratory Distress, Accessory Muscle Use, Wheezes Cardiovascular: Positive for: Regular Rate and Rhythm, Normal S1, S2, Peripheal Pulses Present. Negative for: Tachycardic, Bradycardic Abdomen: Positive for: Normal Bowel Sounds. Negative for: Tenderness, Distention Back: Positive for: Normal Inspection. Negative for: CVA Tenderness Psychiatric: Positive for: Alert. Negative for: Oriented x 3, Anxious, Agitated - Medications Active Medications: Active Medications Generic Name Dose Route Start Last Admin Trade Name Freq PRN Reason Stop Dose Admin Albuterol/Ipratropium 3 ml 12/28/17 13:36 12/28/17 13:51 Duoneb 3 Mg/0.5 Mg (3 Ml) Ud INH 3 ml RQ4 PRN Administration Shortness of Breath Dextrose 0 ml 12/27/17 14:37 12/30/17 12:52 Dextrose 50% Inj IV 25 ml STAT PRN Administration Hypoglycemia Protocol Protocol Dextrose 0 gm 12/27/17 14:37 Glutose 15 PO ONCE PRN Hypoglycemia Protocol Protocol Dextrose 0 ml 12/27/17 19:05 Dextrose 50% Inj IV STAT PRN Hypoglycemia Protocol Protocol Dextrose 0 gm 12/27/17 19:05 Glutose 15 PO ONCE PRN Hypoglycemia Protocol Protocol Digoxin 0.25 mg 12/28/17 10:15 12/30/17 13:03 Lanoxin IVP 0.25 mg DAILY PORFIRIO Administration Dimethicone 1 applic 12/29/17 20:45 12/30/17 08:56 Proshield Plus Skin Protectant TOP 1 applic Q8 PORFIRIO Administration Glucagon 0 mg 12/27/17 14:37 Glucagen Diagnostic Kit IM STAT PRN Hypoglycemia Protocol Protocol Glucagon 0 mg 12/27/17 19:05 Glucagen Diagnostic Kit IM STAT PRN Hypoglycemia Protocol Protocol Heparin Sodium (Porcine) 5,000 units 12/28/17 01:00 12/30/17 08:55 Heparin SC 5,000 units Q8 PORFIRIO Administration Protocol Vasopressin 100 units/ Sodium 105 mls @ 1.89 mls/hr 12/28/17 13:00 12/30/17 14:26 Chloride IV 0.02 units/min .Q24H PORFIRIO 1.26 mls/hr Administration Protocol 0.03 UNITS/MIN Meropenem 1 gm/ Sodium 100 mls @ 100 mls/hr 12/28/17 21:00 12/30/17 08:53 Chloride IVPB 100 mls/hr Q12 PORFIRIO Administration Protocol Daptomycin 340 mg/ Sodium 100 mls @ 100 mls/hr 12/28/17 14:00 12/30/17 14:20 Chloride IV 01/02/18 14:01 100 mls/hr Q24H PORFIRIO Administration Protocol Sodium Chloride 1,000 mls @ 100 mls/hr 12/30/17 11:15 12/30/17 14:22 Sodium Chloride 0.9% IV 12/31/17 11:03 Not Given .Q10H PORFIRIO Dextrose 1,000 mls @ 100 mls/hr 12/30/17 11:45 Dextrose 5% In Water 1000 Ml IV 12/31/17 14:32 .Q10H PORFIRIO Insulin Detemir 24 units 12/30/17 22:00 Levemir SC HS PORFIRIO Insulin Detemir 14 units 12/31/17 09:00 Levemir SC DAILY PORFIRIO Insulin Human Lispro 0 units 12/28/17 11:30 12/30/17 12:44 Humalog SC Not Given ACHS PORFIRIO Methimazole 5 mg 12/28/17 17:00 12/30/17 08:58 Tapazole PO Not Given BID PORFIRIO Nystatin 1 applic 12/30/17 09:00 12/30/17 14:21 Nystop Topical Powder TOP 1 applic TID PORFIRIO Administration - Patient Studies Lab Studies: Microbiology Studies 12/28/17 14:40 Blood Culture - Preliminary Blood-Venous NO GROWTH AFTER 48 HOURS 12/28/17 14:40 Blood Culture - Preliminary Blood-Venous NO GROWTH AFTER 48 HOURS 12/28/17 16:39 Urine Culture - Final Urine,Catheterized Yeast Species 12/27/17 14:49 Blood Culture - Final Blood-Venous Escherichia Coli Gram Stain - Final Lab Studies 12/30/17 12/30/17 12/29/17 Range/Units 04:35 04:35 22:14 WBC 11.1 H (4.8-10.8) K/uL RBC 3.93 (3.80-5.20) Mil/uL Hgb 11.3 L (12.0-16.0) g/dL Hct 34.3 (34.0-47.0) % MCV 87.4 (81.0-99.0) fl MCH 28.8 (27.0-31.0) pg MCHC 32.9 L (33.0-37.0) g/dL RDW 16.3 H (11.5-14.5) % Plt Count 51 L D (130-400) K/uL MPV 10.8 (7.2-11.7) fl Neut % (Auto) 93.7 H (50.0-75.0) % Lymph % (Auto) 5.0 L (20.0-40.0) % Clare % (Auto) 1.2 (0.0-10.0) % Eos % (Auto) 0.0 (0.0-4.0) % Baso % (Auto) 0.1 (0.0-2.0) % Neut # (Auto) 10.4 H (1.8-7.0) K/uL Lymph # (Auto) 0.6 L (1.0-4.3) K/uL Clare # (Auto) 0.1 (0.0-0.8) K/uL Eos # (Auto) 0.0 (0.0-0.7) K/uL Baso # (Auto) 0.0 (0.0-0.2) K/uL Neutrophils % (Manual) 88 H (42-75) % Band Neutrophils % 5 H (0-2) % Lymphocytes % (Manual) 4 L (20-50) % Monocytes % (Manual) 3 (0-10) % Nucleated RBC % 1 H (0-0) % Toxic Granulation Present Platelet Estimate Decreased L (NORMAL) Hypochromasia (manual) Slight Anisocytosis (manual) Slight Ovalocytes Slight Sodium 151 H (132-148) mmol/l Potassium 3.5 L (3.6-5.0) MMOL/L Chloride 116 H (98-107) mmol/L Carbon Dioxide 27 (22-30) mmol/L Anion Gap 12 (10-20) BUN 97 H (7-17) mg/dl Creatinine 2.3 H (0.7-1.2) mg/dl Est GFR ( Amer) 26 Est GFR (Non-Af Amer) 21 POC Glucose (mg/dL) 310 H (65-110) mg/dL Random Glucose 201 H (65-105) mg/dL Calcium 7.3 L (8.4-10.2) mg/dL Total Bilirubin 1.3 (0.2-1.3) mg/dl AST 203 H (14-36) U/L ALT 122 H (9-52) U/L Alkaline Phosphatase 360 H (38-126) U/L Total Protein 5.2 L (6.3-8.2) G/DL Albumin 2.2 L (3.5-5.0) g/dL Globulin 3.0 (2.2-3.9) gm/dL Albumin/Globulin Ratio 0.8 L (1.0-2.1) 12/29/17 12/29/17 Range/Units 15:43 12:09 WBC (4.8-10.8) K/uL RBC (3.80-5.20) Mil/uL Hgb (12.0-16.0) g/dL Hct (34.0-47.0) % MCV (81.0-99.0) fl MCH (27.0-31.0) pg MCHC (33.0-37.0) g/dL RDW (11.5-14.5) % Plt Count (130-400) K/uL MPV (7.2-11.7) fl Neut % (Auto) (50.0-75.0) % Lymph % (Auto) (20.0-40.0) % Clare % (Auto) (0.0-10.0) % Eos % (Auto) (0.0-4.0) % Baso % (Auto) (0.0-2.0) % Neut # (Auto) (1.8-7.0) K/uL Lymph # (Auto) (1.0-4.3) K/uL Clare # (Auto) (0.0-0.8) K/uL Eos # (Auto) (0.0-0.7) K/uL Baso # (Auto) (0.0-0.2) K/uL Neutrophils % (Manual) (42-75) % Band Neutrophils % (0-2) % Lymphocytes % (Manual) (20-50) % Monocytes % (Manual) (0-10) % Nucleated RBC % (0-0) % Toxic Granulation Platelet Estimate (NORMAL) Hypochromasia (manual) Anisocytosis (manual) Ovalocytes Sodium (132-148) mmol/l Potassium (3.6-5.0) MMOL/L Chloride (98-107) mmol/L Carbon Dioxide (22-30) mmol/L Anion Gap (10-20) BUN (7-17) mg/dl Creatinine (0.7-1.2) mg/dl Est GFR ( Amer) Est GFR (Non-Af Amer) POC Glucose (mg/dL) 260 H 323 H (65-110) mg/dL Random Glucose (65-105) mg/dL Calcium (8.4-10.2) mg/dL Total Bilirubin (0.2-1.3) mg/dl AST (14-36) U/L ALT (9-52) U/L Alkaline Phosphatase (38-126) U/L Total Protein (6.3-8.2) G/DL Albumin (3.5-5.0) g/dL Globulin (2.2-3.9) gm/dL Albumin/Globulin Ratio (1.0-2.1) Laboratory Results - last 24 hr 12/29/17 12/29/17 12/29/17 12:09 15:43 22:14 WBC RBC Hgb Hct MCV MCH MCHC RDW Plt Count MPV Neut % (Auto) Lymph % (Auto) Clare % (Auto) Eos % (Auto) Baso % (Auto) Neut # (Auto) Lymph # (Auto) Clare # (Auto) Eos # (Auto) Baso # (Auto) Neutrophils % (Manual) Band Neutrophils % Lymphocytes % (Manual) Monocytes % (Manual) Nucleated RBC % Toxic Granulation Platelet Estimate Hypochromasia (manual) Anisocytosis (manual) Ovalocytes Sodium Potassium Chloride Carbon Dioxide Anion Gap BUN Creatinine Est GFR ( Amer) Est GFR (Non-Af Amer) POC Glucose (mg/dL) 323 H 260 H 310 H Random Glucose Calcium Total Bilirubin AST ALT Alkaline Phosphatase Total Protein Albumin Globulin Albumin/Globulin Ratio 12/30/17 12/30/17 04:35 04:35 WBC 11.1 H RBC 3.93 Hgb 11.3 L Hct 34.3 MCV 87.4 MCH 28.8 MCHC 32.9 L RDW 16.3 H Plt Count 51 L D MPV 10.8 Neut % (Auto) 93.7 H Lymph % (Auto) 5.0 L Clare % (Auto) 1.2 Eos % (Auto) 0.0 Baso % (Auto) 0.1 Neut # (Auto) 10.4 H Lymph # (Auto) 0.6 L Clare # (Auto) 0.1 Eos # (Auto) 0.0 Baso # (Auto) 0.0 Neutrophils % (Manual) 88 H Band Neutrophils % 5 H Lymphocytes % (Manual) 4 L Monocytes % (Manual) 3 Nucleated RBC % 1 H Toxic Granulation Present Platelet Estimate Decreased L Hypochromasia (manual) Slight Anisocytosis (manual) Slight Ovalocytes Slight Sodium 151 H Potassium 3.5 L Chloride 116 H Carbon Dioxide 27 Anion Gap 12 BUN 97 H Creatinine 2.3 H Est GFR ( Amer) 26 Est GFR (Non-Af Amer) 21 POC Glucose (mg/dL) Random Glucose 201 H Calcium 7.3 L Total Bilirubin 1.3 AST 203 H ALT 122 H Alkaline Phosphatase 360 H Total Protein 5.2 L Albumin 2.2 L Globulin 3.0 Albumin/Globulin Ratio 0.8 L Fingerstick Blood Sugar Results: 69 Critical Care Progress Note - Extremities/Vascular Does the Patient have a Central Venous Catheter?: Yes Does the Patient need a Central Venous Catheter?: Yes Does the Patient have a Randolph Catheter?: Yes Does the Patient need a Randolph Catheter?: Yes - Nutrition Nutrition: Nutrition Category Date Time Status NPO Diet [DIET] Diets 12/28/17 Breakfast Active Assessment/Plan (1) Sepsis Current Visit: Yes Status: Acute Priority: High Comment: Gram negative bacteremia Reprat Blood C/S negative Meropenem 1 gm IVPB Q12 PORFIRIO Daptomycin 340 mg/ Sodium (Chloride) 100 mls IV Q24H PORFIRIO (2) UTI (urinary tract infection) Current Visit: Yes Status: Acute Comment: UA this morning suggesting UTI with high count of WBCs in urine Continue current IV Antibiotics (3) ATN (acute tubular necrosis) Current Visit: Yes Status: Acute Priority: High Comment: pre-renal/ATN from dehydration, DKA, R/O hydro IVF to 1/2 NS at 75 cc/H (4) Altered mental status Current Visit: Yes Status: Chronic Priority: High (5) Atrial flutter with rapid ventricular response Current Visit: Yes Status: Acute (6) Bacteremia due to Gram-negative bacteria Current Visit: Yes Status: Acute Priority: High (7) DKA (diabetic ketoacidoses) Current Visit: Yes Status: Resolved Priority: Medium Comment: non-complaint to diabetic meds: DKA improved with aggressive hydration and insulin drip Now off insulin drip Endocrinology consult
[2017-12-30] MEDS: cefTRIAXone 2 GM in Sodium Chloride 0.9% 100 ML IVPB SCH (20:13)
[2017-12-30] MEDS ORDERED: Insulin Detemir 100 Units/ml Inj SC SCH (22:00)
[2017-12-31] MEDS: Proshield Plus GEL TOP SCH ×3 (00:05→16:30)
[2017-12-31 05:30] LABS: HEMOGLOBIN 10.3 g/dL (12.0-16.0); MEAN CELL VOLUME 88.3 fl (81.0-99.0); MEAN CORPUSCULAR HEMOGLOBIN 29.4 pg (27.0-31.0); MEAN CORPUSCULAR HGB CONC 33.3 g/dL (33.0-37.0); RBC 3.51 Mil/uL (3.80-5.20); RED CELL DISTRIBUTION WIDTH 16.2 % (11.5-14.5); WHITE BLOOD COUNT 7.6 K/uL (4.8-10.8)
[2017-12-31 05:47] LABS: CALCIUM 6.9 mg/dL (8.4-10.2)
[2017-12-31] MEDS: Insulin Lispro (humaLOG) 100 Units/ml Inj SC SCH ×4 (06:46→21:27)
[2017-12-31] MEDS: cefTRIAXone 2 GM in Sodium Chloride 0.9% 100 ML IVPB SCH (08:34)
--- NOTE | 2017-12-31 08:45 | PN ---
DATE: 12/30/2017 ENDO FOLLOWUP NOTE LOCATION: ICU room 435. SUBJECTIVE: This is a 67-year-old female with recent uncontrolled type 2 insulin-requiring diabetes, now being followed closely for metabolic management. She presented here with marked hyperglycemic accelerations and with diabetic ketoacidosis and has since then improved clinically and metabolically as noted thereof. However, overnight glucose levels did fluctuate with values ranging from 260 to 310 mg/dL. Her A1c is 7.6%. The latest chemistry showed a BUN of , sodium 151, potassium 3.5, chloride 116, CO2 of 27, glucose 201 and creatinine 2.3. She has elevated liver transaminases. She is also being followed closely by multiple subspecialists among which are Infectious Disease, Cardiology, and Orthopedics. CAT scan of the pelvis showed fractures in the pelvic bones and multiple bony metastases as noted. So, at this time, we will modify once again her basal insulin as she failed the swallowing evaluation and has been kept n.p.o. at this time. We will add Levemir given as basal insulin at 14 units subcu every 09:00 a.m. daily to start tomorrow morning. We will also increase the basal insulin at bedtime with Levemir to be given as 24 units subcu at bedtime daily, to start tonight. Continue the low-dose correction scale using Humalog insulin as given. Moreover, we will continue also the Tapazole given as 5 mg twice a day as ordered. We will obtain serial chemistries and supplement accordingly needed. We will follow. Angela Copeland MD
[2017-12-31] MEDS ORDERED: Insulin Detemir 100 Units/ml Inj SC SCH (09:00)
[2017-12-31] MEDS: methIMAzole 5 MG TAB PO SCH ×2 (09:00→16:31)
[2017-12-31] MEDS: Digoxin 500 mcg/2ml (0.5 mg/2ml) Inj IVP SCH (09:00)
[2017-12-31] MEDS: Sodium Chloride 0.9% 1,000 ML IV SCH (09:05)
--- NOTE | 2017-12-31 09:09 | CP.PCM.PN ---
Subjective - Date & Time of Evaluation Date of Evaluation: 12/31/17 Time of Evaluation: 09:09 - Subjective Subjective: ID Note- Pt. seen and examined today in ICU. pt. much more awake and alert today with her family all at her bedside. She is sitting up in bed and smiles and denies any pain or any fever. off pressors. Objective - Vital Signs/Intake and Output Vital Signs (last 24 hours): Temp Pulse Resp BP Pulse Ox 98.1 F 68 14 94/52 L 100 12/31/17 08:00 12/31/17 08:00 12/31/17 08:00 12/31/17 06:00 12/31/17 08:00 Intake and Output: 12/31/17 12/31/17 06:59 18:59 Intake Total 1300 200 Output Total 700 Balance 600 200 - Medications Medications: Current Medications Albuterol/Ipratropium (Duoneb 3 Mg/0.5 Mg (3 Ml) Ud) 3 ml INH RQ4 PRN PRN Reason: Shortness of Breath Last Admin: 12/28/17 13:51 Dose: 3 ml Dextrose (Dextrose 50% Inj) 0 ml IV STAT PRN; Protocol PRN Reason: Hypoglycemia Protocol Last Admin: 12/30/17 12:52 Dose: 25 ml Dextrose (Glutose 15) 0 gm PO ONCE PRN; Protocol PRN Reason: Hypoglycemia Protocol Dextrose (Dextrose 50% Inj) 0 ml IV STAT PRN; Protocol PRN Reason: Hypoglycemia Protocol Dextrose (Glutose 15) 0 gm PO ONCE PRN; Protocol PRN Reason: Hypoglycemia Protocol Digoxin (Lanoxin) 0.25 mg IVP DAILY [facility] Last Admin: 12/30/17 13:03 Dose: 0.25 mg Dimethicone (Proshield Plus Skin Protectant) 1 applic TOP Q8 [facility] Last Admin: 12/31/17 09:04 Dose: 1 applic Glucagon (Glucagen Diagnostic Kit) 0 mg IM STAT PRN; Protocol PRN Reason: Hypoglycemia Protocol Glucagon (Glucagen Diagnostic Kit) 0 mg IM STAT PRN; Protocol PRN Reason: Hypoglycemia Protocol Heparin Sodium (Porcine) (Heparin) 5,000 units SC Q8 [facility]; Protocol Last Admin: 12/31/17 09:01 Dose: 5,000 units Vasopressin 100 units/ Sodium (Chloride) 105 mls @ 1.89 mls/hr IV .Q24H [facility]; Protocol Last Admin: 12/31/17 09:05 Dose: Not Given Sodium Chloride (Sodium Chloride 0.9%) 1,000 mls @ 100 mls/hr IV .Q10H [facility] Stop: 12/31/17 11:03 Last Admin: 12/31/17 09:05 Dose: Not Given Dextrose (Dextrose 5% In Water 1000 Ml) 1,000 mls @ 100 mls/hr IV .Q10H [facility] Stop: 12/31/17 14:32 Last Admin: 12/30/17 23:28 Dose: 100 mls/hr Ceftriaxone Sodium 2 gm/ (Sodium Chloride) 100 mls @ 100 mls/hr IVPB DAILY [facility]; Protocol Last Admin: 12/31/17 08:34 Dose: 100 mls/hr Insulin Detemir (Levemir) 24 units SC HS [facility] Last Admin: 12/30/17 21:42 Dose: 24 units Insulin Detemir (Levemir) 14 units SC DAILY [facility] Last Admin: 12/31/17 09:02 Dose: 14 units Insulin Human Lispro (Humalog) 0 units SC ACHS [facility] Last Admin: 12/31/17 06:46 Dose: Not Given Methimazole (Tapazole) 5 mg PO BID [facility] Last Admin: 12/30/17 17:15 Dose: Not Given Nystatin (Nystop Topical Powder) 1 applic TOP TID [facility] Last Admin: 12/31/17 09:04 Dose: 1 applic - Labs Labs: - Additional Findings Additional findings: - Constitutional Appears: Chronically Ill Additional comments: more alert today - Head Exam Head Exam: ATRAUMATIC - ENT Exam ENT Exam: Normal Oropharynx - Neck Exam Neck exam: Positive for: Full Rom - Respiratory Exam Respiratory Exam: NORMAL BREATHING PATTERN Additional comments: no wheezing - Cardiovascular Exam Cardiovascular Exam: RRR, +S1, +S2 - GI/Abdominal Exam GI & Abdominal Exam: Normal Bowel Sounds, Soft Additional comments: no tenderness no guarding, no rebound - Extremities Exam Additional comments: no edema b/l LE - Neurological Exam Additional comments: much more awake and alert today Laboratory Results - last 72 hr 12/28/17 12/28/17 12/28/17 10:36 12:43 14:40 WBC RBC Hgb Hct MCV MCH MCHC RDW Plt Count MPV Neut % (Auto) Lymph % (Auto) Upson % (Auto) Eos % (Auto) Baso % (Auto) Neut # (Auto) Lymph # (Auto) Upson # (Auto) Eos # (Auto) Baso # (Auto) Neutrophils % (Manual) Band Neutrophils % Lymphocytes % (Manual) Monocytes % (Manual) Nucleated RBC % Toxic Granulation Platelet Estimate Hypochromasia (manual) Poikilocytosis (manual Anisocytosis (manual) Tear Drop Cells Ovalocytes Sodium Potassium Chloride Carbon Dioxide Anion Gap BUN Creatinine Est GFR ( Amer) Est GFR (Non-Af Amer) POC Glucose (mg/dL) 175 H 322 H Random Glucose Hemoglobin A1c Calcium Phosphorus Magnesium Total Bilirubin AST ALT Alkaline Phosphatase Total Creatine Kinase 210 H Troponin I 0.1620 H* Total Protein Albumin Globulin Albumin/Globulin Ratio Free T4 Thyroxine (T4) TSH 3rd Generation Urine Color Urine Clarity Urine pH Ur Specific [place] Urine Protein Urine Glucose (UA) Urine Ketones Urine Blood Urine Nitrate Urine Bilirubin Urine Urobilinogen Ur Leukocyte Esterase Urine RBC (Auto) Urine Microscopic WBC Ur Squamous Epith Cells Urine Bacteria Urine Yeast (Budding) 12/28/17 12/28/17 12/28/17 15:56 16:25 21:25 WBC RBC Hgb Hct MCV MCH MCHC RDW Plt Count MPV Neut % (Auto) Lymph % (Auto) Upson % (Auto) Eos % (Auto) Baso % (Auto) Neut # (Auto) Lymph # (Auto) Upson # (Auto) Eos # (Auto) Baso # (Auto) Neutrophils % (Manual) Band Neutrophils % Lymphocytes % (Manual) Monocytes % (Manual) Nucleated RBC % Toxic Granulation Platelet Estimate Hypochromasia (manual) Poikilocytosis (manual Anisocytosis (manual) Tear Drop Cells Ovalocytes Sodium Potassium Chloride Carbon Dioxide Anion Gap BUN Creatinine Est GFR ( Amer) Est GFR (Non-Af Amer) POC Glucose (mg/dL) 301 H 297 H Random Glucose Hemoglobin A1c Calcium Phosphorus Magnesium Total Bilirubin AST ALT Alkaline Phosphatase Total Creatine Kinase Troponin I Total Protein Albumin Globulin Albumin/Globulin Ratio Free T4 Thyroxine (T4) TSH 3rd Generation Urine Color Michelle Urine Clarity Cloudy Urine pH 5.0 Ur Specific [place] 1.016 Urine Protein 100 Urine Glucose (UA) 50 Urine Ketones Negative Urine Blood Large Urine Nitrate Negative Urine Bilirubin Negative Urine Urobilinogen 4.0 H Ur Leukocyte Esterase Mod Urine RBC (Auto) 7 H Urine Microscopic WBC 29 H Ur Squamous Epith Cells 2 Urine Bacteria Occ H Urine Yeast (Budding) Occ H 12/29/17 12/29/17 12/29/17 04:09 06:00 06:00 WBC RBC Hgb Hct MCV MCH MCHC RDW Plt Count MPV Neut % (Auto) Lymph % (Auto) Upson % (Auto) Eos % (Auto) Baso % (Auto) Neut # (Auto) Lymph # (Auto) Upson # (Auto) Eos # (Auto) Baso # (Auto) Neutrophils % (Manual) Band Neutrophils % Lymphocytes % (Manual) Monocytes % (Manual) Nucleated RBC % Toxic Granulation Platelet Estimate Hypochromasia (manual) Poikilocytosis (manual Anisocytosis (manual) Tear Drop Cells Ovalocytes Sodium 147 Potassium 4.8 Chloride 112 H Carbon Dioxide 17 L Anion Gap 23 H BUN 99 H Creatinine 2.6 H Est GFR ( Amer) 22 Est GFR (Non-Af Amer) 18 POC Glucose (mg/dL) 344 H Random Glucose 336 H Hemoglobin A1c 11.6 H Calcium 6.8 L Phosphorus 5.6 H Magnesium 1.9 Total Bilirubin 1.6 H AST 234 H D ALT 136 H Alkaline Phosphatase 325 H D Total Creatine Kinase Troponin I Total Protein 5.1 L Albumin 2.3 L Globulin 2.8 Albumin/Globulin Ratio 0.8 L Free T4 Thyroxine (T4) 2.20 L TSH 3rd Generation 0.15 L Urine Color Urine Clarity Urine pH Ur Specific [place] Urine Protein Urine Glucose (UA) Urine Ketones Urine Blood Urine Nitrate Urine Bilirubin Urine Urobilinogen Ur Leukocyte Esterase Urine RBC (Auto) Urine Microscopic WBC Ur Squamous Epith Cells Urine Bacteria Urine Yeast (Budding) 12/29/17 12/29/17 12/29/17 06:00 06:00 12:09 WBC 9.5 RBC 3.98 Hgb 11.4 L Hct 35.6 MCV 89.3 D MCH 28.6 MCHC 32.0 L RDW 16.2 H Plt Count 83 L D MPV 11.3 Neut % (Auto) 94.0 H Lymph % (Auto) 2.6 L Upson % (Auto) 3.0 Eos % (Auto) 0.3 Baso % (Auto) 0.1 Neut # (Auto) 8.9 H Lymph # (Auto) 0.2 L Upson # (Auto) 0.3 Eos # (Auto) 0.0 Baso # (Auto) 0.0 Neutrophils % (Manual) 96 H Band Neutrophils % Lymphocytes % (Manual) 2 L Monocytes % (Manual) 2 Nucleated RBC % Toxic Granulation Platelet Estimate Decreased L Hypochromasia (manual) Poikilocytosis (manual Slight Anisocytosis (manual) Slight Tear Drop Cells Slight Ovalocytes Slight Sodium Potassium Chloride Carbon Dioxide Anion Gap BUN Creatinine Est GFR ( Amer) Est GFR (Non-Af Amer) POC Glucose (mg/dL) 323 H Random Glucose Hemoglobin A1c Calcium Phosphorus Magnesium Total Bilirubin AST ALT Alkaline Phosphatase Total Creatine Kinase Troponin I Total Protein Albumin Globulin Albumin/Globulin Ratio Free T4 0.89 Thyroxine (T4) TSH 3rd Generation Urine Color Urine Clarity Urine pH Ur Specific [place] Urine Protein Urine Glucose (UA) Urine Ketones Urine Blood Urine Nitrate Urine Bilirubin Urine Urobilinogen Ur Leukocyte Esterase Urine RBC (Auto) Urine Microscopic WBC Ur Squamous Epith Cells Urine Bacteria Urine Yeast (Budding) 12/29/17 12/29/17 12/30/17 15:43 22:14 04:35 WBC 11.1 H RBC 3.93 Hgb 11.3 L Hct 34.3 MCV 87.4 MCH 28.8 MCHC 32.9 L RDW 16.3 H Plt Count 51 L D MPV 10.8 Neut % (Auto) 93.7 H Lymph % (Auto) 5.0 L Upson % (Auto) 1.2 Eos % (Auto) 0.0 Baso % (Auto) 0.1 Neut # (Auto) 10.4 H Lymph # (Auto) 0.6 L Upson # (Auto) 0.1 Eos # (Auto) 0.0 Baso # (Auto) 0.0 Neutrophils % (Manual) 88 H Band Neutrophils % 5 H Lymphocytes % (Manual) 4 L Monocytes % (Manual) 3 Nucleated RBC % 1 H Toxic Granulation Present Platelet Estimate Decreased L Hypochromasia (manual) Slight Poikilocytosis (manual Anisocytosis (manual) Slight Tear Drop Cells Ovalocytes Slight Sodium Potassium Chloride Carbon Dioxide Anion Gap BUN Creatinine Est GFR ( Amer) Est GFR (Non-Af Amer) POC Glucose (mg/dL) 260 H 310 H Random Glucose Hemoglobin A1c Calcium Phosphorus Magnesium Total Bilirubin AST ALT Alkaline Phosphatase Total Creatine Kinase Troponin I Total Protein Albumin Globulin Albumin/Globulin Ratio Free T4 Thyroxine (T4) TSH 3rd Generation Urine Color Urine Clarity Urine pH Ur Specific [place] Urine Protein Urine Glucose (UA) Urine Ketones Urine Blood Urine Nitrate Urine Bilirubin Urine Urobilinogen Ur Leukocyte Esterase Urine RBC (Auto) Urine Microscopic WBC Ur Squamous Epith Cells Urine Bacteria Urine Yeast (Budding) 12/30/17 12/30/17 12/30/17 04:35 04:38 11:51 WBC RBC Hgb Hct MCV MCH MCHC RDW Plt Count MPV Neut % (Auto) Lymph % (Auto) Upson % (Auto) Eos % (Auto) Baso % (Auto) Neut # (Auto) Lymph # (Auto) [place]pson # (Auto) Eos # (Auto) Baso # (Auto) Neutrophils % (Manual) Band Neutrophils % Lymphocytes % (Manual) Monocytes % (Manual) Nucleated RBC % Toxic Granulation Platelet Estimate Hypochromasia (manual) Poikilocytosis (manual Anisocytosis (manual) Tear Drop Cells Ovalocytes Sodium 151 H Potassium 3.5 L Chloride 116 H Carbon Dioxide 27 Anion Gap 12 BUN 97 H Creatinine 2.3 H Est GFR ( Amer) 26 Est GFR (Non-Af Amer) 21 POC Glucose (mg/dL) 204 H 69 Random Glucose 201 H Hemoglobin A1c Calcium 7.3 L Phosphorus Magnesium Total Bilirubin 1.3 AST 203 H ALT 122 H Alkaline Phosphatase 360 H Total Creatine Kinase Troponin I Total Protein 5.2 L Albumin 2.2 L Globulin 3.0 Albumin/Globulin Ratio 0.8 L Free T4 Thyroxine (T4) TSH 3rd Generation Urine Color Urine Clarity Urine pH Ur Specific [place] Urine Protein Urine Glucose (UA) Urine Ketones Urine Blood Urine Nitrate Urine Bilirubin Urine Urobilinogen Ur Leukocyte Esterase Urine RBC (Auto) Urine Microscopic WBC Ur Squamous Epith Cells Urine Bacteria Urine Yeast (Budding) 12/30/17 12/30/17 12/30/17 13:00 17:12 21:41 WBC RBC Hgb Hct MCV MCH MCHC RDW Plt Count MPV Neut % (Auto) Lymph % (Auto) Upson % (Auto) Eos % (Auto) Baso % (Auto) Neut # (Auto) Lymph # (Auto) Upson # (Auto) Eos # (Auto) Baso # (Auto) Neutrophils % (Manual) Band Neutrophils % Lymphocytes % (Manual) Monocytes % (Manual) Nucleated RBC % Toxic Granulation Platelet Estimate Hypochromasia (manual) Poikilocytosis (manual Anisocytosis (manual) Tear Drop Cells Ovalocytes Sodium Potassium Chloride Carbon Dioxide Anion Gap BUN Creatinine Est GFR ( Amer) Est GFR (Non-Af Amer) POC Glucose (mg/dL) 116 H 99 83 Random Glucose Hemoglobin A1c Calcium Phosphorus Magnesium Total Bilirubin AST ALT Alkaline Phosphatase Total Creatine Kinase Troponin I Total Protein Albumin Globulin Albumin/Globulin Ratio Free T4 Thyroxine (T4) TSH 3rd Generation Urine Color Urine Clarity Urine pH Ur Specific [place] Urine Protein Urine Glucose (UA) Urine Ketones Urine Blood Urine Nitrate Urine Bilirubin Urine Urobilinogen Ur Leukocyte Esterase Urine RBC (Auto) Urine Microscopic WBC Ur Squamous Epith Cells Urine Bacteria Urine Yeast (Budding) 12/31/17 12/31/17 12/31/17 04:20 05:00 05:00 WBC 7.6 RBC 3.51 L Hgb 10.3 L Hct 31.0 L MCV 88.3 MCH 29.4 MCHC 33.3 RDW 16.2 H Plt Count 33 L MPV Neut % (Auto) Lymph % (Auto) Upson % (Auto) Eos % (Auto) Baso % (Auto) Neut # (Auto) Lymph # (Auto) [place]pson # (Auto) Eos # (Auto) Baso # (Auto) Neutrophils % (Manual) Band Neutrophils % Lymphocytes % (Manual) Monocytes % (Manual) Nucleated RBC % Toxic Granulation Platelet Estimate Hypochromasia (manual) Poikilocytosis (manual Anisocytosis (manual) Tear Drop Cells Ovalocytes Sodium 149 H Potassium 3.0 L Chloride 115 H Carbon Dioxide 32 H Anion Gap 5 L BUN 84 H Creatinine 1.6 H Est GFR ( Amer) 39 Est GFR (Non-Af Amer) 32 POC Glucose (mg/dL) 116 H Random Glucose 107 H Hemoglobin A1c Calcium 6.9 L Phosphorus Magnesium Total Bilirubin AST ALT Alkaline Phosphatase Total Creatine Kinase Troponin I Total Protein Albumin Globulin Albumin/Globulin Ratio Free T4 Thyroxine (T4) TSH 3rd Generation Urine Color Urine Clarity Urine pH Ur Specific [place] Urine Protein Urine Glucose (UA) Urine Ketones Urine Blood Urine Nitrate Urine Bilirubin Urine Urobilinogen Ur Leukocyte Esterase Urine RBC (Auto) Urine Microscopic WBC Ur Squamous Epith Cells Urine Bacteria Urine Yeast (Budding) Microbiology 12/28/17 14:40 Blood-Venous Blood Culture - Preliminary NO GROWTH AFTER 3 DAYS 12/28/17 14:40 Blood-Venous Blood Culture - Preliminary NO GROWTH AFTER 3 DAYS 12/28/17 16:39 Urine,Catheterized Urine Culture - Final Yeast Species 12/27/17 14:49 Blood-Venous Blood Culture - Final Escherichia Coli 12/27/17 14:49 Blood-Venous Gram Stain - Final 12/27/17 06:00 Naris MRSA Culture (Admit) - Final MRSA NOT DETECTED 12/27/17 14:49 Urine,Randolph Urine Culture - Final No Growth (<1,000 CFU/ML) Assessment and Plan (1) Sepsis Status: Acute (2) Dehydration Status: Acute (3) DKA (diabetic ketoacidoses) Status: Resolved (4) Acute renal disease Status: Acute (5) Bacteremia due to Gram-negative bacteria Status: Acute (6) UTI (urinary tract infection) Status: Acute - Assessment and Plan (Free Text) Assessment: A/P- 67 year old female was admitted with weakness and lethargy found to be in DKA and GNR bacteremia and ct abd/chest reported as left lung mass with liver mets . afebrile minimal leukocytosis has resolved. blood cx- e.coli pansensitive Urine cx- <1000 repeat blood cx 12/28/2017- neg x 2 TTE- no mention of any vegetations as per report. Ct report findings of lung mass with liver mets . plan- day #2 of ceftriaxone for e.coli bacteremia was on 3 days of meropenm prior to that. check 2 more blood cx. all labs and imaging and chart notes reviewed. Critical care time spent 35 min.
--- NOTE | 2017-12-31 09:45 | CP.PCM.PN ---
Subjective - Date & Time of Evaluation Date of Evaluation: 12/31/17 Time of Evaluation: 09:00 - Subjective Subjective: The patient appears a lot more awake and readily answers simple questions. She continues to be drowsy but does not appear in any distress. Patient breathes comfortably at 14-16 breaths per minute Her heart rate was 76 bpm and regular. Her blood pressure was 114/74 mmHg. Pulse oximetry was 98% on oxygen supplement by nasal cannula at 3 L/m Her chest showed scattered crepitations. Heart sounds were pure. Labs show continued decline her in her hemoglobin with intravenous hydration Her BUN and and creatinine continued to drop with copious urine output. The patient is receiving intravenous fluids to rectify her hyperosmolar state with elevated levels of sodium K+ is being replaced The patient is stable from cardiovascular point of view. I have discontinued digoxin. Objective - Vital Signs/Intake and Output Vital Signs (last 24 hours): Temp Pulse Resp BP Pulse Ox 98.1 F 68 14 94/52 L 100 12/31/17 08:00 12/31/17 08:00 12/31/17 08:00 12/31/17 06:00 12/31/17 08:00 Intake and Output: 12/31/17 12/31/17 06:59 18:59 Intake Total 1300 200 Output Total 700 Balance 600 200 - Medications Medications: Current Medications Albuterol/Ipratropium (Duoneb 3 Mg/0.5 Mg (3 Ml) Ud) 3 ml INH RQ4 PRN PRN Reason: Shortness of Breath Last Admin: 12/28/17 13:51 Dose: 3 ml Dextrose (Dextrose 50% Inj) 0 ml IV STAT PRN; Protocol PRN Reason: Hypoglycemia Protocol Last Admin: 12/30/17 12:52 Dose: 25 ml Dextrose (Glutose 15) 0 gm PO ONCE PRN; Protocol PRN Reason: Hypoglycemia Protocol Dextrose (Dextrose 50% Inj) 0 ml IV STAT PRN; Protocol PRN Reason: Hypoglycemia Protocol Dextrose (Glutose 15) 0 gm PO ONCE PRN; Protocol PRN Reason: Hypoglycemia Protocol Dimethicone (Proshield Plus Skin Protectant) 1 applic TOP Q8 [facility] Last Admin: 12/31/17 09:04 Dose: 1 applic Glucagon (Glucagen Diagnostic Kit) 0 mg IM STAT PRN; Protocol PRN Reason: Hypoglycemia Protocol Glucagon (Glucagen Diagnostic Kit) 0 mg IM STAT PRN; Protocol PRN Reason: Hypoglycemia Protocol Heparin Sodium (Porcine) (Heparin) 5,000 units SC Q8 [facility]; Protocol Last Admin: 12/31/17 09:01 Dose: 5,000 units Vasopressin 100 units/ Sodium (Chloride) 105 mls @ 1.89 mls/hr IV .Q24H [facility]; Protocol Last Admin: 12/31/17 09:05 Dose: Not Given Sodium Chloride (Sodium Chloride 0.9%) 1,000 mls @ 100 mls/hr IV .Q10H [facility] Stop: 12/31/17 11:03 Last Admin: 12/31/17 09:05 Dose: Not Given Dextrose (Dextrose 5% In Water 1000 Ml) 1,000 mls @ 100 mls/hr IV .Q10H [facility] Stop: 12/31/17 14:32 Last Admin: 12/30/17 23:28 Dose: 100 mls/hr Ceftriaxone Sodium 2 gm/ (Sodium Chloride) 100 mls @ 100 mls/hr IVPB DAILY [facility]; Protocol Last Admin: 12/31/17 08:34 Dose: 100 mls/hr Insulin Detemir (Levemir) 24 units SC HS [facility] Last Admin: 12/30/17 21:42 Dose: 24 units Insulin Detemir (Levemir) 14 units SC DAILY [facility] Last Admin: 12/31/17 09:02 Dose: 14 units Insulin Human Lispro (Humalog) 0 units SC ACHS [facility] Last Admin: 12/31/17 06:46 Dose: Not Given Methimazole (Tapazole) 5 mg PO BID [facility] Last Admin: 12/30/17 17:15 Dose: Not Given Nystatin (Nystop Topical Powder) 1 applic TOP TID [facility] Last Admin: 12/31/17 09:04 Dose: 1 applic - Labs Labs: 12/31/17 05:00 12/31/17 05:00
[2017-12-31] MEDS: Oxycodone/Acetaminophen 5/325 mg Tab PO PRN (13:35)
[2017-12-31] MEDS: Potassium CL 10mEq/100ml 100 ML IVPB SCH ×4 (15:20→18:31)
--- NOTE | 2017-12-31 15:59 | CP.CCUPN ---
CCU Subjective - Physician Review Subjective (Free Text): Events over the past 72 H reviewed. More alert and conversant today as compared to previous descriptions of mental status. No Acute distress noted, but does mention body pain with family at the bedside. Passed swallow eval today for pureed diet. Remains off vasopressor support, with borderline SBPs at 88-96, HR 72, RR 21, 100% SPO2 on NC; was started on D5W IVFs at 100ml/hr. Other vitals and I/O's reviewed. No fever spikes last 24H, approx. 2500 ml urine output overnight. Placed onto nasal cannula and SPO2 99-100^%. ROS: No other pertinent negs or positives on 10+ system review. PMSFH: All other Nursing and physician documentation reviewed to date; no new pertinent info noted relevant to current medical problems. EXAM- HEENT: no icterus, no gaze preference, Pupils 3 mm and reactive. NECK: No JVD visible, supple, carotids equal upstroke bilat/no bruit CHEST: clear bilateral BS , no wheezes audible HEART: regular, distant, tachy S1S2, no rubs ABD: softly and nontender, no guarding, no organomegaly, BS hypoactive. EXT: trace edema, no calf tenderness or palpable cords, distal pulses intact and symmetrical. NEURO: no focal motor deficits. SKIN: no rashes, warm and dry LABS: WBC= 7.6 HGB= 10.3 PLTs= 33K Na= 149 K= 3.0 CL= 115 HCO3= 32 BUN/Cr= 84/1.6 BS= 107 AST= 689 (increased) ALT= 819 (increased) IMPRESSION / MAJOR PROBLEMS NOW: 1. E Coli Bacteremia and Candiduria 2. s/p DKA 3. 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 Parox AFib / Aflutter 5. Occult Hyperthyroidsim PLAN: 1. IVFs, blood glucose control, thyroid hormone blockade as per Endocrine. 2. Hypotonic fluids for hypernatremia, and K supplementation, check Mag / Phos levels. 3. PMD to discuss with family regarding any further w/u or staging of underlying occult malignancy. Advance Directives noted. 4. Has been in NSR, stable for Telemetry bed downgrade.
[2017-12-31 19:17] LABS: TSI <89 % baseline (<140)
[2017-12-31] MEDS ORDERED: Dextrose 5%/0.9% NS 1,000 ML IV SCH (21:20)
[2017-12-31] MEDS: Insulin Detemir 100 Units/ml Inj SC SCH (21:28)
--- NOTE | 2018-01-01 00:05 | CP.PCM.PN ---
Subjective - Date & Time of Evaluation Date of Evaluation: 12/30/17 Time of Evaluation: 17:05 - Subjective Subjective: Seen and examined at the bed side. Children at the bed side. More awake but Failed swallow Evaluation again. off pressers. No fever or chills. Good urine output. Objective - Vital Signs/Intake and Output Vital Signs (last 24 hours): Temp Pulse Resp BP Pulse Ox 98.2 F 90 18 93/49 L 97 12/31/17 20:00 12/31/17 22:00 12/31/17 22:00 12/31/17 22:00 12/31/17 22:00 Intake and Output: 12/31/17 01/01/18 18:59 06:59 Intake Total 1300 200 Output Total 400 Balance 900 200 - Medications Medications: Current Medications Albuterol/Ipratropium (Duoneb 3 Mg/0.5 Mg (3 Ml) Ud) 3 ml INH RQ4 PRN PRN Reason: Shortness of Breath Last Admin: 12/28/17 13:51 Dose: 3 ml Dextrose (Glutose 15) 0 gm PO ONCE PRN; Protocol PRN Reason: Hypoglycemia Protocol Dextrose (Dextrose 50% Inj) 0 ml IV STAT PRN; Protocol PRN Reason: Hypoglycemia Protocol Dextrose (Glutose 15) 0 gm PO ONCE PRN; Protocol PRN Reason: Hypoglycemia Protocol Dimethicone (Proshield Plus Skin Protectant) 1 applic TOP Q8 [facility] Last Admin: 12/31/17 16:30 Dose: 1 applic Glucagon (Glucagen Diagnostic Kit) 0 mg IM STAT PRN; Protocol PRN Reason: Hypoglycemia Protocol Glucagon (Glucagen Diagnostic Kit) 0 mg IM STAT PRN; Protocol PRN Reason: Hypoglycemia Protocol Heparin Sodium (Porcine) (Heparin) 5,000 units SC Q8 [facility]; Protocol Last Admin: 12/31/17 16:29 Dose: 5,000 units Ceftriaxone Sodium 2 gm/ (Sodium Chloride) 100 mls @ 100 mls/hr IVPB DAILY [facility]; Protocol Last Admin: 12/31/17 08:34 Dose: 100 mls/hr Dextrose/Sodium Chloride (Dextrose 5%/0.9% Ns 1000 Ml) 1,000 mls @ 100 mls/hr IV .Q10H [facility] Stop: 01/01/18 21:29 Dextrose (Dextrose 5% In Water 1000 Ml) 1,000 mls @ 100 mls/hr IV .Q10H [facility] Stop: 01/01/18 06:00 Last Admin: 12/31/17 21:55 Dose: 100 mls/hr Insulin Detemir (Levemir) 18 units SC HS [facility] Last Admin: 12/31/17 21:28 Dose: Not Given Insulin Detemir (Levemir) 8 units SC DAILY [facility] Insulin Human Lispro (Humalog) 0 units SC ACHS [facility] Last Admin: 12/31/17 21:27 Dose: Not Given Methimazole (Tapazole) 5 mg PO BID [facility] Last Admin: 12/31/17 16:31 Dose: 5 mg Nystatin (Nystop Topical Powder) 1 applic TOP TID [facility] Last Admin: 12/31/17 17:28 Dose: 1 applic Oxycodone/Acetaminophen (Percocet 5/325 Mg Tab) 1 tab PO Q4 PRN PRN Reason: Pain, Mild (1-3) Stop: 01/03/18 13:15 Last Admin: 12/31/17 13:35 Dose: 1 tab - Labs Labs: 12/31/17 05:00 12/31/17 05:00 - Constitutional Appears: No Acute Distress, Older Than Stated Age, Chronically Ill - Head Exam Head Exam: ATRAUMATIC, NORMAL INSPECTION, NORMOCEPHALIC - Eye Exam Eye Exam: EOMI, Normal appearance, PERRL Pupil Exam: NORMAL ACCOMODATION, PERRL - ENT Exam ENT Exam: Mucous Membranes Moist, Normal Exam - Neck Exam Neck Exam: Full ROM, Normal Inspection. absent: Lymphadenopathy - Respiratory Exam Respiratory Exam: Clear to Ausculation Bilateral, NORMAL BREATHING PATTERN - Cardiovascular Exam Cardiovascular Exam: REGULAR RHYTHM, +S1, +S2. absent: Murmur - GI/Abdominal Exam GI & Abdominal Exam: Soft, Normal Bowel Sounds. absent: Tenderness - Extremities Exam Extremities Exam: Normal Capillary Refill. absent: Pedal Edema - Back Exam Back Exam: NORMAL INSPECTION - Neurological Exam Neurological Exam: Altered, Awake, CN II-XII Intact - Psychiatric Exam Psychiatric exam: Flat Affect - Skin Skin Exam: Dry, Intact, Normal Color, Warm Additional comments: Sacral Stage Decubitus Ulcer with Bruises and Ecchymoses. Assessment and Plan (1) Altered mental status Assessment & Plan: Metabolic Encephalopathy: Sepsis, Uremia and Metabolic Acidosis- Improving Treat the Underlying Problem Continue monitor in ICU Status: Acute Priority: High (2) DKA (diabetic ketoacidoses)- Resolved Type II DM Assessment and Plan: HHS, Hypotension Off Levophed and Vasopressin Bolus IVF PRN Continue IVF Replenish Electrolytes BMP daily Levemir ACHS with Coverage HgA1C- 11.6 Status: Acute Priority: High (3) Septic Shock, G -ve Bactremia with E. Coli,ESBL Negative-Improving Assessment and Plan: UTI and Sacral Pressure Ulcer Stage II IV Merem and Vamcomycin IVF Wound Care daily Status: Acute Priority: High (4) Lung mass, Possible Stage IV Lung Cancer Assessment and Plan: Family Aware Will Need Tissue Dx when patient stable Status: Acute Priority: High (5) Acute Renal Failure (ARF)- Improving Assessment and Plan: Most Likely ATN due to Hypotension and Dehydration IVF RX DKA/HHS and Sepsis Urine NA Nephrology Consult Status: Acute Priority: High (6) Gait abnormality Status: Acute Priority: Medium (7) DVT prophylaxis Status: Inactive Priority: High (8) DNR/DNI Status: Acute Status: Inactive
--- NOTE | 2018-01-01 00:06 | CP.PCM.PN ---
Subjective - Date & Time of Evaluation Date of Evaluation: 12/31/17 Time of Evaluation: 12:15 - Subjective Subjective: Seen and examined at the bed side. Children at the bed side. More awake and alert. Passed swallow evaluation, and will start Pureed diet with [place] Thick Liquid. No Fever or chills. Objective - Vital Signs/Intake and Output Vital Signs (last 24 hours): Temp Pulse Resp BP Pulse Ox 98.2 F 90 18 93/49 L 97 12/31/17 20:00 12/31/17 22:00 12/31/17 22:00 12/31/17 22:00 12/31/17 22:00 Intake and Output: 12/31/17 01/01/18 18:59 06:59 Intake Total 1300 200 Output Total 400 Balance 900 200 - Medications Medications: Current Medications Albuterol/Ipratropium (Duoneb 3 Mg/0.5 Mg (3 Ml) Ud) 3 ml INH RQ4 PRN PRN Reason: Shortness of Breath Last Admin: 12/28/17 13:51 Dose: 3 ml Dextrose (Glutose 15) 0 gm PO ONCE PRN; Protocol PRN Reason: Hypoglycemia Protocol Dextrose (Dextrose 50% Inj) 0 ml IV STAT PRN; Protocol PRN Reason: Hypoglycemia Protocol Dextrose (Glutose 15) 0 gm PO ONCE PRN; Protocol PRN Reason: Hypoglycemia Protocol Dimethicone (Proshield Plus Skin Protectant) 1 applic TOP Q8 [facility] Last Admin: 12/31/17 16:30 Dose: 1 applic Glucagon (Glucagen Diagnostic Kit) 0 mg IM STAT PRN; Protocol PRN Reason: Hypoglycemia Protocol Glucagon (Glucagen Diagnostic Kit) 0 mg IM STAT PRN; Protocol PRN Reason: Hypoglycemia Protocol Heparin Sodium (Porcine) (Heparin) 5,000 units SC Q8 [facility]; Protocol Last Admin: 12/31/17 16:29 Dose: 5,000 units Ceftriaxone Sodium 2 gm/ (Sodium Chloride) 100 mls @ 100 mls/hr IVPB DAILY [facility]; Protocol Last Admin: 12/31/17 08:34 Dose: 100 mls/hr Dextrose/Sodium Chloride (Dextrose 5%/0.9% Ns 1000 Ml) 1,000 mls @ 100 mls/hr IV .Q10H [facility] Stop: 01/01/18 21:29 Dextrose (Dextrose 5% In Water 1000 Ml) 1,000 mls @ 100 mls/hr IV .Q10H [facility] Stop: 01/01/18 06:00 Last Admin: 12/31/17 21:55 Dose: 100 mls/hr Insulin Detemir (Levemir) 18 units SC HS [facility] Last Admin: 12/31/17 21:28 Dose: Not Given Insulin Detemir (Levemir) 8 units SC DAILY [facility] Insulin Human Lispro (Humalog) 0 units SC ACHS [facility] Last Admin: 12/31/17 21:27 Dose: Not Given Methimazole (Tapazole) 5 mg PO BID [facility] Last Admin: 12/31/17 16:31 Dose: 5 mg Nystatin (Nystop Topical Powder) 1 applic TOP TID [facility] Last Admin: 12/31/17 17:28 Dose: 1 applic Oxycodone/Acetaminophen (Percocet 5/325 Mg Tab) 1 tab PO Q4 PRN PRN Reason: Pain, Mild (1-3) Stop: 01/03/18 13:15 Last Admin: 12/31/17 13:35 Dose: 1 tab - Labs Labs: 12/31/17 05:00 12/31/17 05:00 - Constitutional Appears: No Acute Distress - Head Exam Head Exam: ATRAUMATIC, NORMAL INSPECTION, NORMOCEPHALIC - Eye Exam Eye Exam: EOMI, Normal appearance, PERRL Pupil Exam: NORMAL ACCOMODATION, PERRL - ENT Exam ENT Exam: Mucous Membranes Moist, Normal Exam - Neck Exam Neck Exam: Full ROM, Normal Inspection. absent: Lymphadenopathy - Respiratory Exam Respiratory Exam: Clear to Ausculation Bilateral, NORMAL BREATHING PATTERN - Cardiovascular Exam Cardiovascular Exam: REGULAR RHYTHM, +S1, +S2. absent: Murmur - GI/Abdominal Exam GI & Abdominal Exam: Soft, Normal Bowel Sounds. absent: Tenderness - Extremities Exam Extremities Exam: Full ROM, Normal Capillary Refill. absent: Joint Swelling, Pedal Edema - Back Exam Back Exam: NORMAL INSPECTION - Neurological Exam Neurological Exam: Alert, Awake, CN II-XII Intact - Psychiatric Exam Psychiatric exam: Normal Affect, Normal Mood - Skin Skin Exam: Dry, Intact, Normal Color, Warm Assessment and Plan (1) Altered mental status Assessment & Plan: Metabolic Encephalopathy: Sepsis, Uremia and Metabolic Acidosis- Improving Treat the Underlying Problem Continue monitor in ICU Status: Acute Priority: High (2) DKA (diabetic ketoacidoses)- Resolved Type II DM Assessment and Plan: HHS, Hypotension- Resolved Bolus IVF PRN Continue IVF Replenish Electrolytes BMP daily Levemir ACHS with Coverage HgA1C- 11.6 Status: Acute Priority: High (3) Septic Shock, G -ve Bactremia with E. Coli,ESBL Negative-Improving Assessment and Plan: UTI and Sacral Pressure Ulcer Stage II IV Merem and Vamcomycin IVF Wound Care daily Status: Acute Priority: High (4) Lung mass, Possible Stage IV Lung Cancer Assessment and Plan: Family Aware Will Need Tissue Dx when patient stable Status: Acute Priority: High (5) Acute Renal Failure (ARF)- Improving Assessment and Plan: Most Likely ATN due to Hypotension and Dehydration IVF RX DKA/HHS and Sepsis Urine NA Nephrology Consult Status: Acute Priority: High (6) Gait abnormality Status: Acute Priority: Medium (7) DVT prophylaxis Status: Inactive Priority: High (8) Dysphagia- Passes Swallow Evaluation Pureed diet with [place] Thick Liquid (9) DNR/DNI Status: Acute Status: Inactive
[2018-01-01] MEDS: Proshield Plus GEL TOP SCH ×3 (00:11→17:17)
[2018-01-01 05:37] LABS: MEAN CELL VOLUME 90.8 fl (81.0-99.0); MEAN CORPUSCULAR HEMOGLOBIN 28.7 pg (27.0-31.0); MEAN CORPUSCULAR HGB CONC 31.6 g/dL (33.0-37.0); RBC 4.2 Mil/uL (3.80-5.20); WHITE BLOOD COUNT 9.8 K/uL (4.8-10.8)
--- NOTE | 2018-01-01 09:52 | CP.PCM.PN ---
Subjective - Date & Time of Evaluation Date of Evaluation: 01/01/18 Time of Evaluation: 09:52 - Subjective Subjective: 67 yo WF with pmh/o htn, dm, DKA, gram neg sepsis, s/p A flutter, left UL mass, possible livermets, rt breast mass, rt adrenal mass with renal failure, pt is drowsy, arousable, pt not in distress, no complaints, no sob, bp is borderline today , good uop, renal function is improving Objective - Vital Signs/Intake and Output Vital Signs (last 24 hours): Temp Pulse Resp BP Pulse Ox 99.9 F H 85 23 90/70 L 97 01/01/18 08:00 01/01/18 08:00 01/01/18 08:00 01/01/18 08:00 01/01/18 08:00 Intake and Output: 01/01/18 01/01/18 06:59 18:59 Intake Total 1100 Output Total 500 Balance 600 - Medications Medications: Current Medications Albuterol/Ipratropium (Duoneb 3 Mg/0.5 Mg (3 Ml) Ud) 3 ml INH RQ4 PRN PRN Reason: Shortness of Breath Last Admin: 12/28/17 13:51 Dose: 3 ml Dextrose (Glutose 15) 0 gm PO ONCE PRN; Protocol PRN Reason: Hypoglycemia Protocol Dextrose (Dextrose 50% Inj) 0 ml IV STAT PRN; Protocol PRN Reason: Hypoglycemia Protocol Dextrose (Glutose 15) 0 gm PO ONCE PRN; Protocol PRN Reason: Hypoglycemia Protocol Dimethicone (Proshield Plus Skin Protectant) 1 applic TOP Q8 [facility] Last Admin: 01/01/18 00:11 Dose: 1 applic Glucagon (Glucagen Diagnostic Kit) 0 mg IM STAT PRN; Protocol PRN Reason: Hypoglycemia Protocol Glucagon (Glucagen Diagnostic Kit) 0 mg IM STAT PRN; Protocol PRN Reason: Hypoglycemia Protocol Heparin Sodium (Porcine) (Heparin) 5,000 units SC Q8 [facility]; Protocol Last Admin: 01/01/18 00:10 Dose: 5,000 units Ceftriaxone Sodium 2 gm/ (Sodium Chloride) 100 mls @ 100 mls/hr IVPB DAILY [facility]; Protocol Last Admin: 12/31/17 08:34 Dose: 100 mls/hr Insulin Detemir (Levemir) 18 units SC HS [facility] Last Admin: 12/31/17 21:28 Dose: Not Given Insulin Detemir (Levemir) 8 units SC DAILY [facility] Insulin Human Lispro (Humalog) 0 units SC ACHS [facility] Last Admin: 12/31/17 21:27 Dose: Not Given Methimazole (Tapazole) 5 mg PO BID [facility] Last Admin: 12/31/17 16:31 Dose: 5 mg Nystatin (Nystop Topical Powder) 1 applic TOP TID [facility] Last Admin: 12/31/17 17:28 Dose: 1 applic Oxycodone/Acetaminophen (Percocet 5/325 Mg Tab) 1 tab PO Q4 PRN PRN Reason: Pain, Mild (1-3) Stop: 01/03/18 13:15 Last Admin: 12/31/17 13:35 Dose: 1 tab - Labs Labs: 01/01/18 04:45 01/01/18 04:45 - Constitutional Appears: Well, Non-toxic - Head Exam Head Exam: ATRAUMATIC, NORMAL INSPECTION, NORMOCEPHALIC - Eye Exam Eye Exam: EOMI, Normal appearance Pupil Exam: NORMAL ACCOMODATION - ENT Exam ENT Exam: Mucous Membranes Dry - Neck Exam Neck Exam: Full ROM, Normal Inspection - Respiratory Exam Respiratory Exam: Rales Additional comments: decreased BS left upper chest - Cardiovascular Exam Cardiovascular Exam: REGULAR RHYTHM, +S1, +S2 - GI/Abdominal Exam GI & Abdominal Exam: Soft, Normal Bowel Sounds - Rectal Exam Rectal Exam: Deferred - Extremities Exam Additional comments: no edema of legs - Neurological Exam Neurological Exam: Alert, Awake, CN II-XII Intact, Oriented x3 - Skin Skin Exam: Normal Color, Warm Assessment and Plan - Assessment and Plan (Free Text) Assessment: 67 yo female with htn, high sugars, increased bun/cr, cluidy urine with nitrite + ve, LE +, wbc+ acidosis, left upper lobe mass, rt breast mass, liver mests, T( vertebral lesion, rt adreanl lesion, blood c/s + for GNR 1. Renal failure, most likely JOVANNA sec to severe dehydration sec to DKA and high sugars 2. DKA 3. Gram negative sepsis, most likely source is urine 4. A. flutter 5. hypotension sec to sepsis, 6. left lung mass with liver mets, most likely lung cancer 7. Rt breast mass, r/o breast cancer , or mets 8. Rt Adrenal mass r/o mets renal function is slightly better, s.r 2.3 -----1.6, bun 79, today c/w iv abx as per ID c/w pressors as needed pt is DNR/ DNI over all prognosis is very poor
[2018-01-01] MEDS: Insulin Lispro (humaLOG) 100 Units/ml Inj SC SCH ×4 (09:58→21:58)
[2018-01-01] MEDS: Insulin Detemir 100 Units/ml Inj SC SCH ×2 (09:59→22:30)
[2018-01-01] MEDS: cefTRIAXone 2 GM in Sodium Chloride 0.9% 100 ML IVPB SCH (10:03)
[2018-01-01] MEDS: methIMAzole 5 MG TAB PO SCH ×2 (10:05→10:12)
--- NOTE | 2018-01-01 10:15 | CP.PCM.PN ---
Subjective - Date & Time of Evaluation Date of Evaluation: 01/01/18 Time of Evaluation: 10:15 - Subjective Subjective: ID Note- pt. seen and examined today in ICU. more lethargic today and her breathing is more tachypneic and she is on 50% Oxygen FM. not on pressors. Objective - Vital Signs/Intake and Output Vital Signs (last 24 hours): Temp Pulse Resp BP Pulse Ox 99.9 F H 85 23 90/70 L 97 01/01/18 08:00 01/01/18 08:00 01/01/18 08:00 01/01/18 08:00 01/01/18 08:00 Intake and Output: 01/01/18 01/01/18 06:59 18:59 Intake Total 1100 Output Total 500 Balance 600 - Medications Medications: Current Medications Albuterol/Ipratropium (Duoneb 3 Mg/0.5 Mg (3 Ml) Ud) 3 ml INH RQ4 PRN PRN Reason: Shortness of Breath Last Admin: 12/28/17 13:51 Dose: 3 ml Dextrose (Glutose 15) 0 gm PO ONCE PRN; Protocol PRN Reason: Hypoglycemia Protocol Dextrose (Dextrose 50% Inj) 0 ml IV STAT PRN; Protocol PRN Reason: Hypoglycemia Protocol Dextrose (Glutose 15) 0 gm PO ONCE PRN; Protocol PRN Reason: Hypoglycemia Protocol Dimethicone (Proshield Plus Skin Protectant) 1 applic TOP Q8 [facility] Last Admin: 01/01/18 10:03 Dose: 1 applic Glucagon (Glucagen Diagnostic Kit) 0 mg IM STAT PRN; Protocol PRN Reason: Hypoglycemia Protocol Glucagon (Glucagen Diagnostic Kit) 0 mg IM STAT PRN; Protocol PRN Reason: Hypoglycemia Protocol Heparin Sodium (Porcine) (Heparin) 5,000 units SC Q8 [facility]; Protocol Last Admin: 01/01/18 09:57 Dose: 5,000 units Ceftriaxone Sodium 2 gm/ (Sodium Chloride) 100 mls @ 100 mls/hr IVPB DAILY [facility]; Protocol Last Admin: 01/01/18 10:03 Dose: 100 mls/hr Insulin Detemir (Levemir) 18 units SC HS [facility] Last Admin: 12/31/17 21:28 Dose: Not Given Insulin Detemir (Levemir) 8 units SC DAILY [facility] Last Admin: 01/01/18 09:59 Dose: 8 units Insulin Human Lispro (Humalog) 0 units SC ACHS [facility] Last Admin: 01/01/18 09:58 Dose: Not Given Methimazole (Tapazole) 5 mg PO BID [facility] Last Admin: 01/01/18 10:12 Dose: Not Given Nystatin (Nystop Topical Powder) 1 applic TOP TID [facility] Last Admin: 01/01/18 10:02 Dose: 1 applic Oxycodone/Acetaminophen (Percocet 5/325 Mg Tab) 1 tab PO Q4 PRN PRN Reason: Pain, Mild (1-3) Stop: 01/03/18 13:15 Last Admin: 12/31/17 13:35 Dose: 1 tab - Labs Labs: - Additional Findings Additional findings: - Constitutional Appears: Chronically Ill Additional comments: lethargic today - Head Exam Head Exam: ATRAUMATIC - ENT Exam ENT Exam: Normal Oropharynx - Neck Exam Neck exam: Positive for: Full Rom - Respiratory Exam Respiratory Exam: tachypneic today Additional comments: mild + exp wheeze and rhonchi today in b/l lung clifford - Cardiovascular Exam Cardiovascular Exam: RRR, +S1, +S2 - GI/Abdominal Exam GI & Abdominal Exam: Normal Bowel Sounds, Soft Additional comments: no tenderness no guarding, no rebound - Extremities Exam Additional comments: no edema b/l LE - Neurological Exam Additional comments: lethargic today Laboratory Results - last 72 hr 12/29/17 12/29/17 12/29/17 06:00 06:00 12:09 WBC RBC Hgb Hct MCV MCH MCHC RDW Plt Count MPV Neut % (Auto) Lymph % (Auto) [place] % (Auto) Eos % (Auto) Baso % (Auto) Neut # (Auto) Lymph # (Auto) [place] # (Auto) Eos # (Auto) Baso # (Auto) Neutrophils % (Manual) Band Neutrophils % Lymphocytes % (Manual) Monocytes % (Manual) Nucleated RBC % Toxic Granulation Platelet Estimate Hypochromasia (manual) Anisocytosis (manual) Ovalocytes Sodium Potassium Chloride Carbon Dioxide Anion Gap BUN Creatinine Est GFR ( Amer) Est GFR (Non-Af Amer) POC Glucose (mg/dL) 323 H Random Glucose Hemoglobin A1c 11.6 H Calcium Total Bilirubin AST ALT Alkaline Phosphatase Total Protein Albumin Globulin Albumin/Globulin Ratio Thyroid Stim Immunoglob <89 12/29/17 12/29/17 12/30/17 15:43 22:14 04:35 WBC 11.1 H RBC 3.93 Hgb 11.3 L Hct 34.3 MCV 87.4 MCH 28.8 MCHC 32.9 L RDW 16.3 H Plt Count 51 L D MPV 10.8 Neut % (Auto) 93.7 H Lymph % (Auto) 5.0 L [place] % (Auto) 1.2 Eos % (Auto) 0.0 Baso % (Auto) 0.1 Neut # (Auto) 10.4 H Lymph # (Auto) 0.6 L [place] # (Auto) 0.1 Eos # (Auto) 0.0 Baso # (Auto) 0.0 Neutrophils % (Manual) 88 H Band Neutrophils % 5 H Lymphocytes % (Manual) 4 L Monocytes % (Manual) 3 Nucleated RBC % 1 H Toxic Granulation Present Platelet Estimate Decreased L Hypochromasia (manual) Slight Anisocytosis (manual) Slight Ovalocytes Slight Sodium Potassium Chloride Carbon Dioxide Anion Gap BUN Creatinine Est GFR ( Amer) Est GFR (Non-Af Amer) POC Glucose (mg/dL) 260 H 310 H Random Glucose Hemoglobin A1c Calcium Total Bilirubin AST ALT Alkaline Phosphatase Total Protein Albumin Globulin Albumin/Globulin Ratio Thyroid Stim Immunoglob 12/30/17 12/30/17 12/30/17 04:35 04:38 11:51 WBC RBC Hgb Hct MCV MCH MCHC RDW Plt Count MPV Neut % (Auto) Lymph % (Auto) [place] % (Auto) Eos % (Auto) Baso % (Auto) Neut # (Auto) Lymph # (Auto) [place] # (Auto) Eos # (Auto) Baso # (Auto) Neutrophils % (Manual) Band Neutrophils % Lymphocytes % (Manual) Monocytes % (Manual) Nucleated RBC % Toxic Granulation Platelet Estimate Hypochromasia (manual) Anisocytosis (manual) Ovalocytes Sodium 151 H Potassium 3.5 L Chloride 116 H Carbon Dioxide 27 Anion Gap 12 BUN 97 H Creatinine 2.3 H Est GFR ( Amer) 26 Est GFR (Non-Af Amer) 21 POC Glucose (mg/dL) 204 H 69 Random Glucose 201 H Hemoglobin A1c Calcium 7.3 L Total Bilirubin 1.3 AST 203 H ALT 122 H Alkaline Phosphatase 360 H Total Protein 5.2 L Albumin 2.2 L Globulin 3.0 Albumin/Globulin Ratio 0.8 L Thyroid Stim Immunoglob 12/30/17 12/30/1712/30/18 13:00 17:12 21:41 WBC RBC Hgb Hct MCV MCH MCHC RDW Plt Count MPV Neut % (Auto) Lymph % (Auto) [place] % (Auto) Eos % (Auto) Baso % (Auto) Neut # (Auto) Lymph # (Auto) [place] # (Auto) Eos # (Auto) Baso # (Auto) Neutrophils % (Manual) Band Neutrophils % Lymphocytes % (Manual) Monocytes % (Manual) Nucleated RBC % Toxic Granulation Platelet Estimate Hypochromasia (manual) Anisocytosis (manual) Ovalocytes Sodium Potassium Chloride Carbon Dioxide Anion Gap BUN Creatinine Est GFR ( Amer) Est GFR (Non-Af Amer) POC Glucose (mg/dL) 116 H 99 83 Random Glucose Hemoglobin A1c Calcium Total Bilirubin AST ALT Alkaline Phosphatase Total Protein Albumin Globulin Albumin/Globulin Ratio Thyroid Stim Immunoglob 12/31/17 12/31/17 12/31/17 04:20 05:00 05:00 WBC 7.6 RBC 3.51 L Hgb 10.3 L Hct 31.0 L MCV 88.3 MCH 29.4 MCHC 33.3 RDW 16.2 H Plt Count 33 L MPV Neut % (Auto) Lymph % (Auto) [place] % (Auto) Eos % (Auto) Baso % (Auto) Neut # (Auto) Lymph # (Auto) [place] # (Auto) Eos # (Auto) Baso # (Auto) Neutrophils % (Manual) Band Neutrophils % Lymphocytes % (Manual) Monocytes % (Manual) Nucleated RBC % Toxic Granulation Platelet Estimate Hypochromasia (manual) Anisocytosis (manual) Ovalocytes Sodium 149 H Potassium 3.0 L Chloride 115 H Carbon Dioxide 32 H Anion Gap 5 L BUN 84 H Creatinine 1.6 H Est GFR ( Amer) 39 Est GFR (Non-Af Amer) 32 POC Glucose (mg/dL) 116 H Random Glucose 107 H Hemoglobin A1c Calcium 6.9 L Total Bilirubin AST ALT Alkaline Phosphatase Total Protein Albumin Globulin Albumin/Globulin Ratio Thyroid Stim Immunoglob 01/01/18 01/01/18 04:45 04:45 WBC 9.8 RBC 4.20 Hgb 12.0 Hct 38.1 MCV 90.8 D MCH 28.7 MCHC 31.6 L RDW 17.0 H Plt Count 40 L MPV Neut % (Auto) Lymph % (Auto) [place] % (Auto) Eos % (Auto) Baso % (Auto) Neut # (Auto) Lymph # (Auto) [place] # (Auto) Eos # (Auto) Baso # (Auto) Neutrophils % (Manual) Band Neutrophils % Lymphocytes % (Manual) Monocytes % (Manual) Nucleated RBC % Toxic Granulation Platelet Estimate Hypochromasia (manual) Anisocytosis (manual) Ovalocytes Sodium 146 Potassium 4.0 Chloride 107 Carbon Dioxide 31 H Anion Gap 12 BUN 79 H Creatinine 1.6 H Est GFR ( Amer) 39 Est GFR (Non-Af Amer) 32 POC Glucose (mg/dL) Random Glucose 188 H Hemoglobin A1c Calcium 7.0 L Total Bilirubin AST ALT Alkaline Phosphatase Total Protein Albumin Globulin Albumin/Globulin Ratio Thyroid Stim Immunoglob Microbiology 12/31/17 04:40 Blood-Venous Blood Culture - Preliminary NO GROWTH AFTER 24 HOURS 12/31/17 04:45 Blood-Venous Blood Culture - Preliminary NO GROWTH AFTER 24 HOURS 12/28/17 14:40 Blood-Venous Blood Culture - Preliminary NO GROWTH AFTER 3 DAYS 12/28/17 14:40 Blood-Venous Blood Culture - Preliminary NO GROWTH AFTER 3 DAYS 12/28/17 16:39 Urine,Catheterized Urine Culture - Final Yeast Species 12/27/17 14:49 Blood-Venous Blood Culture - Final Escherichia Coli 12/27/17 14:49 Blood-Venous Gram Stain - Final 12/27/17 06:00 Naris MRSA Culture (Admit) - Final MRSA NOT DETECTED 12/27/17 14:49 Urine,Randolph Urine Culture - Final No Growth (<1,000 CFU/ML) Assessment and Plan (1) Sepsis Status: Acute (2) Dehydration Status: Acute (3) DKA (diabetic ketoacidoses) Status: Resolved (4) Acute renal disease Status: Acute (5) Bacteremia due to Gram-negative bacteria Status: Acute (6) UTI (urinary tract infection) Status: Acute - Assessment and Plan (Free Text) Assessment: A/P- 67 year old female was admitted with weakness and lethargy found to be in DKA and GNR bacteremia and ct abd/chest reported as left lung mass with liver mets . lethargic and tachypneic today. rule out aspiration pneumonitis. afebrile minimal leukocytosis has resolved. blood cx- e.coli pansensitive Urine cx- <1000 repeat blood cx 12/28/2017- neg x 2 TTE- no mention of any vegetations as per report. Ct report findings of lung mass with liver mets . plan- day #3 of ceftriaxone for e.coli bacteremia was on 3 days of meropenm prior to that. check 2 more blood cx. check CXR rule out aspiration pneumonitis. Monitor carefully aspiration precautions. all labs and imaging and chart notes reviewed. d/w Rn Palliative Critical care time spent 30 min.
[2018-01-01] MEDS ORDERED: Sodium Chloride 0.9% 500 ML IV ONE (12:09)
[2018-01-01] MEDS ORDERED: Digoxin 500 mcg/2ml (0.5 mg/2ml) Inj IVP ONE (13:00)
[2018-01-01] MEDS ORDERED: Digoxin 500 mcg/2ml (0.5 mg/2ml) Inj ONE (13:51)
--- NOTE | 2018-01-01 14:37 | PQF ---
PROVIDER RESPONSE TEXT: Thrombocytopenia possibly due to G-ve Sepsis REVIEWER QUERY TEXT: Clarification of Clinical Diagnostic Findings Please clarify documentation or clinical relevance for the clinical / diagnostic findings or whether those are insignificant or unable to be further specified. Please clarify if there is an associated diagnosis or not to go along with the low platelet count. Platelets: 184> 116> 83> 51> 33 The patient's Clinical Indicators include: Admitted with DKA and Sepsis. Query created by: Yoly Alcazar on 12/31/2017 10:44 AM Electronically signed by: Mika Quintana MD 01/01/2018 2:34 PM
[2018-01-01 14:50] VITALS: PULSE 141
[2018-01-01] MEDS ORDERED: Dextrose 5%/0.9% NS 1,000 ML IV SCH (15:00)
--- NOTE | 2018-01-01 15:24 | CP.CCUPN ---
CCU Subjective - Physician Review Subjective (Free Text): Patient noted to be lethargic this AM, but more alert and interactive when family arrived at the bedside. No acute distress noted. At approx. 1300, developed A flutter with RVR, variable block noted, HR 130-142, no associated hypotension noted, nor other symptomology. Given Digoxin 0.5mg IVP, slowed HR to 85 in A Fib. Other vitals and I/O's reviewed. No fever spikes last 24H, approx. I/Os = 2.5 L in, 2.1 L out Placed onto nasal cannula from , and SPO2 99-100^%. ROS: No other pertinent negs or positives on 10+ system review. PMSFH: All other Nursing and physician documentation reviewed to date; no new pertinent info noted relevant to current medical problems. EXAM- HEENT: no icterus, no gaze preference, Pupils 3 mm and reactive. NECK: No JVD visible, supple, carotids equal upstroke bilat/no bruit CHEST: clear bilateral BS , no wheezes audible HEART: regular, distant, tachy S1S2, no rubs ABD: softly and nontender, no guarding, no organomegaly, BS hypoactive. EXT: trace edema, no calf tenderness or palpable cords, distal pulses intact and symmetrical. NEURO: no focal motor deficits. SKIN: no rashes, warm and dry LABS: WBC= 9.8 HGB= 12.0 PLTs= 40K Na= 146 K= 4.0 CL= 107 HCO3= 31 BUN/Cr= 79/1.6 BS= 188 IMPRESSION / MAJOR PROBLEMS NOW: 1. E Coli Bacteremia and Candiduria 2. s/p DKA 3. 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 Parox AFib / Aflutter 5. Occult Hyperthyroidsim PLAN: 1. IVFs, blood glucose control, thyroid hormone blockade as per Endocrine. Consider adding low dose BBs if BP improves, as it will be adjunctive in controlling heart rate response if atrial tachyarrhythmias recur, too. 2. Hypotonic fluids for hypernatremia, supplemental fluids ordered by PMD. BUN/Cr continues to slowly improve. 3. PMD to discuss with family regarding any further w/u or staging of underlying occult malignancy. Advance Directives noted. CCU Objective - Patient Studies Fingerstick Blood Sugar Results: 208
[2018-01-01] MEDS ORDERED: Lactated Ringer's 500 ML IV SCH (18:00)
[2018-01-01] MEDS: Dextrose 5%/0.9% NS 1,000 ML IV SCH (18:05)
[2018-01-01] MEDS: Oxycodone/Acetaminophen 5/325 mg Tab PO PRN (20:40)
--- NOTE | 2018-01-01 21:21 | PN ---
DATE: 01/01/2018 ENDOCRINOLOGY FOLLOWUP NOTE LOCATION: ICU room 435. SUBJECTIVE: This is a 67-year-old female with recent uncontrolled type 2 insulin-requiring diabetes, presenting here with diabetic ketoacidosis and dehydration and has improved clinically and metabolically as noted thereof. However, she failed the swallowing evaluation and has been kept n.p.o. until the present time. 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 LABORATORY DATA: Her chemistry showed a BUN of 84, sodium 149, potassium 3, chloride 116, CO2 of 32, glucose 107, and creatinine 1.6. ASSESSMENT AND PLAN: So at this time, we will modify her basal insulin and lower the Levemir to 8 units subcutaneously at 10 a.m. in the morning daily and Levemir given as 18 units subcutaneously at bedtime daily to start tonight. We will continue the modified low-dose correction scale using Humalog insulin as given. We will obtain serial chemistries and supplement accordingly as needed. We will follow. Angela Copeland MD
--- NOTE | 2018-01-01 23:14 | CP.PCM.PN ---
Subjective - Date & Time of Evaluation Date of Evaluation: 01/01/18 Time of Evaluation: 14:15 - Subjective Subjective: Seen and examined at the bed side. Patient continue to improve. She is refusing to Eat. Had episode of Hypoglycemia. Avoids eye contact, and Possibility of Depression which the son confirms. Hemodynamically stable. No fever or chills. Objective - Vital Signs/Intake and Output Vital Signs (last 24 hours): Temp Pulse Resp BP Pulse Ox 101.6 F H 87 22 113/86 99 01/01/18 16:00 01/01/18 18:00 01/01/18 18:00 01/01/18 18:00 01/01/18 18:00 Intake and Output: 01/01/18 01/02/18 18:59 06:59 Intake Total 754 Output Total 150 Balance 604 - Medications Medications: Current Medications Acetaminophen (Tylenol 650 Mg Supp) 650 mg MN Q6 PRN PRN Reason: Fever >100.4 F Last Admin: 01/01/18 17:14 Dose: 650 mg Acetaminophen (Tylenol 650 Mg Supp) 650 mg MN Q6 PRN PRN Reason: Pain, moderate (4-7) Last Admin: 01/01/18 22:07 Dose: 650 mg Albuterol/Ipratropium (Duoneb 3 Mg/0.5 Mg (3 Ml) Ud) 3 ml INH RQ4 PRN PRN Reason: Shortness of Breath Last Admin: 12/28/17 13:51 Dose: 3 ml Dextrose (Glutose 15) 0 gm PO ONCE PRN; Protocol PRN Reason: Hypoglycemia Protocol Dextrose (Dextrose 50% Inj) 0 ml IV STAT PRN; Protocol PRN Reason: Hypoglycemia Protocol Dextrose (Glutose 15) 0 gm PO ONCE PRN; Protocol PRN Reason: Hypoglycemia Protocol Dimethicone (Proshield Plus Skin Protectant) 1 applic TOP Q8 [facility] Last Admin: 01/01/18 17:17 Dose: 1 applic Glucagon (Glucagen Diagnostic Kit) 0 mg IM STAT PRN; Protocol PRN Reason: Hypoglycemia Protocol Glucagon (Glucagen Diagnostic Kit) 0 mg IM STAT PRN; Protocol PRN Reason: Hypoglycemia Protocol Heparin Sodium (Porcine) (Heparin) 5,000 units SC Q8 [facility]; Protocol Last Admin: 01/01/18 17:15 Dose: 5,000 units Ceftriaxone Sodium 2 gm/ (Sodium Chloride) 100 mls @ 100 mls/hr IVPB DAILY [facility]; Protocol Last Admin: 01/01/18 10:03 Dose: 100 mls/hr Dextrose/Sodium Chloride (Dextrose 5%/0.9% Ns 1000 Ml) 1,000 mls @ 150 mls/hr IV .Q6H40M [facility] Stop: 01/02/18 14:51 Last Admin: 01/01/18 18:05 Dose: 150 mls/hr Insulin Detemir (Levemir) 18 units SC HS [facility] Last Admin: 12/31/17 21:28 Dose: Not Given Insulin Detemir (Levemir) 8 units SC DAILY [facility] Last Admin: 01/01/18 09:59 Dose: 8 units Insulin Human Lispro (Humalog) 0 units SC ACHS [facility] Last Admin: 01/01/18 21:58 Dose: Not Given Methimazole (Tapazole) 5 mg PO BID [facility] Last Admin: 01/01/18 10:12 Dose: Not Given Nystatin (Nystop Topical Powder) 1 applic TOP TID [facility] Last Admin: 01/01/18 17:16 Dose: 1 applic Oxycodone/Acetaminophen (Percocet 5/325 Mg Tab) 1 tab PO Q4 PRN PRN Reason: Pain, Mild (1-3) Stop: 01/03/18 13:15 Last Admin: 01/01/18 20:40 Dose: 1 tab - Labs Labs: 01/01/18 04:45 01/01/18 04:45 - Constitutional Appears: No Acute Distress, Older Than Stated Age, Chronically Ill - Head Exam Head Exam: ATRAUMATIC, NORMAL INSPECTION, NORMOCEPHALIC - Eye Exam Eye Exam: EOMI, Normal appearance, PERRL Pupil Exam: NORMAL ACCOMODATION, PERRL - ENT Exam ENT Exam: Mucous Membranes Moist, Normal Exam - Neck Exam Neck Exam: Full ROM, Normal Inspection. absent: Lymphadenopathy - Respiratory Exam Respiratory Exam: Clear to Ausculation Bilateral, NORMAL BREATHING PATTERN - Cardiovascular Exam Cardiovascular Exam: REGULAR RHYTHM, +S1, +S2. absent: Murmur - GI/Abdominal Exam GI & Abdominal Exam: Soft, Normal Bowel Sounds. absent: Tenderness - Extremities Exam Extremities Exam: Full ROM, Normal Capillary Refill, Normal Inspection. absent: Joint Swelling, Pedal Edema - Back Exam Back Exam: NORMAL INSPECTION - Neurological Exam Neurological Exam: Alert, Awake, CN II-XII Intact - Psychiatric Exam Psychiatric exam: Depressed, Flat Affect - Skin Skin Exam: Dry, Intact, Normal Color, Warm Assessment and Plan (1) Altered mental status Assessment & Plan: Metabolic Encephalopathy: Sepsis, Uremia and Metabolic Acidosis- Improving Treat the Underlying Problem Continue monitor in ICU Status: Acute Priority: High (2) DKA (diabetic ketoacidoses)- Resolved Type II DM Assessment and Plan: HHS, Hypotension- Resolved Bolus IVF PRN Continue IVF Replenish Electrolytes BMP daily Levemir ACHS with Coverage HgA1C- 11.6 Status: Acute Priority: High (3) Septic Shock, G -ve Bactremia with E. Coli,ESBL Negative-Improving Assessment and Plan: UTI and Sacral Pressure Ulcer Stage II- Improving IV Merem and Vamcomycin IVF Wound Care daily Status: Acute Priority: High (4) Lung mass, Possible Stage IV Lung Cancer Assessment and Plan: Family Aware Will Need Tissue Dx when patient stable Status: Acute Priority: High (5) Acute Renal Failure (ARF)- Improving Assessment and Plan: Most Likely ATN due to Hypotension and Dehydration- Improving IVF RX DKA/HHS and Sepsis Urine NA Nephrology Consult Status: Acute Priority: High (6) Gait abnormality Status: Acute Priority: Medium (7) DVT prophylaxis Status: Inactive Priority: High (8) Dysphagia- Passes Swallow Evaluation Pureed diet with [place] Thick Liquid (9) DNR/DNI Status: Inactive
[2018-01-02] MEDS: Dextrose 5%/0.9% NS 1,000 ML IV SCH ×2 (01:14→09:01)
[2018-01-02] MEDS: Proshield Plus GEL TOP SCH ×3 (01:19→17:42)
[2018-01-02] MEDS: cefTRIAXone 2 GM in Sodium Chloride 0.9% 100 ML IVPB SCH (09:02)
[2018-01-02] MEDS: Insulin Lispro (humaLOG) 100 Units/ml Inj SC SCH ×4 (09:02→22:30)
[2018-01-02] MEDS: Insulin Detemir 100 Units/ml Inj SC SCH ×2 (09:03→22:31)
[2018-01-02] MEDS: methIMAzole 5 MG TAB PO SCH ×2 (09:04→17:37)
[2018-01-02] MEDS: Albuterol-Ipratrop 3 mg / 0.5 (3 ml) UD INH PRN (09:07)
--- NOTE | 2018-01-02 10:41 | CP.PCM.PN ---
Subjective - Date & Time of Evaluation Date of Evaluation: 01/02/18 Time of Evaluation: 09:50 - Subjective Subjective: The patient was awake but quite listless. Answer simple questions often with a nod. On further questioning she does answer questions verbally. n patient appears coherent and aware of her surroundings. Afebrile with atrial flutter and a variable AV conduction with a heart rate that ranges between 70 bpm and 100 bpm Blood pressure 120/74 mmHg. JVP was flat and there were no rales. Her extremities were warm and nailbeds were pink. There was no central or peripheral cyanosis. Labs were noted. Her sodium and potassium were normal.Azotemia continues to decline. I started the patient on a small dose of metoprolol to control her heart rate. The patient is on subcutaneous heparin 5000 units every 8 hours. Objective - Vital Signs/Intake and Output Vital Signs (last 24 hours): Temp Pulse Resp BP Pulse Ox 98.3 F 71 18 125/78 94 L 01/02/18 08:00 01/02/18 08:00 01/02/18 08:00 01/02/18 08:00 01/02/18 08:00 Intake and Output: 01/02/18 01/02/18 06:59 18:59 Intake Total 1700 Output Total 400 Balance 1300 - Medications Medications: Current Medications Acetaminophen (Tylenol 650 Mg Supp) 650 mg MS Q6 PRN PRN Reason: Fever >100.4 F Last Admin: 01/01/18 17:14 Dose: 650 mg Acetaminophen (Tylenol 650 Mg Supp) 650 mg MS Q6 PRN PRN Reason: Pain, moderate (4-7) Last Admin: 01/01/18 22:07 Dose: 650 mg Albuterol/Ipratropium (Duoneb 3 Mg/0.5 Mg (3 Ml) Ud) 3 ml INH RQ4 PRN PRN Reason: Shortness of Breath Last Admin: 01/02/18 09:07 Dose: 3 ml Dextrose (Glutose 15) 0 gm PO ONCE PRN; Protocol PRN Reason: Hypoglycemia Protocol Dextrose (Dextrose 50% Inj) 0 ml IV STAT PRN; Protocol PRN Reason: Hypoglycemia Protocol Dextrose (Glutose 15) 0 gm PO ONCE PRN; Protocol PRN Reason: Hypoglycemia Protocol Dimethicone (Proshield Plus Skin Protectant) 1 applic TOP Q8 [facility] Last Admin: 01/02/18 09:07 Dose: 1 applic Glucagon (Glucagen Diagnostic Kit) 0 mg IM STAT PRN; Protocol PRN Reason: Hypoglycemia Protocol Glucagon (Glucagen Diagnostic Kit) 0 mg IM STAT PRN; Protocol PRN Reason: Hypoglycemia Protocol Heparin Sodium (Porcine) (Heparin) 5,000 units SC Q8 [facility]; Protocol Last Admin: 01/02/18 01:14 Dose: 5,000 units Ceftriaxone Sodium 2 gm/ (Sodium Chloride) 100 mls @ 100 mls/hr IVPB DAILY [facility]; Protocol Last Admin: 01/02/18 09:02 Dose: 100 mls/hr Dextrose/Sodium Chloride (Dextrose 5%/0.9% Ns 1000 Ml) 1,000 mls @ 150 mls/hr IV .Q6H40M [facility] Stop: 01/02/18 14:51 Last Admin: 01/02/18 09:01 Dose: 150 mls/hr Insulin Detemir (Levemir) 18 units SC HS [facility] Last Admin: 01/01/18 22:30 Dose: 18 units Insulin Detemir (Levemir) 8 units SC DAILY [facility] Last Admin: 01/02/18 09:03 Dose: 8 units Insulin Human Lispro (Humalog) 0 units SC ACHS [facility] Last Admin: 01/02/18 09:02 Dose: Not Given Methimazole (Tapazole) 5 mg PO BID [facility] Last Admin: 01/02/18 09:04 Dose: 5 mg Metoprolol Tartrate (Lopressor) 25 mg PO Q12 [facility] Nystatin (Nystop Topical Powder) 1 applic TOP TID [facility] Last Admin: 01/02/18 09:07 Dose: 1 applic Oxycodone/Acetaminophen (Percocet 5/325 Mg Tab) 1 tab PO Q4 PRN PRN Reason: Pain, Mild (1-3) Stop: 01/03/18 13:15 Last Admin: 01/01/18 20:40 Dose: 1 tab - Labs Labs: 01/01/18 04:45 01/01/18 04:45
--- NOTE | 2018-01-02 10:46 | CP.PCM.CON ---
History of Present Illness - History of Present Illness History of Present Illness: Psychiatry consult note CC: Poor appetite/PO intake HPI: 67 yo female admitted w/ increased weakness, lethargy, poor appetite, E coli bactermia and candiduria, possible lung CA w/ mets, s/p DKA. Patient was non-verbal, but did shake her head yes and no when asked questions. She said "no" to feeling depressed/anxiety/passive or active SI/AH/VH. She said "no" when asked if she needs psychiatric medications. As per staff, patient has had poor PO intake, Impression: 67 yo female, currently denies acute depression, but has low energy, poor appetite and PO intake. -Patient may benefit from starting Remeron 7.5 mg PO HS and titrating gradually as needed -No acute inpatient psychiatric admission indicated at this time Past Patient History - Past Medical History & Family History Past Medical History?: Yes Past Family History: Reviewed and not pertinent - Past Social History Smoking Status: Heavy Smoker > 10 Cigarettes Daily Alcohol: None Drugs: Denies - CARDIAC Hx Hypercholesterolemia: Yes Hx Hypertension: Yes - PULMONARY Hx Respiratory Disorders: No - NEUROLOGICAL Hx Neurological Disorder: No - HEENT Hx HEENT Problems: No - RENAL Hx Chronic Kidney Disease: No - ENDOCRINE/METABOLIC Hx Endocrine Disorders: No Hx Diabetes Mellitus Type 2: Yes - HEMATOLOGICAL/ONCOLOGICAL Hx Blood Disorders: No - INTEGUMENTARY Hx Dermatological Problems: No - MUSCULOSKELETAL/RHEUMATOLOGICAL Hx Musculoskeletal Disorders: Yes - GASTROINTESTINAL Hx Gastrointestinal Disorders: No - GENITOURINARY/GYNECOLOGICAL Hx Genitourinary Disorders: No - PSYCHIATRIC Hx Psychophysiologic Disorder: No - SURGICAL HISTORY Hx Surgeries: No - ANESTHESIA Hx Anesthesia: No Meds Allergies/Adverse Reactions: Allergies Allergy/AdvReac Type Severity Reaction Status Date / Time No Known Allergies Allergy Verified 12/17/15 03:08 - Medications Medications: Current Medications Acetaminophen (Tylenol 650 Mg Supp) 650 mg AR Q6 PRN PRN Reason: Fever >100.4 F Last Admin: 01/01/18 17:14 Dose: 650 mg Acetaminophen (Tylenol 650 Mg Supp) 650 mg AR Q6 PRN PRN Reason: Pain, moderate (4-7) Last Admin: 01/01/18 22:07 Dose: 650 mg Albuterol/Ipratropium (Duoneb 3 Mg/0.5 Mg (3 Ml) Ud) 3 ml INH RQ4 PRN PRN Reason: Shortness of Breath Last Admin: 01/02/18 09:07 Dose: 3 ml Dextrose (Glutose 15) 0 gm PO ONCE PRN; Protocol PRN Reason: Hypoglycemia Protocol Dextrose (Dextrose 50% Inj) 0 ml IV STAT PRN; Protocol PRN Reason: Hypoglycemia Protocol Dextrose (Glutose 15) 0 gm PO ONCE PRN; Protocol PRN Reason: Hypoglycemia Protocol Dimethicone (Proshield Plus Skin Protectant) 1 applic TOP Q8 [facility] Last Admin: 01/02/18 09:07 Dose: 1 applic Glucagon (Glucagen Diagnostic Kit) 0 mg IM STAT PRN; Protocol PRN Reason: Hypoglycemia Protocol Glucagon (Glucagen Diagnostic Kit) 0 mg IM STAT PRN; Protocol PRN Reason: Hypoglycemia Protocol Heparin Sodium (Porcine) (Heparin) 5,000 units SC Q8 [facility]; Protocol Last Admin: 01/02/18 01:14 Dose: 5,000 units Ceftriaxone Sodium 2 gm/ (Sodium Chloride) 100 mls @ 100 mls/hr IVPB DAILY [facility]; Protocol Last Admin: 01/02/18 09:02 Dose: 100 mls/hr Dextrose/Sodium Chloride (Dextrose 5%/0.9% Ns 1000 Ml) 1,000 mls @ 150 mls/hr IV .Q6H40M [facility] Stop: 01/02/18 14:51 Last Admin: 01/02/18 09:01 Dose: 150 mls/hr Insulin Detemir (Levemir) 18 units SC HS [facility] Last Admin: 01/01/18 22:30 Dose: 18 units Insulin Detemir (Levemir) 8 units SC DAILY [facility] Last Admin: 01/02/18 09:03 Dose: 8 units Insulin Human Lispro (Humalog) 0 units SC ACHS [facility] Last Admin: 01/02/18 09:02 Dose: Not Given Methimazole (Tapazole) 5 mg PO BID [facility] Last Admin: 01/02/18 09:04 Dose: 5 mg Metoprolol Tartrate (Lopressor) 25 mg PO Q12 [facility] Nystatin (Nystop Topical Powder) 1 applic TOP TID [facility] Last Admin: 01/02/18 09:07 Dose: 1 applic Oxycodone/Acetaminophen (Percocet 5/325 Mg Tab) 1 tab PO Q4 PRN PRN Reason: Pain, Mild (1-3) Stop: 01/03/18 13:15 Last Admin: 01/01/18 20:40 Dose: 1 tab Results - Vital Signs Recent Vital Signs: Last Vital Signs Temp 98.3 F 01/02/18 08:00 Pulse 71 01/02/18 08:00 Resp 18 01/02/18 08:00 BP 125/78 01/02/18 08:00 Pulse Ox 94 L 01/02/18 08:00 - Labs Result Diagrams: 01/01/18 04:45 01/02/18 11:29 Labs: Laboratory Results - last 24 hr 12/31/17 12/31/17 12/31/17 12:01 16:44 21:08 POC Glucose (mg/dL) 103 95 60 L 12/31/17 01/01/18 01/01/18 21:34 04:07 11:40 POC Glucose (mg/dL) 127 H 212 H 208 H 01/01/18 01/01/18 01/02/18 17:05 21:46 05:21 POC Glucose (mg/dL) 127 H 122 H 102
[2018-01-02] MEDS: Dextrose 50% SYRINGE Inj (50 ml) IV PRN ×2 (11:38→22:36)
[2018-01-02 11:44] LABS: BASO % 0.4 % (0.0-2.0); EOS % 0.5 % (0.0-4.0); HEMOGLOBIN 11.2 g/dL (12.0-16.0); LYMPH # 0.9 K/uL (1.0-4.3); LYMPH % 10.9 % (20.0-40.0); MEAN CELL VOLUME 88.7 fl (81.0-99.0); MEAN CORPUSCULAR HEMOGLOBIN 28.7 pg (27.0-31.0); MEAN CORPUSCULAR HGB CONC 32.3 g/dL (33.0-37.0); MEAN PLATELET VOLUME 11.3 fl (7.2-11.7); MONO # 0.2 K/uL (0.0-0.8); MONO % 2.8 % (0.0-10.0); NEUT # 6.8 K/uL (1.8-7.0); NEUT % 85.4 % (50.0-75.0); NRBC % 0.6 % (0.0-0.0); RBC 3.92 Mil/uL (3.80-5.20); RED CELL DISTRIBUTION WIDTH 16.8 % (11.5-14.5)
[2018-01-02 11:46] LABS: ALB/GLOB RATIO 0.7 (1.0-2.1); ALBUMIN 2.1 g/dL (3.5-5.0); CALCIUM 6.6 mg/dL (8.4-10.2)
[2018-01-02] MEDS ORDERED: Potassium Chl 20 mEq in D5-NS 1,000 ML IV SCH (14:24)
[2018-01-02] MEDS: Albuterol-Ipratrop 3 mg / 0.5 (3 ml) UD INH SCH ×3 (15:37→23:45)
--- NOTE | 2018-01-02 15:41 | CP.PCM.PN ---
Subjective - Date & Time of Evaluation Date of Evaluation: 01/02/18 Time of Evaluation: 15:41 - Subjective Subjective: ID note- Pt. seen in tele floor today. sitting in bed with her family at her bedside. Objective - Vital Signs/Intake and Output Vital Signs (last 24 hours): Temp Pulse Resp BP Pulse Ox 98.7 F 76 18 99/66 L 96 01/02/18 11:57 01/02/18 11:57 01/02/18 11:57 01/02/18 11:57 01/02/18 11:57 Intake and Output: 01/02/18 01/02/18 06:59 18:59 Intake Total 1700 Output Total 400 Balance 1300 - Medications Medications: Current Medications Acetaminophen (Tylenol 650 Mg Supp) 650 mg OR Q6 PRN PRN Reason: Fever >100.4 F Last Admin: 01/01/18 17:14 Dose: 650 mg Acetaminophen (Tylenol 650 Mg Supp) 650 mg OR Q6 PRN PRN Reason: Pain, moderate (4-7) Last Admin: 01/01/18 22:07 Dose: 650 mg Albuterol/Ipratropium (Duoneb 3 Mg/0.5 Mg (3 Ml) Ud) 3 ml INH RQ4 [facility] Last Admin: 01/02/18 15:37 Dose: 3 ml Dextrose (Glutose 15) 0 gm PO ONCE PRN; Protocol PRN Reason: Hypoglycemia Protocol Dextrose (Dextrose 50% Inj) 0 ml IV STAT PRN; Protocol PRN Reason: Hypoglycemia Protocol Last Admin: 01/02/18 11:38 Dose: 50 ml Dextrose (Glutose 15) 0 gm PO ONCE PRN; Protocol PRN Reason: Hypoglycemia Protocol Dimethicone (Proshield Plus Skin Protectant) 1 applic TOP Q8 [facility] Last Admin: 01/02/18 09:07 Dose: 1 applic Glucagon (Glucagen Diagnostic Kit) 0 mg IM STAT PRN; Protocol PRN Reason: Hypoglycemia Protocol Glucagon (Glucagen Diagnostic Kit) 0 mg IM STAT PRN; Protocol PRN Reason: Hypoglycemia Protocol Heparin Sodium (Porcine) (Heparin) 5,000 units SC Q8 [facility]; Protocol Last Admin: 01/02/18 01:14 Dose: 5,000 units Ceftriaxone Sodium 2 gm/ (Sodium Chloride) 100 mls @ 100 mls/hr IVPB DAILY [facility]; Protocol Last Admin: 01/02/18 09:02 Dose: 100 mls/hr Insulin Detemir (Levemir) 18 units SC HS [facility] Last Admin: 01/01/18 22:30 Dose: 18 units Insulin Detemir (Levemir) 8 units SC DAILY [facility] Last Admin: 01/02/18 09:03 Dose: 8 units Insulin Human Lispro (Humalog) 0 units SC ACHS [facility] Last Admin: 01/02/18 09:02 Dose: Not Given Methimazole (Tapazole) 5 mg PO BID [facility] Last Admin: 01/02/18 09:04 Dose: 5 mg Metoprolol Tartrate (Lopressor) 25 mg PO Q12 [facility] Mirtazapine (Remeron) 7.5 mg PO HS [facility] Nystatin (Nystop Topical Powder) 1 applic TOP TID [facility] Last Admin: 01/02/18 09:07 Dose: 1 applic Oxycodone/Acetaminophen (Percocet 5/325 Mg Tab) 1 tab PO Q4 PRN PRN Reason: Pain, Mild (1-3) Stop: 01/03/18 13:15 Last Admin: 01/01/18 20:40 Dose: 1 tab - Labs Labs: - Additional Findings Additional findings: - Constitutional Appears: Chronically Ill Additional comments: weak still - Head Exam Head Exam: ATRAUMATIC - ENT Exam ENT Exam: Normal Oropharynx - Neck Exam Neck exam: Positive for: Full Rom - Respiratory Exam Respiratory Exam: Additional comments: no wheezing poor inspiratory effort - Cardiovascular Exam Cardiovascular Exam: RRR, +S1, +S2 - GI/Abdominal Exam GI & Abdominal Exam: Normal Bowel Sounds, Soft Additional comments: no tenderness no guarding, no rebound - Extremities Exam Additional comments: no edema b/l LE - Neurological Exam Additional comments: does not answer questions only nods Laboratory Results - last 72 hr 12/29/17 12/30/17 12/30/17 06:00 04:38 11:51 WBC RBC Hgb Hct MCV MCH MCHC RDW Plt Count MPV Neut % (Auto) Lymph % (Auto) Dickens % (Auto) Eos % (Auto) Baso % (Auto) Neut # (Auto) Lymph # (Auto) Dickens # (Auto) Eos # (Auto) Baso # (Auto) Sodium Potassium Chloride Carbon Dioxide Anion Gap BUN Creatinine Est GFR ( Amer) Est GFR (Non-Af Amer) POC Glucose (mg/dL) 204 H 69 Random Glucose Calcium Phosphorus Magnesium Total Bilirubin AST ALT Alkaline Phosphatase Total Protein Albumin Globulin Albumin/Globulin Ratio Thyroid Stim Immunoglob <89 12/30/17 12/30/17 12/30/17 13:00 17:12 21:41 WBC RBC Hgb Hct MCV MCH MCHC RDW Plt Count MPV Neut % (Auto) Lymph % (Auto) Dickens % (Auto) Eos % (Auto) Baso % (Auto) Neut # (Auto) Lymph # (Auto) Dickens # (Auto) Eos # (Auto) Baso # (Auto) Sodium Potassium Chloride Carbon Dioxide Anion Gap BUN Creatinine Est GFR ( Amer) Est GFR (Non-Af Amer) POC Glucose (mg/dL) 116 H 99 83 Random Glucose Calcium Phosphorus Magnesium Total Bilirubin AST ALT Alkaline Phosphatase Total Protein Albumin Globulin Albumin/Globulin Ratio Thyroid Stim Immunoglob 12/31/17 12/31/17 12/31/17 04:20 05:00 05:00 WBC 7.6 RBC 3.51 L Hgb 10.3 L Hct 31.0 L MCV 88.3 MCH 29.4 MCHC 33.3 RDW 16.2 H Plt Count 33 L MPV Neut % (Auto) Lymph % (Auto) Dickens % (Auto) Eos % (Auto) Baso % (Auto) Neut # (Auto) Lymph # (Auto) Dickens # (Auto) Eos # (Auto) Baso # (Auto) Sodium 149 H Potassium 3.0 L Chloride 115 H Carbon Dioxide 32 H Anion Gap 5 L BUN 84 H Creatinine 1.6 H Est GFR ( Amer) 39 Est GFR (Non-Af Amer) 32 POC Glucose (mg/dL) 116 H Random Glucose 107 H Calcium 6.9 L Phosphorus Magnesium Total Bilirubin AST ALT Alkaline Phosphatase Total Protein Albumin Globulin Albumin/Globulin Ratio Thyroid Stim Immunoglob 12/31/17 12/31/17 12/31/17 12:01 16:44 21:08 WBC RBC Hgb Hct MCV MCH MCHC RDW Plt Count MPV Neut % (Auto) Lymph % (Auto) Dickens % (Auto) Eos % (Auto) Baso % (Auto) Neut # (Auto) Lymph # (Auto) Dickens # (Auto) Eos # (Auto) Baso # (Auto) Sodium Potassium Chloride Carbon Dioxide Anion Gap BUN Creatinine Est GFR ( Amer) Est GFR (Non-Af Amer) POC Glucose (mg/dL) 103 95 60 L Random Glucose Calcium Phosphorus Magnesium Total Bilirubin AST ALT Alkaline Phosphatase Total Protein Albumin Globulin Albumin/Globulin Ratio Thyroid Stim Immunoglob 12/31/17 01/01/18 01/01/18 21:34 04:07 04:45 WBC 9.8 RBC 4.20 Hgb 12.0 Hct 38.1 MCV 90.8 D MCH 28.7 MCHC 31.6 L RDW 17.0 H Plt Count 40 L MPV Neut % (Auto) Lymph % (Auto) Dickens % (Auto) Eos % (Auto) Baso % (Auto) Neut # (Auto) Lymph # (Auto) Dickens # (Auto) Eos # (Auto) Baso # (Auto) Sodium Potassium Chloride Carbon Dioxide Anion Gap BUN Creatinine Est GFR ( Amer) Est GFR (Non-Af Amer) POC Glucose (mg/dL) 127 H 212 H Random Glucose Calcium Phosphorus Magnesium Total Bilirubin AST ALT Alkaline Phosphatase Total Protein Albumin Globulin Albumin/Globulin Ratio Thyroid Stim Immunoglob 01/01/18 01/01/18 01/01/18 04:45 11:40 17:05 WBC RBC Hgb Hct MCV MCH MCHC RDW Plt Count MPV Neut % (Auto) Lymph % (Auto) Dickens % (Auto) Eos % (Auto) Baso % (Auto) Neut # (Auto) Lymph # (Auto) Dickens # (Auto) Eos # (Auto) Baso # (Auto) Sodium 146 Potassium 4.0 Chloride 107 Carbon Dioxide 31 H Anion Gap 12 BUN 79 H Creatinine 1.6 H Est GFR ( Amer) 39 Est GFR (Non-Af Amer) 32 POC Glucose (mg/dL) 208 H 127 H Random Glucose 188 H Calcium 7.0 L Phosphorus Magnesium Total Bilirubin AST ALT Alkaline Phosphatase Total Protein Albumin Globulin Albumin/Globulin Ratio Thyroid Stim Immunoglob 01/01/18 01/02/18 01/02/18 21:46 05:21 11:27 WBC RBC Hgb Hct MCV MCH MCHC RDW Plt Count MPV Neut % (Auto) Lymph % (Auto) Dickens % (Auto) Eos % (Auto) Baso % (Auto) Neut # (Auto) Lymph # (Auto) Dickens # (Auto) Eos # (Auto) Baso # (Auto) Sodium Potassium Chloride Carbon Dioxide Anion Gap BUN Creatinine Est GFR ( Amer) Est GFR (Non-Af Amer) POC Glucose (mg/dL) 122 H 102 51 L Random Glucose Calcium Phosphorus Magnesium Total Bilirubin AST ALT Alkaline Phosphatase Total Protein Albumin Globulin Albumin/Globulin Ratio Thyroid Stim Immunoglob 01/02/18 01/02/18 11:29 11:29 WBC 8.0 RBC 3.92 Hgb 11.2 L Hct 34.7 MCV 88.7 D MCH 28.7 MCHC 32.3 L RDW 16.8 H Plt Count 27 L* D MPV 11.3 Neut % (Auto) 85.4 H Lymph % (Auto) 10.9 L Dickens % (Auto) 2.8 Eos % (Auto) 0.5 Baso % (Auto) 0.4 Neut # (Auto) 6.8 Lymph # (Auto) 0.9 L Dickens # (Auto) 0.2 Eos # (Auto) 0.0 Baso # (Auto) 0.0 Sodium 145 Potassium 3.3 L Chloride 112 H Carbon Dioxide 26 Anion Gap 10 BUN 80 H Creatinine 1.5 H Est GFR ( Amer) 42 Est GFR (Non-Af Amer) 35 POC Glucose (mg/dL) Random Glucose 64 L Calcium 6.6 L Phosphorus 5.1 H Magnesium 1.5 L Total Bilirubin 1.3 AST 329 H D ALT 101 H Alkaline Phosphatase 528 H D Total Protein 5.1 L Albumin 2.1 L Globulin 3.0 Albumin/Globulin Ratio 0.7 L Thyroid Stim Immunoglob Microbiology 12/28/17 14:40 Blood-Venous Blood Culture - Final NO GROWTH AFTER 5 DAYS 12/28/17 14:40 Blood-Venous Gram Stain - Final TEST NOT PERFORMED 12/28/17 14:40 Blood-Venous Blood Culture - Final NO GROWTH AFTER 5 DAYS 12/28/17 14:40 Blood-Venous Gram Stain - Final TEST NOT PERFORMED 12/31/17 04:40 Blood-Venous Blood Culture - Preliminary NO GROWTH AFTER 48 HOURS 12/31/17 04:45 Blood-Venous Blood Culture - Preliminary NO GROWTH AFTER 48 HOURS 12/28/17 16:39 Urine,Catheterized Urine Culture - Final Yeast Species 12/27/17 14:49 Blood-Venous Blood Culture - Final Escherichia Coli 12/27/17 14:49 Blood-Venous Gram Stain - Final 12/27/17 06:00 Naris MRSA Culture (Admit) - Final MRSA NOT DETECTED 12/27/17 14:49 Urine,Randolph Urine Culture - Final No Growth (<1,000 CFU/ML) Assessment and Plan (1) Sepsis Status: Acute (2) Dehydration Status: Acute (3) DKA (diabetic ketoacidoses) Status: Resolved (4) Acute renal disease Status: Acute (5) Bacteremia due to Gram-negative bacteria Status: Acute (6) UTI (urinary tract infection) Status: Acute - Assessment and Plan (Free Text) Assessment: A/P- 67 year old female was admitted with weakness and lethargy found to be in DKA and GNR bacteremia and ct abd/chest reported as left lung mass with liver mets . afebrile minimal leukocytosis has resolved. blood cx- e.coli pansensitive Urine cx- <1000 repeat blood cx 12/28/2017- neg x 4 TTE- no mention of any vegetations as per report. Ct report findings of lung mass with liver mets . plan- day #4 of ceftriaxone for e.coli bacteremia. was on 3 days of meropenm prior to that. check 2 more blood cx. check CXR rule out aspiration pneumonitis. Monitor carefully aspiration precautions. advise heme consult for increasing thrombocytopenia.
--- NOTE | 2018-01-02 17:03 | CARD ---
APPROVED REPORT Date of service: 01/02/2018 EKG Measurement Heart [id number] <Conclusion> Atrial flutter with 4:[address] abnormality, possible anterolateral subendocardial injury Abnormal ECG
--- NOTE | 2018-01-03 00:12 | PN ---
DATE: 01/02/2018 ENDOCRINOLOGY FOLLOWUP NOTE LOCATION: Room 414. SUBJECTIVE: This is a 67-year-old female with recent uncontrolled type 2 insulin-requiring diabetes, now being followed closely for metabolic management. Her glycemic levels are fluctuating but improved, and she remains on the modified carb diet because of the difficulty with swallowing as noted. Her glycemic levels today have been on the low side of normal, ranging from 70 to 164 mg/dL. LABORATORY DATA: Her chemistry showed a BUN of 80, sodium 145, potassium 3.3, chloride 112, CO2 of 26, glucose 64, and creatinine 1.5. ASSESSMENT AND PLAN: So at this time, we will lower once again her basal insulin with Levemir to be given as 4 units subcutaneously every 9 in the morning daily and 10 units at bedtime daily as ordered. We will continue the low-dose correction scale using Humalog insulin as given. We will follow and advise accordingly. Angela Copeland MD
[2018-01-03] MEDS: Proshield Plus GEL TOP SCH ×3 (00:35→16:50)
[2018-01-03] MEDS: Albuterol-Ipratrop 3 mg / 0.5 (3 ml) UD INH SCH ×5 (04:27→19:00)
[2018-01-03] MEDS: Dextrose 50% SYRINGE Inj (50 ml) IV PRN (05:29)
[2018-01-03] MEDS: Insulin Lispro (humaLOG) 100 Units/ml Inj SC SCH ×4 (06:52→23:00)
[2018-01-03] MEDS: Potassium Chl 40 mEq in D5-1/2 1,000 ML IV SCH ×2 (07:00→21:38)
[2018-01-03] MEDS: Insulin Detemir 100 Units/ml Inj SC SCH ×2 (09:01→23:04)
[2018-01-03] MEDS: methIMAzole 5 MG TAB PO SCH (09:02)
--- NOTE | 2018-01-03 13:07 | PQF ---
PROVIDER RESPONSE TEXT: Pt admitted with atrial flutter Not known if this was new or old REVIEWER QUERY TEXT: Atrial Flutter Type Atrial flutter is documented in the Medical Record. Please specify the type such as: -- Atypical - (Type II) -- Typical - (Type I) -- Other (please specify in the medical record) The patient's Clinical Indicators include: Documentation of atrial flutter with RVR. Query created by: Yoly Alcazar on 12/29/2017 9:54 AM Electronically signed by: Byron Torres MD 01/03/2018 1:03 PM
--- NOTE | 2018-01-03 13:51 | CP.PCM.PN ---
Subjective - Date & Time of Evaluation Date of Evaluation: 01/03/18 Time of Evaluation: 13:50 - Subjective Subjective: 67 yo WF with pmh/o htn, dm, DKA, gram neg sepsis, s/p A flutter, left UL mass, possible livermets, rt breast mass, rt adrenal mass with renal failure, pt is drowsy, arousable, pt not in distress, no complaints, renal function is improving Objective - Vital Signs/Intake and Output Vital Signs (last 24 hours): Temp Pulse Resp BP Pulse Ox 97.5 F L 113 H 18 90/63 L 95 01/03/18 12:17 01/03/18 12:17 01/03/18 12:17 01/03/18 12:17 01/03/18 12:17 Intake and Output: 01/03/18 01/03/18 06:59 18:59 Intake Total 1910 Output Total 700 Balance 1210 - Medications Medications: Current Medications Acetaminophen (Tylenol 650 Mg Supp) 650 mg ND Q6 PRN PRN Reason: Fever >100.4 F Last Admin: 01/01/18 17:14 Dose: 650 mg Acetaminophen (Tylenol 650 Mg Supp) 650 mg ND Q6 PRN PRN Reason: Pain, moderate (4-7) Last Admin: 01/01/18 22:07 Dose: 650 mg Albuterol/Ipratropium (Duoneb 3 Mg/0.5 Mg (3 Ml) Ud) 3 ml INH RQ4 [facility] Last Admin: 01/03/18 11:05 Dose: 3 ml Dextrose (Glutose 15) 0 gm PO ONCE PRN; Protocol PRN Reason: Hypoglycemia Protocol Dextrose (Dextrose 50% Inj) 0 ml IV STAT PRN; Protocol PRN Reason: Hypoglycemia Protocol Last Admin: 01/03/18 05:29 Dose: 50 ml Dextrose (Glutose 15) 0 gm PO ONCE PRN; Protocol PRN Reason: Hypoglycemia Protocol Dimethicone (Proshield Plus Skin Protectant) 1 applic TOP Q8 [facility] Last Admin: 01/03/18 09:00 Dose: 1 applic Glucagon (Glucagen Diagnostic Kit) 0 mg IM STAT PRN; Protocol PRN Reason: Hypoglycemia Protocol Glucagon (Glucagen Diagnostic Kit) 0 mg IM STAT PRN; Protocol PRN Reason: Hypoglycemia Protocol Ceftriaxone Sodium 1 gm/ (Sodium Chloride) 100 mls @ 100 mls/hr IVPB DAILY [facility]; Protocol Last Admin: 01/03/18 09:04 Dose: 100 mls/hr Potassium Chloride/Dextrose/Sod Cl (Potassium Chl 40 Meq In D5-1/2ns) 1,000 mls @ 100 mls/hr IV .Q10H [facility] Stop: 01/04/18 06:00 Last Admin: 01/03/18 07:00 Dose: 100 mls/hr Insulin Detemir (Levemir) 4 units SC DAILY [facility] Last Admin: 01/03/18 09:01 Dose: Not Given Insulin Detemir (Levemir) 10 units SC HS [facility] Insulin Human Lispro (Humalog) 0 units SC ACHS [facility] Last Admin: 01/03/18 12:34 Dose: Not Given Methimazole (Tapazole) 5 mg PO BID [facility] Last Admin: 01/03/18 09:02 Dose: Not Given Metoprolol Tartrate (Lopressor) 25 mg PO Q12 [facility] Last Admin: 01/03/18 08:55 Dose: Not Given Mirtazapine (Remeron) 7.5 mg PO HS [facility] Last Admin: 01/02/18 22:56 Dose: Not Given Nystatin (Nystop Topical Powder) 1 applic TOP TID [facility] Last Admin: 01/03/18 09:03 Dose: 1 applic - Labs Labs: 01/02/18 11:29 01/02/18 11:29 Assessment and Plan - Assessment and Plan (Free Text) Assessment: 67 yo female with htn, high sugars, increased bun/cr, cluidy urine with nitrite + ve, LE +, wbc+ acidosis, left upper lobe mass, rt breast mass, liver mests, T( vertebral lesion, rt adreanl lesion, blood c/s + for GNR 1. Renal failure, most likely JOVANNA sec to severe dehydration sec to DKA and high sugars 2. DKA 3. Gram negative sepsis, most likely source is urine 4. A. flutter 5. hypotension sec to sepsis, 6. left lung mass with liver mets, most likely lung cancer 7. Rt breast mass, r/o breast cancer , or mets 8. Rt Adrenal mass r/o mets renal function is slightly better, s.r 2.3 ---> 1.6---->1.5 yesterday c/w iv abx as per ID pt is DNR/ DNI over all prognosis is very poor
[2018-01-03] MEDS ORDERED: Chlorhexidine Gluconate 1 APPL/PKT TP ONE (15:52)
--- NOTE | 2018-01-03 16:21 | PN ---
DATE: 01/03/2018 LOCATION: Room 414. This is a 67-year-old female with recent uncontrolled type 2 insulin-requiring diabetes, now being followed closely for metabolic management. Her glycemic levels are fluctuating but improved, and the glucose values have ranged from 156 to 179 mg/dL. However, overnight, her glucose levels were 40 mg/dl. Her latest chemistry showed a BUN of 80, sodium 145, potassium 3.3, chloride 112, CO2 of 26, glucose 64 and creatinine 1.5. So at this time, we will modify once again her basal and bolus insulin regimen and lower the Levemir to 4 units subcu daily in the morning as ordered. We will lower the Levemir at bedtime to 10 units subcu overnight as given. We will obtain serial chemistries and supplement accordingly needed. We will follow. Angela Copeland MD
--- NOTE | 2018-01-03 17:25 | CP.PCM.CON ---
History of Present Illness - History of Present Illness History of Present Illness: 67 year old female with a history of DM, HTN, HL, admitted with DKA, bacteremia, candiduria, with progressive thrombocytopenia, radiographic evidence of metastatic malignancy. Per the patients son, she has been more fatigued and weak for the past several days prior to her hospitalization. He notes her mental status began to change which led to her bring brought to the ER. Review of her labs shows she was admitted with a normal plt count which has nadired at 27,000. Past medical history: DM, HTN, HL Past surgical history: Denies Family history: Several member with cancer. Social history: Former tobacco abuse Alleriges: NKA Review of systems: All remaining review of systems including HEENT, cardiovascular, respiratory, gastrointestinal, genitourinary, musculoskeletal, dermatologic, neurologic, and psychiatric are negative unless mentioned in the HPI. Past Patient History - Past Medical History & Family History Past Medical History?: Yes Past Family History: Reviewed and not pertinent - Past Social History Smoking Status: Heavy Smoker > 10 Cigarettes Daily Alcohol: None Drugs: Denies - CARDIAC Hx Hypercholesterolemia: Yes Hx Hypertension: Yes - PULMONARY Hx Respiratory Disorders: No - NEUROLOGICAL Hx Neurological Disorder: No - HEENT Hx HEENT Problems: No - RENAL Hx Chronic Kidney Disease: No - ENDOCRINE/METABOLIC Hx Endocrine Disorders: No Hx Diabetes Mellitus Type 2: Yes - HEMATOLOGICAL/ONCOLOGICAL Hx Blood Disorders: No - INTEGUMENTARY Hx Dermatological Problems: No - MUSCULOSKELETAL/RHEUMATOLOGICAL Hx Musculoskeletal Disorders: Yes - GASTROINTESTINAL Hx Gastrointestinal Disorders: No - GENITOURINARY/GYNECOLOGICAL Hx Genitourinary Disorders: No - PSYCHIATRIC Hx Psychophysiologic Disorder: No - SURGICAL HISTORY Hx Surgeries: No - ANESTHESIA Hx Anesthesia: No Meds Allergies/Adverse Reactions: Allergies Allergy/AdvReac Type Severity Reaction Status Date / Time No Known Allergies Allergy Verified 12/17/15 03:08 - Medications Medications: Current Medications Acetaminophen (Tylenol 650 Mg Supp) 650 mg OR Q6 PRN PRN Reason: Fever >100.4 F Last Admin: 01/01/18 17:14 Dose: 650 mg Acetaminophen (Tylenol 650 Mg Supp) 650 mg OR Q6 PRN PRN Reason: Pain, moderate (4-7) Last Admin: 01/03/18 15:47 Dose: 650 mg Albuterol/Ipratropium (Duoneb 3 Mg/0.5 Mg (3 Ml) Ud) 3 ml INH RQ4 [facility] Last Admin: 01/03/18 15:20 Dose: 3 ml Dextrose (Glutose 15) 0 gm PO ONCE PRN; Protocol PRN Reason: Hypoglycemia Protocol Dextrose (Dextrose 50% Inj) 0 ml IV STAT PRN; Protocol PRN Reason: Hypoglycemia Protocol Last Admin: 01/03/18 05:29 Dose: 50 ml Dextrose (Glutose 15) 0 gm PO ONCE PRN; Protocol PRN Reason: Hypoglycemia Protocol Dimethicone (Proshield Plus Skin Protectant) 1 applic TOP Q8 [facility] Last Admin: 01/03/18 16:50 Dose: Not Given Glucagon (Glucagen Diagnostic Kit) 0 mg IM STAT PRN; Protocol PRN Reason: Hypoglycemia Protocol Glucagon (Glucagen Diagnostic Kit) 0 mg IM STAT PRN; Protocol PRN Reason: Hypoglycemia Protocol Ceftriaxone Sodium 1 gm/ (Sodium Chloride) 100 mls @ 100 mls/hr IVPB DAILY [facility]; Protocol Last Admin: 01/03/18 09:04 Dose: 100 mls/hr Potassium Chloride/Dextrose/Sod Cl (Potassium Chl 40 Meq In D5-1/2ns) 1,000 mls @ 100 mls/hr IV .Q10H [facility] Stop: 01/04/18 06:00 Last Admin: 01/03/18 07:00 Dose: 100 mls/hr Insulin Detemir (Levemir) 4 units SC DAILY [facility] Last Admin: 01/03/18 09:01 Dose: Not Given Insulin Detemir (Levemir) 10 units SC HS [facility] Insulin Human Lispro (Humalog) 0 units SC ACHS [facility] Last Admin: 01/03/18 16:48 Dose: Not Given Methimazole (Tapazole) 5 mg PO BID [facility] Last Admin: 01/03/18 09:02 Dose: Not Given Metoprolol Tartrate (Lopressor) 25 mg PO Q12 [facility] Last Admin: 01/03/18 08:55 Dose: Not Given Mirtazapine (Remeron) 7.5 mg PO HS [facility] Last Admin: 01/02/18 22:56 Dose: Not Given Nystatin (Nystop Topical Powder) 1 applic TOP TID [facility] Last Admin: 01/03/18 16:50 Dose: Not Given Physical Exam - Head Exam Head Exam: ATRAUMATIC - Eye Exam Eye Exam: Normal appearance - ENT Exam ENT Exam: Mucous Membranes Dry - Respiratory Exam Respiratory Exam: NORMAL BREATHING PATTERN - Cardiovascular Exam Cardiovascular Exam: +S1, +S2 - GI/Abdominal Exam GI & Abdominal Exam: Normal Bowel Sounds - Psychiatric Exam Psychiatric exam: Flat Affect - Skin Skin Exam: Warm Results - Vital Signs Recent Vital Signs: Last Vital Signs Temp 97.5 F L 01/03/18 12:17 Pulse 113 H 01/03/18 12:17 Resp 18 01/03/18 12:17 BP 90/63 L 01/03/18 12:17 Pulse Ox 95 01/03/18 12:17 - Labs Result Diagrams: 01/04/18 12:50 01/04/18 13:10 Labs: Laboratory Results - last 24 hr 01/02/18 01/02/18 01/02/18 12:14 22:23 23:10 POC Glucose (mg/dL) 146 H 63 L 164 H 01/03/18 01/03/18 01/03/18 05:26 06:03 11:07 POC Glucose (mg/dL) 40 L 179 H 156 H 01/03/18 15:57 POC Glucose (mg/dL) 240 H Assessment & Plan (1) Thrombocytopenia Assessment and Plan: likely sepsis related rule out heparin induced thrombocytopenia; heparin stopped heparin AB and serotonine release assay to be sent manual plt count will check HIV and hepatitis panel will review peripheral smear Status: Acute (2) Anemia Assessment and Plan: mild likely anemia of chronic disease f/u work up Status: Acute (3) Malignancy Assessment and Plan: not a candidate for biopsy given severe thrombocytopenia percutaneous biopsy once more clinically improved and plt > 50,000 Thank you for this interesting consult. Status: Acute
[2018-01-04] MEDS: Proshield Plus GEL TOP SCH ×3 (01:00→17:20)
[2018-01-04] MEDS: Albuterol-Ipratrop 3 mg / 0.5 (3 ml) UD INH SCH ×6 (01:14→19:33)
[2018-01-04] MEDS: Potassium Chl 40 mEq in D5-1/2 1,000 ML IV SCH ×3 (02:00→21:53)
[2018-01-04] MEDS: Insulin Lispro (humaLOG) 100 Units/ml Inj SC SCH ×4 (06:34→21:51)
[2018-01-04] MEDS: Insulin Detemir 100 Units/ml Inj SC SCH ×2 (08:47→21:51)
[2018-01-04] MEDS: methIMAzole 5 MG TAB PO SCH ×2 (08:53→18:02)
--- NOTE | 2018-01-04 11:38 | CP.PCM.PN ---
Subjective - Date & Time of Evaluation Date of Evaluation: 01/02/18 Time of Evaluation: 20:00 Objective - Vital Signs/Intake and Output Vital Signs (last 24 hours): Temp Pulse Resp BP Pulse Ox 98.1 F 66 18 118/73 98 01/04/18 09:00 01/04/18 09:00 01/04/18 09:00 01/04/18 09:00 01/04/18 09:00 - Medications Medications: Current Medications Acetaminophen (Tylenol 650 Mg Supp) 650 mg DE Q6 PRN PRN Reason: Fever >100.4 F Last Admin: 01/01/18 17:14 Dose: 650 mg Acetaminophen (Tylenol 650 Mg Supp) 650 mg DE Q6 PRN PRN Reason: Pain, moderate (4-7) Last Admin: 01/03/18 15:47 Dose: 650 mg Albuterol/Ipratropium (Duoneb 3 Mg/0.5 Mg (3 Ml) Ud) 3 ml INH RQ4 [facility] Last Admin: 01/04/18 11:12 Dose: Not Given Dextrose (Glutose 15) 0 gm PO ONCE PRN; Protocol PRN Reason: Hypoglycemia Protocol Dextrose (Dextrose 50% Inj) 0 ml IV STAT PRN; Protocol PRN Reason: Hypoglycemia Protocol Last Admin: 01/03/18 05:29 Dose: 50 ml Dextrose (Glutose 15) 0 gm PO ONCE PRN; Protocol PRN Reason: Hypoglycemia Protocol Dimethicone (Proshield Plus Skin Protectant) 1 applic TOP Q8 [facility] Last Admin: 01/04/18 08:51 Dose: 1 applic Glucagon (Glucagen Diagnostic Kit) 0 mg IM STAT PRN; Protocol PRN Reason: Hypoglycemia Protocol Glucagon (Glucagen Diagnostic Kit) 0 mg IM STAT PRN; Protocol PRN Reason: Hypoglycemia Protocol Ceftriaxone Sodium 1 gm/ (Sodium Chloride) 100 mls @ 100 mls/hr IVPB DAILY [facility]; Protocol Last Admin: 01/04/18 08:55 Dose: 100 mls/hr Insulin Detemir (Levemir) 4 units SC DAILY [facility] Last Admin: 01/04/18 08:47 Dose: 4 unit Insulin Detemir (Levemir) 10 units SC HS [facility] Last Admin: 01/03/18 23:04 Dose: 10 u Insulin Human Lispro (Humalog) 0 units SC ACHS [facility] Last Admin: 01/04/18 06:34 Dose: Not Given Methimazole (Tapazole) 5 mg PO BID [facility] Last Admin: 01/04/18 08:53 Dose: 5 mg Metoprolol Tartrate (Lopressor) 25 mg PO Q12 [facility] Last Admin: 01/04/18 08:50 Dose: 25 mg Mirtazapine (Remeron) 7.5 mg PO HS [facility] Last Admin: 01/03/18 21:39 Dose: 7.5 mg Nystatin (Nystop Topical Powder) 1 applic TOP TID [facility] Last Admin: 01/04/18 10:41 Dose: 1 applic - Labs Labs: 01/02/18 11:29 01/02/18 11:29 Assessment and Plan (1) Altered mental status Status: Inactive
--- NOTE | 2018-01-04 11:40 | CP.PCM.PN ---
Subjective - Date & Time of Evaluation Date of Evaluation: 01/03/18 Time of Evaluation: 19:00 Objective - Vital Signs/Intake and Output Vital Signs (last 24 hours): Temp Pulse Resp BP Pulse Ox 98.1 F 66 18 118/73 98 01/04/18 09:00 01/04/18 09:00 01/04/18 09:00 01/04/18 09:00 01/04/18 09:00 - Medications Medications: Current Medications Acetaminophen (Tylenol 650 Mg Supp) 650 mg [place] Q6 PRN PRN Reason: Fever >100.4 F Last Admin: 01/01/18 17:14 Dose: 650 mg Acetaminophen (Tylenol 650 Mg Supp) 650 mg [place] Q6 PRN PRN Reason: Pain, moderate (4-7) Last Admin: 01/03/18 15:47 Dose: 650 mg Albuterol/Ipratropium (Duoneb 3 Mg/0.5 Mg (3 Ml) Ud) 3 ml INH RQ4 [facility] Last Admin: 01/04/18 11:12 Dose: Not Given Dextrose (Glutose 15) 0 gm PO ONCE PRN; Protocol PRN Reason: Hypoglycemia Protocol Dextrose (Dextrose 50% Inj) 0 ml IV STAT PRN; Protocol PRN Reason: Hypoglycemia Protocol Last Admin: 01/03/18 05:29 Dose: 50 ml Dextrose (Glutose 15) 0 gm PO ONCE PRN; Protocol PRN Reason: Hypoglycemia Protocol Dimethicone (Proshield Plus Skin Protectant) 1 applic TOP Q8 [facility] Last Admin: 01/04/18 08:51 Dose: 1 applic Glucagon (Glucagen Diagnostic Kit) 0 mg IM STAT PRN; Protocol PRN Reason: Hypoglycemia Protocol Glucagon (Glucagen Diagnostic Kit) 0 mg IM STAT PRN; Protocol PRN Reason: Hypoglycemia Protocol Ceftriaxone Sodium 1 gm/ (Sodium Chloride) 100 mls @ 100 mls/hr IVPB DAILY [facility]; Protocol Last Admin: 01/04/18 08:55 Dose: 100 mls/hr Insulin Detemir (Levemir) 4 units SC DAILY [facility] Last Admin: 01/04/18 08:47 Dose: 4 unit Insulin Detemir (Levemir) 10 units SC HS [facility] Last Admin: 01/03/18 23:04 Dose: 10 u Insulin Human Lispro (Humalog) 0 units SC ACHS [facility] Last Admin: 01/04/18 06:34 Dose: Not Given Methimazole (Tapazole) 5 mg PO BID [facility] Last Admin: 01/04/18 08:53 Dose: 5 mg Metoprolol Tartrate (Lopressor) 25 mg PO Q12 [facility] Last Admin: 01/04/18 08:50 Dose: 25 mg Mirtazapine (Remeron) 7.5 mg PO HS [facility] Last Admin: 01/03/18 21:39 Dose: 7.5 mg Nystatin (Nystop Topical Powder) 1 applic TOP TID [facility] Last Admin: 01/04/18 10:41 Dose: 1 applic - Labs Labs: 01/02/18 11:29 01/02/18 11:29 Assessment and Plan (1) Altered mental status Status: Inactive
--- NOTE | 2018-01-04 11:42 | CP.PCM.PN ---
Subjective - Date & Time of Evaluation Date of Evaluation: 01/04/18 Time of Evaluation: 11:15 Objective - Vital Signs/Intake and Output Vital Signs (last 24 hours): Temp Pulse Resp BP Pulse Ox 98.1 F 66 18 118/73 98 01/04/18 09:00 01/04/18 09:00 01/04/18 09:00 01/04/18 09:00 01/04/18 09:00 - Medications Medications: Current Medications Acetaminophen (Tylenol 650 Mg Supp) 650 mg [place] Q6 PRN PRN Reason: Fever >100.4 F Last Admin: 01/01/18 17:14 Dose: 650 mg Acetaminophen (Tylenol 650 Mg Supp) 650 mg KS Q6 PRN PRN Reason: Pain, moderate (4-7) Last Admin: 01/03/18 15:47 Dose: 650 mg Albuterol/Ipratropium (Duoneb 3 Mg/0.5 Mg (3 Ml) Ud) 3 ml INH RQ4 [facility] Last Admin: 01/04/18 11:12 Dose: Not Given Dextrose (Glutose 15) 0 gm PO ONCE PRN; Protocol PRN Reason: Hypoglycemia Protocol Dextrose (Dextrose 50% Inj) 0 ml IV STAT PRN; Protocol PRN Reason: Hypoglycemia Protocol Last Admin: 01/03/18 05:29 Dose: 50 ml Dextrose (Glutose 15) 0 gm PO ONCE PRN; Protocol PRN Reason: Hypoglycemia Protocol Dimethicone (Proshield Plus Skin Protectant) 1 applic TOP Q8 [facility] Last Admin: 01/04/18 08:51 Dose: 1 applic Glucagon (Glucagen Diagnostic Kit) 0 mg IM STAT PRN; Protocol PRN Reason: Hypoglycemia Protocol Glucagon (Glucagen Diagnostic Kit) 0 mg IM STAT PRN; Protocol PRN Reason: Hypoglycemia Protocol Ceftriaxone Sodium 1 gm/ (Sodium Chloride) 100 mls @ 100 mls/hr IVPB DAILY [facility]; Protocol Last Admin: 01/04/18 08:55 Dose: 100 mls/hr Insulin Detemir (Levemir) 4 units SC DAILY [facility] Last Admin: 01/04/18 08:47 Dose: 4 unit Insulin Detemir (Levemir) 10 units SC HS [facility] Last Admin: 01/03/18 23:04 Dose: 10 u Insulin Human Lispro (Humalog) 0 units SC ACHS [facility] Last Admin: 01/04/18 06:34 Dose: Not Given Methimazole (Tapazole) 5 mg PO BID [facility] Last Admin: 01/04/18 08:53 Dose: 5 mg Metoprolol Tartrate (Lopressor) 25 mg PO Q12 [facility] Last Admin: 01/04/18 08:50 Dose: 25 mg Mirtazapine (Remeron) 7.5 mg PO HS [facility] Last Admin: 01/03/18 21:39 Dose: 7.5 mg Nystatin (Nystop Topical Powder) 1 applic TOP TID [facility] Last Admin: 01/04/18 10:41 Dose: 1 applic - Labs Labs: 01/02/18 11:29 01/02/18 11:29 Assessment and Plan (1) Altered mental status Status: Inactive
[2018-01-04 12:58] LABS: BASO % 0.3 % (0.0-2.0); EOS % 0.2 % (0.0-4.0); HEMOGLOBIN 9.9 g/dL (12.0-16.0); LYMPH # 0.8 K/uL (1.0-4.3); MEAN CELL VOLUME 89.2 fl (81.0-99.0); MEAN CORPUSCULAR HEMOGLOBIN 28.5 pg (27.0-31.0); MEAN PLATELET VOLUME 11.5 fl (7.2-11.7); MONO # 0.2 K/uL (0.0-0.8); MONO % 1.8 % (0.0-10.0); NEUT # 9.3 K/uL (1.8-7.0); NEUT % 89.7 % (50.0-75.0); NRBC % 0.1 % (0.0-0.0); PLATELET COUNT 31 K/uL (130-400); RBC 3.47 Mil/uL (3.80-5.20); WHITE BLOOD COUNT 10.4 K/uL (4.8-10.8)
[2018-01-04 13:40] LABS: ALB/GLOB RATIO 0.6 (1.0-2.1); ALBUMIN 1.9 g/dL (3.5-5.0); CALCIUM 6.6 mg/dL (8.4-10.2)
[2018-01-04 15:21] LABS: BASOPHIL 1 % (0-2); LYMPHOCYTE 6 % (20-50); MONOCYTE 1 % (0-10); NEUTROPHIL 92 % (42-75); PLATELET ESTIMATE MARKEDLY DECREASED (NORMAL); TOTAL CELLS COUNTED 100
[2018-01-04 15:24] LABS: ANISOCYTOSIS SLIGHT; OVALOCYTES MODERATE
[2018-01-04 17:22] LABS: FOLATE 4.8 ng/mL
--- NOTE | 2018-01-04 20:30 | PN ---
DATE: 01/04/2018 LOCATION: In [address][id number]. SUBJECTIVE: This is a 67-year-old female with recent uncontrolled type 2 insulin-requiring diabetes now being followed closely for metabolic management. Her glycemic levels are fluctuating but improved as noted overnight and the glucose values have ranged from 137-240 mg/dL. LABORATORY DATA: Her chemistry showed a BUN of 74, sodium 148, potassium 4.1, chloride 118, CO2 27, glucose 137 and creatinine 1.5. ASSESSMENT AND PLAN: So at this time, we will continue once again the same basal insulin to allow for dose equilibration and keep her on the Levemir given as 4 units subcutaneously every 10:00 a.m. daily and Levemir to be given as 10 units every bedtime daily as ordered. We will obtain serial chemistries and supplement accordingly needed. We will follow. Angela Copeland MD
--- NOTE | 2018-01-04 22:33 | CP.PCM.PN ---
Subjective - Date & Time of Evaluation Date of Evaluation: 01/04/18 Time of Evaluation: 19:00 - Subjective Subjective: Fatigued peripheral smear: Neutrophilia with toxic granulation, mild anisopoikilocytosis, giant platelets noted, no plt clumping, no schistocytes. Objective - Vital Signs/Intake and Output Vital Signs (last 24 hours): Temp Pulse Resp BP Pulse Ox 97.7 F 64 16 126/77 97 01/04/18 20:06 01/04/18 20:06 01/04/18 20:06 01/04/18 20:06 01/04/18 20:06 - Medications Medications: Current Medications Acetaminophen (Tylenol 650 Mg Supp) 650 mg [place] Q6 PRN PRN Reason: Fever >100.4 F Last Admin: 01/01/18 17:14 Dose: 650 mg Acetaminophen (Tylenol 650 Mg Supp) 650 mg [place] Q6 PRN PRN Reason: Pain, moderate (4-7) Last Admin: 01/04/18 22:07 Dose: 650 mg Albuterol/Ipratropium (Duoneb 3 Mg/0.5 Mg (3 Ml) Ud) 3 ml INH RQ4 [facility] Last Admin: 01/04/18 19:33 Dose: 3 ml Dextrose (Glutose 15) 0 gm PO ONCE PRN; Protocol PRN Reason: Hypoglycemia Protocol Dextrose (Dextrose 50% Inj) 0 ml IV STAT PRN; Protocol PRN Reason: Hypoglycemia Protocol Last Admin: 01/03/18 05:29 Dose: 50 ml Dextrose (Glutose 15) 0 gm PO ONCE PRN; Protocol PRN Reason: Hypoglycemia Protocol Dimethicone (Proshield Plus Skin Protectant) 1 applic TOP Q8 [facility] Last Admin: 01/04/18 17:20 Dose: 1 applic Glucagon (Glucagen Diagnostic Kit) 0 mg IM STAT PRN; Protocol PRN Reason: Hypoglycemia Protocol Glucagon (Glucagen Diagnostic Kit) 0 mg IM STAT PRN; Protocol PRN Reason: Hypoglycemia Protocol Ceftriaxone Sodium 1 gm/ (Sodium Chloride) 100 mls @ 100 mls/hr IVPB DAILY [facility]; Protocol Last Admin: 01/04/18 08:55 Dose: 100 mls/hr Potassium Chloride/Dextrose/Sod Cl (Potassium Chl 40 Meq In D5-1/2ns) 1,000 mls @ 100 mls/hr IV .Q10H [facility] Stop: 01/05/18 12:02 Last Admin: 01/04/18 21:53 Dose: 100 mls/hr Insulin Detemir (Levemir) 4 units SC DAILY [facility] Last Admin: 01/04/18 08:47 Dose: 4 unit Insulin Detemir (Levemir) 10 units SC HS [facility] Last Admin: 01/04/18 21:51 Dose: Not Given Insulin Human Lispro (Humalog) 0 units SC ACHS [facility] Last Admin: 01/04/18 21:51 Dose: Not Given Methimazole (Tapazole) 5 mg PO BID [facility] Last Admin: 01/04/18 18:02 Dose: Not Given Metoprolol Tartrate (Lopressor) 25 mg PO Q12 [facility] Last Admin: 01/04/18 21:52 Dose: Not Given Mirtazapine (Remeron) 7.5 mg PO HS [facility] Last Admin: 01/04/18 21:52 Dose: Not Given Nystatin (Nystop Topical Powder) 1 applic TOP TID [facility] Last Admin: 01/04/18 17:21 Dose: 1 applic - Labs Labs: 01/04/18 12:50 01/04/18 13:10 - Head Exam Head Exam: ATRAUMATIC - Eye Exam Eye Exam: Normal appearance - ENT Exam ENT Exam: Mucous Membranes Dry - Respiratory Exam Respiratory Exam: NORMAL BREATHING PATTERN - Cardiovascular Exam Cardiovascular Exam: +S2, +S4 Assessment and Plan (1) Thrombocytopenia Assessment & Plan: likely sepsis related rule out HIT; w/u sent Status: Acute (2) Anemia Assessment & Plan: chronic disease Status: Acute (3) Malignancy Assessment & Plan: percutaneous biopsy when clinically improved and plt > 50,000 Status: Acute
[2018-01-05] MEDS: Proshield Plus GEL TOP SCH ×3 (00:42→16:27)
[2018-01-05] MEDS: Albuterol-Ipratrop 3 mg / 0.5 (3 ml) UD INH SCH ×7 (00:48→23:32)
[2018-01-05 05:46] LABS: EOS % 0.3 % (0.0-4.0); HEMOGLOBIN 8.9 g/dL (12.0-16.0); LYMPH # 0.6 K/uL (1.0-4.3); LYMPH % 6.9 % (20.0-40.0); MEAN CELL VOLUME 90.1 fl (81.0-99.0); MEAN CORPUSCULAR HEMOGLOBIN 28.8 pg (27.0-31.0); MEAN PLATELET VOLUME 10.2 fl (7.2-11.7); MONO # 0.2 K/uL (0.0-0.8); MONO % 1.9 % (0.0-10.0); NEUT # 7.3 K/uL (1.8-7.0); NEUT % 90.9 % (50.0-75.0); RBC 3.09 Mil/uL (3.80-5.20); RED CELL DISTRIBUTION WIDTH 16.9 % (11.5-14.5); WHITE BLOOD COUNT 8.1 K/uL (4.8-10.8)
[2018-01-05 05:55] LABS: PLATELET COUNT 18 K/uL (130-400)
[2018-01-05 06:38] LABS: ALB/GLOB RATIO 0.7 (1.0-2.1); ALBUMIN 1.9 g/dL (3.5-5.0); CALCIUM 6.8 mg/dL (8.4-10.2)
--- NOTE | 2018-01-05 07:01 | CON ---
DATE: 01/04/2018 HISTORY OF PRESENT ILLNESS: Ms. Diamond is a 67-year-old female who was referred for pulmonary evaluation by Dr. Concepcion. She was admitted to the intensive care unit and referred for pulmonary evaluation after she was transferred to the telemetry unit for evaluation of lung mass with metastasis. She is unable to give much history, appears drowsy, but easily arousable. Answers questions with "yes" or "no." She appears weak and lethargic. No further history could be obtained from her, but as per reviewing the medical records, she has a history of renal insufficiency, acute on chronic; diabetic ketoacidosis which appears to have resolved; gram-negative septicemia; atrial flutter; hypertension, recently in septic shock. 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 She has a history of chronic cigarette smoking FAMILY HISTORY: No family history is obtained. PHYSICAL EXAMINATION: GENERAL: The patient is easily arousable, but does not offer much history. VITAL SIGNS: Remarkable for blood pressure of 118/73, pulse of 66, respiratory rate 18, she is afebrile, and O2 saturations 98% on room air. SKIN: Shows poor turgor. HEENT: Pupils are equal and reactive to light and accommodation. Mouth shows fair hygiene. JVP flat. LUNGS: Fair aeration bilaterally with dullness at the left lung base. HEART: S1 and S2. BREASTS: Right breast mass. ABDOMEN: Soft and nontender. No organomegaly. EXTREMITIES: No edema or cyanosis appreciated. CENTRAL NERVOUS SYSTEM: Exam could not be evaluated completely because the patient is drowsy. LABORATORY DATA: Remarkable for WBC of 8, hemoglobin 11.2, platelet count 27,000. Chest x-ray is remarkable for left central lung mass lesion confirmed on CAT scan, and CT scan of the brain suggestive of chronic microvascular ischemic changes. CT scan of the abdomen and pelvis, multiple soft tissue mass lesions in the liver consistent with liver metastasis, stable nodular opacities right adrenal, sclerotic bone lesions L1, left posterior iliac bone suspicious for metastasis, interval worsening of aortic aneurysm since previous study, that measured about 3.8 cm. Official report of the CT scan of the chest is remarkable for large left upper lobe central mass, extended into the left hilum, associated with postobstructing atelectasis on left upper lobe bronchial carcinoma, right hilar lymphadenopathy extending to the left region, small nodular opacities of the left lung which may represent infectious process, less likely metastasis, sclerotic bone lesions at T9 vertebral body suspicious for metastasis, soft tissue mass T9, probably represented liver metastasis; soft tissue mass lesions right breast, 2.8 cm in largest transverse diameter, and 2.7 cm in AP diameter suspicious for malignant neoplasm. IMPRESSION AND PLAN: This 67-year-old lady with multiple medical problems and what appears to be malignancy, probably lung with multiple metastasis, could also be breast with multiple metastasis. One suggest is this patient's multiple medical conditions, and presently, she has been made do not resuscitate or do not intubate in case of cardiac or pulmonary arrest, it might be prudent to pursue supportive and symptomatic therapy (may be hospice care). Bronchoscopy with biopsy would be hazardous in this patient, especially in view of the fact that she has severe thrombocytopenia, and appears to have severe medical condition. We will continue to follow with you, for intervention, will depend on the patient's family decision and the patient's workup. We will discuss the case with Dr. Concepcion. Darvin Reid MD
[2018-01-05 08:13] LABS: HEPATITIS B SURFACE AG Negative (NEGATIVE)
[2018-01-05 08:19] LABS: HEPATITIS A IGM NEGATIVE (NEGATIVE); HEPATITIS B CORE AB NEGATIVE (NEGATIVE)
--- NOTE | 2018-01-05 08:35 | PN ---
DATE: 12/31/2017 ENDOCRINOLOGY FOLLOWUP NOTE LOCATION: In room 435. SUBJECTIVE: This is a 67-year-old female with recent uncontrolled type 2 insulin-requiring diabetes, now being followed closely for metabolic management. She actually feel the swallowing evaluation has been kept n.p.o. as noted thereof. Her glycemic levels are fluctuating, but improved and now been in the low side of normal overnight with glucose values ranging from 83 to 99 and 116 mg/dL. LABORATORY DATA: Her latest chemistries showed a BUN of 84, sodium 149, potassium 3, chloride 116, CO2 of 32, glucose 107, and creatinine 1.6. ASSESSMENT AND PLAN: So at this time, we will lower the basal insulin with Levemir to be given as 20 units subcutaneously at bedtime daily and 10 units at 10 a.m. daily as ordered. We will titrate incrementally as indicated to optimize metabolic control. We will obtain serial chemistries and supplement accordingly as needed. We will follow. Angela Copeland MD
[2018-01-05] MEDS: Insulin Lispro (humaLOG) 100 Units/ml Inj SC SCH ×4 (08:53→22:05)
[2018-01-05] MEDS: Potassium Chl 40 mEq in D5-1/2 1,000 ML IV SCH (08:57)
[2018-01-05] MEDS: methIMAzole 5 MG TAB PO SCH ×2 (08:58→16:28)
[2018-01-05] MEDS: Insulin Detemir 100 Units/ml Inj SC SCH ×3 (09:01→22:12)
--- NOTE | 2018-01-05 09:45 | CP.PCM.PN ---
Subjective - Date & Time of Evaluation Date of Evaluation: 01/05/18 Time of Evaluation: 09:45 - Subjective Subjective: CLINICALLY UNCHANGED GRAVELY ILL WILL CONTINUE RX ORDERED DEFER FURTHER PULMONARY WORKUP FOR NOW PROGNOSIS IS POOR Objective - Vital Signs/Intake and Output Vital Signs (last 24 hours): Temp Pulse Resp BP Pulse Ox 97.4 F L 59 L 20 122/66 95 01/05/18 08:00 01/05/18 08:56 01/05/18 08:00 01/05/18 08:56 01/05/18 08:00 - Medications Medications: Current Medications Acetaminophen (Tylenol 650 Mg Supp) 650 mg [place] Q6 PRN PRN Reason: Fever >100.4 F Last Admin: 01/01/18 17:14 Dose: 650 mg Acetaminophen (Tylenol 650 Mg Supp) 650 mg [place] Q6 PRN PRN Reason: Pain, moderate (4-7) Last Admin: 01/04/18 14:58 Dose: 650 mg Albuterol/Ipratropium (Duoneb 3 Mg/0.5 Mg (3 Ml) Ud) 3 ml INH RQ4 [facility] Last Admin: 01/05/18 07:28 Dose: 3 ml Dextrose (Glutose 15) 0 gm PO ONCE PRN; Protocol PRN Reason: Hypoglycemia Protocol Dextrose (Dextrose 50% Inj) 0 ml IV STAT PRN; Protocol PRN Reason: Hypoglycemia Protocol Last Admin: 01/03/18 05:29 Dose: 50 ml Dextrose (Glutose 15) 0 gm PO ONCE PRN; Protocol PRN Reason: Hypoglycemia Protocol Dimethicone (Proshield Plus Skin Protectant) 1 applic TOP Q8 [facility] Last Admin: 01/05/18 09:01 Dose: 1 applic Glucagon (Glucagen Diagnostic Kit) 0 mg IM STAT PRN; Protocol PRN Reason: Hypoglycemia Protocol Glucagon (Glucagen Diagnostic Kit) 0 mg IM STAT PRN; Protocol PRN Reason: Hypoglycemia Protocol Ceftriaxone Sodium 1 gm/ (Sodium Chloride) 100 mls @ 100 mls/hr IVPB DAILY [facility]; Protocol Last Admin: 01/05/18 09:42 Dose: 100 mls/hr Dextrose/Sodium Chloride (Dextrose 5%-0.45% Ns 500 Ml) 1,000 mls @ 125 mls/hr IV .Q8H [facility] Stop: 01/06/18 09:43 Insulin Detemir (Levemir) 4 units SC DAILY [facility] Last Admin: 01/05/18 09:01 Dose: Not Given Insulin Detemir (Levemir) 10 units SC HS [facility] Last Admin: 01/04/18 21:51 Dose: Not Given Insulin Human Lispro (Humalog) 0 units SC ACHS [facility] Last Admin: 01/05/18 08:53 Dose: Not Given Methimazole (Tapazole) 5 mg PO BID [facility] Last Admin: 01/05/18 08:58 Dose: Not Given Metoprolol Tartrate (Lopressor) 25 mg PO Q12 [facility] Last Admin: 01/05/18 08:56 Dose: Not Given Mirtazapine (Remeron) 7.5 mg PO HS [facility] Last Admin: 01/04/18 21:52 Dose: Not Given Nystatin (Nystop Topical Powder) 1 applic TOP TID [facility] Last Admin: 01/05/18 08:57 Dose: 1 applic - Labs Labs: 01/05/18 05:15 01/05/18 05:15
[2018-01-05 10:08] LABS: HEPATITIS C ANTIBODY REACTIVE (NEGATIVE)
[2018-01-05 10:41] LABS: BASOPHIL 1 % (0-2); LYMPHOCYTE 7 % (20-50); METAMYELOCYTE 1 % (0-0); MONOCYTE 1 % (0-10); MYELOCYTE 1 % (0-0); NEUTROPHIL 89 % (42-75); PLATELET ESTIMATE DECREASED (NORMAL); TOTAL CELLS COUNTED 100
[2018-01-05 10:42] LABS: ANISOCYTOSIS SLIGHT; HYPOCHROMIC MODERATE; POLYCHROMIC SLIGHT; TOXIC GRANULATION PRESENT
[2018-01-05 10:43] LABS: OVALOCYTES SLIGHT
--- NOTE | 2018-01-05 10:51 | CP.PCM.PN ---
Subjective - Date & Time of Evaluation Date of Evaluation: 01/05/18 Time of Evaluation: 10:51 - Subjective Subjective: ID Note- Pt. seen and examined today . remains very weak . afebrile Objective - Vital Signs/Intake and Output Vital Signs (last 24 hours): Temp Pulse Resp BP Pulse Ox 97.4 F L 59 L 20 122/66 95 01/05/18 08:00 01/05/18 08:56 01/05/18 08:00 01/05/18 08:56 01/05/18 08:00 - Medications Medications: Current Medications Acetaminophen (Tylenol 650 Mg Supp) 650 mg [place] Q6 PRN PRN Reason: Fever >100.4 F Last Admin: 01/01/18 17:14 Dose: 650 mg Acetaminophen (Tylenol 650 Mg Supp) 650 mg MT Q6 PRN PRN Reason: Pain, moderate (4-7) Last Admin: 01/04/18 14:58 Dose: 650 mg Albuterol/Ipratropium (Duoneb 3 Mg/0.5 Mg (3 Ml) Ud) 3 ml INH RQ4 [facility] Last Admin: 01/05/18 07:28 Dose: 3 ml Dextrose (Glutose 15) 0 gm PO ONCE PRN; Protocol PRN Reason: Hypoglycemia Protocol Dextrose (Dextrose 50% Inj) 0 ml IV STAT PRN; Protocol PRN Reason: Hypoglycemia Protocol Last Admin: 01/03/18 05:29 Dose: 50 ml Dextrose (Glutose 15) 0 gm PO ONCE PRN; Protocol PRN Reason: Hypoglycemia Protocol Dimethicone (Proshield Plus Skin Protectant) 1 applic TOP Q8 [facility] Last Admin: 01/05/18 09:01 Dose: 1 applic Glucagon (Glucagen Diagnostic Kit) 0 mg IM STAT PRN; Protocol PRN Reason: Hypoglycemia Protocol Glucagon (Glucagen Diagnostic Kit) 0 mg IM STAT PRN; Protocol PRN Reason: Hypoglycemia Protocol Ceftriaxone Sodium 1 gm/ (Sodium Chloride) 100 mls @ 100 mls/hr IVPB DAILY [facility]; Protocol Last Admin: 01/05/18 09:42 Dose: 100 mls/hr Dextrose/Sodium Chloride (Dextrose 5%-0.45% Ns 500 Ml) 1,000 mls @ 125 mls/hr IV .Q8H [facility] Stop: 01/06/18 09:43 Last Admin: 01/05/18 10:05 Dose: 125 mls/hr Insulin Detemir (Levemir) 4 units SC DAILY [facility] Last Admin: 01/05/18 09:01 Dose: Not Given Insulin Detemir (Levemir) 10 units SC HS [facility] Last Admin: 01/04/18 21:51 Dose: Not Given Insulin Human Lispro (Humalog) 0 units SC ACHS [facility] Last Admin: 01/05/18 08:53 Dose: Not Given Methimazole (Tapazole) 5 mg PO BID [facility] Last Admin: 01/05/18 08:58 Dose: Not Given Metoprolol Tartrate (Lopressor) 25 mg PO Q12 [facility] Last Admin: 01/05/18 08:56 Dose: Not Given Mirtazapine (Remeron) 7.5 mg PO HS [facility] Last Admin: 01/04/18 21:52 Dose: Not Given Nystatin (Nystop Topical Powder) 1 applic TOP TID [facility] Last Admin: 01/05/18 08:57 Dose: 1 applic - Labs Labs: - Additional Findings Additional findings: - Constitutional Appears: Chronically Ill Additional comments: weak still - Head Exam Head Exam: ATRAUMATIC - ENT Exam ENT Exam: Normal Oropharynx - Neck Exam Neck exam: Positive for: Full Rom - Respiratory Exam Respiratory Exam: Additional comments: no wheezing poor inspiratory effort - Cardiovascular Exam Cardiovascular Exam: RRR, +S1, +S2 - GI/Abdominal Exam GI & Abdominal Exam: Normal Bowel Sounds, Soft Additional comments: no tenderness no guarding, no rebound - Extremities Exam Additional comments: no edema b/l LE - Neurological Exam Additional comments: does not answer questions only nods Laboratory Results - last 72 hr 01/02/18 01/02/18 01/02/18 12:14 16:19 22:23 WBC RBC Hgb Hct MCV MCH MCHC RDW Plt Count Manual Plt Count MPV Neut % (Auto) Lymph % (Auto) [place] % (Auto) Eos % (Auto) Baso % (Auto) Neut # (Auto) Lymph # (Auto) [place] # (Auto) Eos # (Auto) Baso # (Auto) Neutrophils % (Manual) Lymphocytes % (Manual) Monocytes % (Manual) Basophils % (Manual) Metamyelocytes % Myelocytes % Toxic Granulation Platelet Estimate Polychromasia Hypochromasia (manual) Anisocytosis (manual) Macrocytosis (manual) Ovalocytes Retic Count Sodium Potassium Chloride Carbon Dioxide Anion Gap BUN Creatinine Est GFR ( Amer) Est GFR (Non-Af Amer) POC Glucose (mg/dL) 146 H 70 63 L Random Glucose Calcium Phosphorus Magnesium Ferritin Total Bilirubin AST ALT Alkaline Phosphatase Total Protein Albumin Globulin Albumin/Globulin Ratio Vitamin B12 Folate Hepatitis A IgM Ab Hep Bs Antigen Hep B Core IgM Ab Hepatitis C Antibody HIV 1&2 Antibody Screen Blood Type Blood Type Confirm Antibody Screen BBK History Checked 01/02/18 01/03/18 01/03/18 23:10 05:26 06:03 WBC RBC Hgb Hct MCV MCH MCHC RDW Plt Count Manual Plt Count MPV Neut % (Auto) Lymph % (Auto) [place] % (Auto) Eos % (Auto) Baso % (Auto) Neut # (Auto) Lymph # (Auto) [place] # (Auto) Eos # (Auto) Baso # (Auto) Neutrophils % (Manual) Lymphocytes % (Manual) Monocytes % (Manual) Basophils % (Manual) Metamyelocytes % Myelocytes % Toxic Granulation Platelet Estimate Polychromasia Hypochromasia (manual) Anisocytosis (manual) Macrocytosis (manual) Ovalocytes Retic Count Sodium Potassium Chloride Carbon Dioxide Anion Gap BUN Creatinine Est GFR ( Amer) Est GFR (Non-Af Amer) POC Glucose (mg/dL) 164 H 40 L 179 H Random Glucose Calcium Phosphorus Magnesium Ferritin Total Bilirubin AST ALT Alkaline Phosphatase Total Protein Albumin Globulin Albumin/Globulin Ratio Vitamin B12 Folate Hepatitis A IgM Ab Hep Bs Antigen Hep B Core IgM Ab Hepatitis C Antibody HIV 1&2 Antibody Screen Blood Type Blood Type Confirm Antibody Screen BBK History Checked 01/03/18 01/03/18 01/03/18 11:07 15:57 22:17 WBC RBC Hgb Hct MCV MCH MCHC RDW Plt Count Manual Plt Count MPV Neut % (Auto) Lymph % (Auto) [place] % (Auto) Eos % (Auto) Baso % (Auto) Neut # (Auto) Lymph # (Auto) [place] # (Auto) Eos # (Auto) Baso # (Auto) Neutrophils % (Manual) Lymphocytes % (Manual) Monocytes % (Manual) Basophils % (Manual) Metamyelocytes % Myelocytes % Toxic Granulation Platelet Estimate Polychromasia Hypochromasia (manual) Anisocytosis (manual) Macrocytosis (manual) Ovalocytes Retic Count Sodium Potassium Chloride Carbon Dioxide Anion Gap BUN Creatinine Est GFR ( Amer) Est GFR (Non-Af Amer) POC Glucose (mg/dL) 156 H 240 H 284 H Random Glucose Calcium Phosphorus Magnesium Ferritin Total Bilirubin AST ALT Alkaline Phosphatase Total Protein Albumin Globulin Albumin/Globulin Ratio Vitamin B12 Folate Hepatitis A IgM Ab Hep Bs Antigen Hep B Core IgM Ab Hepatitis C Antibody HIV 1&2 Antibody Screen Blood Type Blood Type Confirm Antibody Screen BBK History Checked 01/04/18 01/04/18 01/04/18 06:26 06:30 06:30 WBC RBC Hgb Hct MCV MCH MCHC RDW Plt Count Manual Plt Count 32 L* MPV Neut % (Auto) Lymph % (Auto) [place] % (Auto) Eos % (Auto) Baso % (Auto) Neut # (Auto) Lymph # (Auto) [place] # (Auto) Eos # (Auto) Baso # (Auto) Neutrophils % (Manual) Lymphocytes % (Manual) Monocytes % (Manual) Basophils % (Manual) Metamyelocytes % Myelocytes % Toxic Granulation Platelet Estimate Polychromasia Hypochromasia (manual) Anisocytosis (manual) Macrocytosis (manual) Ovalocytes Retic Count 1.0 Sodium Potassium Chloride Carbon Dioxide Anion Gap BUN Creatinine Est GFR ( Amer) Est GFR (Non-Af Amer) POC Glucose (mg/dL) 219 H Random Glucose Calcium Phosphorus Magnesium Ferritin Total Bilirubin AST ALT Alkaline Phosphatase Total Protein Albumin Globulin Albumin/Globulin Ratio Vitamin B12 Folate Hepatitis A IgM Ab Negative Hep Bs Antigen Negative Hep B Core IgM Ab Negative Hepatitis C Antibody Reactive HIV 1&2 Antibody Screen Blood Type Blood Type Confirm Antibody Screen BBK History Checked 01/04/18 01/04/18 01/04/18 06:30 06:30 11:07 WBC RBC Hgb Hct MCV MCH MCHC RDW Plt Count Manual Plt Count MPV Neut % (Auto) Lymph % (Auto) [place] % (Auto) Eos % (Auto) Baso % (Auto) Neut # (Auto) Lymph # (Auto) [place] # (Auto) Eos # (Auto) Baso # (Auto) Neutrophils % (Manual) Lymphocytes % (Manual) Monocytes % (Manual) Basophils % (Manual) Metamyelocytes % Myelocytes % Toxic Granulation Platelet Estimate Polychromasia Hypochromasia (manual) Anisocytosis (manual) Macrocytosis (manual) Ovalocytes Retic Count Sodium Potassium Chloride Carbon Dioxide Anion Gap BUN Creatinine Est GFR ( Amer) Est GFR (Non-Af Amer) POC Glucose (mg/dL) 165 H Random Glucose Calcium Phosphorus Magnesium Ferritin 1720.0 H Total Bilirubin AST ALT Alkaline Phosphatase Total Protein Albumin Globulin Albumin/Globulin Ratio Vitamin B12 905 Folate 4.8 Hepatitis A IgM Ab Hep Bs Antigen Hep B Core IgM Ab Hepatitis C Antibody HIV 1&2 Antibody Screen Negative Blood Type Blood Type Confirm Antibody Screen BBK History Checked 01/04/18 01/04/18 01/04/18 12:50 13:07 13:10 WBC 10.4 RBC 3.47 L Hgb 9.9 L Hct 31.0 L MCV 89.2 MCH 28.5 MCHC 32.0 L RDW 17.0 H Plt Count 31 L Manual Plt Count MPV 11.5 Neut % (Auto) 89.7 H Lymph % (Auto) 8.0 L [place] % (Auto) 1.8 Eos % (Auto) 0.2 Baso % (Auto) 0.3 Neut # (Auto) 9.3 H Lymph # (Auto) 0.8 L [place] # (Auto) 0.2 Eos # (Auto) 0.0 Baso # (Auto) 0.0 Neutrophils % (Manual) 92 H Lymphocytes % (Manual) 6 L Monocytes % (Manual) 1 Basophils % (Manual) 1 Metamyelocytes % Myelocytes % Toxic Granulation Platelet Estimate Markedly decreased L Polychromasia Hypochromasia (manual) Anisocytosis (manual) Slight Macrocytosis (manual) Slight Ovalocytes Moderate Retic Count Sodium 148 Potassium 4.1 Chloride 118 H Carbon Dioxide 27 Anion Gap 7 L BUN 74 H Creatinine 1.5 H Est GFR ( Amer) 42 Est GFR (Non-Af Amer) 35 POC Glucose (mg/dL) 147 H Random Glucose 137 H Calcium 6.6 L Phosphorus 5.3 H Magnesium 1.5 L Ferritin Total Bilirubin 0.8 AST 114 H D ALT 61 H D Alkaline Phosphatase 484 H Total Protein 4.9 L Albumin 1.9 L Globulin 3.0 Albumin/Globulin Ratio 0.6 L Vitamin B12 Folate Hepatitis A IgM Ab Hep Bs Antigen Hep B Core IgM Ab Hepatitis C Antibody HIV 1&2 Antibody Screen Blood Type Blood Type Confirm Antibody Screen BBK History Checked 01/04/18 01/04/18 01/05/18 16:28 21:46 05:15 WBC 8.1 RBC 3.09 L Hgb 8.9 L Hct 27.9 L MCV 90.1 MCH 28.8 MCHC 32.0 L RDW 16.9 H Plt Count 18 L* D Manual Plt Count MPV 10.2 Neut % (Auto) 90.9 H Lymph % (Auto) 6.9 L [place] % (Auto) 1.9 Eos % (Auto) 0.3 Baso % (Auto) 0.0 Neut # (Auto) 7.3 H Lymph # (Auto) 0.6 L [place] # (Auto) 0.2 Eos # (Auto) 0.0 Baso # (Auto) 0.0 Neutrophils % (Manual) 89 H Lymphocytes % (Manual) 7 L Monocytes % (Manual) 1 Basophils % (Manual) 1 Metamyelocytes % 1 H Myelocytes % 1 H Toxic Granulation Present Platelet Estimate Decreased L Polychromasia Slight Hypochromasia (manual) Moderate Anisocytosis (manual) Slight Macrocytosis (manual) Ovalocytes Slight Retic Count Sodium Potassium Chloride Carbon Dioxide Anion Gap BUN Creatinine Est GFR ( Amer) Est GFR (Non-Af Amer) POC Glucose (mg/dL) 128 H 114 H Random Glucose Calcium Phosphorus Magnesium Ferritin Total Bilirubin AST ALT Alkaline Phosphatase Total Protein Albumin Globulin Albumin/Globulin Ratio Vitamin B12 Folate Hepatitis A IgM Ab Hep Bs Antigen Hep B Core IgM Ab Hepatitis C Antibody HIV 1&2 Antibody Screen Blood Type Blood Type Confirm Antibody Screen BBK History Checked 01/05/18 01/05/18 01/05/18 05:15 05:25 09:10 WBC RBC Hgb Hct MCV MCH MCHC RDW Plt Count 33 L Manual Plt Count MPV Neut % (Auto) Lymph % (Auto) [place] % (Auto) Eos % (Auto) Baso % (Auto) Neut # (Auto) Lymph # (Auto) [place] # (Auto) Eos # (Auto) Baso # (Auto) Neutrophils % (Manual) Lymphocytes % (Manual) Monocytes % (Manual) Basophils % (Manual) Metamyelocytes % Myelocytes % Toxic Granulation Platelet Estimate Polychromasia Hypochromasia (manual) Anisocytosis (manual) Macrocytosis (manual) Ovalocytes Retic Count Sodium 149 H Potassium 5.0 Chloride 121 H Carbon Dioxide 27 Anion Gap 6 L BUN 71 H Creatinine 1.6 H Est GFR ( Amer) 39 Est GFR (Non-Af Amer) 32 POC Glucose (mg/dL) 137 H Random Glucose 128 H Calcium 6.8 L Phosphorus Magnesium Ferritin Total Bilirubin 0.7 AST 79 H D ALT 57 H Alkaline Phosphatase 434 H Total Protein 4.6 L Albumin 1.9 L Globulin 2.7 Albumin/Globulin Ratio 0.7 L Vitamin B12 Folate Hepatitis A IgM Ab Hep Bs Antigen Hep B Core IgM Ab Hepatitis C Antibody HIV 1&2 Antibody Screen Blood Type Blood Type Confirm Antibody Screen BBK History Checked 01/05/18 01/05/18 01/05/18 11:01 11:48 12:45 WBC RBC Hgb Hct MCV MCH MCHC RDW Plt Count Manual Plt Count MPV Neut % (Auto) Lymph % (Auto) [place] % (Auto) Eos % (Auto) Baso % (Auto) Neut # (Auto) Lymph # (Auto) [place] # (Auto) Eos # (Auto) Baso # (Auto) Neutrophils % (Manual) Lymphocytes % (Manual) Monocytes % (Manual) Basophils % (Manual) Metamyelocytes % Myelocytes % Toxic Granulation Platelet Estimate Polychromasia Hypochromasia (manual) Anisocytosis (manual) Macrocytosis (manual) Ovalocytes Retic Count Sodium Potassium Chloride Carbon Dioxide Anion Gap BUN Creatinine Est GFR ( Amer) Est GFR (Non-Af Amer) POC Glucose (mg/dL) 205 H Random Glucose Calcium Phosphorus Magnesium Ferritin Total Bilirubin AST ALT Alkaline Phosphatase Total Protein Albumin Globulin Albumin/Globulin Ratio Vitamin B12 Folate Hepatitis A IgM Ab Hep Bs Antigen Hep B Core IgM Ab Hepatitis C Antibody HIV 1&2 Antibody Screen Blood Type AB POSITIVE Blood Type Confirm AB POSITIVE Antibody Screen Negative BBK History Checked No verified bt Microbiology 12/31/17 04:40 Blood-Venous Blood Culture - Final NO GROWTH AFTER 5 DAYS 12/31/17 04:40 Blood-Venous Gram Stain - Final TEST NOT PERFORMED 12/31/17 04:45 Blood-Venous Blood Culture - Final NO GROWTH AFTER 5 DAYS 12/31/17 04:45 Blood-Venous Gram Stain - Final TEST NOT PERFORMED 01/01/18 16:32 Blood-Venous Blood Culture - Preliminary NO GROWTH AFTER 3 DAYS 01/01/18 16:42 Blood-Venous Blood Culture - Preliminary NO GROWTH AFTER 3 DAYS 01/01/18 08:37 Naris MRSA Culture (Admit) - Final MRSA NOT DETECTED 01/01/18 16:25 Urine,Randolph Urine Culture - Final Yeast Species 12/28/17 14:40 Blood-Venous Blood Culture - Final NO GROWTH AFTER 5 DAYS 12/28/17 14:40 Blood-Venous Gram Stain - Final TEST NOT PERFORMED 12/28/17 14:40 Blood-Venous Blood Culture - Final NO GROWTH AFTER 5 DAYS 12/28/17 14:40 Blood-Venous Gram Stain - Final TEST NOT PERFORMED 12/28/17 16:39 Urine,Catheterized Urine Culture - Final Yeast Species 12/27/17 14:49 Blood-Venous Blood Culture - Final Escherichia Coli 12/27/17 14:49 Blood-Venous Gram Stain - Final 12/27/17 06:00 Naris MRSA Culture (Admit) - Final MRSA NOT DETECTED 12/27/17 14:49 Urine,Randolph Urine Culture - Final No Growth (<1,000 CFU/ML) Assessment and Plan (1) Sepsis Status: Acute (2) Dehydration Status: Acute (3) DKA (diabetic ketoacidoses) Status: Resolved (4) Acute renal disease Status: Acute (5) Bacteremia due to Gram-negative bacteria Status: Acute (6) UTI (urinary tract infection) Status: Acute - Assessment and Plan (Free Text) Assessment: A/P- 67 year old female was admitted with weakness and lethargy found to be in DKA and GNR bacteremia and ct abd/chest reported as left lung mass with liver mets . afebrile minimal leukocytosis has resolved. thrombocytopenia blood cx- e.coli pansensitive Urine cx- <1000 repeat blood cx 12/28/2017- neg x 6 TTE- no mention of any vegetations as per report. Ct report findings of lung mass with liver mets . plan- day #7 of ceftriaxone for e.coli bacteremia. was on 3 days of meropenm prior to that. advise 4 more days of IV ceftriaxone to complete total of 14 days of antibiotic therpay. Monitor carefully aspiration precautions. thrombocytopenia management as per heme/onc and PMD. All above d/w . Prognosis poor.
--- NOTE | 2018-01-05 12:41 | CP.PCM.PN ---
Subjective - Date & Time of Evaluation Date of Evaluation: 01/05/18 Time of Evaluation: 12:41 - Subjective Subjective: 67 yo WF with pmh/o htn, dm, DKA, gram neg sepsis, s/p A flutter, left UL mass, possible liver mets, rt breast mass, rt adrenal mass with renal failure, pt is drowsy, arousable, pt not in distress, no complaints, no cp, no sob , renal function is slowly improving Objective - Vital Signs/Intake and Output Vital Signs (last 24 hours): Temp Pulse Resp BP Pulse Ox 97.4 F L 59 L 20 122/66 95 01/05/18 08:00 01/05/18 08:56 01/05/18 08:00 01/05/18 08:56 01/05/18 08:00 - Medications Medications: Current Medications Acetaminophen (Tylenol 650 Mg Supp) 650 mg [place] Q6 PRN PRN Reason: Fever >100.4 F Last Admin: 01/01/18 17:14 Dose: 650 mg Acetaminophen (Tylenol 650 Mg Supp) 650 mg [place] Q6 PRN PRN Reason: Pain, moderate (4-7) Last Admin: 01/04/18 14:58 Dose: 650 mg Albuterol/Ipratropium (Duoneb 3 Mg/0.5 Mg (3 Ml) Ud) 3 ml INH RQ4 [facility] Last Admin: 01/05/18 11:42 Dose: 3 ml Dextrose (Glutose 15) 0 gm PO ONCE PRN; Protocol PRN Reason: Hypoglycemia Protocol Dextrose (Dextrose 50% Inj) 0 ml IV STAT PRN; Protocol PRN Reason: Hypoglycemia Protocol Last Admin: 01/03/18 05:29 Dose: 50 ml Dextrose (Glutose 15) 0 gm PO ONCE PRN; Protocol PRN Reason: Hypoglycemia Protocol Dimethicone (Proshield Plus Skin Protectant) 1 applic TOP Q8 [facility] Last Admin: 01/05/18 09:01 Dose: 1 applic Glucagon (Glucagen Diagnostic Kit) 0 mg IM STAT PRN; Protocol PRN Reason: Hypoglycemia Protocol Glucagon (Glucagen Diagnostic Kit) 0 mg IM STAT PRN; Protocol PRN Reason: Hypoglycemia Protocol Ceftriaxone Sodium 1 gm/ (Sodium Chloride) 100 mls @ 100 mls/hr IVPB DAILY [facility]; Protocol Last Admin: 01/05/18 09:42 Dose: 100 mls/hr Dextrose/Sodium Chloride (Dextrose 5%-0.45% Ns 500 Ml) 1,000 mls @ 125 mls/hr IV .Q8H [facility] Stop: 01/06/18 09:43 Last Admin: 01/05/18 10:05 Dose: 125 mls/hr Insulin Detemir (Levemir) 4 units SC DAILY [facility] Last Admin: 01/05/18 09:01 Dose: Not Given Insulin Detemir (Levemir) 10 units SC HS [facility] Last Admin: 01/04/18 21:51 Dose: Not Given Insulin Human Lispro (Humalog) 0 units SC ACHS [facility] Last Admin: 01/05/18 12:00 Dose: Not Given Methimazole (Tapazole) 5 mg PO BID [facility] Last Admin: 01/05/18 08:58 Dose: Not Given Metoprolol Tartrate (Lopressor) 25 mg PO Q12 [facility] Last Admin: 01/05/18 08:56 Dose: Not Given Mirtazapine (Remeron) 7.5 mg PO [facility] Last Admin: 01/04/18 21:52 Dose: Not Given Nystatin (Nystop Topical Powder) 1 applic TOP TID [facility] Last Admin: 01/05/18 12:02 Dose: 1 applic - Labs Labs: 01/05/18 09:10 01/05/18 05:15 - Constitutional Appears: Well, No Acute Distress - Head Exam Head Exam: ATRAUMATIC, NORMOCEPHALIC - Eye Exam Eye Exam: EOMI Pupil Exam: NORMAL ACCOMODATION - ENT Exam ENT Exam: Mucous Membranes Dry - Neck Exam Neck Exam: Full ROM, Normal Inspection - Respiratory Exam Respiratory Exam: Decreased Breath Sounds Additional comments: left upper chest+, occ crackles+ - Cardiovascular Exam Cardiovascular Exam: REGULAR RHYTHM, +S1, +S2 - GI/Abdominal Exam GI & Abdominal Exam: Soft, Normal Bowel Sounds - Rectal Exam Rectal Exam: Deferred - Neurological Exam Neurological Exam: Awake Additional comments: drowsy, following simple commands - Skin Skin Exam: Normal Color, Warm Assessment and Plan - Assessment and Plan (Free Text) Assessment: 67 yo female with htn, high sugars, increased bun/cr, cluidy urine with nitrite + ve, LE +, wbc+ acidosis, left upper lobe mass, rt breast mass, liver mests, T( vertebral lesion, rt adreanl lesion, blood c/s + for GNR 1. Renal failure, most likely JOVANNA sec to severe dehydration sec to DKA and high sugars 2. DKA 3. Gram negative sepsis, most likely source is urine 4. A. flutter 5. hypotension sec to sepsis, 6. left lung mass with liver mets, most likely lung cancer 7. Rt breast mass, r/o breast cancer , or mets 8. Rt Adrenal mass r/o mets renal function is slightly better, s.r 2.3 ---> 1.6---->1.5 ---->1.6 today c/w iv abx as per ID pt is DNR/ DNI follow up with pulmonary over all prognosis is very poor
[2018-01-05] MEDS: Dextrose 5%/0.45% NS 1,000 ML IV SCH ×2 (17:01→22:07)
--- NOTE | 2018-01-05 18:48 | PN ---
DATE: 01/05/2018 ENDOCRINOLOGY FOLLOWUP NOTE LOCATION: In room 414. SUBJECTIVE: This is a 67-year-old female with recent uncontrolled type 2 insulin-requiring diabetes, now being followed closely for metabolic management. Her glycemic levels are fluctuating, but improved and the glucose values have ranged from 114 to 137 and 205 mg/dL. LABORATORY DATA: Her latest chemistry showed a BUN of 71, sodium 149, potassium 5, chloride 121, glucose 128, CO2 of 27, and creatinine of 1.6. ASSESSMENT AND PLAN: So at this time, we will continue the same basal insulin given as Levemir at 4 units every morning and Levemir given as 10 units at bedtime daily as ordered. We will obtain serial chemistries and supplement accordingly as needed. We will follow. Angela Copeland MD
--- NOTE | 2018-01-05 22:46 | CP.PCM.PN ---
Subjective - Date & Time of Evaluation Date of Evaluation: 01/05/18 Time of Evaluation: 19:00 - Subjective Subjective: Drowsy but arousable Objective - Vital Signs/Intake and Output Vital Signs (last 24 hours): Temp Pulse Resp BP Pulse Ox 97.7 F 65 16 130/75 100 01/05/18 20:02 01/05/18 20:02 01/05/18 20:02 01/05/18 20:02 01/05/18 20:02 Intake and Output: 01/05/18 01/06/18 18:59 06:59 Intake Total 1300 Output Total 350 Balance 950 - Medications Medications: Current Medications Acetaminophen (Tylenol 650 Mg Supp) 650 mg SD Q6 PRN PRN Reason: Fever >100.4 F Last Admin: 01/01/18 17:14 Dose: 650 mg Acetaminophen (Tylenol 650 Mg Supp) 650 mg SD Q6 PRN PRN Reason: Pain, moderate (4-7) Last Admin: 01/05/18 17:44 Dose: 650 mg Albuterol/Ipratropium (Duoneb 3 Mg/0.5 Mg (3 Ml) Ud) 3 ml INH RQ4 [facility] Last Admin: 01/05/18 19:50 Dose: Not Given Dextrose (Glutose 15) 0 gm PO ONCE PRN; Protocol PRN Reason: Hypoglycemia Protocol Dextrose (Dextrose 50% Inj) 0 ml IV STAT PRN; Protocol PRN Reason: Hypoglycemia Protocol Last Admin: 01/03/18 05:29 Dose: 50 ml Dextrose (Glutose 15) 0 gm PO ONCE PRN; Protocol PRN Reason: Hypoglycemia Protocol Dimethicone (Proshield Plus Skin Protectant) 1 applic TOP Q8 [facility] Last Admin: 01/05/18 16:27 Dose: 1 applic Glucagon (Glucagen Diagnostic Kit) 0 mg IM STAT PRN; Protocol PRN Reason: Hypoglycemia Protocol Glucagon (Glucagen Diagnostic Kit) 0 mg IM STAT PRN; Protocol PRN Reason: Hypoglycemia Protocol Ceftriaxone Sodium 1 gm/ (Sodium Chloride) 100 mls @ 100 mls/hr IVPB DAILY [facility]; Protocol Last Admin: 01/05/18 09:42 Dose: 100 mls/hr Dextrose/Sodium Chloride (Dextrose 5%/0.45% Ns 1000 Ml) 1,000 mls @ 125 mls/hr IV .Q8H [facility] Stop: 01/06/18 09:43 Last Admin: 01/05/18 22:07 Dose: 125 mls/hr Insulin Detemir (Levemir) 4 units SC DAILY [facility] Last Admin: 01/05/18 09:01 Dose: Not Given Insulin Detemir (Levemir) 10 units SC HS [facility] Last Admin: 01/05/18 22:12 Dose: Not Given Insulin Human Lispro (Humalog) 0 units SC ACHS [facility] Last Admin: 01/05/18 22:05 Dose: Not Given Methimazole (Tapazole) 5 mg PO BID [facility] Last Admin: 01/05/18 16:28 Dose: Not Given Metoprolol Tartrate (Lopressor) 25 mg PO Q12 [facility] Last Admin: 01/05/18 22:07 Dose: Not Given Mirtazapine (Remeron) 7.5 mg PO HS [facility] Last Admin: 01/05/18 22:07 Dose: Not Given Nystatin (Nystop Topical Powder) 1 applic TOP TID [facility] Last Admin: 01/05/18 16:27 Dose: 1 applic - Labs Labs: 01/05/18 09:10 01/05/18 05:15 - Head Exam Head Exam: ATRAUMATIC - Eye Exam Eye Exam: Normal appearance - ENT Exam ENT Exam: Mucous Membranes Dry - Respiratory Exam Respiratory Exam: Decreased Breath Sounds - Cardiovascular Exam Cardiovascular Exam: +S1, +S2 - GI/Abdominal Exam GI & Abdominal Exam: Normal Bowel Sounds - Extremities Exam Extremities Exam: Pedal Edema Assessment and Plan (1) Thrombocytopenia Assessment & Plan: slightly improved likely sepsis related rule out HIT; f/u w/u Status: Acute (2) Anemia Assessment & Plan: anemia of chronic disease transfusion support PRN Status: Acute (3) Malignancy Assessment & Plan: will consider percutaneous biopsy if clinically improves and plt > 50,000 DNR/DNI Status: Acute
[2018-01-06] MEDS: Dextrose 5%/0.45% NS 1,000 ML IV SCH (00:50)
[2018-01-06] MEDS: Proshield Plus GEL TOP SCH ×3 (00:51→17:13)
[2018-01-06] MEDS: Albuterol-Ipratrop 3 mg / 0.5 (3 ml) UD INH SCH ×6 (04:51→23:58)
[2018-01-06 06:10] LABS: CALCIUM 7.1 mg/dL (8.4-10.2)
[2018-01-06 06:28] LABS: HEMOGLOBIN 10.1 g/dL (12.0-16.0); MEAN CELL VOLUME 95.8 fl (81.0-99.0); MEAN CORPUSCULAR HEMOGLOBIN 30.2 pg (27.0-31.0); MEAN CORPUSCULAR HGB CONC 31.6 g/dL (33.0-37.0); RBC 3.35 Mil/uL (3.80-5.20); RED CELL DISTRIBUTION WIDTH 18.4 % (11.5-14.5); WHITE BLOOD COUNT 8.8 K/uL (4.8-10.8)
[2018-01-06] MEDS: Insulin Lispro (humaLOG) 100 Units/ml Inj SC SCH ×4 (08:00→22:55)
--- NOTE | 2018-01-06 08:46 | CP.PCM.PN ---
Subjective - Date & Time of Evaluation Date of Evaluation: 01/06/18 Time of Evaluation: 08:46 - Subjective Subjective: DROWSY NO RESPIRATORY DISTRESS Objective - Vital Signs/Intake and Output Vital Signs (last 24 hours): Temp Pulse Resp BP Pulse Ox 97.5 F L 64 20 125/75 93 L 01/06/18 08:00 01/06/18 08:00 01/06/18 08:00 01/06/18 08:00 01/06/18 08:00 - Medications Medications: Current Medications Acetaminophen (Tylenol 650 Mg Supp) 650 mg [place] Q6 PRN PRN Reason: Fever >100.4 F Last Admin: 01/01/18 17:14 Dose: 650 mg Acetaminophen (Tylenol 650 Mg Supp) 650 mg [place] Q6 PRN PRN Reason: Pain, moderate (4-7) Last Admin: 01/05/18 17:44 Dose: 650 mg Albuterol/Ipratropium (Duoneb 3 Mg/0.5 Mg (3 Ml) Ud) 3 ml INH RQ4 [facility] Last Admin: 01/06/18 07:49 Dose: 3 ml Dextrose (Glutose 15) 0 gm PO ONCE PRN; Protocol PRN Reason: Hypoglycemia Protocol Dextrose (Dextrose 50% Inj) 0 ml IV STAT PRN; Protocol PRN Reason: Hypoglycemia Protocol Last Admin: 01/03/18 05:29 Dose: 50 ml Dextrose (Glutose 15) 0 gm PO ONCE PRN; Protocol PRN Reason: Hypoglycemia Protocol Dimethicone (Proshield Plus Skin Protectant) 1 applic TOP Q8 [facility] Last Admin: 01/06/18 00:51 Dose: 1 applic Glucagon (Glucagen Diagnostic Kit) 0 mg IM STAT PRN; Protocol PRN Reason: Hypoglycemia Protocol Glucagon (Glucagen Diagnostic Kit) 0 mg IM STAT PRN; Protocol PRN Reason: Hypoglycemia Protocol Ceftriaxone Sodium 1 gm/ (Sodium Chloride) 100 mls @ 100 mls/hr IVPB DAILY [facility]; Protocol Last Admin: 01/05/18 09:42 Dose: 100 mls/hr Dextrose/Sodium Chloride (Dextrose 5%/0.45% Ns 1000 Ml) 1,000 mls @ 125 mls/hr IV .Q8H [facility] Stop: 01/06/18 09:43 Last Admin: 01/06/18 00:50 Dose: Not Given Insulin Detemir (Levemir) 4 units SC DAILY [facility] Last Admin: 01/05/18 09:01 Dose: Not Given Insulin Detemir (Levemir) 10 units SC HS [facility] Last Admin: 01/05/18 22:12 Dose: Not Given Insulin Human Lispro (Humalog) 0 units SC ACHS [facility] Last Admin: 01/05/18 22:05 Dose: Not Given Methimazole (Tapazole) 5 mg PO BID [facility] Last Admin: 01/05/18 16:28 Dose: Not Given Metoprolol Tartrate (Lopressor) 25 mg PO Q12 [facility] Last Admin: 01/05/18 22:07 Dose: Not Given Mirtazapine (Remeron) 7.5 mg PO HS [facility] Last Admin: 01/05/18 22:07 Dose: Not Given Nystatin (Nystop Topical Powder) 1 applic TOP TID [facility] Last Admin: 01/05/18 16:27 Dose: 1 applic - Labs Labs: 01/06/18 04:25 01/06/18 04:25 - Constitutional Appears: Chronically Ill - Head Exam Head Exam: ATRAUMATIC, NORMAL INSPECTION, NORMOCEPHALIC - Eye Exam Eye Exam: EOMI, Normal appearance, PERRL Pupil Exam: NORMAL ACCOMODATION, PERRL - ENT Exam ENT Exam: Mucous Membranes Moist, Normal Exam - Neck Exam Neck Exam: Full ROM, Normal Inspection. absent: Lymphadenopathy - Respiratory Exam Respiratory Exam: Prolonged Expiratory Phase, Rales, NORMAL BREATHING PATTERN - Cardiovascular Exam Cardiovascular Exam: REGULAR RHYTHM, +S1, +S2. absent: Murmur - GI/Abdominal Exam GI & Abdominal Exam: Soft, Normal Bowel Sounds. absent: Tenderness - Rectal Exam Rectal Exam: NORMAL INSPECTION - Extremities Exam Extremities Exam: Full ROM, Normal Capillary Refill, Normal Inspection. absent: Joint Swelling, Pedal Edema - Back Exam Back Exam: NORMAL INSPECTION - Neurological Exam Additional comments: EASILY AROUSABLE - Psychiatric Exam Psychiatric exam: Normal Affect, Normal Mood - Skin Skin Exam: Dry, Intact, Normal Color, Warm Assessment and Plan - Assessment and Plan (Free Text) Assessment: LUNG MASS BREAST MASS PROBABLE METASTATIC DISEASE THROMBOCYTOPENIA Plan: SUGGEST SUPPORTIVE CARE PROGNOSIS IS POOR
[2018-01-06] MEDS: methIMAzole 5 MG TAB PO SCH ×2 (09:55→17:14)
[2018-01-06] MEDS: Insulin Detemir 100 Units/ml Inj SC SCH ×2 (09:55→22:53)
--- NOTE | 2018-01-06 10:01 | CP.PCM.PN ---
Subjective - Date & Time of Evaluation Date of Evaluation: 01/05/18 Time of Evaluation: 15:10 - Subjective Subjective: Seen and examined at the bed side. Patient continue to show some improvement. She continue to refuse to Eat. Continue to be Thrombo-cytopenia. Also d/w her son Julian about plan of care. Objective - Vital Signs/Intake and Output Vital Signs (last 24 hours): Temp Pulse Resp BP Pulse Ox 97.5 F L 64 20 125/75 93 L 01/06/18 08:00 01/06/18 08:00 01/06/18 08:00 01/06/18 08:00 01/06/18 08:00 - Medications Medications: Current Medications Acetaminophen (Tylenol 650 Mg Supp) 650 mg [place] Q6 PRN PRN Reason: Fever >100.4 F Last Admin: 01/01/18 17:14 Dose: 650 mg Acetaminophen (Tylenol 650 Mg Supp) 650 mg [place] Q6 PRN PRN Reason: Pain, moderate (4-7) Last Admin: 01/05/18 17:44 Dose: 650 mg Albuterol/Ipratropium (Duoneb 3 Mg/0.5 Mg (3 Ml) Ud) 3 ml INH RQ4 [facility] Last Admin: 01/06/18 07:49 Dose: 3 ml Dextrose (Glutose 15) 0 gm PO ONCE PRN; Protocol PRN Reason: Hypoglycemia Protocol Dextrose (Dextrose 50% Inj) 0 ml IV STAT PRN; Protocol PRN Reason: Hypoglycemia Protocol Last Admin: 01/03/18 05:29 Dose: 50 ml Dextrose (Glutose 15) 0 gm PO ONCE PRN; Protocol PRN Reason: Hypoglycemia Protocol Dimethicone (Proshield Plus Skin Protectant) 1 applic TOP Q8 [facility] Last Admin: 01/06/18 00:51 Dose: 1 applic Glucagon (Glucagen Diagnostic Kit) 0 mg IM STAT PRN; Protocol PRN Reason: Hypoglycemia Protocol Glucagon (Glucagen Diagnostic Kit) 0 mg IM STAT PRN; Protocol PRN Reason: Hypoglycemia Protocol Ceftriaxone Sodium 1 gm/ (Sodium Chloride) 100 mls @ 100 mls/hr IVPB DAILY [facility]; Protocol Last Admin: 01/05/18 09:42 Dose: 100 mls/hr Insulin Detemir (Levemir) 4 units SC DAILY [facility] Last Admin: 01/05/18 09:01 Dose: Not Given Insulin Detemir (Levemir) 10 units SC [facility] Last Admin: 01/05/18 22:12 Dose: Not Given Insulin Human Lispro (Humalog) 0 units SC [facility] Last Admin: 01/05/18 22:05 Dose: Not Given Methimazole (Tapazole) 5 mg PO BID [facility] Last Admin: 01/05/18 16:28 Dose: Not Given Metoprolol Tartrate (Lopressor) 25 mg PO Q12 [facility] Last Admin: 01/05/18 22:07 Dose: Not Given Mirtazapine (Remeron) 7.5 mg PO HS [facility] Last Admin: 01/05/18 22:07 Dose: Not Given Nystatin (Nystop Topical Powder) 1 applic TOP TID [facility] Last Admin: 01/05/18 16:27 Dose: 1 applic - Labs Labs: 01/06/18 04:25 01/06/18 04:25 - Constitutional Appears: No Acute Distress, Chronically Ill - Head Exam Head Exam: ATRAUMATIC, NORMAL INSPECTION, NORMOCEPHALIC - Eye Exam Eye Exam: EOMI, Normal appearance, PERRL Pupil Exam: NORMAL ACCOMODATION, PERRL - ENT Exam ENT Exam: Mucous Membranes Dry, Mucous Membranes Moist, Normal Exam Additional comments: Poor dentition with dental caries. - Neck Exam Neck Exam: Full ROM, Normal Inspection. absent: Lymphadenopathy - Respiratory Exam Respiratory Exam: Clear to Ausculation Bilateral, NORMAL BREATHING PATTERN - Cardiovascular Exam Cardiovascular Exam: REGULAR RHYTHM, +S1, +S2. absent: Murmur - GI/Abdominal Exam GI & Abdominal Exam: Soft, Normal Bowel Sounds. absent: Tenderness - Extremities Exam Extremities Exam: Full ROM, Normal Capillary Refill, Normal Inspection. absent: Joint Swelling, Pedal Edema - Back Exam Back Exam: NORMAL INSPECTION - Neurological Exam Neurological Exam: Alert, Awake, CN II-XII Intact, Normal Gait, Oriented x3 - Psychiatric Exam Psychiatric exam: Normal Affect, Normal Mood - Skin Skin Exam: Dry, Intact, Normal Color, Warm Assessment and Plan (1) Altered mental status Assessment & Plan: Metabolic Encephalopathy: Sepsis, Uremia and Metabolic Acidosis- Improving Treat the Underlying Problem Status: Acute Priority: High (2) DKA (diabetic ketoacidoses)- Resolved Type II DM Assessment and Plan: HHS, Hypotension- Resolved Bolus IVF PRN Continue IVF Replenish Electrolytes BMP daily Levemir ACHS with Coverage HgA1C- 11.6 Status: Acute Priority: High (3) Septic Shock, G -ve Bactremia with E. Coli,ESBL Negative-Resolved Assessment and Plan: UTI and Sacral Pressure Ulcer Stage II- Improving IV Merem and Vamcomycin IVF Wound Care daily Status: Acute Priority: High (4) Lung mass, Possible Stage IV Lung Cancer Assessment and Plan: Family Aware Will Need Tissue Dx when patient stable Status: Acute Priority: High (5) Acute Renal Failure (ARF)- Improving Assessment and Plan: Most Likely ATN due to Hypotension and Dehydration- Improving IVF RX DKA/HHS and Sepsis Urine NA Nephrology onboard Status: Acute Priority: High (6) Gait abnormality Status: Acute Priority: Medium (7) DVT prophylaxis Status: Inactive Priority: High (8) Dysphagia- Passes Swallow Evaluation Pureed diet with Mck[place] Thick Liquid (9) DNR/DNI (10) Severe Thrombocytopenia Monitor Bleeding Manual PLT Count Collections Manager onboard Status: Acute
--- NOTE | 2018-01-07 00:22 | CP.PCM.PN ---
Subjective - Date & Time of Evaluation Date of Evaluation: 01/06/18 Time of Evaluation: 11:20 - Subjective Subjective: Drowsy but arousable Objective - Vital Signs/Intake and Output Vital Signs (last 24 hours): Temp Pulse Resp BP Pulse Ox 98 F 57 L 18 116/75 100 01/06/18 21:00 01/06/18 21:44 01/06/18 21:00 01/06/18 21:00 01/06/18 21:00 Intake and Output: 01/06/18 01/07/18 18:59 06:59 Intake Total 252 Output Total 200 Balance 252 -200 - Medications Medications: Current Medications Acetaminophen (Tylenol 650 Mg Supp) 650 mg [place] Q6 PRN PRN Reason: Fever >100.4 F Last Admin: 01/01/18 17:14 Dose: 650 mg Acetaminophen (Tylenol 650 Mg Supp) 650 mg [place] Q6 PRN PRN Reason: Pain, moderate (4-7) Last Admin: 01/05/18 17:44 Dose: 650 mg Albuterol/Ipratropium (Duoneb 3 Mg/0.5 Mg (3 Ml) Ud) 3 ml INH RQ4 [facility] Last Admin: 01/06/18 23:58 Dose: Not Given Dextrose (Glutose 15) 0 gm PO ONCE PRN; Protocol PRN Reason: Hypoglycemia Protocol Dextrose (Dextrose 50% Inj) 0 ml IV STAT PRN; Protocol PRN Reason: Hypoglycemia Protocol Last Admin: 01/03/18 05:29 Dose: 50 ml Dextrose (Glutose 15) 0 gm PO ONCE PRN; Protocol PRN Reason: Hypoglycemia Protocol Dimethicone (Proshield Plus Skin Protectant) 1 applic TOP Q8 [facility] Last Admin: 01/06/18 17:13 Dose: 1 applic Glucagon (Glucagen Diagnostic Kit) 0 mg IM STAT PRN; Protocol PRN Reason: Hypoglycemia Protocol Glucagon (Glucagen Diagnostic Kit) 0 mg IM STAT PRN; Protocol PRN Reason: Hypoglycemia Protocol Ceftriaxone Sodium 1 gm/ (Sodium Chloride) 100 mls @ 100 mls/hr IVPB DAILY [facility]; Protocol Last Admin: 01/06/18 09:55 Dose: 100 mls/hr Insulin Detemir (Levemir) 20 units SC HS [facility] Last Admin: 01/06/18 22:53 Dose: 20 units Insulin Detemir (Levemir) 12 units SC DAILY [facility] Insulin Human Lispro (Humalog) 0 units SC ACHS [facility] Last Admin: 01/06/18 22:55 Dose: Not Given Methimazole (Tapazole) 5 mg PO BID [facility] Last Admin: 01/06/18 17:14 Dose: Not Given Metoprolol Tartrate (Lopressor) 25 mg PO Q12 [facility] Last Admin: 01/06/18 21:44 Dose: Not Given Mirtazapine (Remeron) 7.5 mg PO HS [facility] Last Admin: 01/06/18 21:45 Dose: Not Given Nystatin (Nystop Topical Powder) 1 applic TOP TID [facility] Last Admin: 01/06/18 17:13 Dose: 1 applic - Labs Labs: 01/06/18 04:25 01/06/18 04:25 - Head Exam Head Exam: ATRAUMATIC - Eye Exam Eye Exam: Normal appearance - ENT Exam ENT Exam: Mucous Membranes Dry - Respiratory Exam Respiratory Exam: NORMAL BREATHING PATTERN - Cardiovascular Exam Cardiovascular Exam: +S1, +S2 - GI/Abdominal Exam GI & Abdominal Exam: Normal Bowel Sounds Assessment and Plan (1) Thrombocytopenia Assessment & Plan: suspect sepsis related HIT work up negative Status: Acute (2) Anemia Assessment & Plan: anemia of chronic disease transfusion support PRN Status: Acute (3) Malignancy Assessment & Plan: will consider percutaneous biopsy if clinically improves and plt > 50,000 DNR/DNI Status: Acute
[2018-01-07] MEDS: Proshield Plus GEL TOP SCH ×3 (01:07→16:54)
[2018-01-07] MEDS: Albuterol-Ipratrop 3 mg / 0.5 (3 ml) UD INH SCH ×5 (04:14→19:49)
[2018-01-07] MEDS: Insulin Lispro (humaLOG) 100 Units/ml Inj SC SCH ×4 (06:41→22:15)
[2018-01-07 06:59] LABS: HEMOGLOBIN 8.1 g/dL (12.0-16.0); MEAN CELL VOLUME 93.4 fl (81.0-99.0); MEAN CORPUSCULAR HEMOGLOBIN 29.8 pg (27.0-31.0); MEAN CORPUSCULAR HGB CONC 31.9 g/dL (33.0-37.0); RBC 2.72 Mil/uL (3.80-5.20); RED CELL DISTRIBUTION WIDTH 17.5 % (11.5-14.5); WHITE BLOOD COUNT 7.3 K/uL (4.8-10.8)
[2018-01-07 07:04] LABS: CALCIUM 7.1 mg/dL (8.4-10.2)
--- NOTE | 2018-01-07 08:40 | PN ---
DATE: 01/06/2018 ENDOCRINOLOGY FOLLOWUP NOTE LOCATION: In room 414. SUBJECTIVE: This is a 67-year-old female with recent uncontrolled type 2 insulin-requiring diabetes, now with supervening hyperglycemic levels as noted overnight and glucose values today have ranged from 280 to 312 and 313 mg/dL. LABORATORY DATA: Her chemistry showed a BUN of 75, sodium 146, potassium 5, chloride 118, CO2 of 20, glucose 327, and creatinine 1.5. ASSESSMENT AND PLAN: So at this time, we will modify once again her basal insulin to a much higher dosing regimen with Levemir to be given as 20 units subcutaneously at bedtime daily to start tonight. We will also continue the low-dose correction scale using Humalog insulin as given to obviate hypoglycemia and detailed orders have been given. We will also increase the morning basal insulin with Levemir to be given as 12 units subcutaneously every 10 a.m. daily as given. We will titrate incrementally as indicated to optimize metabolic control. We will obtain serial chemistries and supplement accordingly as needed. We will follow. Angela Copeland MD
[2018-01-07] MEDS: Dextrose 5%/0.45% NS 1,000 ML IV SCH ×2 (09:30→16:53)
[2018-01-07] MEDS: Insulin Detemir 100 Units/ml Inj SC SCH ×2 (09:32→22:02)
[2018-01-07] MEDS: methIMAzole 5 MG TAB PO SCH ×2 (09:39→16:55)
--- NOTE | 2018-01-07 10:51 | CT ---
Date of service: 01/06/2018 PROCEDURE: CT HEAD WITHOUT CONTRAST. HISTORY: AMS COMPARISON: 12/28/2017. TECHNIQUE: Axial computed tomography images were obtained through the head/brain without intravenous contrast. Supplemental Coronal and Sagittal projections created and reviewed. Radiation dose: Total exam DLP = 911.64 mGy-cm. This CT exam was performed using one or more of the following dose reduction techniques: Automated exposure control, adjustment of the mA and/or kV according to patient size, and/or use of iterative reconstruction technique. FINDINGS: HEMORRHAGE: No intracranial hemorrhage. BRAIN: No mass effect or edema. Cortical and cerebellar atrophy, periventricular small vessel disease. VENTRICLES: Unremarkable. No hydrocephalus. CALVARIUM: Unremarkable. PARANASAL SINUSES: Sphenoid sinus disease. MASTOID AIR CELLS: Unremarkable as visualized. No inflammatory changes. OTHER FINDINGS: None. IMPRESSION: No acute intracranial abnormalities. No significant findings to account for the clinical presentation. No significant interval change compared to the prior examination(s). Concordant results (preliminary interpretation) provided by [employer] [facility]. Procedure Completed: 19:33. Preliminary Report: Dictated and Authenticated: 20:39. Final Interpretation: 10:45. December 31, 2017
--- NOTE | 2018-01-07 13:34 | CP.PCM.PN ---
Subjective - Date & Time of Evaluation Date of Evaluation: 01/07/18 Time of Evaluation: 12:00 - Subjective Subjective: More arousable but still drowsy Objective - Vital Signs/Intake and Output Vital Signs (last 24 hours): Temp Pulse Resp BP Pulse Ox 98.9 F 106 H 20 130/82 95 01/07/18 12:00 01/07/18 12:00 01/07/18 12:00 01/07/18 12:00 01/07/18 12:00 Intake and Output: 01/07/18 01/07/18 06:59 18:59 Intake Total 299 349 Output Total 200 450 Balance 99 -101 - Medications Medications: Current Medications Acetaminophen (Tylenol 650 Mg Supp) 650 mg [place] Q6 PRN PRN Reason: Fever >100.4 F Last Admin: 01/01/18 17:14 Dose: 650 mg Acetaminophen (Tylenol 650 Mg Supp) 650 mg [place] Q6 PRN PRN Reason: Pain, moderate (4-7) Last Admin: 01/05/18 17:44 Dose: 650 mg Albuterol/Ipratropium (Duoneb 3 Mg/0.5 Mg (3 Ml) Ud) 3 ml INH RQ4 [facility] Last Admin: 01/07/18 11:26 Dose: 3 ml Dextrose (Glutose 15) 0 gm PO ONCE PRN; Protocol PRN Reason: Hypoglycemia Protocol Dextrose (Dextrose 50% Inj) 0 ml IV STAT PRN; Protocol PRN Reason: Hypoglycemia Protocol Last Admin: 01/03/18 05:29 Dose: 50 ml Dextrose (Glutose 15) 0 gm PO ONCE PRN; Protocol PRN Reason: Hypoglycemia Protocol Dimethicone (Proshield Plus Skin Protectant) 1 applic TOP Q8 [facility] Last Admin: 01/07/18 09:34 Dose: 1 applic Glucagon (Glucagen Diagnostic Kit) 0 mg IM STAT PRN; Protocol PRN Reason: Hypoglycemia Protocol Glucagon (Glucagen Diagnostic Kit) 0 mg IM STAT PRN; Protocol PRN Reason: Hypoglycemia Protocol Ceftriaxone Sodium 1 gm/ (Sodium Chloride) 100 mls @ 100 mls/hr IVPB DAILY [facility]; Protocol Last Admin: 01/07/18 09:36 Dose: 100 mls/hr Dextrose/Sodium Chloride (Dextrose 5%/0.45% Ns 1000 Ml) 1,000 mls @ 125 mls/hr IV .Q8H [facility] Stop: 01/08/18 08:54 Last Admin: 01/07/18 09:30 Dose: 125 mls/hr Insulin Detemir (Levemir) 20 units SC [facility] Last Admin: 01/06/18 22:53 Dose: 20 units Insulin Detemir (Levemir) 12 units SC DAILY [facility] Last Admin: 01/07/18 09:32 Dose: 12 units Insulin Human Lispro (Humalog) 0 units SC ACHS [facility] Last Admin: 01/07/18 12:26 Dose: Not Given Methimazole (Tapazole) 5 mg PO BID [facility] Last Admin: 01/07/18 09:39 Dose: Not Given Metoprolol Tartrate (Lopressor) 25 mg PO Q12 [facility] Last Admin: 01/07/18 09:33 Dose: Not Given Mirtazapine (Remeron) 7.5 mg PO [facility] Last Admin: 01/06/18 21:45 Dose: Not Given Nystatin (Nystop Topical Powder) 1 applic TOP TID [facility] Last Admin: 01/07/18 13:27 Dose: 1 applic - Labs Labs: 01/07/18 05:10 01/07/18 05:10 - Head Exam Head Exam: ATRAUMATIC - Eye Exam Eye Exam: Normal appearance - ENT Exam ENT Exam: Mucous Membranes Dry - Respiratory Exam Respiratory Exam: NORMAL BREATHING PATTERN - Cardiovascular Exam Cardiovascular Exam: +S1, +S2 - GI/Abdominal Exam GI & Abdominal Exam: Normal Bowel Sounds Assessment and Plan (1) Thrombocytopenia Assessment & Plan: sepsis related improving Status: Acute (2) Anemia Assessment & Plan: chronic disease transfusion support PRN Status: Acute (3) Malignancy Assessment & Plan: breast mass biopsy when more stable Status: Acute
--- NOTE | 2018-01-07 14:16 | CP.PCM.PN ---
Subjective - Date & Time of Evaluation Date of Evaluation: 01/07/18 Time of Evaluation: 14:16 - Subjective Subjective: ID Note- remains drowsy. Objective - Vital Signs/Intake and Output Vital Signs (last 24 hours): Temp Pulse Resp BP Pulse Ox 98.9 F 106 H 20 130/82 95 01/07/18 12:00 01/07/18 12:00 01/07/18 12:00 01/07/18 12:00 01/07/18 12:00 Intake and Output: 01/07/18 01/07/18 06:59 18:59 Intake Total 299 349 Output Total 200 450 Balance 99 -101 - Medications Medications: Current Medications Acetaminophen (Tylenol 650 Mg Supp) 650 mg OK Q6 PRN PRN Reason: Fever >100.4 F Last Admin: 01/01/18 17:14 Dose: 650 mg Acetaminophen (Tylenol 650 Mg Supp) 650 mg OK Q6 PRN PRN Reason: Pain, moderate (4-7) Last Admin: 01/05/18 17:44 Dose: 650 mg Albuterol/Ipratropium (Duoneb 3 Mg/0.5 Mg (3 Ml) Ud) 3 ml INH RQ4 PORFIRIO Last Admin: 01/07/18 11:26 Dose: 3 ml Dextrose (Glutose 15) 0 gm PO ONCE PRN; Protocol PRN Reason: Hypoglycemia Protocol Dextrose (Dextrose 50% Inj) 0 ml IV STAT PRN; Protocol PRN Reason: Hypoglycemia Protocol Last Admin: 01/03/18 05:29 Dose: 50 ml Dextrose (Glutose 15) 0 gm PO ONCE PRN; Protocol PRN Reason: Hypoglycemia Protocol Dimethicone (Proshield Plus Skin Protectant) 1 applic TOP Q8 PORFIRIO Last Admin: 01/07/18 09:34 Dose: 1 applic Glucagon (Glucagen Diagnostic Kit) 0 mg IM STAT PRN; Protocol PRN Reason: Hypoglycemia Protocol Glucagon (Glucagen Diagnostic Kit) 0 mg IM STAT PRN; Protocol PRN Reason: Hypoglycemia Protocol Ceftriaxone Sodium 1 gm/ (Sodium Chloride) 100 mls @ 100 mls/hr IVPB DAILY PORFIRIO; Protocol Last Admin: 01/07/18 09:36 Dose: 100 mls/hr Dextrose/Sodium Chloride (Dextrose 5%/0.45% Ns 1000 Ml) 1,000 mls @ 125 mls/hr IV .Q8H PORFIRIO Stop: 01/08/18 08:54 Last Admin: 01/07/18 09:30 Dose: 125 mls/hr Insulin Detemir (Levemir) 20 units SC HS [facility] Last Admin: 01/06/18 22:53 Dose: 20 units Insulin Detemir (Levemir) 12 units SC DAILY [facility] Last Admin: 01/07/18 09:32 Dose: 12 units Insulin Human Lispro (Humalog) 0 units SC ACHS [facility] Last Admin: 01/07/18 12:26 Dose: Not Given Methimazole (Tapazole) 5 mg PO BID [facility] Last Admin: 01/07/18 09:39 Dose: Not Given Metoprolol Tartrate (Lopressor) 25 mg PO Q12 [facility] Last Admin: 01/07/18 09:33 Dose: Not Given Mirtazapine (Remeron) 7.5 mg PO HS [facility] Last Admin: 01/06/18 21:45 Dose: Not Given Nystatin (Nystop Topical Powder) 1 applic TOP TID [facility] Last Admin: 01/07/18 13:27 Dose: 1 applic - Labs Labs: - Additional Findings Additional findings: - Constitutional Appears: Chronically Ill Additional comments: weak still - Head Exam Head Exam: ATRAUMATIC - ENT Exam ENT Exam: Normal Oropharynx - Neck Exam Neck exam: Positive for: Full Rom - Respiratory Exam Respiratory Exam: Additional comments: no wheezing poor inspiratory effort - Cardiovascular Exam Cardiovascular Exam: RRR, +S1, +S2 - GI/Abdominal Exam GI & Abdominal Exam: Normal Bowel Sounds, Soft Additional comments: no tenderness no guarding, no rebound - Extremities Exam Additional comments: no edema b/l LE - Neurological Exam Additional comments: does not answer questions only nods Laboratory Results - last 72 hr 01/03/18 01/04/18 01/04/18 22:17 06:26 06:30 WBC RBC Hgb Hct MCV MCH MCHC RDW Plt Count Manual Plt Count MPV Neut % (Auto) Lymph % (Auto) [place] % (Auto) Eos % (Auto) Baso % (Auto) Neut # (Auto) Lymph # (Auto) [place] # (Auto) Eos # (Auto) Baso # (Auto) Neutrophils % (Manual) Lymphocytes % (Manual) Monocytes % (Manual) Basophils % (Manual) Metamyelocytes % Myelocytes % Toxic Granulation Platelet Estimate Polychromasia Hypochromasia (manual) Anisocytosis (manual) Ovalocytes Sodium Potassium Chloride Carbon Dioxide Anion Gap BUN Creatinine Est GFR ( Amer) Est GFR (Non-Af Amer) POC Glucose (mg/dL) 284 H 219 H Random Glucose Calcium Total Bilirubin AST ALT Alkaline Phosphatase Total Protein Albumin Globulin Albumin/Globulin Ratio UF Heparin Interp Folate Heparin-induced Plt Ab [facility] UFH Low Dose 0.1 [place] UFH Low Dose 0.5 [place] UFH High Dose 100 Hepatitis A IgM Ab Negative Hep Bs Antigen Negative Hep B Core IgM Ab Negative Hepatitis C Antibody Reactive Hepatitis C RNA HCV RNA Quant (PCR) HIV 1&2 Antibody Screen Blood Type Blood Type Confirm Antibody Screen BBK History Checked 01/04/18 01/04/18 01/04/18 06:30 06:30 06:30 WBC RBC Hgb Hct MCV MCH MCHC RDW Plt Count Manual Plt Count MPV Neut % (Auto) Lymph % (Auto) [place] % (Auto) Eos % (Auto) Baso % (Auto) Neut # (Auto) Lymph # (Auto) [place] # (Auto) Eos # (Auto) Baso # (Auto) Neutrophils % (Manual) Lymphocytes % (Manual) Monocytes % (Manual) Basophils % (Manual) Metamyelocytes % Myelocytes % Toxic Granulation Platelet Estimate Polychromasia Hypochromasia (manual) Anisocytosis (manual) Ovalocytes Sodium Potassium Chloride Carbon Dioxide Anion Gap BUN Creatinine Est GFR ( Amer) Est GFR (Non-Af Amer) POC Glucose (mg/dL) Random Glucose Calcium Total Bilirubin AST ALT Alkaline Phosphatase Total Protein Albumin Globulin Albumin/Globulin Ratio UF Heparin Interp Negative Folate 4.8 Heparin-induced Plt Ab Positive H [facility] UFH Low Dose 0.1 0 [facility] [facility]FH Low Dose 0.5 0 [facility] UFH High Dose 100 0 Hepatitis A IgM Ab Hep Bs Antigen Hep B Core IgM Ab Hepatitis C Antibody Hepatitis C RNA HCV RNA Quant (PCR) HIV 1&2 Antibody Screen Negative Blood Type Blood Type Confirm Antibody Screen BBK History Checked 01/04/18 01/04/18 01/04/18 11:07 13:07 16:28 WBC RBC Hgb Hct MCV MCH MCHC RDW Plt Count Manual Plt Count MPV Neut % (Auto) Lymph % (Auto) [place] % (Auto) Eos % (Auto) Baso % (Auto) Neut # (Auto) Lymph # (Auto) [place] # (Auto) Eos # (Auto) Baso # (Auto) Neutrophils % (Manual) Lymphocytes % (Manual) Monocytes % (Manual) Basophils % (Manual) Metamyelocytes % Myelocytes % Toxic Granulation Platelet Estimate Polychromasia Hypochromasia (manual) Anisocytosis (manual) Ovalocytes Sodium Potassium Chloride Carbon Dioxide Anion Gap BUN Creatinine Est GFR ( Amer) Est GFR (Non-Af Amer) POC Glucose (mg/dL) 165 H 147 H 128 H Random Glucose Calcium Total Bilirubin AST ALT Alkaline Phosphatase Total Protein Albumin Globulin Albumin/Globulin Ratio UF Heparin Interp Folate Heparin-induced Plt Ab [facility] UFH Low Dose 0.1 [place] UFH Low Dose 0.5 [place] UFH High Dose 100 Hepatitis A IgM Ab Hep Bs Antigen Hep B Core IgM Ab Hepatitis C Antibody Hepatitis C RNA HCV RNA Quant (PCR) HIV 1&2 Antibody Screen Blood Type Blood Type Confirm Antibody Screen BBK History Checked 01/04/18 01/05/18 01/05/18 21:46 05:15 05:15 WBC 8.1 RBC 3.09 L Hgb 8.9 L Hct 27.9 L MCV 90.1 MCH 28.8 MCHC 32.0 L RDW 16.9 H Plt Count 18 L* D Manual Plt Count MPV 10.2 Neut % (Auto) 90.9 H Lymph % (Auto) 6.9 L [place] % (Auto) 1.9 Eos % (Auto) 0.3 Baso % (Auto) 0.0 Neut # (Auto) 7.3 H Lymph # (Auto) 0.6 L [place] # (Auto) 0.2 Eos # (Auto) 0.0 Baso # (Auto) 0.0 Neutrophils % (Manual) 89 H Lymphocytes % (Manual) 7 L Monocytes % (Manual) 1 Basophils % (Manual) 1 Metamyelocytes % 1 H Myelocytes % 1 H Toxic Granulation Present Platelet Estimate Decreased L Polychromasia Slight Hypochromasia (manual) Moderate Anisocytosis (manual) Slight Ovalocytes Slight Sodium 149 H Potassium 5.0 Chloride 121 H Carbon Dioxide 27 Anion Gap 6 L BUN 71 H Creatinine 1.6 H Est GFR ( Amer) 39 Est GFR (Non-Af Amer) 32 POC Glucose (mg/dL) 114 H Random Glucose 128 H Calcium 6.8 L Total Bilirubin 0.7 AST 79 H D ALT 57 H Alkaline Phosphatase 434 H Total Protein 4.6 L Albumin 1.9 L Globulin 2.7 Albumin/Globulin Ratio 0.7 L UF Heparin Interp Folate Heparin-induced Plt Ab [facility] UFH Low Dose 0.1 [facility] [facility]FH Low Dose 0.5 [facility] UFH High Dose 100 Hepatitis A IgM Ab Hep Bs Antigen Hep B Core IgM Ab Hepatitis C Antibody Hepatitis C RNA HCV RNA Quant (PCR) HIV 1&2 Antibody Screen Blood Type Blood Type Confirm Antibody Screen BBK History Checked 01/05/18 01/05/18 01/05/18 05:25 09:10 11:01 WBC RBC Hgb Hct MCV MCH MCHC RDW Plt Count 33 L Manual Plt Count MPV Neut % (Auto) Lymph % (Auto) [place] % (Auto) Eos % (Auto) Baso % (Auto) Neut # (Auto) Lymph # (Auto) [place] # (Auto) Eos # (Auto) Baso # (Auto) Neutrophils % (Manual) Lymphocytes % (Manual) Monocytes % (Manual) Basophils % (Manual) Metamyelocytes % Myelocytes % Toxic Granulation Platelet Estimate Polychromasia Hypochromasia (manual) Anisocytosis (manual) Ovalocytes Sodium Potassium Chloride Carbon Dioxide Anion Gap BUN Creatinine Est GFR ( Amer) Est GFR (Non-Af Amer) POC Glucose (mg/dL) 137 H 205 H Random Glucose Calcium Total Bilirubin AST ALT Alkaline Phosphatase Total Protein Albumin Globulin Albumin/Globulin Ratio UF Heparin Interp Folate Heparin-induced Plt Ab [facility] UFH Low Dose 0.1 [place] [facility]FH Low Dose 0.5 [place] UFH High Dose 100 Hepatitis A IgM Ab Hep Bs Antigen Hep B Core IgM Ab Hepatitis C Antibody Hepatitis C RNA HCV RNA Quant (PCR) HIV 1&2 Antibody Screen Blood Type Blood Type Confirm Antibody Screen BBK History Checked 01/05/18 01/05/18 01/05/18 11:48 12:45 16:14 WBC RBC Hgb Hct MCV MCH MCHC RDW Plt Count Manual Plt Count MPV Neut % (Auto) Lymph % (Auto) [place] % (Auto) Eos % (Auto) Baso % (Auto) Neut # (Auto) Lymph # (Auto) [place] # (Auto) Eos # (Auto) Baso # (Auto) Neutrophils % (Manual) Lymphocytes % (Manual) Monocytes % (Manual) Basophils % (Manual) Metamyelocytes % Myelocytes % Toxic Granulation Platelet Estimate Polychromasia Hypochromasia (manual) Anisocytosis (manual) Ovalocytes Sodium Potassium Chloride Carbon Dioxide Anion Gap BUN Creatinine Est GFR ( Amer) Est GFR (Non-Af Amer) POC Glucose (mg/dL) Random Glucose Calcium Total Bilirubin AST ALT Alkaline Phosphatase Total Protein Albumin Globulin Albumin/Globulin Ratio UF Heparin Interp Folate Heparin-induced Plt Ab [facility] UFH Low Dose 0.1 [place] UFH Low Dose 0.5 [place] UFH High Dose 100 Hepatitis A IgM Ab Hep Bs Antigen Hep B Core IgM Ab Hepatitis C Antibody Hepatitis C RNA <15 not detected HCV RNA Quant (PCR) <1.18 not detected HIV 1&2 Antibody Screen Blood Type AB POSITIVE Blood Type Confirm AB POSITIVE Antibody Screen Negative BBK History Checked No verified bt 01/05/18 01/05/18 01/06/18 16:32 21:36 04:25 WBC 8.8 RBC 3.35 L Hgb 10.1 L Hct 32.1 L MCV 95.8 D MCH 30.2 MCHC 31.6 L RDW 18.4 H Plt Count 27 L* Manual Plt Count MPV Neut % (Auto) Lymph % (Auto) [place] % (Auto) Eos % (Auto) Baso % (Auto) Neut # (Auto) Lymph # (Auto) [place] # (Auto) Eos # (Auto) Baso # (Auto) Neutrophils % (Manual) Lymphocytes % (Manual) Monocytes % (Manual) Basophils % (Manual) Metamyelocytes % Myelocytes % Toxic Granulation Platelet Estimate Polychromasia Hypochromasia (manual) Anisocytosis (manual) Ovalocytes Sodium Potassium Chloride Carbon Dioxide Anion Gap BUN Creatinine Est GFR ( Amer) Est GFR (Non-Af Amer) POC Glucose (mg/dL) 274 H 280 H Random Glucose Calcium Total Bilirubin AST ALT Alkaline Phosphatase Total Protein Albumin Globulin Albumin/Globulin Ratio UF Heparin Interp Folate Heparin-induced Plt Ab [facility] UFH Low Dose 0.1 [place] UFH Low Dose 0.5 [place] UFH High Dose 100 Hepatitis A IgM Ab Hep Bs Antigen Hep B Core IgM Ab Hepatitis C Antibody Hepatitis C RNA HCV RNA Quant (PCR) HIV 1&2 Antibody Screen Blood Type Blood Type Confirm Antibody Screen BBK History Checked 01/06/18 01/06/18 01/06/18 04:25 05:24 11:54 WBC RBC Hgb Hct MCV MCH MCHC RDW Plt Count Manual Plt Count MPV Neut % (Auto) Lymph % (Auto) [place] % (Auto) Eos % (Auto) Baso % (Auto) Neut # (Auto) Lymph # (Auto) [place] # (Auto) Eos # (Auto) Baso # (Auto) Neutrophils % (Manual) Lymphocytes % (Manual) Monocytes % (Manual) Basophils % (Manual) Metamyelocytes % Myelocytes % Toxic Granulation Platelet Estimate Polychromasia Hypochromasia (manual) Anisocytosis (manual) Ovalocytes Sodium 146 Potassium 5.0 Chloride 118 H Carbon Dioxide 20 L Anion Gap 13 BUN 75 H Creatinine 1.5 H Est GFR ( Amer) 42 Est GFR (Non-Af Amer) 35 POC Glucose (mg/dL) 312 H 313 H Random Glucose 327 H Calcium 7.1 L Total Bilirubin AST ALT Alkaline Phosphatase Total Protein Albumin Globulin Albumin/Globulin Ratio UF Heparin Interp Folate Heparin-induced Plt Ab [facility] UFH Low Dose 0.1 [facility] UFH Low Dose 0.5 [place] UFH High Dose 100 Hepatitis A IgM Ab Hep Bs Antigen Hep B Core IgM Ab Hepatitis C Antibody Hepatitis C RNA HCV RNA Quant (PCR) HIV 1&2 Antibody Screen Blood Type Blood Type Confirm Antibody Screen BBK History Checked 01/06/18 01/06/18 01/07/18 16:37 21:52 05:10 WBC 7.3 RBC 2.72 L Hgb 8.1 L D Hct 25.4 L MCV 93.4 D MCH 29.8 MCHC 31.9 L RDW 17.5 H Plt Count 63 L D Manual Plt Count 60 L MPV Neut % (Auto) Lymph % (Auto) [place] % (Auto) Eos % (Auto) Baso % (Auto) Neut # (Auto) Lymph # (Auto) [place] # (Auto) Eos # (Auto) Baso # (Auto) Neutrophils % (Manual) Lymphocytes % (Manual) Monocytes % (Manual) Basophils % (Manual) Metamyelocytes % Myelocytes % Toxic Granulation Platelet Estimate Polychromasia Hypochromasia (manual) Anisocytosis (manual) Ovalocytes Sodium Potassium Chloride Carbon Dioxide Anion Gap BUN Creatinine Est GFR ( Amer) Est GFR (Non-Af Amer) POC Glucose (mg/dL) 352 H 216 H Random Glucose Calcium Total Bilirubin AST ALT Alkaline Phosphatase Total Protein Albumin Globulin Albumin/Globulin Ratio UF Heparin Interp Folate Heparin-induced Plt Ab [place] UFH Low Dose 0.1 [place] UFH Low Dose 0.5 [place] UFH High Dose 100 Hepatitis A IgM Ab Hep Bs Antigen Hep B Core IgM Ab Hepatitis C Antibody Hepatitis C RNA HCV RNA Quant (PCR) HIV 1&2 Antibody Screen Blood Type Blood Type Confirm Antibody Screen BBK History Checked 01/07/18 01/07/18 01/07/18 05:10 05:27 11:30 WBC RBC Hgb Hct MCV MCH MCHC RDW Plt Count Manual Plt Count MPV Neut % (Auto) Lymph % (Auto) [place] % (Auto) Eos % (Auto) Baso % (Auto) Neut # (Auto) Lymph # (Auto) [place] # (Auto) Eos # (Auto) Baso # (Auto) Neutrophils % (Manual) Lymphocytes % (Manual) Monocytes % (Manual) Basophils % (Manual) Metamyelocytes % Myelocytes % Toxic Granulation Platelet Estimate Polychromasia Hypochromasia (manual) Anisocytosis (manual) Ovalocytes Sodium 150 H Potassium 4.5 Chloride 121 H Carbon Dioxide 26 Anion Gap 8 L BUN 71 H Creatinine 1.4 H Est GFR ( Amer) 46 Est GFR (Non-Af Amer) 38 POC Glucose (mg/dL) 231 H 206 H Random Glucose 194 H Calcium 7.1 L Total Bilirubin AST ALT Alkaline Phosphatase Total Protein Albumin Globulin Albumin/Globulin Ratio UF Heparin Interp Folate Heparin-induced Plt Ab [facility] UFH Low Dose 0.1 [place] UFH Low Dose 0.5 [place] UFH High Dose 100 Hepatitis A IgM Ab Hep Bs Antigen Hep B Core IgM Ab Hepatitis C Antibody Hepatitis C RNA HCV RNA Quant (PCR) HIV 1&2 Antibody Screen Blood Type Blood Type Confirm Antibody Screen BBK History Checked Microbiology 01/01/18 16:32 Blood-Venous Blood Culture - Final NO GROWTH AFTER 5 DAYS 01/01/18 16:32 Blood-Venous Gram Stain - Final TEST NOT PERFORMED 01/01/18 16:42 Blood-Venous Blood Culture - Final NO GROWTH AFTER 5 DAYS 01/01/18 16:42 Blood-Venous Gram Stain - Final TEST NOT PERFORMED 12/31/17 04:40 Blood-Venous Blood Culture - Final NO GROWTH AFTER 5 DAYS 12/31/17 04:40 Blood-Venous Gram Stain - Final TEST NOT PERFORMED 12/31/17 04:45 Blood-Venous Blood Culture - Final NO GROWTH AFTER 5 DAYS 12/31/17 04:45 Blood-Venous Gram Stain - Final TEST NOT PERFORMED 01/01/18 08:37 Naris MRSA Culture (Admit) - Final MRSA NOT DETECTED 01/01/18 16:25 Urine,Randolph Urine Culture - Final Yeast Species 12/28/17 14:40 Blood-Venous Blood Culture - Final NO GROWTH AFTER 5 DAYS 12/28/17 14:40 Blood-Venous Gram Stain - Final TEST NOT PERFORMED 12/28/17 14:40 Blood-Venous Blood Culture - Final NO GROWTH AFTER 5 DAYS 12/28/17 14:40 Blood-Venous Gram Stain - Final TEST NOT PERFORMED 12/28/17 16:39 Urine,Catheterized Urine Culture - Final Yeast Species 12/27/17 14:49 Blood-Venous Blood Culture - Final Escherichia Coli 12/27/17 14:49 Blood-Venous Gram Stain - Final 12/27/17 06:00 Naris MRSA Culture (Admit) - Final MRSA NOT DETECTED 12/27/17 14:49 Urine,Randolph Urine Culture - Final No Growth (<1,000 CFU/ML) Assessment and Plan (1) Sepsis Status: Acute (2) Dehydration Status: Acute (3) DKA (diabetic ketoacidoses) Status: Resolved (4) Acute renal disease Status: Acute (5) Bacteremia due to Gram-negative bacteria Status: Acute (6) UTI (urinary tract infection) Status: Acute - Assessment and Plan (Free Text) Assessment: A/P- 67 year old female was admitted with weakness and lethargy found to be in DKA and GNR bacteremia and ct abd/chest reported as left lung mass with liver mets . afebrile minimal leukocytosis has resolved. thrombocytopenia blood cx- e.coli pansensitive Urine cx- <1000 repeat blood cx 12/28/2017- neg x 6 TTE- no mention of any vegetations as per report. Ct report findings of lung mass with liver mets . plan- day #9 of ceftriaxone for e.coli bacteremia. was on 3 days of meropenm prior to that. advise 2 more days of IV ceftriaxone to complete total of 14 days of antibiotic therpay. Monitor carefully aspiration precautions. thrombocytopenia management as per heme/onc and PMD.
--- NOTE | 2018-01-07 20:50 | PN ---
DATE: 01/07/2018 ENDO FOLLOWUP NOTE LOCATION: In room 414. SUBJECTIVE: This is a 67-year-old female with recent uncontrolled type 2 insulin-requiring diabetes, now being followed closely for metabolic management. Her glycemic levels are fluctuating, but improved and today's glucose values have ranged from 206-231 mg/dL. LABORATORY DATA; Her chemistries show a BUN of 71, sodium 150, potassium 4.5, chloride 121, CO2 26, glucose 194, and creatinine 1.4. PLAN: So at this time, we will continue the same basal insulin as modified yesterday with the dosing of Levemir given as 20 units subcu at bedtime daily, to start tonight. We will also continue the Levemir given as 12 units subcu every morning as ordered, to start today. We will continue also her low dose of Tapazole given as 5 mg b.i.d. as ordered. We will obtain serial chemistries and supplement accordingly as needed. We will follow. Angela Copeland MD
[2018-01-08] MEDS: Albuterol-Ipratrop 3 mg / 0.5 (3 ml) UD INH SCH ×6 (00:45→19:15)
[2018-01-08] MEDS: Proshield Plus GEL TOP SCH ×3 (02:55→16:49)
--- NOTE | 2018-01-08 06:22 | CP.PCM.CON ---
History of Present Illness - History of Present Illness History of Present Illness: GENERAL SURGERY CONSULT NOTE FOR DR. CAMPBELL 67yo F with PMHx of CAD, HTN, DM presented to the ED on 12/27 with poor PO intake for 3months, lethargy, AMS. She was found to be in DKA, with JOVANNA, thrombocytopenia, E coli bacteremia, UTI. She was initially treated in the ICU. Pt found to have left lung mass, liver mets and right breast mass on CT. Patient poor historian, answered most questions with no. Patient denied breast pain, ni pple discharge, or any palpable breast mass. Patient did report weight loss of unknown amount. PMHx: CAD, HTN, DM Surgeries: denies Allergies: none Social history: denies but chart indicates tobacco abuse Review of Systems - Review of Systems Systems not reviewed;Unavailable: Altered Mental Status All systems: reviewed and no additional remarkable complaints except Past Patient History - Past Medical History & Family History Past Medical History?: Yes Past Family History: Reviewed and not pertinent - Past Social History Smoking Status: Heavy Smoker > 10 Cigarettes Daily Alcohol: None Drugs: Denies - CARDIAC Hx Pacemaker: No - PULMONARY Hx Respiratory Disorders: No - NEUROLOGICAL Hx Neurological Disorder: No - HEENT Hx HEENT Problems: No - RENAL Hx Chronic Kidney Disease: No - ENDOCRINE/METABOLIC Hx Endocrine Disorders: No Hx Diabetes Mellitus Type 2: Yes - HEMATOLOGICAL/ONCOLOGICAL Hx Cancer: No - INTEGUMENTARY Hx Dermatological Problems: No - MUSCULOSKELETAL/RHEUMATOLOGICAL Hx Musculoskeletal Disorders: Yes - GASTROINTESTINAL Hx Gastrointestinal Disorders: No - GENITOURINARY/GYNECOLOGICAL Hx Genitourinary Disorders: No - PSYCHIATRIC Hx Psychophysiologic Disorder: No - SURGICAL HISTORY Hx Mastectomy: No - ANESTHESIA Hx Anesthesia: No Meds Allergies/Adverse Reactions: Allergies Allergy/AdvReac Type Severity Reaction Status Date / Time No Known Allergies Allergy Verified 12/17/15 03:08 - Medications Medications: Current Medications Acetaminophen (Tylenol 650 Mg Supp) 650 mg MD Q6 PRN PRN Reason: Fever >100.4 F Last Admin: 01/01/18 17:14 Dose: 650 mg Acetaminophen (Tylenol 650 Mg Supp) 650 mg MD Q6 PRN PRN Reason: Pain, moderate (4-7) Last Admin: 01/05/18 17:44 Dose: 650 mg Albuterol/Ipratropium (Duoneb 3 Mg/0.5 Mg (3 Ml) Ud) 3 ml INH RQ4 [facility] Last Admin: 01/08/18 05:11 Dose: Not Given Dextrose (Glutose 15) 0 gm PO ONCE PRN; Protocol PRN Reason: Hypoglycemia Protocol Dextrose (Dextrose 50% Inj) 0 ml IV STAT PRN; Protocol PRN Reason: Hypoglycemia Protocol Last Admin: 01/03/18 05:29 Dose: 50 ml Dextrose (Glutose 15) 0 gm PO ONCE PRN; Protocol PRN Reason: Hypoglycemia Protocol Dimethicone (Proshield Plus Skin Protectant) 1 applic TOP Q8 [facility] Last Admin: 01/08/18 02:55 Dose: 1 applic Glucagon (Glucagen Diagnostic Kit) 0 mg IM STAT PRN; Protocol PRN Reason: Hypoglycemia Protocol Glucagon (Glucagen Diagnostic Kit) 0 mg IM STAT PRN; Protocol PRN Reason: Hypoglycemia Protocol Ceftriaxone Sodium 1 gm/ (Sodium Chloride) 100 mls @ 100 mls/hr IVPB DAILY [facility]; Protocol Last Admin: 01/07/18 09:36 Dose: 100 mls/hr Dextrose/Sodium Chloride (Dextrose 5%/0.45% Ns 1000 Ml) 1,000 mls @ 125 mls/hr IV .Q8H [facility] Stop: 01/08/18 08:54 Last Admin: 01/07/18 16:53 Dose: 125 mls/hr Insulin Detemir (Levemir) 20 units SC HS [facility] Last Admin: 01/07/18 22:02 Dose: 20 units Insulin Detemir (Levemir) 12 units SC DAILY [facility] Last Admin: 01/07/18 09:32 Dose: 12 units Insulin Human Lispro (Humalog) 0 units SC ACHS [facility] Last Admin: 01/07/18 22:15 Dose: Not Given Methimazole (Tapazole) 5 mg PO BID [facility] Last Admin: 01/07/18 16:55 Dose: Not Given Metoprolol Tartrate (Lopressor) 25 mg PO Q12 [facility] Last Admin: 01/07/18 21:55 Dose: Not Given Mirtazapine (Remeron) 7.5 mg PO HS [facility] Last Admin: 01/07/18 21:54 Dose: 7.5 mg Nystatin (Nystop Topical Powder) 1 applic TOP TID [facility] Last Admin: 01/07/18 16:54 Dose: 1 applic Physical Exam - Constitutional Appears: Non-toxic, No Acute Distress, Chronically Ill - Respiratory Exam Respiratory Exam: NORMAL BREATHING PATTERN. absent: Respiratory Distress - Cardiovascular Exam Cardiovascular Exam: +S1, +S2 - GI/Abdominal Exam GI & Abdominal Exam: Soft, Tenderness (mild ). absent: Distended, Firm, Guarding, Rebound, Rigid - Neurological Exam Neurological exam: Alert, Altered - Psychiatric Exam Psychiatric exam: Flat Affect - Skin Skin Exam: Dry, Normal Color Results - Vital Signs Recent Vital Signs: Last Vital Signs Temp 97.7 F 01/08/18 05:00 Pulse 66 01/08/18 05:00 Resp 20 01/08/18 05:00 BP 123/67 01/08/18 05:00 Pulse Ox 95 01/08/18 05:00 - Labs Result Diagrams: 01/07/18 05:10 01/07/18 05:10 Labs: Laboratory Results - last 24 hr 01/06/18 01/07/18 01/07/18 21:52 05:10 05:10 WBC 7.3 RBC 2.72 L Hgb 8.1 L D Hct 25.4 L MCV 93.4 D MCH 29.8 MCHC 31.9 L RDW 17.5 H Plt Count 63 L D Manual Plt Count 60 L Sodium 150 H Potassium 4.5 Chloride 121 H Carbon Dioxide 26 Anion Gap 8 L BUN 71 H Creatinine 1.4 H Est GFR ( Amer) 46 Est GFR (Non-Af Amer) 38 POC Glucose (mg/dL) 216 H Random Glucose 194 H Calcium 7.1 L 01/07/18 01/07/18 01/07/18 05:27 11:30 15:52 WBC RBC Hgb Hct MCV MCH MCHC RDW Plt Count Manual Plt Count Sodium Potassium Chloride Carbon Dioxide Anion Gap BUN Creatinine Est GFR ( Amer) Est GFR (Non-Af Amer) POC Glucose (mg/dL) 231 H 206 H 274 H Random Glucose Calcium 01/07/18 01/08/18 21:12 05:27 WBC RBC Hgb Hct MCV MCH MCHC RDW Plt Count Manual Plt Count Sodium Potassium Chloride Carbon Dioxide Anion Gap BUN Creatinine Est GFR ( Amer) Est GFR (Non-Af Amer) POC Glucose (mg/dL) 291 H 247 H Random Glucose Calcium Assessment & Plan - Assessment and Plan (Free Text) Assessment: 67yo F with PMHx of CAD, HTN, DM presented to the ED on 12/27 with poor PO intake for 3months, lethargy, AMS and was found to have left lung mass, right breast mass and liver mets. - Recommend core needle biopsy of right breast mass by radiology - Discussed plan with Dr. [place] PGY-4
[2018-01-08] MEDS: Dextrose 5%/0.45% NS 1,000 ML IV SCH ×3 (06:56→07:06)
[2018-01-08] MEDS: Insulin Lispro (humaLOG) 100 Units/ml Inj SC SCH ×4 (07:30→21:36)
[2018-01-08] MEDS: Insulin Detemir 100 Units/ml Inj SC SCH ×2 (09:01→21:36)
[2018-01-08] MEDS: methIMAzole 5 MG TAB PO SCH ×3 (09:06→16:44)
[2018-01-08 11:15] LABS: HEMOGLOBIN 9.3 g/dL (12.0-16.0); MEAN CELL VOLUME 90.2 fl (81.0-99.0); MEAN CORPUSCULAR HEMOGLOBIN 28.7 pg (27.0-31.0); MEAN CORPUSCULAR HGB CONC 31.9 g/dL (33.0-37.0); RBC 3.24 Mil/uL (3.80-5.20); RED CELL DISTRIBUTION WIDTH 16.8 % (11.5-14.5); WHITE BLOOD COUNT 5.9 K/uL (4.8-10.8)
[2018-01-08 11:19] LABS: INR 1.2; PROTHROMBIN TIME 13.2 Seconds (9.8-13.1)
[2018-01-08 11:25] LABS: BLOOD UREA NITROGEN 62 mg/dl (7-17); CALCIUM 6.8 mg/dL (8.4-10.2); GFR NON-AFRICAN AMERICAN > 60
--- NOTE | 2018-01-08 11:44 | CP.PCM.PN ---
Subjective - Date & Time of Evaluation Date of Evaluation: 01/08/18 Time of Evaluation: 11:44 - Subjective Subjective: STILL LETHARGIC BUT EASILY AROUSABLE CASE WAS DISCUSSED WITH DR VICENTE AND DR MCKEON PT IS TOO ILL FOR AGGRESSIVE PULMONARY INTERVENTION[BRONCHOSCOPY/LUNG BIOPSY] THE RISKS OF BLEEDING AND ASPHYXIATION OUTWEIGH BENEFITS OF MAKING A DIAGNOSIS WILL SUGGEST PERCUTANEOUS BIOPSY OF R BREAST MASS INSTEAD FOR DEFINITIVE DIAGNOSIS Objective - Vital Signs/Intake and Output Vital Signs (last 24 hours): Temp Pulse Resp BP Pulse Ox 97.5 F L 66 20 143/73 99 01/08/18 08:00 01/08/18 09:02 01/08/18 08:00 01/08/18 09:02 01/08/18 08:00 Intake and Output: 01/08/18 01/08/18 06:59 18:59 Intake Total 1500 Output Total 550 Balance 950 - Medications Medications: Current Medications Acetaminophen (Tylenol 650 Mg Supp) 650 mg [place] Q6 PRN PRN Reason: Fever >100.4 F Last Admin: 01/01/18 17:14 Dose: 650 mg Acetaminophen (Tylenol 650 Mg Supp) 650 mg [place] Q6 PRN PRN Reason: Pain, moderate (4-7) Last Admin: 01/05/18 17:44 Dose: 650 mg Albuterol/Ipratropium (Duoneb 3 Mg/0.5 Mg (3 Ml) Ud) 3 ml INH RQ4 [facility] Last Admin: 01/08/18 11:21 Dose: 3 ml Dextrose (Glutose 15) 0 gm PO ONCE PRN; Protocol PRN Reason: Hypoglycemia Protocol Dextrose (Dextrose 50% Inj) 0 ml IV STAT PRN; Protocol PRN Reason: Hypoglycemia Protocol Last Admin: 01/03/18 05:29 Dose: 50 ml Dextrose (Glutose 15) 0 gm PO ONCE PRN; Protocol PRN Reason: Hypoglycemia Protocol Dimethicone (Proshield Plus Skin Protectant) 1 applic TOP Q8 [facility] Last Admin: 01/08/18 09:04 Dose: 1 applic Glucagon (Glucagen Diagnostic Kit) 0 mg IM STAT PRN; Protocol PRN Reason: Hypoglycemia Protocol Glucagon (Glucagen Diagnostic Kit) 0 mg IM STAT PRN; Protocol PRN Reason: Hypoglycemia Protocol Ceftriaxone Sodium 1 gm/ (Sodium Chloride) 100 mls @ 100 mls/hr IVPB DAILY [facility]; Protocol Last Admin: 01/08/18 09:05 Dose: 100 mls/hr Insulin Detemir (Levemir) 20 units SC HS [facility] Last Admin: 01/07/18 22:02 Dose: 20 units Insulin Detemir (Levemir) 12 units SC DAILY [facility] Last Admin: 01/08/18 09:01 Dose: 12 units Insulin Human Lispro (Humalog) 0 units SC ACHS [facility] Last Admin: 01/08/18 07:30 Dose: Not Given Methimazole (Tapazole) 5 mg PO BID [facility] Last Admin: 01/08/18 09:06 Dose: 5 mg Metoprolol Tartrate (Lopressor) 25 mg PO Q12 [facility] Last Admin: 01/08/18 09:02 Dose: 25 mg Mirtazapine (Remeron) 7.5 mg PO HS [facility] Last Admin: 01/07/18 21:54 Dose: 7.5 mg Nystatin (Nystop Topical Powder) 1 applic TOP TID [facility] Last Admin: 01/08/18 09:03 Dose: 1 applic - Labs Labs: 01/08/18 11:04 01/08/18 11:04 PT 13.2 Seconds (9.8-13.1) H 01/08/18 11:04 INR 1.2 01/08/18 11:04
[2018-01-08] MEDS ORDERED: Gadodiamide 287 MG/ML VIAL (15ML) IV ONE (17:38)
--- NOTE | 2018-01-08 18:45 | MRI ---
Date of service: 01/08/2018 PROCEDURE: MRI BRAIN WITH AND WITHOUT CONTRAST HISTORY: r/o brain mets COMPARISON: None available. TECHNIQUE: Multiplanar, multisequence MR images of the brain were obtained with and without intravenous contrast enhancement. FINDINGS: HEMORRHAGE: None DWI: No evidence of an acute or early subacute infarction. BRAIN PARENCHYMA: No mass,mass effect or edema. Mild volume loss and white matter changes are noted. ENHANCEMENT: No abnormal intracranial enhancement. VENTRICLES: Unremarkable. No hydrocephalus. CRANIUM: Unremarkable. ORBITS: Grossly unremarkable. PARANASAL SINUSES/MASTOIDS: Clear VASCULAR SYSTEM: Skull base flow voids intact. OTHER FINDINGS: None . IMPRESSION: No evidence of enhancing mass lesion in the brain to suggest brain metastasis. Mild volume loss and white matter changes likely due to chronic microvascular ischemic disease. No evidence of acute infarct or intracranial hemorrhage.
--- NOTE | 2018-01-08 20:48 | CP.PCM.PN ---
Subjective - Date & Time of Evaluation Date of Evaluation: 01/08/18 Time of Evaluation: 13:30 - Subjective Subjective: Lethargic but arousable Objective - Vital Signs/Intake and Output Vital Signs (last 24 hours): Temp Pulse Resp BP Pulse Ox 97.3 F L 63 18 137/68 97 01/08/18 19:49 01/08/18 19:49 01/08/18 19:49 01/08/18 19:49 01/08/18 19:49 Intake and Output: 01/08/18 01/09/18 18:59 06:59 Intake Total 1500 1380 Output Total 550 600 Balance 950 780 - Medications Medications: Current Medications Acetaminophen (Tylenol 650 Mg Supp) 650 mg [place] Q6 PRN PRN Reason: Fever >100.4 F Last Admin: 01/01/18 17:14 Dose: 650 mg Acetaminophen (Tylenol 650 Mg Supp) 650 mg [place] Q6 PRN PRN Reason: Pain, moderate (4-7) Last Admin: 01/05/18 17:44 Dose: 650 mg Albuterol/Ipratropium (Duoneb 3 Mg/0.5 Mg (3 Ml) Ud) 3 ml INH RQ4 [facility] Last Admin: 01/08/18 19:15 Dose: 3 ml Dextrose (Glutose 15) 0 gm PO ONCE PRN; Protocol PRN Reason: Hypoglycemia Protocol Dextrose (Dextrose 50% Inj) 0 ml IV STAT PRN; Protocol PRN Reason: Hypoglycemia Protocol Last Admin: 01/03/18 05:29 Dose: 50 ml Dextrose (Glutose 15) 0 gm PO ONCE PRN; Protocol PRN Reason: Hypoglycemia Protocol Dimethicone (Proshield Plus Skin Protectant) 1 applic TOP Q8 [facility] Last Admin: 01/08/18 16:49 Dose: 1 applic Glucagon (Glucagen Diagnostic Kit) 0 mg IM STAT PRN; Protocol PRN Reason: Hypoglycemia Protocol Glucagon (Glucagen Diagnostic Kit) 0 mg IM STAT PRN; Protocol PRN Reason: Hypoglycemia Protocol Ceftriaxone Sodium 1 gm/ (Dextrose) 100 mls @ 100 mls/hr IVPB DAILY [facility]; Protocol Dextrose (Dextrose 5% In Water 1000 Ml) 1,000 mls @ 125 mls/hr IV .Q8H [facility] Stop: 01/09/18 11:52 Last Admin: 01/08/18 12:30 Dose: 125 mls/hr Insulin Detemir (Levemir) 14 units SC DAILY [facility] Insulin Detemir (Levemir) 24 units SC HS [facility] Insulin Human Lispro (Humalog) 0 units SC ACHS [facility] Last Admin: 01/08/18 16:48 Dose: Not Given Methimazole (Tapazole) 5 mg PO BID [facility] Last Admin: 01/08/18 16:44 Dose: Not Given Metoprolol Tartrate (Lopressor) 25 mg PO Q12 [facility] Last Admin: 01/08/18 09:02 Dose: 25 mg Mirtazapine (Remeron) 7.5 mg PO HS [facility] Last Admin: 01/07/18 21:54 Dose: 7.5 mg Nystatin (Nystop Topical Powder) 1 applic TOP TID [facility] Last Admin: 01/08/18 16:48 Dose: 1 applic - Labs Labs: 01/08/18 11:04 01/08/18 11:04 PT 13.2 Seconds (9.8-13.1) H 01/08/18 11:04 INR 1.2 01/08/18 11:04 - Head Exam Head Exam: ATRAUMATIC - Eye Exam Eye Exam: Normal appearance - ENT Exam ENT Exam: Mucous Membranes Dry - Respiratory Exam Respiratory Exam: NORMAL BREATHING PATTERN - Cardiovascular Exam Cardiovascular Exam: +S1, +S2 - GI/Abdominal Exam GI & Abdominal Exam: Normal Bowel Sounds Assessment and Plan (1) Thrombocytopenia Assessment & Plan: suspect sepsis related was improving but declined today Status: Acute (2) Anemia Assessment & Plan: chronic disease Status: Acute (3) Malignancy Assessment & Plan: breast mass biopsy when more stable and plt improved discussed with Dr. Reid regarding bronchoscopy with biopsy; high risk for bleeding complications at this point Status: Acute
--- NOTE | 2018-01-08 20:51 | PN ---
DATE: 01/08/2018 LOCATION: Room 414. SUBJECTIVE: This is a 67-year-old female with recent uncontrolled type 2 insulin-requiring diabetes, now being followed closely for metabolic management. Her glycemic levels are fluctuating but improved; and the glucose values have ranged from 186 to 247 mg/dL. Her chemistries showed a BUN of 62, sodium 151, potassium 3.7, chloride 121, CO2 of 22, glucose 184, and creatinine 0.9. So at this time, we will modify once again her basal insulin and increase the Levemir to 14 units subcutaneous 9:00 a.m. daily as ordered. Moreover, we will also increase the basal insulin to 24 units subcutaneous at bedtime daily to start tonight. We will obtain serial chemistries and supplement accordingly as needed. Moreover, we will consider the addition of a low-dose oral hypoglycemic therapy as her swallowing improves accordingly. We will follow. Angela Copeland MD
[2018-01-08] MEDS: Dextrose 50% SYRINGE Inj (50 ml) IV PRN (21:40)
[2018-01-09] MEDS: Albuterol-Ipratrop 3 mg / 0.5 (3 ml) UD INH SCH ×7 (00:17→23:50)
[2018-01-09] MEDS: Proshield Plus GEL TOP SCH ×3 (00:37→17:15)
--- NOTE | 2018-01-09 03:45 | CP.PCM.PN ---
Subjective - Date & Time of Evaluation Date of Evaluation: 01/06/18 Time of Evaluation: 18:05 - Subjective Subjective: Seen and examined at the bed side. Mental status waxing and waning. Continue to do poorly as she continues to refuse to eat. also Persistent Thrombocytopenia, and unable to have tissue diagnosis. D/c with the Webmaster about PLT [employer] sfusion, and boosting the PLT level to >50K for possible Tissue diagnoses. Poor prognosis and family aware but would like to know the definitive Dx. Patient DNR/DNI. Objective - Vital Signs/Intake and Output Vital Signs (last 24 hours): Temp Pulse Resp BP Pulse Ox 97.6 F 57 L 18 144/70 95 01/09/18 01:00 01/09/18 01:00 01/09/18 01:00 01/09/18 01:00 01/09/18 01:00 Intake and Output: 01/08/18 01/09/18 18:59 06:59 Intake Total 1500 1380 Output Total 550 600 Balance 950 780 - Medications Medications: Current Medications Acetaminophen (Tylenol 650 Mg Supp) 650 mg [place] Q6 PRN PRN Reason: Fever >100.4 F Last Admin: 01/01/18 17:14 Dose: 650 mg Acetaminophen (Tylenol 650 Mg Supp) 650 mg [place] Q6 PRN PRN Reason: Pain, moderate (4-7) Last Admin: 01/05/18 17:44 Dose: 650 mg Albuterol/Ipratropium (Duoneb 3 Mg/0.5 Mg (3 Ml) Ud) 3 ml INH RQ4 [facility] Last Admin: 01/09/18 00:17 Dose: Not Given Dextrose (Glutose 15) 0 gm PO ONCE PRN; Protocol PRN Reason: Hypoglycemia Protocol Dextrose (Dextrose 50% Inj) 0 ml IV STAT PRN; Protocol PRN Reason: Hypoglycemia Protocol Last Admin: 01/08/18 21:40 Dose: 50 ml Dextrose (Glutose 15) 0 gm PO ONCE PRN; Protocol PRN Reason: Hypoglycemia Protocol Dimethicone (Proshield Plus Skin Protectant) 1 applic TOP Q8 [facility] Last Admin: 01/09/18 00:37 Dose: 1 applic Glucagon (Glucagen Diagnostic Kit) 0 mg IM STAT PRN; Protocol PRN Reason: Hypoglycemia Protocol Glucagon (Glucagen Diagnostic Kit) 0 mg IM STAT PRN; Protocol PRN Reason: Hypoglycemia Protocol Ceftriaxone Sodium 1 gm/ (Dextrose) 100 mls @ 100 mls/hr IVPB DAILY [facility]; Protocol Dextrose (Dextrose 5% In Water 1000 Ml) 1,000 mls @ 125 mls/hr IV .Q8H [facility] Stop: 01/09/18 11:52 Last Admin: 01/08/18 21:35 Dose: 125 mls/hr Insulin Detemir (Levemir) 14 units SC DAILY [facility] Insulin Detemir (Levemir) 24 units SC HS [facility] Last Admin: 01/08/18 21:36 Dose: Not Given Insulin Human Lispro (Humalog) 0 units SC ACHS [facility] Last Admin: 01/08/18 21:36 Dose: Not Given Methimazole (Tapazole) 5 mg PO BID [facility] Last Admin: 01/08/18 16:44 Dose: Not Given Metoprolol Tartrate (Lopressor) 25 mg PO Q12 [facility] Last Admin: 01/08/18 21:37 Dose: Not Given Mirtazapine (Remeron) 7.5 mg PO HS [facility] Last Admin: 01/08/18 21:37 Dose: Not Given Nystatin (Nystop Topical Powder) 1 applic TOP TID [facility] Last Admin: 01/08/18 16:48 Dose: 1 applic - Labs Labs: 01/08/18 11:04 01/08/18 11:04 PT 13.2 Seconds (9.8-13.1) H 01/08/18 11:04 INR 1.2 01/08/18 11:04 Assessment and Plan (1) Altered mental status Assessment & Plan: Metabolic Encephalopathy: Sepsis, Uremia and Metabolic Acidosis- Improving Treat the Underlying Problem Status: Acute Priority: High (2) DKA (diabetic ketoacidoses)- Resolved Type II DM Assessment and Plan: HHS, Hypotension- Resolved Bolus IVF PRN Continue IVF Replenish Electrolytes BMP daily Levemir ACHS with Coverage HgA1C- 11.6 Status: Acute Priority: High (3) Septic Shock, G -ve Bactremia with E. Coli,ESBL Negative-Resolved Assessment and Plan: UTI and Sacral Pressure Ulcer Stage II- Improving IV Merem and Vamcomycin IVF Wound Care daily Status: Acute Priority: High (4) Lung mass, Possible Stage IV Lung Cancer Assessment and Plan: Family Aware Will Need Tissue Dx when patient stable Status: Acute Priority: High (5) Acute Renal Failure (ARF)- Improving Assessment and Plan: Most Likely ATN due to Hypotension and Dehydration- Improving IVF RX DKA/HHS and Sepsis Urine NA Nephrology onboard Status: Acute Priority: High (6) Gait abnormality Status: Acute Priority: Medium (7) DVT prophylaxis Status: Inactive Priority: High (8) Dysphagia- Passes Swallow Evaluation Pureed diet with [place] Thick Liquid (9) DNR/DNI (10) Severe Thrombocytopenia Monitor Bleeding Manual PLT Count Webmaster onboard Status: Acute
--- NOTE | 2018-01-09 03:47 | CP.PCM.PN ---
Subjective - Date & Time of Evaluation Date of Evaluation: 01/07/18 Time of Evaluation: 18:25 - Subjective Subjective: Seen and examined at the bed side. Mental status waxing and waning. Continue to do poorly as she continues to refuse to eat. also Persistent Thrombocytopenia, and unable to have tissue diagnosis. D/c with the Attending Psychiatrist about PLT Beltran sfusion, and boosting the PLT level to >50K for possible Tissue diagnoses. Poor prognosis and family aware but would like to know the definitive Dx. Patient DNR/DNI. Objective - Vital Signs/Intake and Output Vital Signs (last 24 hours): Temp Pulse Resp BP Pulse Ox 97.6 F 57 L 18 144/70 95 01/09/18 01:00 01/09/18 01:00 01/09/18 01:00 01/09/18 01:00 01/09/18 01:00 Intake and Output: 01/08/18 01/09/18 18:59 06:59 Intake Total 1500 1380 Output Total 550 600 Balance 950 780 - Medications Medications: Current Medications Acetaminophen (Tylenol 650 Mg Supp) 650 mg IN Q6 PRN PRN Reason: Fever >100.4 F Last Admin: 01/01/18 17:14 Dose: 650 mg Acetaminophen (Tylenol 650 Mg Supp) 650 mg IN Q6 PRN PRN Reason: Pain, moderate (4-7) Last Admin: 01/05/18 17:44 Dose: 650 mg Albuterol/Ipratropium (Duoneb 3 Mg/0.5 Mg (3 Ml) Ud) 3 ml INH RQ4 [facility] Last Admin: 01/09/18 00:17 Dose: Not Given Dextrose (Glutose 15) 0 gm PO ONCE PRN; Protocol PRN Reason: Hypoglycemia Protocol Dextrose (Dextrose 50% Inj) 0 ml IV STAT PRN; Protocol PRN Reason: Hypoglycemia Protocol Last Admin: 01/08/18 21:40 Dose: 50 ml Dextrose (Glutose 15) 0 gm PO ONCE PRN; Protocol PRN Reason: Hypoglycemia Protocol Dimethicone (Proshield Plus Skin Protectant) 1 applic TOP Q8 [facility] Last Admin: 01/09/18 00:37 Dose: 1 applic Glucagon (Glucagen Diagnostic Kit) 0 mg IM STAT PRN; Protocol PRN Reason: Hypoglycemia Protocol Glucagon (Glucagen Diagnostic Kit) 0 mg IM STAT PRN; Protocol PRN Reason: Hypoglycemia Protocol Ceftriaxone Sodium 1 gm/ (Dextrose) 100 mls @ 100 mls/hr IVPB DAILY [facility]; Protocol Dextrose (Dextrose 5% In Water 1000 Ml) 1,000 mls @ 125 mls/hr IV .Q8H [facility] Stop: 01/09/18 11:52 Last Admin: 01/08/18 21:35 Dose: 125 mls/hr Insulin Detemir (Levemir) 14 units SC DAILY [facility] Insulin Detemir (Levemir) 24 units SC HS [facility] Last Admin: 01/08/18 21:36 Dose: Not Given Insulin Human Lispro (Humalog) 0 units SC ACHS [facility] Last Admin: 01/08/18 21:36 Dose: Not Given Methimazole (Tapazole) 5 mg PO BID [facility] Last Admin: 01/08/18 16:44 Dose: Not Given Metoprolol Tartrate (Lopressor) 25 mg PO Q12 [facility] Last Admin: 01/08/18 21:37 Dose: Not Given Mirtazapine (Remeron) 7.5 mg PO HS [facility] Last Admin: 01/08/18 21:37 Dose: Not Given Nystatin (Nystop Topical Powder) 1 applic TOP TID [facility] Last Admin: 01/08/18 16:48 Dose: 1 applic - Labs Labs: 01/08/18 11:04 01/08/18 11:04 PT 13.2 Seconds (9.8-13.1) H 01/08/18 11:04 INR 1.2 01/08/18 11:04 - Additional Findings Additional findings: Date of service: 01/06/2018 PROCEDURE: CT HEAD WITHOUT CONTRAST. HISTORY: AMS COMPARISON: 12/28/2017. TECHNIQUE: Axial computed tomography images were obtained through the head/brain without intravenous contrast. Supplemental Coronal and Sagittal projections created and reviewed. Radiation dose: Total exam DLP = 911.64 mGy-cm. This CT exam was performed using one or more of the following dose reduction techniques: Automated exposure control, adjustment of the mA and/or kV according to patient size, and/or use of iterative reconstruction technique. FINDINGS: HEMORRHAGE: No intracranial hemorrhage. BRAIN: No mass effect or edema. Cortical and cerebellar atrophy, periventricular small vessel disease. VENTRICLES: Unremarkable. No hydrocephalus. CALVARIUM: Unremarkable. PARANASAL SINUSES: Sphenoid sinus disease. MASTOID AIR CELLS: Unremarkable as visualized. No inflammatory changes. OTHER FINDINGS: None. IMPRESSION: No acute intracranial abnormalities. No significant findings to account for the clinical presentation. No significant interval change compared to the prior examination(s). Assessment and Plan (1) Altered mental status Assessment & Plan: Waxing and Waning Mental Status: Mets to the Brain Vs Acute Delirium Metabolic Encephalopathy: Sepsis, Uremia and Metabolic Acidosis- Improving Treat the Underlying Problem CT Head w/o Contrast Status: Acute Priority: High (2) DKA (diabetic ketoacidoses)- Resolved Type II DM Assessment and Plan: HHS, Hypotension- Resolved Continue IVF Replenish Electrolytes PRN BMP daily Levemir ACHS with Coverage HgA1C- 11.6 Status: Acute Priority: High (3) Septic Shock, G -ve Bactremia with E. Coli,ESBL Negative-Resolved Assessment and Plan: UTI and Sacral Pressure Ulcer Stage II- Improving IV Merem and Vamcomycin IVF Wound Care daily Status: Acute Priority: High (4) Lung mass, Possible Stage IV Cancer Assessment and Plan: Family Aware Will Need Tissue Dx when PLT level is acceptable Status: Acute Priority: High (5) Acute Renal Failure (ARF)- Resolved Assessment and Plan: Most Likely ATN due to Hypotension and Dehydration- Resolved IVF RX DKA/HHS and Sepsis Urine NA Nephrology onboard Status: Acute Priority: High (6) Gait abnormality Status: Acute Priority: Medium (7) DVT prophylaxis Status: Inactive Priority: High (8) Dysphagia- Passed Swallow Evaluation Pureed diet with [place] Thick Liquid (9) Hypernatremia IVF Monitor BMP (10) Severe Thrombocytopenia Monitor Bleeding Manual PLT Count Transfuse PLT as needed if K<20K or active bleeding Attending Psychiatrist onboard Code Status:DNR/DNI Status: Inactive
--- NOTE | 2018-01-09 03:49 | CP.PCM.PN ---
Subjective - Date & Time of Evaluation Date of Evaluation: 01/08/18 Time of Evaluation: 15:15 - Subjective Subjective: Seen and examined at the bed side. Mental status waxing and waning. Continue to do poorly as she continues to refuse to eat. also Persistent Thrombocytopenia, and unable to have tissue diagnosis. D/w with the [employer] Workflow Consultant about PLT Beltran sfusion, Breast IR would like to do Breast Biopsy on when PLT>130K. Poor prognosis and family aware but would like to know the definitive Dx. Patient DNR/DNI. . Objective - Vital Signs/Intake and Output Vital Signs (last 24 hours): Temp Pulse Resp BP Pulse Ox 97.6 F 57 L 18 144/70 95 01/09/18 01:00 01/09/18 01:00 01/09/18 01:00 01/09/18 01:00 01/09/18 01:00 Intake and Output: 01/08/18 01/09/18 18:59 06:59 Intake Total 1500 1380 Output Total 550 600 Balance 950 780 - Medications Medications: Current Medications Acetaminophen (Tylenol 650 Mg Supp) 650 mg [place] Q6 PRN PRN Reason: Fever >100.4 F Last Admin: 01/01/18 17:14 Dose: 650 mg Acetaminophen (Tylenol 650 Mg Supp) 650 mg [place] Q6 PRN PRN Reason: Pain, moderate (4-7) Last Admin: 01/05/18 17:44 Dose: 650 mg Albuterol/Ipratropium (Duoneb 3 Mg/0.5 Mg (3 Ml) Ud) 3 ml INH RQ4 [facility] Last Admin: 01/09/18 00:17 Dose: Not Given Dextrose (Glutose 15) 0 gm PO ONCE PRN; Protocol PRN Reason: Hypoglycemia Protocol Dextrose (Dextrose 50% Inj) 0 ml IV STAT PRN; Protocol PRN Reason: Hypoglycemia Protocol Last Admin: 01/08/18 21:40 Dose: 50 ml Dextrose (Glutose 15) 0 gm PO ONCE PRN; Protocol PRN Reason: Hypoglycemia Protocol Dimethicone (Proshield Plus Skin Protectant) 1 applic TOP Q8 [facility] Last Admin: 01/09/18 00:37 Dose: 1 applic Glucagon (Glucagen Diagnostic Kit) 0 mg IM STAT PRN; Protocol PRN Reason: Hypoglycemia Protocol Glucagon (Glucagen Diagnostic Kit) 0 mg IM STAT PRN; Protocol PRN Reason: Hypoglycemia Protocol Ceftriaxone Sodium 1 gm/ (Dextrose) 100 mls @ 100 mls/hr IVPB DAILY [facility]; Protocol Dextrose (Dextrose 5% In Water 1000 Ml) 1,000 mls @ 125 mls/hr IV .Q8H [facility] Stop: 01/09/18 11:52 Last Admin: 01/08/18 21:35 Dose: 125 mls/hr Insulin Detemir (Levemir) 14 units SC DAILY [facility] Insulin Detemir (Levemir) 24 units SC HS [facility] Last Admin: 01/08/18 21:36 Dose: Not Given Insulin Human Lispro (Humalog) 0 units SC ACHS [facility] Last Admin: 01/08/18 21:36 Dose: Not Given Methimazole (Tapazole) 5 mg PO BID [facility] Last Admin: 01/08/18 16:44 Dose: Not Given Metoprolol Tartrate (Lopressor) 25 mg PO Q12 [facility] Last Admin: 01/08/18 21:37 Dose: Not Given Mirtazapine (Remeron) 7.5 mg PO HS [facility] Last Admin: 01/08/18 21:37 Dose: Not Given Nystatin (Nystop Topical Powder) 1 applic TOP TID [facility] Last Admin: 01/08/18 16:48 Dose: 1 applic - Labs Labs: 01/08/18 11:04 01/08/18 11:04 PT 13.2 Seconds (9.8-13.1) H 01/08/18 11:04 INR 1.2 01/08/18 11:04 Assessment and Plan (1) Altered mental status Assessment & Plan: Waxing and Waning Mental Status: Mets to the Brain Vs Acute Delirium Metabolic Encephalopathy: Sepsis, Uremia and Metabolic Acidosis- Improving Treat the Underlying Problem CT Head w/o Contrast- Negative Status: Acute Priority: High (2) DKA (diabetic ketoacidoses)- Resolved Type II DM Assessment and Plan: HHS, Hypotension- Resolved Continue IVF Replenish Electrolytes PRN BMP daily Levemir ACHS with Coverage HgA1C- 11.6 Status: Acute Priority: High (3) Septic Shock, G -ve Bactremia with E. Coli,ESBL Negative-Resolved Assessment and Plan: UTI and Sacral Pressure Ulcer Stage II- Improving IV Merem and Vamcomycin IVF Wound Care daily Status: Acute Priority: High (4) Lung mass, Possible Stage IV Cancer Assessment and Plan: Family Aware Will Need Tissue Dx when PLT level is acceptable Status: Acute Priority: High (5) Acute Renal Failure (ARF)- Resolved Assessment and Plan: Most Likely ATN due to Hypotension and Dehydration- Resolved IVF RX DKA/HHS and Sepsis Urine NA Nephrology onboard Status: Acute Priority: High (6) Gait abnormality Status: Acute Priority: Medium (7) DVT prophylaxis Status: Inactive Priority: High (8) Dysphagia- Passed Swallow Evaluation Pureed diet with [place] Thick Liquid (9) Hypernatremia NA 151 Meq/L IVF Monitor BMP (10) Severe Thrombocytopenia Monitor Bleeding Manual PLT Count Transfuse PLT as needed if K<20K or active bleeding [employer] onboard Code Status:DNR/DNI Status: Inactive
[2018-01-09 05:52] LABS: BLOOD UREA NITROGEN 54 mg/dl (7-17); CALCIUM 6.7 mg/dL (8.4-10.2); GFR NON-AFRICAN AMERICAN > 60; MEAN CELL VOLUME 92.1 fl (81.0-99.0); MEAN CORPUSCULAR HEMOGLOBIN 29.6 pg (27.0-31.0); MEAN CORPUSCULAR HGB CONC 32.1 g/dL (33.0-37.0); RBC 3.03 Mil/uL (3.80-5.20); RED CELL DISTRIBUTION WIDTH 17.4 % (11.5-14.5); WHITE BLOOD COUNT 6.7 K/uL (4.8-10.8)
[2018-01-09] MEDS: Insulin Lispro (humaLOG) 100 Units/ml Inj SC SCH ×4 (07:30→22:41)
[2018-01-09] MEDS: Insulin Detemir 100 Units/ml Inj SC SCH ×2 (09:25→22:41)
[2018-01-09] MEDS: methIMAzole 5 MG TAB PO SCH ×2 (09:25→17:15)
--- NOTE | 2018-01-09 12:41 | CP.PCM.PN ---
Subjective - Date & Time of Evaluation Date of Evaluation: 01/09/18 Time of Evaluation: 11:00 - Subjective Subjective: Lethargic but arousable Objective - Vital Signs/Intake and Output Vital Signs (last 24 hours): Temp Pulse Resp BP Pulse Ox 98.7 F 72 20 144/83 99 01/09/18 08:48 01/09/18 08:48 01/09/18 08:48 01/09/18 08:48 01/09/18 08:48 Intake and Output: 01/09/18 01/09/18 06:59 18:59 Intake Total 1380 Output Total 600 Balance 780 - Medications Medications: Current Medications Acetaminophen (Tylenol 650 Mg Supp) 650 mg [place] Q6 PRN PRN Reason: Fever >100.4 F Last Admin: 01/01/18 17:14 Dose: 650 mg Acetaminophen (Tylenol 650 Mg Supp) 650 mg [place] Q6 PRN PRN Reason: Pain, moderate (4-7) Last Admin: 01/05/18 17:44 Dose: 650 mg Albuterol/Ipratropium (Duoneb 3 Mg/0.5 Mg (3 Ml) Ud) 3 ml INH RQ4 [facility] Last Admin: 01/09/18 11:00 Dose: 3 ml Dextrose (Glutose 15) 0 gm PO ONCE PRN; Protocol PRN Reason: Hypoglycemia Protocol Dextrose (Dextrose 50% Inj) 0 ml IV STAT PRN; Protocol PRN Reason: Hypoglycemia Protocol Last Admin: 01/08/18 21:40 Dose: 50 ml Dextrose (Glutose 15) 0 gm PO ONCE PRN; Protocol PRN Reason: Hypoglycemia Protocol Dimethicone (Proshield Plus Skin Protectant) 1 applic TOP Q8 [facility] Last Admin: 01/09/18 09:23 Dose: 1 applic Glucagon (Glucagen Diagnostic Kit) 0 mg IM STAT PRN; Protocol PRN Reason: Hypoglycemia Protocol Glucagon (Glucagen Diagnostic Kit) 0 mg IM STAT PRN; Protocol PRN Reason: Hypoglycemia Protocol Ceftriaxone Sodium 1 gm/ (Dextrose) 100 mls @ 100 mls/hr IVPB DAILY [facility]; Protocol Last Admin: 01/09/18 09:21 Dose: 100 mls/hr Insulin Detemir (Levemir) 14 units SC DAILY [facility] Last Admin: 01/09/18 09:25 Dose: Not Given Insulin Detemir (Levemir) 24 units SC HS [facility] Last Admin: 01/08/18 21:36 Dose: Not Given Insulin Human Lispro (Humalog) 0 units SC ACHS [facility] Last Admin: 01/09/18 07:30 Dose: Not Given Methimazole (Tapazole) 5 mg PO BID [facility] Last Admin: 01/09/18 09:25 Dose: Not Given Metoprolol Tartrate (Lopressor) 25 mg PO Q12 [facility] Last Admin: 01/09/18 09:25 Dose: Not Given Mirtazapine (Remeron) 7.5 mg PO HS [facility] Last Admin: 01/08/18 21:37 Dose: Not Given Nystatin (Nystop Topical Powder) 1 applic TOP TID [facility] Last Admin: 01/09/18 09:23 Dose: 1 applic - Labs Labs: 01/09/18 04:25 01/09/18 04:25 PT 13.2 Seconds (9.8-13.1) H 01/08/18 11:04 INR 1.2 01/08/18 11:04 - Head Exam Head Exam: ATRAUMATIC - Eye Exam Eye Exam: Normal appearance - ENT Exam ENT Exam: Mucous Membranes Dry - Respiratory Exam Respiratory Exam: NORMAL BREATHING PATTERN - Cardiovascular Exam Cardiovascular Exam: +S1, +S2 - GI/Abdominal Exam GI & Abdominal Exam: Normal Bowel Sounds Assessment and Plan (1) Thrombocytopenia Assessment & Plan: suspect sepsis related improved today Status: Acute (2) Anemia Assessment & Plan: chronic disease Status: Acute (3) Malignancy Assessment & Plan: breast mass biopsy when more stable and plt improved Status: Acute
--- NOTE | 2018-01-09 12:54 | CP.PCM.PN ---
Subjective - Date & Time of Evaluation Date of Evaluation: 01/09/18 Time of Evaluation: 12:54 - Subjective Subjective: ID Note- Pt. seen and examined. remains weak and drowsy. Objective - Vital Signs/Intake and Output Vital Signs (last 24 hours): Temp Pulse Resp BP Pulse Ox 98.7 F 72 20 144/83 99 01/09/18 08:48 01/09/18 08:48 01/09/18 08:48 01/09/18 08:48 01/09/18 08:48 Intake and Output: 01/09/18 01/09/18 06:59 18:59 Intake Total 1380 Output Total 600 Balance 780 - Medications Medications: Current Medications Acetaminophen (Tylenol 650 Mg Supp) 650 mg [place] Q6 PRN PRN Reason: Fever >100.4 F Last Admin: 01/01/18 17:14 Dose: 650 mg Acetaminophen (Tylenol 650 Mg Supp) 650 mg [place] Q6 PRN PRN Reason: Pain, moderate (4-7) Last Admin: 01/05/18 17:44 Dose: 650 mg Albuterol/Ipratropium (Duoneb 3 Mg/0.5 Mg (3 Ml) Ud) 3 ml INH RQ4 [facility] Last Admin: 01/09/18 11:00 Dose: 3 ml Dextrose (Glutose 15) 0 gm PO ONCE PRN; Protocol PRN Reason: Hypoglycemia Protocol Dextrose (Dextrose 50% Inj) 0 ml IV STAT PRN; Protocol PRN Reason: Hypoglycemia Protocol Last Admin: 01/08/18 21:40 Dose: 50 ml Dextrose (Glutose 15) 0 gm PO ONCE PRN; Protocol PRN Reason: Hypoglycemia Protocol Dimethicone (Proshield Plus Skin Protectant) 1 applic TOP Q8 [facility] Last Admin: 01/09/18 09:23 Dose: 1 applic Glucagon (Glucagen Diagnostic Kit) 0 mg IM STAT PRN; Protocol PRN Reason: Hypoglycemia Protocol Glucagon (Glucagen Diagnostic Kit) 0 mg IM STAT PRN; Protocol PRN Reason: Hypoglycemia Protocol Ceftriaxone Sodium 1 gm/ (Dextrose) 100 mls @ 100 mls/hr IVPB DAILY [facility]; Protocol Last Admin: 01/09/18 09:21 Dose: 100 mls/hr Insulin Detemir (Levemir) 14 units SC DAILY [facility] Last Admin: 01/09/18 09:25 Dose: Not Given Insulin Detemir (Levemir) 24 units SC HS [facility] Last Admin: 01/08/18 21:36 Dose: Not Given Insulin Human Lispro (Humalog) 0 units SC ACHS [facility] Last Admin: 01/09/18 11:30 Dose: Not Given Methimazole (Tapazole) 5 mg PO BID [facility] Last Admin: 01/09/18 09:25 Dose: Not Given Metoprolol Tartrate (Lopressor) 25 mg PO Q12 [facility] Last Admin: 01/09/18 09:25 Dose: Not Given Mirtazapine (Remeron) 7.5 mg PO HS [facility] Last Admin: 01/08/18 21:37 Dose: Not Given Nystatin (Nystop Topical Powder) 1 applic TOP TID [facility] Last Admin: 01/09/18 09:23 Dose: 1 applic - Labs Labs: - Additional Findings Additional findings: - Constitutional Appears: Chronically Ill Additional comments: weak still - Head Exam Head Exam: ATRAUMATIC - ENT Exam ENT Exam: Normal Oropharynx - Neck Exam Neck exam: Positive for: Full Rom - Respiratory Exam Respiratory Exam: Additional comments: no wheezing poor inspiratory effort - Cardiovascular Exam Cardiovascular Exam: RRR, +S1, +S2 - GI/Abdominal Exam GI & Abdominal Exam: Normal Bowel Sounds, Soft Additional comments: no tenderness no guarding, no rebound - Extremities Exam Additional comments: no edema b/l LE - Neurological Exam Additional comments: does not answer questions only nods Laboratory Results - last 72 hr 01/04/18 01/05/18 01/06/18 06:30 16:14 16:37 WBC RBC Hgb Hct MCV MCH MCHC RDW Plt Count Manual Plt Count PT INR Sodium Potassium Chloride Carbon Dioxide Anion Gap BUN Creatinine Est GFR ( Amer) Est GFR (Non-Af Amer) POC Glucose (mg/dL) 352 H Random Glucose Calcium UF Heparin Interp Negative [place] UFH Low Dose 0.1 0 [place] [facility] Low Dose 0.5 0 [place] [facility] High Dose 100 0 Hepatitis C RNA <15 not detected HCV RNA Quant (PCR) <1.18 not detected 01/06/18 01/07/18 01/07/18 21:52 05:10 05:10 WBC 7.3 RBC 2.72 L Hgb 8.1 L D Hct 25.4 L MCV 93.4 D MCH 29.8 MCHC 31.9 L RDW 17.5 H Plt Count 63 L D Manual Plt Count 60 L PT INR Sodium 150 H Potassium 4.5 Chloride 121 H Carbon Dioxide 26 Anion Gap 8 L BUN 71 H Creatinine 1.4 H Est GFR ( Amer) 46 Est GFR (Non-Af Amer) 38 POC Glucose (mg/dL) 216 H Random Glucose 194 H Calcium 7.1 L UF Heparin Interp [place] UFH Low Dose 0.1 [place] UFH Low Dose 0.5 [place] [facility]FH High Dose 100 Hepatitis C RNA HCV RNA Quant (PCR) 01/07/18 01/07/18 01/07/18 05:27 11:30 15:52 WBC RBC Hgb Hct MCV MCH MCHC RDW Plt Count Manual Plt Count PT INR Sodium Potassium Chloride Carbon Dioxide Anion Gap BUN Creatinine Est GFR ( Amer) Est GFR (Non-Af Amer) POC Glucose (mg/dL) 231 H 206 H 274 H Random Glucose Calcium UF Heparin Interp [place] UFH Low Dose 0.1 [place] [facility]FH Low Dose 0.5 [place] [facility] High Dose 100 Hepatitis C RNA HCV RNA Quant (PCR) 01/07/18 01/08/18 01/08/18 21:12 05:27 11:04 WBC 5.9 RBC 3.24 L Hgb 9.3 L Hct 29.2 L MCV 90.2 D MCH 28.7 MCHC 31.9 L RDW 16.8 H Plt Count 39 L D Manual Plt Count PT INR Sodium Potassium Chloride Carbon Dioxide Anion Gap BUN Creatinine Est GFR ( Amer) Est GFR (Non-Af Amer) POC Glucose (mg/dL) 291 H 247 H Random Glucose Calcium UF Heparin Interp [place] UFH Low Dose 0.1 [place] [facility]FH Low Dose 0.5 [place] [facility] High Dose 100 Hepatitis C RNA HCV RNA Quant (PCR) 01/08/18 01/08/18 01/08/18 11:04 11:04 11:05 WBC RBC Hgb Hct MCV MCH MCHC RDW Plt Count Manual Plt Count PT 13.2 H INR 1.2 Sodium 151 H Potassium 3.7 Chloride 121 H Carbon Dioxide 22 Anion Gap 12 BUN 62 H Creatinine 0.9 Est GFR ( Amer) > 60 Est GFR (Non-Af Amer) > 60 POC Glucose (mg/dL) 186 H Random Glucose 184 H Calcium 6.8 L UF Heparin Interp [place] UFH Low Dose 0.1 [place] [facility]FH Low Dose 0.5 [place] [facility] High Dose 100 Hepatitis C RNA HCV RNA Quant (PCR) 01/08/18 01/08/18 01/08/18 15:50 21:34 22:04 WBC RBC Hgb Hct MCV MCH MCHC RDW Plt Count Manual Plt Count PT INR Sodium Potassium Chloride Carbon Dioxide Anion Gap BUN Creatinine Est GFR ( Amer) Est GFR (Non-Af Amer) POC Glucose (mg/dL) 97 55 L 114 H Random Glucose Calcium UF Heparin Interp [place] UFH Low Dose 0.1 [place] [facility]FH Low Dose 0.5 [place] [facility] High Dose 100 Hepatitis C RNA HCV RNA Quant (PCR) 01/09/18 01/09/18 01/09/18 04:25 04:25 05:24 WBC 6.7 RBC 3.03 L Hgb 9.0 L Hct 27.9 L MCV 92.1 MCH 29.6 MCHC 32.1 L RDW 17.4 H Plt Count 58 L Manual Plt Count Cancelled PT INR Sodium 148 Potassium 3.6 Chloride 117 H Carbon Dioxide 24 Anion Gap 11 BUN 54 H Creatinine 0.7 Est GFR ( Amer) > 60 Est GFR (Non-Af Amer) > 60 POC Glucose (mg/dL) 98 Random Glucose 112 H Calcium 6.7 L UF Heparin Interp [facility] [facility] Low Dose 0.1 [place] [facility] Low Dose 0.5 [facility] [facility] High Dose 100 Hepatitis C RNA HCV RNA Quant (PCR) 01/09/18 11:24 WBC RBC Hgb Hct MCV MCH MCHC RDW Plt Count Manual Plt Count PT INR Sodium Potassium Chloride Carbon Dioxide Anion Gap BUN Creatinine Est GFR ( Amer) Est GFR (Non-Af Amer) POC Glucose (mg/dL) 215 H Random Glucose Calcium UF Heparin Interp [facility] [facility]FH Low Dose 0.1 [facility] [facility] Low Dose 0.5 [facility] [facility] High Dose 100 Hepatitis C RNA HCV RNA Quant (PCR) Microbiology 01/01/18 16:32 Blood-Venous Blood Culture - Final NO GROWTH AFTER 5 DAYS 01/01/18 16:32 Blood-Venous Gram Stain - Final TEST NOT PERFORMED 01/01/18 16:42 Blood-Venous Blood Culture - Final NO GROWTH AFTER 5 DAYS 01/01/18 16:42 Blood-Venous Gram Stain - Final TEST NOT PERFORMED 12/31/17 04:40 Blood-Venous Blood Culture - Final NO GROWTH AFTER 5 DAYS 12/31/17 04:40 Blood-Venous Gram Stain - Final TEST NOT PERFORMED 12/31/17 04:45 Blood-Venous Blood Culture - Final NO GROWTH AFTER 5 DAYS 12/31/17 04:45 Blood-Venous Gram Stain - Final TEST NOT PERFORMED 01/01/18 08:37 Naris MRSA Culture (Admit) - Final MRSA NOT DETECTED 01/01/18 16:25 Urine,Randolph Urine Culture - Final Yeast Species 12/28/17 14:40 Blood-Venous Blood Culture - Final NO GROWTH AFTER 5 DAYS 12/28/17 14:40 Blood-Venous Gram Stain - Final TEST NOT PERFORMED 12/28/17 14:40 Blood-Venous Blood Culture - Final NO GROWTH AFTER 5 DAYS 12/28/17 14:40 Blood-Venous Gram Stain - Final TEST NOT PERFORMED 12/28/17 16:39 Urine,Catheterized Urine Culture - Final Yeast Species 12/27/17 14:49 Blood-Venous Blood Culture - Final Escherichia Coli 12/27/17 14:49 Blood-Venous Gram Stain - Final 12/27/17 06:00 Naris MRSA Culture (Admit) - Final MRSA NOT DETECTED 12/27/17 14:49 Urine,Randolph Urine Culture - Final No Growth (<1,000 CFU/ML) Assessment and Plan (1) Sepsis Status: Acute (2) Dehydration Status: Acute (3) DKA (diabetic ketoacidoses) Status: Resolved (4) Acute renal disease Status: Acute (5) Bacteremia due to Gram-negative bacteria Status: Acute (6) UTI (urinary tract infection) Status: Acute - Assessment and Plan (Free Text) Assessment: A/P- 67 year old female was admitted with weakness and lethargy found to be in DKA and GNR bacteremia and ct abd/chest reported as left lung mass with liver mets . afebrile minimal leukocytosis has resolved. thrombocytopenia blood cx- e.coli pansensitive Urine cx- <1000 repeat blood cx 12/28/2017- neg x 6 TTE- no mention of any vegetations as per report. Ct report findings of lung mass with liver mets . plan- day #11 of ceftriaxone for e.coli bacteremia. was on 3 days of meropenm prior to that. hence has completed total of 14 days of antibiotic therapy for e.coli bacteremia. d/c ceftriaoxne today. thrombocytopenia management as per heme/onc and PMD.
[2018-01-09] MEDS ORDERED: Oxycodone/Acetaminophen 5/325 mg Tab PO PRN (17:35)
[2018-01-10] MEDS: Proshield Plus GEL TOP SCH ×3 (00:17→16:18)
--- NOTE | 2018-01-10 01:23 | PN ---
DATE: 01/09/2018 LOCATION: In room 414. This is a 67-year-old female with recent uncontrolled type 2 insulin-requiring diabetes, now being followed closely for metabolic management. Her glycemic levels are fluctuating, but improved, and the glucose values have ranged today from 98-114 and 215 mg per dL. Her chemistry showed a BUN of 54, sodium 148, potassium 3.6, chloride 117, CO2 of 24, glucose 112, and creatinine 0.7. So at this time, we will continue once again the same modified basal and bolus insulin regimen as given. We will continue the Levemir given as 14 units subcu every 10 a.m. daily and Levemir given as 24 units subcu every 10 p.m daily as ordered. We will also continue the low-dose Tapazole given as 5 mg b.i.d. for control of subclinical hyperthyroidism. We will obtain serial chemistries and serial thyroid studies, and adjust her dose regimen accordingly. We will follow. Angela Copeland MD
[2018-01-10] MEDS: Albuterol-Ipratrop 3 mg / 0.5 (3 ml) UD INH SCH ×5 (03:35→19:25)
--- NOTE | 2018-01-10 07:28 | CP.PCM.PN ---
Subjective - Date & Time of Evaluation Date of Evaluation: 01/09/18 Time of Evaluation: 17:35 - Subjective Subjective: Seen and examined at the bed side. Mental status waxing and waning. Continue to do poorly as she continues to refuse to eat. also Persistent Thrombocytopenia, and unable to have tissue diagnosis. D/w with the Consumer Insight Manager about PLT Beltran sfusion, Breast IR would like to do Breast Biopsy on when PLT>130K. Poor prognosis and family aware but would like to know the definitive Dx. Patient DNR/DNI. . Objective - Vital Signs/Intake and Output Vital Signs (last 24 hours): Temp Pulse Resp BP Pulse Ox 98.1 F 78 18 157/77 H 98 01/10/18 04:50 01/10/18 04:50 01/10/18 04:50 01/10/18 04:50 01/10/18 04:50 - Medications Medications: Current Medications Acetaminophen (Tylenol 650 Mg Supp) 650 mg NV Q6 PRN PRN Reason: Pain, moderate (4-7) Last Admin: 01/05/18 17:44 Dose: 650 mg Albuterol/Ipratropium (Duoneb 3 Mg/0.5 Mg (3 Ml) Ud) 3 ml INH RQ4 [facility] Last Admin: 01/10/18 03:35 Dose: Not Given Dextrose (Glutose 15) 0 gm PO ONCE PRN; Protocol PRN Reason: Hypoglycemia Protocol Dextrose (Dextrose 50% Inj) 0 ml IV STAT PRN; Protocol PRN Reason: Hypoglycemia Protocol Last Admin: 01/08/18 21:40 Dose: 50 ml Dextrose (Glutose 15) 0 gm PO ONCE PRN; Protocol PRN Reason: Hypoglycemia Protocol Dimethicone (Proshield Plus Skin Protectant) 1 applic TOP Q8 [facility] Last Admin: 01/10/18 00:17 Dose: 1 applic Glucagon (Glucagen Diagnostic Kit) 0 mg IM STAT PRN; Protocol PRN Reason: Hypoglycemia Protocol Glucagon (Glucagen Diagnostic Kit) 0 mg IM STAT PRN; Protocol PRN Reason: Hypoglycemia Protocol Insulin Detemir (Levemir) 14 units SC DAILY [facility] Last Admin: 01/09/18 09:25 Dose: Not Given Insulin Detemir (Levemir) 24 units SC HS [facility] Last Admin: 01/09/18 22:41 Dose: 24 units Insulin Human Lispro (Humalog) 0 units SC ACHS [facility] Last Admin: 01/09/18 22:41 Dose: 3 units Methimazole (Tapazole) 5 mg PO BID [facility] Last Admin: 01/09/18 17:15 Dose: Not Given Metoprolol Tartrate (Lopressor) 25 mg PO Q12 [facility] Last Admin: 01/09/18 21:42 Dose: 25 mg Mirtazapine (Remeron) 7.5 mg PO HS [facility] Last Admin: 01/09/18 22:41 Dose: 7.5 mg Morphine Sulfate (Morphine) 2 mg IVP Q6 PRN PRN Reason: Pain, severe (8-10) Nystatin (Nystop Topical Powder) 1 applic TOP TID [facility] Last Admin: 01/09/18 17:15 Dose: 1 applic Oxycodone/Acetaminophen (Percocet 5/325 Mg Tab) 1 tab PO Q6 PRN PRN Reason: Pain, moderate (4-7) Stop: 01/12/18 17:36 Last Admin: 01/09/18 18:44 Dose: 1 tab - Labs Labs: 01/09/18 04:25 01/09/18 04:25 PT 13.2 Seconds (9.8-13.1) H 01/08/18 11:04 INR 1.2 01/08/18 11:04 Assessment and Plan (1) Altered mental status Assessment & Plan: Waxing and Waning Mental Status: Mets to the Brain Vs Acute Delirium Metabolic Encephalopathy: Sepsis, Uremia and Metabolic Acidosis- Improving Treat the Underlying Problem CT Head w/o Contrast- Negative Status: Acute Priority: High (2) DKA (diabetic ketoacidoses)- Resolved Type II DM Assessment and Plan: HHS, Hypotension- Resolved Continue IVF Replenish Electrolytes PRN BMP daily Levemir ACHS with Coverage HgA1C- 11.6 Status: Acute Priority: High (3) Septic Shock, G -ve Bactremia with E. Coli,ESBL Negative-Resolved Assessment and Plan: UTI and Sacral Pressure Ulcer Stage II- Resolved IV Merem and Vamcomycin IVF Wound Care daily Status: Acute Priority: High (4) Lung mass, Possible Stage IV Cancer Assessment and Plan: Family Aware Will Need Tissue Dx when PLT level >130K as per IR Request Status: Acute Priority: High (5) Acute Renal Failure (ARF)- Resolved Assessment and Plan: Most Likely ATN due to Hypotension and Dehydration- Resolved IVF RX DKA/HHS and Sepsis Urine NA Nephrology onboard Status: Acute Priority: High (6) Gait abnormality Status: Acute Priority: Medium (7) DVT prophylaxis Status: Inactive Priority: High (8) Dysphagia- Passed Swallow Evaluation Pureed diet with [place] Thick Liquid (9) Hypernatremia - Improving IVF Monitor BMP (10) Severe Thrombocytopenia sec Acute Illness Monitor Bleeding Manual PLT Count Transfuse PLT as needed if K<20K or active bleeding Consumer Insight Manager/Onc on board Status: Acute
--- NOTE | 2018-01-10 07:29 | CP.PCM.PN ---
Subjective - Date & Time of Evaluation Date of Evaluation: 01/10/18 Time of Evaluation: 15:15 - Subjective Subjective: Seen and examined at the bed side. Family at the bed side.Patient awake and alert, and making jokes with her children. Asking to go home but was agreeable to stay when she was informed about acute illnesses which need inpatient care. patient unable to Lower extremities L worse than R. Denies fever or chills. Eating home cooked food but refusing hospital food. Objective - Vital Signs/Intake and Output Vital Signs (last 24 hours): Temp Pulse Resp BP Pulse Ox 98.1 F 78 18 157/77 H 98 01/10/18 04:50 01/10/18 04:50 01/10/18 04:50 01/10/18 04:50 01/10/18 04:50 - Medications Medications: Current Medications Acetaminophen (Tylenol 650 Mg Supp) 650 mg DC Q6 PRN PRN Reason: Pain, moderate (4-7) Last Admin: 01/05/18 17:44 Dose: 650 mg Albuterol/Ipratropium (Duoneb 3 Mg/0.5 Mg (3 Ml) Ud) 3 ml INH RQ4 [facility] Last Admin: 01/10/18 07:26 Dose: 3 ml Dextrose (Glutose 15) 0 gm PO ONCE PRN; Protocol PRN Reason: Hypoglycemia Protocol Dextrose (Dextrose 50% Inj) 0 ml IV STAT PRN; Protocol PRN Reason: Hypoglycemia Protocol Last Admin: 01/08/18 21:40 Dose: 50 ml Dextrose (Glutose 15) 0 gm PO ONCE PRN; Protocol PRN Reason: Hypoglycemia Protocol Dimethicone (Proshield Plus Skin Protectant) 1 applic TOP Q8 [facility] Last Admin: 01/10/18 00:17 Dose: 1 applic Glucagon (Glucagen Diagnostic Kit) 0 mg IM STAT PRN; Protocol PRN Reason: Hypoglycemia Protocol Glucagon (Glucagen Diagnostic Kit) 0 mg IM STAT PRN; Protocol PRN Reason: Hypoglycemia Protocol Insulin Detemir (Levemir) [address] [facility] Last Admin: 01/09/18 09:25 Dose: Not Given Insulin Detemir (Levemir) [address] [facility] Last Admin: 01/09/18 22:41 Dose: 24 units Insulin Human Lispro (Humalog) [address] [facility] Last Admin: 01/09/18 22:41 Dose: 3 units Methimazole (Tapazole) [address] [facility] Last Admin: 01/09/18 17:15 Dose: Not Given Metoprolol Tartrate (Lopressor) [address] [facility] Last Admin: 01/09/18 21:42 Dose: 25 mg Mirtazapine (Remeron) 7.[address] [facility] Last Admin: 01/09/18 22:41 Dose: 7.5 mg Morphine Sulfate (Morphine) 2 mg IVP Q6 PRN PRN Reason: Pain, severe (8-10) Nystatin (Nystop Topical Powder) [address] [facility] Last Admin: 01/09/18 17:15 Dose: 1 applic Oxycodone/Acetaminophen (Percocet 5/325 Mg Tab) 1 tab PO Q6 PRN PRN Reason: Pain, moderate (4-7) Stop: 01/12/18 17:36 Last Admin: 01/09/18 18:44 Dose: 1 tab - Labs Labs: 01/09/18 04:25 01/09/18 04:25 PT 13.2 Seconds (9.8-13.1) H 01/08/18 11:04 INR 1.2 01/08/18 11:04 Assessment and Plan (1) Altered mental status Assessment & Plan: Waxing and Waning Mental Status: Mets to the Brain Vs Acute Delirium Metabolic Encephalopathy: Sepsis, Uremia and Metabolic Acidosis- Resolved Treat the Underlying Problem CT Head w/o Contrast- Negative Status: Acute Priority: High (2) DKA (diabetic ketoacidoses)- Resolved Type II DM Assessment and Plan: HHS, Hypotension- Resolved Continue IVF Replenish Electrolytes PRN BMP daily Levemir ACHS with Coverage HgA1C- 11.6 Status: Acute Priority: High (3) Septic Shock, G -ve Bactremia with E. Coli,ESBL Negative-Resolved Assessment and Plan: UTI and Sacral Pressure Ulcer Stage II- Improving IV Merem and Vamcomycin IVF Wound Care daily Status: Acute Priority: High (4) Lung mass, Possible Stage IV Cancer Assessment and Plan: Family Aware Will Need Tissue Dx when PLT level is acceptable Status: Acute Priority: High (5) Acute Renal Failure (ARF)- Resolved Assessment and Plan: Most Likely ATN due to Hypotension and Dehydration- Resolved IVF RX DKA/HHS and Sepsis Urine NA Nephrology onboard Status: Acute Priority: High (6) Gait abnormality Status: Acute Priority: Medium (7) DVT prophylaxis Status: Inactive Priority: High (8) Dysphagia- Passed Swallow Evaluation Pureed diet with [place] Thick Liquid (9) Hypernatremia- Resolved IVF Monitor BMP (10) Severe Thrombocytopenia- Improving Monitor Bleeding Manual PLT Count Transfuse PLT as needed if K<20K or active bleeding Coating Machine Feeder onboard Status: Acute
[2018-01-10] MEDS: methIMAzole 5 MG TAB PO SCH ×2 (09:22→16:17)
[2018-01-10] MEDS: Insulin Detemir 100 Units/ml Inj SC SCH (09:24)
[2018-01-10] MEDS: Insulin Lispro (humaLOG) 100 Units/ml Inj SC SCH ×4 (09:26→22:01)
[2018-01-10] MEDS: Dextrose 50% SYRINGE Inj (50 ml) IV PRN ×3 (15:47→23:21)
--- NOTE | 2018-01-10 19:34 | CP.PCM.PN ---
Subjective - Date & Time of Evaluation Date of Evaluation: 01/10/18 Time of Evaluation: 16:00 - Subjective Subjective: Lethargic but arousable family at bedside Objective - Vital Signs/Intake and Output Vital Signs (last 24 hours): Temp Pulse Resp BP Pulse Ox 97.4 F L 76 20 150/84 96 01/10/18 15:50 01/10/18 15:50 01/10/18 15:50 01/10/18 15:50 01/10/18 15:50 Intake and Output: 01/10/18 01/11/18 18:59 06:59 Intake Total 1500 Output Total 400 Balance 1100 - Medications Medications: Current Medications Acetaminophen (Tylenol 650 Mg Supp) 650 mg ND Q6 PRN PRN Reason: Pain, moderate (4-7) Last Admin: 01/05/18 17:44 Dose: 650 mg Albuterol/Ipratropium (Duoneb 3 Mg/0.5 Mg (3 Ml) Ud) 3 ml INH RQ4 [facility] Last Admin: 01/10/18 19:25 Dose: 3 ml Dextrose (Glutose 15) 0 gm PO ONCE PRN; Protocol PRN Reason: Hypoglycemia Protocol Dextrose (Dextrose 50% Inj) 0 ml IV STAT PRN; Protocol PRN Reason: Hypoglycemia Protocol Last Admin: 01/10/18 15:47 Dose: 50 ml Dextrose (Glutose 15) 0 gm PO ONCE PRN; Protocol PRN Reason: Hypoglycemia Protocol Dimethicone (Proshield Plus Skin Protectant) 1 applic TOP Q8 [facility] Last Admin: 01/10/18 16:18 Dose: 1 applic Glucagon (Glucagen Diagnostic Kit) 0 mg IM STAT PRN; Protocol PRN Reason: Hypoglycemia Protocol Glucagon (Glucagen Diagnostic Kit) 0 mg IM STAT PRN; Protocol PRN Reason: Hypoglycemia Protocol Dextrose (Dextrose 5% In Water 1000 Ml) 1,000 mls @ 125 mls/hr IV .Q8H [facility] Stop: 01/11/18 16:19 Last Admin: 01/10/18 17:02 Dose: 125 mls/hr Insulin Detemir (Levemir) 8 units SC DAILY [facility] Insulin Detemir (Levemir) 18 units SC HS [facility] Insulin Human Lispro (Humalog) 0 units SC ACHS [facility] Last Admin: 01/10/18 16:15 Dose: Not Given Methimazole (Tapazole) 5 mg PO BID [facility] Last Admin: 01/10/18 16:17 Dose: Not Given Metoprolol Tartrate (Lopressor) 25 mg PO Q12 [facility] Last Admin: 01/10/18 09:21 Dose: Not Given Mirtazapine (Remeron) 7.5 mg PO HS [facility] Last Admin: 01/09/18 22:41 Dose: 7.5 mg Morphine Sulfate (Morphine) 2 mg IVP Q6 PRN PRN Reason: Pain, severe (8-10) Nystatin (Nystop Topical Powder) 1 applic TOP TID [facility] Last Admin: 01/10/18 16:18 Dose: 1 applic Oxycodone/Acetaminophen (Percocet 5/325 Mg Tab) 1 tab PO Q6 PRN PRN Reason: Pain, moderate (4-7) Stop: 01/12/18 17:36 Last Admin: 01/09/18 18:44 Dose: 1 tab - Labs Labs: 01/09/18 04:25 01/09/18 04:25 PT 13.2 Seconds (9.8-13.1) H 01/08/18 11:04 INR 1.2 01/08/18 11:04 - Head Exam Head Exam: ATRAUMATIC - Eye Exam Eye Exam: Normal appearance - ENT Exam ENT Exam: Mucous Membranes Dry - Respiratory Exam Respiratory Exam: NORMAL BREATHING PATTERN - Cardiovascular Exam Cardiovascular Exam: +S1, +S2 - GI/Abdominal Exam GI & Abdominal Exam: Normal Bowel Sounds - Extremities Exam Extremities Exam: Pedal Edema Assessment and Plan (1) Thrombocytopenia Assessment & Plan: secondary to acute illness improving Status: Acute (2) Anemia Assessment & Plan: chronic disease Status: Acute (3) Malignancy Assessment & Plan: for possible breast lesion biopsy if plt improved Status: Acute
[2018-01-10] MEDS ORDERED: Insulin Detemir 100 Units/ml Inj SC SCH (22:00)
[2018-01-11] MEDS: Albuterol-Ipratrop 3 mg / 0.5 (3 ml) UD INH SCH ×6 (00:35→19:33)
[2018-01-11] MEDS: Proshield Plus GEL TOP SCH ×3 (00:47→14:08)
[2018-01-11] MEDS: Insulin Lispro (humaLOG) 100 Units/ml Inj SC SCH ×4 (06:33→22:09)
[2018-01-11] MEDS: Dextrose 50% SYRINGE Inj (50 ml) IV PRN (06:51)
[2018-01-11] MEDS: methIMAzole 5 MG TAB PO SCH ×2 (08:09→17:03)
[2018-01-11] MEDS ORDERED: Insulin Detemir 100 Units/ml Inj SC SCH (09:00)
--- NOTE | 2018-01-11 22:30 | CP.PCM.PN ---
Subjective - Date & Time of Evaluation Date of Evaluation: 01/11/18 Time of Evaluation: 15:05 - Subjective Subjective: Seen and examined at the bed side. Family at the bed side.Patient awake and alert, and making jokes with her children. Asking to go home but was agreeable to stay when she was informed about acute illnesses which need inpatient care. patient unable to Lower extremities L worse than R. Denies fever or chills. Eating home cooked food but refusing hospital food. Objective - Vital Signs/Intake and Output Vital Signs (last 24 hours): Temp Pulse Resp BP Pulse Ox 98.2 F 87 20 132/83 96 01/11/18 20:37 01/11/18 22:11 01/11/18 20:37 01/11/18 22:11 01/11/18 20:37 Intake and Output: 01/11/18 01/12/18 18:59 06:59 Intake Total 1180 Output Total 1000 Balance 180 - Medications Medications: Current Medications Acetaminophen (Tylenol 650 Mg Supp) 650 mg ND Q6 PRN PRN Reason: Pain, moderate (4-7) Last Admin: 01/05/18 17:44 Dose: 650 mg Albuterol/Ipratropium (Duoneb 3 Mg/0.5 Mg (3 Ml) Ud) 3 ml INH RQ4 [facility] Last Admin: 01/11/18 19:33 Dose: Not Given Dextrose (Glutose 15) 0 gm PO ONCE PRN; Protocol PRN Reason: Hypoglycemia Protocol Dextrose (Dextrose 50% Inj) 0 ml IV STAT PRN; Protocol PRN Reason: Hypoglycemia Protocol Last Admin: 01/11/18 06:51 Dose: 50 ml Dextrose (Glutose 15) 0 gm PO ONCE PRN; Protocol PRN Reason: Hypoglycemia Protocol Dimethicone (Proshield Plus Skin Protectant) 1 applic TOP Q8 [facility] Last Admin: 01/11/18 14:08 Dose: 1 applic Glucagon (Glucagen Diagnostic Kit) 0 mg IM STAT PRN; Protocol PRN Reason: Hypoglycemia Protocol Glucagon (Glucagen Diagnostic Kit) 0 mg IM STAT PRN; Protocol PRN Reason: Hypoglycemia Protocol Dextrose (Dextrose 10% In Water) 1,000 mls @ 80 mls/hr IV .[id number] [facility] Stop: 01/12/18 07:32 Last Admin: 01/11/18 22:20 Dose: 80 mls/hr Insulin Human Lispro (Humalog) 0 units SC ACHS [facility] Last Admin: 01/11/18 22:09 Dose: Not Given Methimazole (Tapazole) 5 mg PO BID [facility] Last Admin: 01/11/18 17:03 Dose: Not Given Metoprolol Tartrate (Lopressor) 25 mg PO Q12 [facility] Last Admin: 01/11/18 22:11 Dose: 25 mg Mirtazapine (Remeron) 7.5 mg PO HS [facility] Last Admin: 01/11/18 22:12 Dose: 7.5 mg Morphine Sulfate (Morphine) 2 mg IVP Q6 PRN PRN Reason: Pain, severe (8-10) Nystatin (Nystop Topical Powder) 1 applic TOP TID [facility] Last Admin: 01/11/18 17:09 Dose: 1 applic Oxycodone/Acetaminophen (Percocet 5/325 Mg Tab) 1 tab PO Q6 PRN PRN Reason: Pain, moderate (4-7) Stop: 01/12/18 17:36 Last Admin: 01/09/18 18:44 Dose: 1 tab - Labs Labs: 01/09/18 04:25 01/09/18 04:25 PT 13.2 Seconds (9.8-13.1) H 01/08/18 11:04 INR 1.2 01/08/18 11:04 Assessment and Plan (1) Altered mental status Assessment & Plan: Waxing and Waning Mental Status: Mets to the Brain Vs Acute Delirium Metabolic Encephalopathy: Sepsis, Uremia and Metabolic Acidosis- Improving Treat the Underlying Problem CT Head w/o Contrast- Negative Status: Acute Priority: High (2) DKA (diabetic ketoacidoses)- Resolved Type II DM Assessment and Plan: HHS, Hypotension- Resolved Continue IVF Replenish Electrolytes PRN BMP daily Levemir ACHS with Coverage HgA1C- 11.6 Status: Acute Priority: High (3) Septic Shock, G -ve Bactremia with E. Coli,ESBL Negative-Resolved Assessment and Plan: UTI and Sacral Pressure Ulcer Stage II- Improving IV Merem and Vamcomycin IVF Wound Care daily Status: Acute Priority: High (4) Lung mass, Possible Stage IV Cancer Assessment and Plan: Family Aware Will Need Tissue Dx when PLT level is acceptable Status: Acute Priority: High (5) Acute Renal Failure (ARF)- Resolved Assessment and Plan: Most Likely ATN due to Hypotension and Dehydration- Resolved IVF RX DKA/HHS and Sepsis Urine NA Nephrology onboard Status: Acute Priority: High (6) Gait abnormality Status: Acute Priority: Medium (7) DVT prophylaxis Status: Inactive Priority: High (8) Dysphagia- Passed Swallow Evaluation Soft Mechanical diet (9) Hypernatremia -Resolved IVF Monitor BMP (10) Severe Thrombocytopenia- Improving Monitor Bleeding Manual PLT Count Transfuse PLT as needed if K<20K or active bleeding Supervisor Particleboard onboard Status: Acute
[2018-01-12] MEDS: Albuterol-Ipratrop 3 mg / 0.5 (3 ml) UD INH SCH ×6 (00:42→19:30)
--- NOTE | 2018-01-12 01:00 | PN ---
DATE: 01/11/2018 ENDO FOLLOWUP NOTE LOCATION: Room 414. SUBJECTIVE: This is a 67-year-old female with recent uncontrolled type 2 insulin-requiring diabetes, now being followed closely for metabolic management. Her glycemic levels are fluctuating, but improved, and the glucose values have ranged from 98-261 mg per dL. LABORATORY DATA: Her chemistry shows a BUN of 54, sodium 148, potassium 3.6, chloride 117, glucose 112, and creatinine 0.7. Her glucose levels early this morning dropped to 53 mg per dL, and the repeat level midday today was 137 mg per dL. ASSESSMENT AND PLAN: So at this time, we will hold the basal insulin regimen for now because the patient really has pretty much nil oral intake at this time and would highly recommend peripheral parenteral nutrition to optimize her caloric and protein requirements. We will continue the low-dose correction scale using Humalog insulin as given. We will follow and advise accordingly. Angela Copeland MD
[2018-01-12] MEDS: Proshield Plus GEL TOP SCH ×3 (01:02→17:48)
[2018-01-12 05:36] LABS: INR 1.3; PROTHROMBIN TIME 14.4 Seconds (9.8-13.1)
[2018-01-12 05:39] LABS: PARTIAL THROMBOPLASTIN TIME 35.8 Seconds (25.6-37.1)
[2018-01-12 06:12] LABS: ALB/GLOB RATIO 0.7 (1.0-2.1); ALBUMIN 2.1 g/dL (3.5-5.0); ALT/SGPT 28 U/L (9-52); AST/SGOT 39 U/L (14-36); BLOOD UREA NITROGEN 35 mg/dl (7-17); CALCIUM 6.5 mg/dL (8.4-10.2); GFR NON-AFRICAN AMERICAN > 60
[2018-01-12 06:14] LABS: BASO % 0.3 % (0.0-2.0); EOS % 0.3 % (0.0-4.0); HEMOGLOBIN 8.4 g/dL (12.0-16.0); LYMPH # 0.6 K/uL (1.0-4.3); LYMPH % 7.4 % (20.0-40.0); MEAN CELL VOLUME 86.1 fl (81.0-99.0); MEAN CORPUSCULAR HEMOGLOBIN 28.9 pg (27.0-31.0); MEAN CORPUSCULAR HGB CONC 33.5 g/dL (33.0-37.0); MEAN PLATELET VOLUME 10.7 fl (7.2-11.7); MONO # 0.1 K/uL (0.0-0.8); MONO % 1.7 % (0.0-10.0); NEUT # 6.7 K/uL (1.8-7.0); NEUT % 90.3 % (50.0-75.0); NRBC % 0.2 % (0.0-0.0); RBC 2.91 Mil/uL (3.80-5.20); RED CELL DISTRIBUTION WIDTH 16.3 % (11.5-14.5); WHITE BLOOD COUNT 7.5 K/uL (4.8-10.8)
[2018-01-12 06:18] LABS: PLATELET COUNT 23 K/uL (130-400)
[2018-01-12] MEDS: Insulin Lispro (humaLOG) 100 Units/ml Inj SC SCH ×4 (06:39→21:45)
[2018-01-12] MEDS: methIMAzole 5 MG TAB PO SCH ×2 (08:20→17:48)
--- NOTE | 2018-01-12 08:52 | PN ---
DATE: 01/10/2018 ENDOCRINOLOGY FOLLOWUP NOTE LOCATION: Room 414. SUBJECTIVE: This is a 67-year-old female with recent uncontrolled type 2 insulin-requiring diabetes, now being followed closely for metabolic management. Her oral intake remains extremely suboptimal with nil oral portions of her pureed diet as given. Her glucose values have been on the low side of normal, ranging from 55 to 114 and 98 mg/dL. Her glucose values today have ranged from 215 to 261 mg/dL. Her chemistry showed a BUN of 54, sodium 148, potassium 3.6, chloride 117, CO2 of 24, glucose 112, and creatinine 0.7. We would highly suggest the initiation of peripheral hyperalimentation if the patient continues to have nil oral intake for the last week or so as noted by the nursing staff. We will lower the basal insulin to Levemir given as 8 units subcutaneously at 10:00 a.m. daily and Levemir given as 18 units subcutaneously at 10:00 p.m. daily as ordered. We will obtain serial chemistries and supplement accordingly as needed. We will follow. Angela Copeland MD
[2018-01-12] MEDS ORDERED: Magnesium Sulfate 2 gm/50 ml 2 GM/50 ML BAG IVPB ONE (10:00)
[2018-01-12] MEDS: Dextrose 5%/0.9% NS 1,000 ML IV SCH (10:38)
[2018-01-12 11:45] LABS: BANDS 3 % (0-2); LYMPHOCYTE 6 % (20-50); MONOCYTE 4 % (0-10); NEUTROPHIL 87 % (42-75); TOTAL CELLS COUNTED 100
[2018-01-12 11:46] LABS: ANISOCYTOSIS SLIGHT; HYPOCHROMIC SLIGHT; OVALOCYTES SLIGHT; PLATELET ESTIMATE DECREASED (NORMAL); TOXIC GRANULATION PRESENT
--- NOTE | 2018-01-12 22:31 | CP.PCM.PN ---
Subjective - Date & Time of Evaluation Date of Evaluation: 01/12/18 Time of Evaluation: 07:05 - Subjective Subjective: Seen and examined at the bed side. Patient awake but drowsy. Mental Status waxing and waning. Asking to go home but was agreeable to stay when she was informed about the acute illnesses which need inpatient care. Patient unable to move Lower extremities L worse than R. Denies fever or chills. Eating home cooked food but refusing hospital food. Platelet level decreased from 58K to 23K in 2 days. Objective - Vital Signs/Intake and Output Vital Signs (last 24 hours): Temp Pulse Resp BP Pulse Ox 98.4 F 66 20 119/69 94 L 01/12/18 19:26 01/12/18 21:39 01/12/18 19:26 01/12/18 21:39 01/12/18 19:26 - Medications Medications: Current Medications Acetaminophen (Tylenol 650 Mg Supp) 650 mg [place] Q6 PRN PRN Reason: Pain, moderate (4-7) Last Admin: 01/05/18 17:44 Dose: 650 mg Albuterol/Ipratropium (Duoneb 3 Mg/0.5 Mg (3 Ml) Ud) 3 ml INH RQ4 [facility] Last Admin: 01/12/18 19:30 Dose: 3 ml Dextrose (Glutose 15) 0 gm PO ONCE PRN; Protocol PRN Reason: Hypoglycemia Protocol Dextrose (Dextrose 50% Inj) 0 ml IV STAT PRN; Protocol PRN Reason: Hypoglycemia Protocol Last Admin: 01/11/18 06:51 Dose: 50 ml Dextrose (Glutose 15) 0 gm PO ONCE PRN; Protocol PRN Reason: Hypoglycemia Protocol Dimethicone (Proshield Plus Skin Protectant) 1 applic TOP Q8 [facility] Last Admin: 01/12/18 17:48 Dose: 1 applic Glipizide (Glucotrol) 2.5 mg PO ACBD [facility] Last Admin: 01/12/18 17:48 Dose: 2.5 mg Glucagon (Glucagen Diagnostic Kit) 0 mg IM STAT PRN; Protocol PRN Reason: Hypoglycemia Protocol Glucagon (Glucagen Diagnostic Kit) 0 mg IM STAT PRN; Protocol PRN Reason: Hypoglycemia Protocol Dextrose/Sodium Chloride (Dextrose 5%/0.9% Ns 1000 Ml) 1,000 mls @ 50 mls/hr IV .Q20H [facility] Stop: 01/13/18 10:01 Last Admin: 01/12/18 10:38 Dose: 50 mls/hr Insulin Human Lispro (Humalog) 0 units SC ACHS [facility] Last Admin: 01/12/18 21:45 Dose: Not Given Methimazole (Tapazole) 5 mg PO BID [facility] Last Admin: 01/12/18 17:48 Dose: 5 mg Metoprolol Tartrate (Lopressor) 25 mg PO Q12 [facility] Last Admin: 01/12/18 21:39 Dose: 25 mg Mirtazapine (Remeron) 7.5 mg PO HS [facility] Last Admin: 01/12/18 21:39 Dose: 7.5 mg Morphine Sulfate (Morphine) 2 mg IVP Q6 PRN PRN Reason: Pain, severe (8-10) Nystatin (Nystop Topical Powder) 1 applic TOP TID [facility] Last Admin: 01/12/18 17:49 Dose: 1 applic - Labs Labs: 01/12/18 04:25 01/12/18 04:25 PT 14.4 Seconds (9.8-13.1) H 01/12/18 04:25 INR 1.3 01/12/18 04:25 APTT 35.8 Seconds (25.6-37.1) 01/12/18 04:25 Assessment and Plan (1) Altered mental status Assessment & Plan: Waxing and Waning Mental Status: MRI Negative for Mets to the Brain Acute Delirium Metabolic Encephalopathy: Sepsis, Uremia and Metabolic Acidosis- Improving Treat the Underlying Problem Status: Acute Priority: High (2) DKA (diabetic ketoacidoses)- Resolved Type II DM Assessment and Plan: HHS, Hypotension- Resolved Continue IVF Replenish Electrolytes PRN BMP daily Levemir [facility] with Coverage HgA1C- 11.6 Status: Acute Priority: High (3) Septic Shock, G -ve Bactremia with E. Coli,ESBL Negative-Resolved Assessment and Plan: UTI and Sacral Pressure Ulcer Stage II- Improving IV Merem and Vancomycin IVF Wound Care daily Status: Acute Priority: High (4) Lung mass, Possible Stage IV Cancer Assessment and Plan: Family Aware Will Need Tissue Dx when PLT level is acceptable Status: Acute Priority: High (5) Acute Renal Failure (ARF)- Resolved Assessment and Plan: Most Likely ATN due to Hypotension and Dehydration- Resolved IVF RX DKA/HHS and Sepsis Urine NA Nephrology onboard Status: Acute Priority: High (6) Gait abnormality Status: Acute Priority: Medium (7) DVT prophylaxis Status: Inactive Priority: High (8) Dysphagia- Passed Swallow Evaluation Soft Mechanical diet (9) Hypernatremia -Resolved IVF Monitor BMP (10) Severe Thrombocytopenia- Decreased again. Monitor Bleeding Manual PLT Count Transfuse PLT as needed if K<20K or active bleeding Field Test Engineer onboard Status: Acute
--- NOTE | 2018-01-12 22:35 | CP.PCM.PN ---
Subjective - Date & Time of Evaluation Date of Evaluation: 01/12/18 Time of Evaluation: 20:00 - Subjective Subjective: No complaints. Objective - Vital Signs/Intake and Output Vital Signs (last 24 hours): Temp Pulse Resp BP Pulse Ox 98.4 F 66 20 119/69 94 L 01/12/18 19:26 01/12/18 21:39 01/12/18 19:26 01/12/18 21:39 01/12/18 19:26 - Medications Medications: Current Medications Acetaminophen (Tylenol 650 Mg Supp) 650 mg [place] Q6 PRN PRN Reason: Pain, moderate (4-7) Last Admin: 01/05/18 17:44 Dose: 650 mg Albuterol/Ipratropium (Duoneb 3 Mg/0.5 Mg (3 Ml) Ud) 3 ml INH RQ4 [facility] Last Admin: 01/12/18 19:30 Dose: 3 ml Dextrose (Glutose 15) 0 gm PO ONCE PRN; Protocol PRN Reason: Hypoglycemia Protocol Dextrose (Dextrose 50% Inj) 0 ml IV STAT PRN; Protocol PRN Reason: Hypoglycemia Protocol Last Admin: 01/11/18 06:51 Dose: 50 ml Dextrose (Glutose 15) 0 gm PO ONCE PRN; Protocol PRN Reason: Hypoglycemia Protocol Dimethicone (Proshield Plus Skin Protectant) 1 applic TOP Q8 [facility] Last Admin: 01/12/18 17:48 Dose: 1 applic Glipizide (Glucotrol) 2.5 mg PO ACBD [facility] Last Admin: 01/12/18 17:48 Dose: 2.5 mg Glucagon (Glucagen Diagnostic Kit) 0 mg IM STAT PRN; Protocol PRN Reason: Hypoglycemia Protocol Glucagon (Glucagen Diagnostic Kit) 0 mg IM STAT PRN; Protocol PRN Reason: Hypoglycemia Protocol Dextrose/Sodium Chloride (Dextrose 5%/0.9% Ns 1000 Ml) 1,000 mls @ 50 mls/hr IV .Q20H [facility] Stop: 01/13/18 10:01 Last Admin: 01/12/18 10:38 Dose: 50 mls/hr Insulin Human Lispro (Humalog) 0 units SC ACHS [facility] Last Admin: 01/12/18 21:45 Dose: Not Given Methimazole (Tapazole) 5 mg PO BID [facility] Last Admin: 01/12/18 17:48 Dose: 5 mg Metoprolol Tartrate (Lopressor) 25 mg PO Q12 [facility] Last Admin: 01/12/18 21:39 Dose: 25 mg Mirtazapine (Remeron) 7.5 mg PO HS [facility] Last Admin: 01/12/18 21:39 Dose: 7.5 mg Morphine Sulfate (Morphine) 2 mg IVP Q6 PRN PRN Reason: Pain, severe (8-10) Nystatin (Nystop Topical Powder) 1 applic TOP TID [facility] Last Admin: 01/12/18 17:49 Dose: 1 applic - Labs Labs: 01/12/18 04:25 01/12/18 04:25 PT 14.4 Seconds (9.8-13.1) H 01/12/18 04:25 INR 1.3 01/12/18 04:25 APTT 35.8 Seconds (25.6-37.1) 01/12/18 04:25 - Head Exam Head Exam: ATRAUMATIC - Eye Exam Eye Exam: Normal appearance - ENT Exam ENT Exam: Mucous Membranes Dry - Respiratory Exam Respiratory Exam: NORMAL BREATHING PATTERN - Cardiovascular Exam Cardiovascular Exam: +S1, +S2 - GI/Abdominal Exam GI & Abdominal Exam: Normal Bowel Sounds - Extremities Exam Extremities Exam: Pedal Edema Assessment and Plan (1) Thrombocytopenia Assessment & Plan: cont. to fluctuate secondary to acute illness Status: Acute (2) Anemia Assessment & Plan: chronic disease Status: Acute (3) Malignancy Assessment & Plan: for possible breast lesion biopsy if plt improved Status: Acute
[2018-01-13] MEDS: Albuterol-Ipratrop 3 mg / 0.5 (3 ml) UD INH SCH ×7 (01:10→23:55)
--- NOTE | 2018-01-13 02:43 | PN ---
DATE: 01/12/2018 ENDOCRINOLOGY FOLLOWUP NOTE LOCATION: Room 414. SUBJECTIVE: This is a 67-year-old female with recent uncontrolled type 2 insulin-requiring diabetes, now taken off all insulin therapy because of suboptimal meal portions at this time. Her glycemic levels are fluctuating but improved and the glucose values overnight have shown glucose levels of 186 to 192 and 236 mg/dL. Her chemistry showed a BUN of 35, sodium 136, potassium 3.6, chloride 104, CO2 of 24, glucose 207, and creatinine 0.5. So at this time, we will add a very low dose of oral hypoglycemic therapy with glipizide given as 2.5 mg b.i.d. before meals as ordered. We will continue the low-dose correction scale using Humalog insulin as given. We will hold off basal insulin at this time until her oral intake improves accordingly. We will follow. Angela Copeland MD
[2018-01-13] MEDS: Proshield Plus GEL TOP SCH ×3 (02:59→17:09)
[2018-01-13 05:38] LABS: HEMOGLOBIN 7.8 g/dL (12.0-16.0); MEAN CORPUSCULAR HEMOGLOBIN 28.5 pg (27.0-31.0); MEAN CORPUSCULAR HGB CONC 33.1 g/dL (33.0-37.0); RBC 2.75 Mil/uL (3.80-5.20); RED CELL DISTRIBUTION WIDTH 16.3 % (11.5-14.5); WHITE BLOOD COUNT 7.3 K/uL (4.8-10.8)
[2018-01-13 05:51] LABS: BLOOD UREA NITROGEN 31 mg/dl (7-17); CALCIUM 6.6 mg/dL (8.4-10.2); GFR NON-AFRICAN AMERICAN > 60
[2018-01-13] MEDS: Dextrose 5%/0.9% NS 1,000 ML IV SCH (05:53)
[2018-01-13] MEDS: Insulin Lispro (humaLOG) 100 Units/ml Inj SC SCH ×4 (08:35→22:01)
[2018-01-13] MEDS: methIMAzole 5 MG TAB PO SCH ×2 (08:37→17:11)
[2018-01-13 11:17] LABS: ALB/GLOB RATIO 0.7 (1.0-2.1); ALBUMIN 2.1 g/dL (3.5-5.0); ALT/SGPT 36 U/L (9-52); AST/SGOT 34 U/L (14-36)
--- NOTE | 2018-01-13 11:57 | CP.PCM.PN ---
Subjective - Date & Time of Evaluation Date of Evaluation: 01/13/18 Time of Evaluation: 11:45 - Subjective Subjective: Seen and examined at the bed side. Patient awake but drowsy. Mental Status waxing and waning. Asking to go home but was agreeable to stay when she was informed about the acute illnesses which need inpatient care. Patient unable to move Lower extremities L worse than R. Denies fever or chills. Eating home cooked food but refusing hospital food. Platelet level decreased from 58K to 23K then to 17K today. D/w the Ground Crew Lines Person, and will Transfuse PLT, and start Steroid. Objective - Vital Signs/Intake and Output Vital Signs (last 24 hours): Temp Pulse Resp BP Pulse Ox 99.3 F 71 20 144/81 93 L 01/13/18 08:32 01/13/18 08:36 01/13/18 08:32 01/13/18 08:36 01/13/18 08:32 Intake and Output: 01/13/18 01/13/18 06:59 18:59 Intake Total 550 Output Total 1600 Balance -1050 - Medications Medications: Current Medications Acetaminophen (Tylenol 650 Mg Supp) 650 mg [place] Q6 PRN PRN Reason: Pain, moderate (4-7) Last Admin: 01/05/18 17:44 Dose: 650 mg Albuterol/Ipratropium (Duoneb 3 Mg/0.5 Mg (3 Ml) Ud) 3 ml INH RQ4 [facility] Last Admin: 01/13/18 11:23 Dose: Not Given Dextrose (Glutose 15) 0 gm PO ONCE PRN; Protocol PRN Reason: Hypoglycemia Protocol Dextrose (Dextrose 50% Inj) 0 ml IV STAT PRN; Protocol PRN Reason: Hypoglycemia Protocol Last Admin: 01/11/18 06:51 Dose: 50 ml Dextrose (Glutose 15) 0 gm PO ONCE PRN; Protocol PRN Reason: Hypoglycemia Protocol Dimethicone (Proshield Plus Skin Protectant) 1 applic TOP Q8 [facility] Last Admin: 01/13/18 08:37 Dose: 1 applic Glipizide (Glucotrol) 2.5 mg PO ACBD [facility] Last Admin: 01/13/18 08:35 Dose: 2.5 mg Glucagon (Glucagen Diagnostic Kit) 0 mg IM STAT PRN; Protocol PRN Reason: Hypoglycemia Protocol Glucagon (Glucagen Diagnostic Kit) 0 mg IM STAT PRN; Protocol PRN Reason: Hypoglycemia Protocol Potassium Chloride (Potassium Cl 10meq/50ml Sterile Water) 50 mls @ 50 mls/hr IVPB Q1 [facility]PLACED BY [facility] Stop: 01/13/18 15:59 Insulin Human Lispro (Humalog) 0 units SC ACHS [facility] Last Admin: 01/13/18 08:35 Dose: Not Given Methimazole (Tapazole) 5 mg PO BID [facility] Last Admin: 01/13/18 08:37 Dose: 5 mg Metoprolol Tartrate (Lopressor) 25 mg PO Q12 [facility] Last Admin: 01/13/18 08:36 Dose: 25 mg Mirtazapine (Remeron) 7.5 mg PO HS [facility] Last Admin: 01/12/18 21:39 Dose: 7.5 mg Morphine Sulfate (Morphine) 2 mg IVP Q6 PRN PRN Reason: Pain, severe (8-10) Nystatin (Nystop Topical Powder) 1 applic TOP TID [facility] Last Admin: 01/13/18 08:36 Dose: 1 applic - Labs Labs: 01/13/18 05:10 01/13/18 05:10 PT 14.4 Seconds (9.8-13.1) H 01/12/18 04:25 INR 1.3 01/12/18 04:25 APTT 35.8 Seconds (25.6-37.1) 01/12/18 04:25 - Constitutional Appears: Well, No Acute Distress - Head Exam Head Exam: ATRAUMATIC, NORMAL INSPECTION, NORMOCEPHALIC - Eye Exam Eye Exam: EOMI, Normal appearance, PERRL Pupil Exam: NORMAL ACCOMODATION, PERRL - ENT Exam ENT Exam: Mucous Membranes Moist, Normal Exam - Neck Exam Neck Exam: Full ROM, Normal Inspection. absent: Lymphadenopathy - Respiratory Exam Respiratory Exam: Clear to Ausculation Bilateral, NORMAL BREATHING PATTERN - Cardiovascular Exam Cardiovascular Exam: REGULAR RHYTHM, +S1, +S2. absent: Murmur - GI/Abdominal Exam GI & Abdominal Exam: Soft, Normal Bowel Sounds. absent: Tenderness - Extremities Exam Extremities Exam: Full ROM, Normal Capillary Refill, Normal Inspection, Pedal Edema (++pitting Edema). absent: Joint Swelling - Back Exam Back Exam: NORMAL INSPECTION - Neurological Exam Neurological Exam: Alert, Awake, CN II-XII Intact, Normal Gait, Oriented x3 - Psychiatric Exam Psychiatric exam: Depressed, Flat Affect - Skin Skin Exam: Dry, Intact, Normal Color, Warm Assessment and Plan (1) Altered mental status Assessment & Plan: Assessment & Plan: Waxing and Waning Mental Status: MRI Negative for Mets to the Brain Acute Delirium Metabolic Encephalopathy: Sepsis, Uremia and Metabolic Acidosis- Improving Treat the Underlying Problem Status: Acute Priority: High (2) DKA (diabetic ketoacidoses)- Resolved Type II DM Assessment and Plan: HHS, Hypotension- Resolved Continue IVF Replenish Electrolytes PRN BMP daily Levemir ACHS with Coverage HgA1C- 11.6 Status: Acute Priority: High (3) Septic Shock, G -ve Bactremia with E. Coli,ESBL Negative-Resolved Assessment and Plan: UTI and Sacral Pressure Ulcer Stage II- Improving IV Merem and Vancomycin IVF Wound Care daily Status: Acute Priority: High (4) Lung mass, Possible Stage IV Cancer Assessment and Plan: Family Aware Will Need Tissue Dx when PLT level is acceptable Status: Acute Priority: High (5) Acute Renal Failure (ARF)- Resolved Assessment and Plan: Most Likely ATN due to Hypotension and Dehydration- Resolved IVF RX DKA/HHS and Sepsis Urine NA Nephrology onboard Status: Acute Priority: High (6) Gait abnormality Status: Acute Priority: Medium (7) DVT prophylaxis Status: Inactive Priority: High (8) Dysphagia- Passed Swallow Evaluation Soft Mechanical diet (9) Hypernatremia -Resolved IVF Monitor BMP (10) Severe Thrombocytopenia- Decreased again. Monitor Bleeding Manual PLT Count Transfuse PLT as needed if K<20K or active bleeding Solumedrol, 40mg IV Q12hrs [employer] Person onboard Status: Acute
[2018-01-13] MEDS: Potassium CL 10 MEQ/50 ML 50 ML IVPB SCH ×4 (12:58→18:30)
[2018-01-13] MEDS ORDERED: methylPREDNISolone 125 MG in Sodium Chloride 0.9% 50 ML IV ONE (13:30)
[2018-01-13 18:05] LABS: HEMOGLOBIN 8.1 g/dL (12.0-16.0); MEAN CELL VOLUME 89.4 fl (81.0-99.0); MEAN CORPUSCULAR HEMOGLOBIN 29.5 pg (27.0-31.0); MEAN CORPUSCULAR HGB CONC 33.1 g/dL (33.0-37.0); RBC 2.73 Mil/uL (3.80-5.20); RED CELL DISTRIBUTION WIDTH 16.3 % (11.5-14.5); WHITE BLOOD COUNT 6.6 K/uL (4.8-10.8)
[2018-01-13] MEDS: MethylPREDNISolone 40 mg Vial IVP SCH (22:00)
--- NOTE | 2018-01-13 23:31 | PN ---
DATE: 01/13/2018 ENDO FOLLOWUP NOTE LOCATION: Room 414. SUBJECTIVE: This is a 67-year-old female with recent uncontrolled type 2 insulin-requiring diabetes, now being followed closely for metabolic management. She also has ongoing low-dose therapy for management of hyperthyroidism, which she is tolerating fairly well at this time. However, her oral intake is suboptimal with nil oral portions as per the Nursing staff. Her glycemic levels are fluctuating, but improved and the glucose values have ranged from 152 to 165 and 182 mg/dL. Her chemistries show a BUN of 31, sodium 137, potassium 3.4, chloride 109, CO2 25, glucose 145, and creatinine 0.5. ASSESSMENT AND PLAN: So at this time, we will continue the low-dose correction scale using Humalog insulin as given. We will also continue the low-dose Tapazole given as 5 mg b.i.d. after meals as ordered. We will also continue the very low-dose oral hypoglycemic therapy with glipizide given as 2.5 mg before breakfast and dinner as ordered. She is currently on intravenous steroid therapy, for which we expect hyperglycemic accelerations over time as noted. We will obtain serial chemistries and supplement accordingly as needed. We will follow. Angela Copeland MD
[2018-01-14] MEDS: Proshield Plus GEL TOP SCH ×3 (00:30→17:47)
[2018-01-14] MEDS: Albuterol-Ipratrop 3 mg / 0.5 (3 ml) UD INH SCH ×6 (04:06→23:53)
[2018-01-14] MEDS: MethylPREDNISolone 40 mg Vial IVP SCH ×2 (10:08→22:15)
[2018-01-14] MEDS: methIMAzole 5 MG TAB PO SCH ×2 (10:08→17:46)
[2018-01-14] MEDS: Insulin Lispro (humaLOG) 100 Units/ml Inj SC SCH ×4 (10:10→22:11)
[2018-01-14 10:58] LABS: HEMOGLOBIN 8.2 g/dL (12.0-16.0); MEAN CELL VOLUME 86.7 fl (81.0-99.0); MEAN CORPUSCULAR HEMOGLOBIN 28.4 pg (27.0-31.0); MEAN CORPUSCULAR HGB CONC 32.8 g/dL (33.0-37.0); RBC 2.87 Mil/uL (3.80-5.20); RED CELL DISTRIBUTION WIDTH 15.5 % (11.5-14.5); WHITE BLOOD COUNT 4.1 K/uL (4.8-10.8)
[2018-01-14 11:26] LABS: BLOOD UREA NITROGEN 32 mg/dl (7-17); CALCIUM 6.9 mg/dL (8.4-10.2); GFR NON-AFRICAN AMERICAN > 60
--- NOTE | 2018-01-14 21:07 | PN ---
DATE: 01/14/2018 ENDOCRINOLOGY FOLLOWUP NOTE LOCATION: Room 414. SUBJECTIVE: This is a 67-year-old female with recent uncontrolled type 2 insulin-requiring diabetes, now being followed closely for metabolic management. Her glycemic levels are fluctuating but improved, and the latest glucose levels today have ranged from 206 to 226 mg/dL. Her chemistry showed a BUN of 32, sodium 140, potassium 4.5, chloride 111, CO2 of 21, glucose 216, and creatinine 0.5. So at this time, we will modify once again her oral hypoglycemic therapy and increase the glipizide to 5 mg b.i.d. before meals as ordered. She also has ongoing IV steroid therapy as given. We will obtain serial chemistries and supplement accordingly needed. We will follow. Angela Copeland MD
[2018-01-14] MEDS: Dextrose 5%/0.9% NS 1,000 ML IV SCH (22:18)
[2018-01-15] MEDS: Proshield Plus GEL TOP SCH ×3 (02:03→16:35)
[2018-01-15] MEDS: Albuterol-Ipratrop 3 mg / 0.5 (3 ml) UD INH SCH ×2 (05:07→08:14)
[2018-01-15] MEDS: Insulin Lispro (humaLOG) 100 Units/ml Inj SC SCH ×3 (08:45→16:34)
[2018-01-15] MEDS: methIMAzole 5 MG TAB PO SCH ×3 (08:45→16:35)
[2018-01-15] MEDS: MethylPREDNISolone 40 mg Vial IVP SCH ×2 (10:24→21:40)
--- NOTE | 2018-01-15 20:54 | CP.PCM.PN ---
Subjective - Date & Time of Evaluation Date of Evaluation: 01/13/18 Time of Evaluation: 12:00 - Subjective Subjective: Drowsy but arousable Objective - Vital Signs/Intake and Output Vital Signs (last 24 hours): Temp Pulse Resp BP Pulse Ox 98.2 F 84 20 149/87 95 01/15/18 19:18 01/15/18 19:18 01/15/18 19:18 01/15/18 19:18 01/15/18 19:18 Intake and Output: 01/15/18 01/16/18 18:59 06:59 Intake Total 485 Output Total 1200 Balance -715 - Medications Medications: Current Medications Acetaminophen (Tylenol 650 Mg Supp) 650 mg [place] Q6 PRN PRN Reason: Pain, moderate (4-7) Last Admin: 01/05/18 17:44 Dose: 650 mg Acetaminophen (Tylenol 650 Mg Supp) 650 mg [place] ONCE PRN PRN Reason: Fever >100.4 F Last Admin: 01/15/18 12:09 Dose: 650 mg Dextrose (Glutose 15) 0 gm PO ONCE PRN; Protocol PRN Reason: Hypoglycemia Protocol Dextrose (Dextrose 50% Inj) 0 ml IV STAT PRN; Protocol PRN Reason: Hypoglycemia Protocol Last Admin: 01/11/18 06:51 Dose: 50 ml Dextrose (Glutose 15) 0 gm PO ONCE PRN; Protocol PRN Reason: Hypoglycemia Protocol Dimethicone (Proshield Plus Skin Protectant) 1 applic TOP Q8 [facility] Last Admin: 01/15/18 16:35 Dose: 1 applic Glipizide (Glucotrol) 10 mg PO ACBD [facility] Glucagon (Glucagen Diagnostic Kit) 0 mg IM STAT PRN; Protocol PRN Reason: Hypoglycemia Protocol Glucagon (Glucagen Diagnostic Kit) 0 mg IM STAT PRN; Protocol PRN Reason: Hypoglycemia Protocol Insulin Human Lispro (Humalog) 0 units SC ACHS [facility] Last Admin: 01/15/18 16:34 Dose: Not Given Methimazole (Tapazole) 5 mg PO BID [facility] Last Admin: 01/15/18 16:35 Dose: 5 mg Methylprednisolone (Solu-Medrol) 40 mg IVP Q12 [facility] Last Admin: 01/15/18 10:24 Dose: 40 mg Metoprolol Tartrate (Lopressor) 25 mg PO Q12 [facility] Last Admin: 01/15/18 08:45 Dose: Not Given Mirtazapine (Remeron) 7.5 mg PO HS [facility] Last Admin: 01/14/18 22:15 Dose: 7.5 mg Morphine Sulfate (Morphine) 2 mg IVP Q6 PRN PRN Reason: Pain, severe (8-10) Nystatin (Nystop Topical Powder) 1 applic TOP TID [facility] Last Admin: 01/15/18 16:34 Dose: 1 applic - Labs Labs: 01/14/18 09:51 01/14/18 09:51 PT 14.4 Seconds (9.8-13.1) H 01/12/18 04:25 INR 1.3 01/12/18 04:25 APTT 35.8 Seconds (25.6-37.1) 01/12/18 04:25 - Head Exam Head Exam: ATRAUMATIC - Eye Exam Eye Exam: Normal appearance - ENT Exam ENT Exam: Mucous Membranes Dry - Respiratory Exam Respiratory Exam: NORMAL BREATHING PATTERN - Cardiovascular Exam Cardiovascular Exam: +S1, +S2 - GI/Abdominal Exam GI & Abdominal Exam: Normal Bowel Sounds - Extremities Exam Extremities Exam: Pedal Edema Assessment and Plan (1) Thrombocytopenia Assessment & Plan: 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
--- NOTE | 2018-01-15 20:55 | CP.PCM.PN ---
Subjective - Date & Time of Evaluation Date of Evaluation: 01/14/18 Time of Evaluation: 13:00 - Subjective Subjective: Drowsy but arousable, no complaints. Objective - Vital Signs/Intake and Output Vital Signs (last 24 hours): Temp Pulse Resp BP Pulse Ox 98.2 F 84 20 149/87 95 01/15/18 19:18 01/15/18 19:18 01/15/18 19:18 01/15/18 19:18 01/15/18 19:18 Intake and Output: 01/15/18 01/16/18 18:59 06:59 Intake Total 485 Output Total 1200 Balance -715 - Medications Medications: Current Medications Acetaminophen (Tylenol 650 Mg Supp) 650 mg [place] Q6 PRN PRN Reason: Pain, moderate (4-7) Last Admin: 01/05/18 17:44 Dose: 650 mg Acetaminophen (Tylenol 650 Mg Supp) 650 mg [place] ONCE PRN PRN Reason: Fever >100.4 F Last Admin: 01/15/18 12:09 Dose: 650 mg Dextrose (Glutose 15) 0 gm PO ONCE PRN; Protocol PRN Reason: Hypoglycemia Protocol Dextrose (Dextrose 50% Inj) 0 ml IV STAT PRN; Protocol PRN Reason: Hypoglycemia Protocol Last Admin: 01/11/18 06:51 Dose: 50 ml Dextrose (Glutose 15) 0 gm PO ONCE PRN; Protocol PRN Reason: Hypoglycemia Protocol Dimethicone (Proshield Plus Skin Protectant) 1 applic TOP Q8 [facility] Last Admin: 01/15/18 16:35 Dose: 1 applic Glipizide (Glucotrol) 10 mg PO ACBD [facility] Glucagon (Glucagen Diagnostic Kit) 0 mg IM STAT PRN; Protocol PRN Reason: Hypoglycemia Protocol Glucagon (Glucagen Diagnostic Kit) 0 mg IM STAT PRN; Protocol PRN Reason: Hypoglycemia Protocol Insulin Human Lispro (Humalog) 0 units SC ACHS [facility] Last Admin: 01/15/18 16:34 Dose: Not Given Methimazole (Tapazole) 5 mg PO BID [facility] Last Admin: 01/15/18 16:35 Dose: 5 mg Methylprednisolone (Solu-Medrol) 40 mg IVP Q12 [facility] Last Admin: 01/15/18 10:24 Dose: 40 mg Metoprolol Tartrate (Lopressor) 25 mg PO Q12 [facility] Last Admin: 01/15/18 08:45 Dose: Not Given Mirtazapine (Remeron) 7.5 mg PO HS [facility] Last Admin: 01/14/18 22:15 Dose: 7.5 mg Morphine Sulfate (Morphine) 2 mg IVP Q6 PRN PRN Reason: Pain, severe (8-10) Nystatin (Nystop Topical Powder) 1 applic TOP TID [facility] Last Admin: 01/15/18 16:34 Dose: 1 applic - Labs Labs: 01/14/18 09:51 01/14/18 09:51 PT 14.4 Seconds (9.8-13.1) H 01/12/18 04:25 INR 1.3 01/12/18 04:25 APTT 35.8 Seconds (25.6-37.1) 01/12/18 04:25 - Head Exam Head Exam: ATRAUMATIC - Eye Exam Eye Exam: Normal appearance - ENT Exam ENT Exam: Mucous Membranes Dry - Respiratory Exam Respiratory Exam: NORMAL BREATHING PATTERN - Cardiovascular Exam Cardiovascular Exam: +S1, +S2 - GI/Abdominal Exam GI & Abdominal Exam: Normal Bowel Sounds Assessment and Plan (1) Thrombocytopenia Assessment & Plan: on steroids plt count improving Status: Acute (2) Anemia Assessment & Plan: chronic disease Status: Acute (3) Malignancy Assessment & Plan: unable to perform biopsy due to thrombocytopenia Status: Acute
--- NOTE | 2018-01-15 20:56 | CP.PCM.PN ---
Subjective - Date & Time of Evaluation Date of Evaluation: 01/15/18 Time of Evaluation: 18:00 - Subjective Subjective: Drowsy but arousable Objective - Vital Signs/Intake and Output Vital Signs (last 24 hours): Temp Pulse Resp BP Pulse Ox 98.2 F 84 20 149/87 95 01/15/18 19:18 01/15/18 19:18 01/15/18 19:18 01/15/18 19:18 01/15/18 19:18 Intake and Output: 01/15/18 01/16/18 18:59 06:59 Intake Total 485 Output Total 1200 Balance -715 - Medications Medications: Current Medications Acetaminophen (Tylenol 650 Mg Supp) 650 mg [place] Q6 PRN PRN Reason: Pain, moderate (4-7) Last Admin: 01/05/18 17:44 Dose: 650 mg Acetaminophen (Tylenol 650 Mg Supp) 650 mg [place] ONCE PRN PRN Reason: Fever >100.4 F Last Admin: 01/15/18 12:09 Dose: 650 mg Dextrose (Glutose 15) 0 gm PO ONCE PRN; Protocol PRN Reason: Hypoglycemia Protocol Dextrose (Dextrose 50% Inj) 0 ml IV STAT PRN; Protocol PRN Reason: Hypoglycemia Protocol Last Admin: 01/11/18 06:51 Dose: 50 ml Dextrose (Glutose 15) 0 gm PO ONCE PRN; Protocol PRN Reason: Hypoglycemia Protocol Dimethicone (Proshield Plus Skin Protectant) 1 applic TOP Q8 [facility] Last Admin: 01/15/18 16:35 Dose: 1 applic Glipizide (Glucotrol) 10 mg PO ACBD [facility] Glucagon (Glucagen Diagnostic Kit) 0 mg IM STAT PRN; Protocol PRN Reason: Hypoglycemia Protocol Glucagon (Glucagen Diagnostic Kit) 0 mg IM STAT PRN; Protocol PRN Reason: Hypoglycemia Protocol Insulin Human Lispro (Humalog) 0 units SC ACHS [facility] Last Admin: 01/15/18 16:34 Dose: Not Given Methimazole (Tapazole) 5 mg PO BID [facility] Last Admin: 01/15/18 16:35 Dose: 5 mg Methylprednisolone (Solu-Medrol) 40 mg IVP Q12 [facility] Last Admin: 01/15/18 10:24 Dose: 40 mg Metoprolol Tartrate (Lopressor) 25 mg PO Q12 [facility] Last Admin: 01/15/18 08:45 Dose: Not Given Mirtazapine (Remeron) 7.5 mg PO HS [facility] Last Admin: 01/14/18 22:15 Dose: 7.5 mg Morphine Sulfate (Morphine) 2 mg IVP Q6 PRN PRN Reason: Pain, severe (8-10) Nystatin (Nystop Topical Powder) 1 applic TOP TID [facility] Last Admin: 01/15/18 16:34 Dose: 1 applic - Labs Labs: 01/14/18 09:51 01/14/18 09:51 PT 14.4 Seconds (9.8-13.1) H 01/12/18 04:25 INR 1.3 01/12/18 04:25 APTT 35.8 Seconds (25.6-37.1) 01/12/18 04:25 - Head Exam Head Exam: ATRAUMATIC - Eye Exam Eye Exam: Normal appearance - ENT Exam ENT Exam: Mucous Membranes Dry - Respiratory Exam Respiratory Exam: NORMAL BREATHING PATTERN - Cardiovascular Exam Cardiovascular Exam: +S1, +S2 - GI/Abdominal Exam GI & Abdominal Exam: Normal Bowel Sounds Assessment and Plan (1) Thrombocytopenia Assessment & Plan: improving with steroids Status: Acute (2) Anemia Assessment & Plan: chronic disease Status: Acute (3) Malignancy Assessment & Plan: unable to biopsy due to thrombocytopenia Status: Acute
[2018-01-15] MEDS: Dextrose 5%/0.9% NS 1,000 ML IV SCH (21:41)
--- NOTE | 2018-01-15 22:22 | CP.PCM.PN ---
Subjective - Date & Time of Evaluation Date of Evaluation: 01/14/18 Time of Evaluation: 13:05 - Subjective Subjective: Seen and examined at the bed side. Patient awake but drowsy. Mental Status waxing and waning. Asking to go home but was agreeable to stay when she was informed about the acute illnesses which need inpatient care. Patient unable to move Lower extremities L worse than R. Denies fever or chills. Eating home cooked food but refusing hospital food. Objective - Vital Signs/Intake and Output Vital Signs (last 24 hours): Temp Pulse Resp BP Pulse Ox 98.2 F 84 20 149/87 95 01/15/18 19:18 01/15/18 21:40 01/15/18 19:18 01/15/18 19:18 01/15/18 19:18 Intake and Output: 01/15/18 01/16/18 18:59 06:59 Intake Total 485 Output Total 1200 Balance -715 - Medications Medications: Current Medications Acetaminophen (Tylenol 650 Mg Supp) 650 mg [place] Q6 PRN PRN Reason: Pain, moderate (4-7) Last Admin: 01/05/18 17:44 Dose: 650 mg Acetaminophen (Tylenol 650 Mg Supp) 650 mg [place] ONCE PRN PRN Reason: Fever >100.4 F Last Admin: 01/15/18 12:09 Dose: 650 mg Dextrose (Glutose 15) 0 gm PO ONCE PRN; Protocol PRN Reason: Hypoglycemia Protocol Dextrose (Dextrose 50% Inj) 0 ml IV STAT PRN; Protocol PRN Reason: Hypoglycemia Protocol Last Admin: 01/11/18 06:51 Dose: 50 ml Dextrose (Glutose 15) 0 gm PO ONCE PRN; Protocol PRN Reason: Hypoglycemia Protocol Dimethicone (Proshield Plus Skin Protectant) 1 applic TOP Q8 [facility] Last Admin: 01/15/18 16:35 Dose: 1 applic Glipizide (Glucotrol) 10 mg PO ACBD [facility] Glucagon (Glucagen Diagnostic Kit) 0 mg IM STAT PRN; Protocol PRN Reason: Hypoglycemia Protocol Glucagon (Glucagen Diagnostic Kit) 0 mg IM STAT PRN; Protocol PRN Reason: Hypoglycemia Protocol Insulin Human Lispro (Humalog) 0 units SC ACHS [facility] Last Admin: 01/15/18 16:34 Dose: Not Given Methimazole (Tapazole) 5 mg PO BID [facility] Last Admin: 01/15/18 16:35 Dose: 5 mg Methylprednisolone (Solu-Medrol) 40 mg IVP Q12 [facility] Last Admin: 01/15/18 21:40 Dose: 40 mg Metoprolol Tartrate (Lopressor) 25 mg PO Q12 [facility] Last Admin: 01/15/18 21:40 Dose: 25 mg Mirtazapine (Remeron) 7.5 mg PO HS [facility] Last Admin: 01/15/18 21:40 Dose: 7.5 mg Morphine Sulfate (Morphine) 2 mg IVP Q6 PRN PRN Reason: Pain, severe (8-10) Nystatin (Nystop Topical Powder) 1 applic TOP TID [facility] Last Admin: 01/15/18 16:34 Dose: 1 applic - Labs Labs: 01/14/18 09:51 01/14/18 09:51 PT 14.4 Seconds (9.8-13.1) H 01/12/18 04:25 INR 1.3 01/12/18 04:25 APTT 35.8 Seconds (25.6-37.1) 01/12/18 04:25 Assessment and Plan (1) Altered mental status Status: Acute
--- NOTE | 2018-01-15 22:22 | CP.PCM.PN ---
Subjective - Date & Time of Evaluation Date of Evaluation: 01/15/18 Time of Evaluation: 13:20 Objective - Vital Signs/Intake and Output Vital Signs (last 24 hours): Temp Pulse Resp BP Pulse Ox 98.2 F 84 20 149/87 95 01/15/18 19:18 01/15/18 21:40 01/15/18 19:18 01/15/18 19:18 01/15/18 19:18 Intake and Output: 01/15/18 01/16/18 18:59 06:59 Intake Total 485 Output Total 1200 Balance -715 - Medications Medications: Current Medications Acetaminophen (Tylenol 650 Mg Supp) 650 mg [place] Q6 PRN PRN Reason: Pain, moderate (4-7) Last Admin: 01/05/18 17:44 Dose: 650 mg Acetaminophen (Tylenol 650 Mg Supp) 650 mg [place] ONCE PRN PRN Reason: Fever >100.4 F Last Admin: 01/15/18 12:09 Dose: 650 mg Dextrose (Glutose 15) 0 gm PO ONCE PRN; Protocol PRN Reason: Hypoglycemia Protocol Dextrose (Dextrose 50% Inj) 0 ml IV STAT PRN; Protocol PRN Reason: Hypoglycemia Protocol Last Admin: 01/11/18 06:51 Dose: 50 ml Dextrose (Glutose 15) 0 gm PO ONCE PRN; Protocol PRN Reason: Hypoglycemia Protocol Dimethicone (Proshield Plus Skin Protectant) 1 applic TOP Q8 [facility] Last Admin: 01/15/18 16:35 Dose: 1 applic Glipizide (Glucotrol) 10 mg PO ACBD [facility] Glucagon (Glucagen Diagnostic Kit) 0 mg IM STAT PRN; Protocol PRN Reason: Hypoglycemia Protocol Glucagon (Glucagen Diagnostic Kit) 0 mg IM STAT PRN; Protocol PRN Reason: Hypoglycemia Protocol Insulin Human Lispro (Humalog) 0 units SC ACHS [facility] Last Admin: 01/15/18 16:34 Dose: Not Given Methimazole (Tapazole) 5 mg PO BID [facility] Last Admin: 01/15/18 16:35 Dose: 5 mg Methylprednisolone (Solu-Medrol) 40 mg IVP Q12 [facility] Last Admin: 01/15/18 21:40 Dose: 40 mg Metoprolol Tartrate (Lopressor) 25 mg PO Q12 [facility] Last Admin: 01/15/18 21:40 Dose: 25 mg Mirtazapine (Remeron) 7.5 mg PO HS [facility] Last Admin: 01/15/18 21:40 Dose: 7.5 mg Morphine Sulfate (Morphine) 2 mg IVP Q6 PRN PRN Reason: Pain, severe (8-10) Nystatin (Nystop Topical Powder) 1 applic TOP TID [facility] Last Admin: 01/15/18 16:34 Dose: 1 applic - Labs Labs: 01/14/18 09:51 01/14/18 09:51 PT 14.4 Seconds (9.8-13.1) H 01/12/18 04:25 INR 1.3 01/12/18 04:25 APTT 35.8 Seconds (25.6-37.1) 01/12/18 04:25 Assessment and Plan (1) Altered mental status Status: Acute
--- NOTE | 2018-01-16 00:18 | PN ---
DATE: 01/15/2018 ENDOCRINOLOGY FOLLOWUP NOTE LOCATION: Room 414. SUBJECTIVE: This is a 67-year-old female with recent uncontrolled type 2 insulin-requiring diabetes, now being followed closely for metabolic management. Her oral intake remains suboptimal at this time, and the glucose values have started to accelerate with levels ranging from 225 to 264 mg/dL. Her latest chemistry showed a BUN of 32, sodium 140, potassium 4.5, chloride 111, CO2 of 21, glucose 216, and creatinine 0.5. We will titrate once again her glipizide to 10 mg b.i.d. before meals as ordered. If hyperglycemic levels supervene, then we will add basal insulin overnight as indicated. We will follow and advised accordingly. Angela Copeland MD
[2018-01-16] MEDS: Insulin Lispro (humaLOG) 100 Units/ml Inj SC SCH ×5 (00:53→21:50)
[2018-01-16] MEDS: Proshield Plus GEL TOP SCH ×2 (02:01→09:48)
[2018-01-16 05:57] LABS: ALB/GLOB RATIO 0.8 (1.0-2.1); ALBUMIN 2.2 g/dL (3.5-5.0); ALT/SGPT 29 U/L (9-52); AST/SGOT 30 U/L (14-36); BLOOD UREA NITROGEN 33 mg/dl (7-17); CALCIUM 7.2 mg/dL (8.4-10.2); GFR NON-AFRICAN AMERICAN > 60
[2018-01-16] MEDS: MethylPREDNISolone 40 mg Vial IVP SCH ×2 (09:49→21:01)
[2018-01-16] MEDS: methIMAzole 5 MG TAB PO SCH ×2 (09:49→17:02)
[2018-01-16 12:21] LABS: MEAN CELL VOLUME 87.9 fl (81.0-99.0); MEAN CORPUSCULAR HEMOGLOBIN 28.7 pg (27.0-31.0); MEAN CORPUSCULAR HGB CONC 32.6 g/dL (33.0-37.0); RBC 2.78 Mil/uL (3.80-5.20); RED CELL DISTRIBUTION WIDTH 15.8 % (11.5-14.5); WHITE BLOOD COUNT 4.9 K/uL (4.8-10.8)
[2018-01-16] MEDS ORDERED: Dextrose 5%/0.9% NS 1,000 ML IV SCH (18:30)
--- NOTE | 2018-01-16 20:50 | PN ---
DATE: 01/16/2018 ENDO FOLLOWUP NOTE LOCATION: Room 414. SUBJECTIVE: This is a 67-year-old female with recent uncontrolled type 2 insulin-requiring diabetes, now being followed closely for metabolic management. Her glycemic levels are fluctuating as noted thereof and the glucose values have ranged from 228-246 mg/dL. Her chemistries show a BUN of 33, sodium 145, potassium 4, chloride 114, CO2 24, glucose 240, and creatinine 0.6. So at this time, we will modify her glipizide to a higher dosing of 10 mg b.i.d. before meals as ordered. We will titrate incrementally as indicated to optimize metabolic control. We will also add basal insulin, now given as Levemir at 8 units subcutaneous at bedtime daily as given, to start tonight as ordered. We will obtain serial chemistries and supplement accordingly as needed. We will follow and advise accordingly. Angela Copeland MD
[2018-01-16] MEDS: Insulin Detemir 100 Units/ml Inj SC SCH (21:51)
--- NOTE | 2018-01-16 22:45 | CP.PCM.PN ---
Subjective - Date & Time of Evaluation Date of Evaluation: 01/16/18 Time of Evaluation: 19:00 - Subjective Subjective: Appears comfortable Objective - Vital Signs/Intake and Output Vital Signs (last 24 hours): Temp Pulse Resp BP Pulse Ox 99.2 F 83 20 159/83 H 94 L 01/16/18 19:31 01/16/18 21:01 01/16/18 19:31 01/16/18 21:01 01/16/18 19:31 - Medications Medications: Current Medications Acetaminophen (Tylenol 650 Mg Supp) 650 mg [place] ONCE PRN PRN Reason: Fever >100.4 F Last Admin: 01/15/18 12:09 Dose: 650 mg Dextrose (Glutose 15) 0 gm PO ONCE PRN; Protocol PRN Reason: Hypoglycemia Protocol Dextrose (Dextrose 50% Inj) 0 ml IV STAT PRN; Protocol PRN Reason: Hypoglycemia Protocol Last Admin: 01/11/18 06:51 Dose: 50 ml Dextrose (Glutose 15) 0 gm PO ONCE PRN; Protocol PRN Reason: Hypoglycemia Protocol Glipizide (Glucotrol) 10 mg PO ACBD [facility] Last Admin: 01/16/18 17:01 Dose: 10 mg Glucagon (Glucagen Diagnostic Kit) 0 mg IM STAT PRN; Protocol PRN Reason: Hypoglycemia Protocol Glucagon (Glucagen Diagnostic Kit) 0 mg IM STAT PRN; Protocol PRN Reason: Hypoglycemia Protocol Dextrose/Sodium Chloride (Dextrose 5%/0.9% Ns 1000 Ml) 1,000 mls @ 40 mls/hr IV .Q24H [facility] Stop: 01/17/18 18:28 Last Admin: 01/16/18 19:05 Dose: 40 mls/hr Insulin Detemir (Levemir) 8 units SC HS [facility] Last Admin: 01/16/18 21:51 Dose: 8 units Insulin Human Lispro (Humalog) 0 units SC ACHS [facility] Last Admin: 01/16/18 21:50 Dose: Not Given Methimazole (Tapazole) 5 mg PO BID [facility] Last Admin: 01/16/18 17:02 Dose: 5 mg Methylprednisolone (Solu-Medrol) 40 mg IVP Q12 [facility] Last Admin: 01/16/18 21:01 Dose: 40 mg Metoprolol Tartrate (Lopressor) 25 mg PO Q12 [facility] Last Admin: 01/16/18 21:01 Dose: 25 mg Mirtazapine (Remeron) 7.5 mg PO HS [facility] Last Admin: 01/16/18 21:00 Dose: 7.5 mg Morphine Sulfate (Morphine) 2 mg IVP Q6 PRN PRN Reason: Pain, severe (8-10) Nystatin (Nystop Topical Powder) 1 applic TOP TID [facility] Last Admin: 01/16/18 18:13 Dose: Not Given - Labs Labs: 01/16/18 12:14 01/16/18 04:25 PT 14.4 Seconds (9.8-13.1) H 01/12/18 04:25 INR 1.3 01/12/18 04:25 APTT 35.8 Seconds (25.6-37.1) 01/12/18 04:25 - Head Exam Head Exam: ATRAUMATIC - Eye Exam Eye Exam: Normal appearance - ENT Exam ENT Exam: Mucous Membranes Dry - Respiratory Exam Respiratory Exam: NORMAL BREATHING PATTERN - Cardiovascular Exam Cardiovascular Exam: +S1, +S2 - GI/Abdominal Exam GI & Abdominal Exam: Normal Bowel Sounds Assessment and Plan (1) Thrombocytopenia Assessment & Plan: continues to fluctuate despite steroids Status: Acute (2) Anemia Assessment & Plan: chronic disease Status: Acute (3) Malignancy Assessment & Plan: unable to biopsy because of thrombocytopenia Status: Acute
[2018-01-17] MEDS: Insulin Lispro (humaLOG) 100 Units/ml Inj SC SCH ×4 (09:13→22:55)
[2018-01-17] MEDS: methIMAzole 5 MG TAB PO SCH ×3 (09:14→17:15)
[2018-01-17] MEDS: MethylPREDNISolone 40 mg Vial IVP SCH (09:14)
--- NOTE | 2018-01-17 12:29 | PN ---
DATE: 01/17/2018 ENDO FOLLOWUP NOTE LOCATION: Room 414. SUBJECTIVE: This is a 67-year-old female with recent uncontrolled type 2 insulin requiring diabetes, now being followed closely for metabolic management. Her glycemic levels are fluctuating but improved as noted. Her fasting glycemic has been elevated with glucose levels over 200 as noted overnight. So, at this time, we will continue to modify basal insulin that is given with Levemir given as 8 units at bedtime daily as ordered. We will also continue the glipizide given as 10 mg b.i.d. before meals as ordered. We will titrate incrementally as indicated to optimize metabolic control. We will obtain serial chemistries and supplement accordingly as needed. We will follow. Angela Copeland MD
[2018-01-17] MEDS: Insulin Detemir 100 Units/ml Inj SC SCH (22:57)
--- NOTE | 2018-01-17 23:19 | CP.PCM.PN ---
Subjective - Date & Time of Evaluation Date of Evaluation: 01/16/18 Time of Evaluation: 14:35 Objective - Vital Signs/Intake and Output Vital Signs (last 24 hours): Temp Pulse Resp BP Pulse Ox 98.1 F 75 18 153/90 H 94 L 01/17/18 20:36 01/17/18 23:00 01/17/18 20:36 01/17/18 20:36 01/17/18 20:36 - Medications Medications: Current Medications Acetaminophen (Tylenol 650 Mg Supp) 650 mg [place] ONCE PRN PRN Reason: Fever >100.4 F Last Admin: 01/15/18 12:09 Dose: 650 mg Ascorbic Acid (Vitamin C 500 Mg Tab) 500 mg PO DAILY [facility] Dextrose (Glutose 15) 0 gm PO ONCE PRN; Protocol PRN Reason: Hypoglycemia Protocol Dextrose (Dextrose 50% Inj) 0 ml IV STAT PRN; Protocol PRN Reason: Hypoglycemia Protocol Last Admin: 01/11/18 06:51 Dose: 50 ml Dextrose (Glutose 15) 0 gm PO ONCE PRN; Protocol PRN Reason: Hypoglycemia Protocol Glipizide (Glucotrol) 10 mg PO ACBD [facility] Last Admin: 01/17/18 17:14 Dose: Not Given Glucagon (Glucagen Diagnostic Kit) 0 mg IM STAT PRN; Protocol PRN Reason: Hypoglycemia Protocol Glucagon (Glucagen Diagnostic Kit) 0 mg IM STAT PRN; Protocol PRN Reason: Hypoglycemia Protocol Insulin Detemir (Levemir) 8 units SC HS [facility] Last Admin: 01/17/18 22:57 Dose: 8 units Insulin Human Lispro (Humalog) 0 units SC ACHS [facility] Last Admin: 01/17/18 22:55 Dose: Not Given Methimazole (Tapazole) 5 mg PO BID [facility] Last Admin: 01/17/18 17:15 Dose: Not Given Methylprednisolone (Solu-Medrol) 40 mg IVP Q12 [facility] Last Admin: 01/17/18 09:14 Dose: 40 mg Metoprolol Tartrate (Lopressor) 25 mg PO Q12 [facility] Last Admin: 01/17/18 23:00 Dose: 25 mg Morphine Sulfate (Morphine) 2 mg IVP Q6 PRN PRN Reason: Pain, severe (8-10) Nystatin (Nystop Topical Powder) 1 applic TOP TID [facility] Last Admin: 01/17/18 17:09 Dose: 1 applic Zinc Sulfate (Zinc Sulfate 220 Mg Cap) 220 mg PO DAILY [facility] Last Admin: 01/17/18 17:15 Dose: Not Given - Labs Labs: 01/16/18 12:14 01/16/18 04:25 PT 14.4 Seconds (9.8-13.1) H 01/12/18 04:25 INR 1.3 01/12/18 04:25 APTT 35.8 Seconds (25.6-37.1) 01/12/18 04:25 Assessment and Plan (1) Altered mental status Status: Acute
--- NOTE | 2018-01-17 23:20 | CP.PCM.PN ---
Subjective - Date & Time of Evaluation Date of Evaluation: 01/17/18 Time of Evaluation: 14:55 Objective - Vital Signs/Intake and Output Vital Signs (last 24 hours): Temp Pulse Resp BP Pulse Ox 98.1 F 75 18 153/90 H 94 L 01/17/18 20:36 01/17/18 23:00 01/17/18 20:36 01/17/18 20:36 01/17/18 20:36 - Medications Medications: Current Medications Acetaminophen (Tylenol 650 Mg Supp) 650 mg [place] ONCE PRN PRN Reason: Fever >100.4 F Last Admin: 01/15/18 12:09 Dose: 650 mg Ascorbic Acid (Vitamin C 500 Mg Tab) 500 mg PO DAILY [facility] Dextrose (Glutose 15) 0 gm PO ONCE PRN; Protocol PRN Reason: Hypoglycemia Protocol Dextrose (Dextrose 50% Inj) 0 ml IV STAT PRN; Protocol PRN Reason: Hypoglycemia Protocol Last Admin: 01/11/18 06:51 Dose: 50 ml Dextrose (Glutose 15) 0 gm PO ONCE PRN; Protocol PRN Reason: Hypoglycemia Protocol Glipizide (Glucotrol) 10 mg PO ACBD [facility] Last Admin: 01/17/18 17:14 Dose: Not Given Glucagon (Glucagen Diagnostic Kit) 0 mg IM STAT PRN; Protocol PRN Reason: Hypoglycemia Protocol Glucagon (Glucagen Diagnostic Kit) 0 mg IM STAT PRN; Protocol PRN Reason: Hypoglycemia Protocol Insulin Detemir (Levemir) 8 units SC HS [facility] Last Admin: 01/17/18 22:57 Dose: 8 units Insulin Human Lispro (Humalog) 0 units SC ACHS [facility] Last Admin: 01/17/18 22:55 Dose: Not Given Methimazole (Tapazole) 5 mg PO BID [facility] Last Admin: 01/17/18 17:15 Dose: Not Given Methylprednisolone (Solu-Medrol) 40 mg IVP Q12 [facility] Last Admin: 01/17/18 09:14 Dose: 40 mg Metoprolol Tartrate (Lopressor) 25 mg PO Q12 [facility] Last Admin: 01/17/18 23:00 Dose: 25 mg Morphine Sulfate (Morphine) 2 mg IVP Q6 PRN PRN Reason: Pain, severe (8-10) Nystatin (Nystop Topical Powder) 1 applic TOP TID [facility] Last Admin: 01/17/18 17:09 Dose: 1 applic Zinc Sulfate (Zinc Sulfate 220 Mg Cap) 220 mg PO DAILY [facility] Last Admin: 01/17/18 17:15 Dose: Not Given - Labs Labs: 01/16/18 12:14 01/16/18 04:25 PT 14.4 Seconds (9.8-13.1) H 01/12/18 04:25 INR 1.3 01/12/18 04:25 APTT 35.8 Seconds (25.6-37.1) 01/12/18 04:25 Assessment and Plan (1) Altered mental status Status: Acute
[2018-01-18 00:37] VITALS: RESP 20
[2018-01-18 05:15] VITALS: BP 141/86; PULSE 84; TEMP 97.5; O2SAT 93
--- NOTE | 2018-01-18 06:41 | CP.PCM.PRO ---
Pronouncement of Note - Clinical Findings Physical Exam: No Response Verbal/Painful Stimuli, Absent Peripheral Puls es{Carotid & Femoral}, Absent Heart & Breath Sounds, No Pupillary Light Reflex, No Corneal Reflex, Pupils Fixed & Dilated, Absence of Vital Signs - Pronouncement Time Time of Pronouncement of : 06:05 - Notifications Pronouncement Notifications: Family Notified, Atending Notified Nuisance Wildlife Specialist Notified: No - Autopsy Autopsy Requested: No - [place] [id number]
--- NOTE | 2018-01-18 13:50 | CP.PCM.DIS ---
Provider - Provider Date of Admission: 12/27/17 17:06 Attending physician: Mika Quintana MD Time Spent in preparation of Discharge (in minutes): 25 Diagnosis - Discharge Diagnosis (1) Altered mental status Status: Acute Priority: High Hospital Course - Lab Results Lab Results: Micro Results 01/01/18 16:32 Blood-Venous Blood Culture - Final NO GROWTH AFTER 5 DAYS 01/01/18 16:32 Blood-Venous Gram Stain - Final TEST NOT PERFORMED 01/01/18 16:42 Blood-Venous Blood Culture - Final NO GROWTH AFTER 5 DAYS 01/01/18 16:42 Blood-Venous Gram Stain - Final TEST NOT PERFORMED 12/31/17 04:40 Blood-Venous Blood Culture - Final NO GROWTH AFTER 5 DAYS 12/31/17 04:40 Blood-Venous Gram Stain - Final TEST NOT PERFORMED 12/31/17 04:45 Blood-Venous Blood Culture - Final NO GROWTH AFTER 5 DAYS 12/31/17 04:45 Blood-Venous Gram Stain - Final TEST NOT PERFORMED 01/01/18 08:37 Naris MRSA Culture (Admit) - Final MRSA NOT DETECTED 01/01/18 16:25 Urine,Randolph Urine Culture - Final Yeast Species 12/28/17 14:40 Blood-Venous Blood Culture - Final NO GROWTH AFTER 5 DAYS 12/28/17 14:40 Blood-Venous Gram Stain - Final TEST NOT PERFORMED 12/28/17 14:40 Blood-Venous Blood Culture - Final NO GROWTH AFTER 5 DAYS 12/28/17 14:40 Blood-Venous Gram Stain - Final TEST NOT PERFORMED 12/28/17 16:39 Urine,Catheterized Urine Culture - Final Yeast Species 12/27/17 14:49 Blood-Venous Blood Culture - Final Escherichia Coli 12/27/17 14:49 Blood-Venous Gram Stain - Final 12/27/17 06:00 Naris MRSA Culture (Admit) - Final MRSA NOT DETECTED 12/27/17 14:49 Urine,Randolph Urine Culture - Final No Growth (<1,000 CFU/ML) Most Recent Lab Values WBC 4.9 K/uL (4.8-10.8) 01/16/18 12:14 RBC 2.78 Mil/uL (3.80-5.20) L 01/16/18 12:14 Hgb 8.0 g/dL (12.0-16.0) L 01/16/18 12:14 Hct 24.5 % (34.0-47.0) L 01/16/18 12:14 MCV 87.9 fl (81.0-99.0) 01/16/18 12:14 MCH 28.7 pg (27.0-31.0) 01/16/18 12:14 MCHC 32.6 g/dL (33.0-37.0) L 01/16/18 12:14 RDW 15.8 % (11.5-14.5) H 01/16/18 12:14 Plt Count 24 K/uL (130-400) L* D 01/16/18 12:14 Manual Plt Count 24 K/uL (130-400) L* 01/12/18 10:02 MPV 10.7 fl (7.2-11.7) 01/12/18 04:25 Neut % (Auto) 90.3 % (50.0-75.0) H 01/12/18 04:25 Lymph % (Auto) 7.4 % (20.0-40.0) L 01/12/18 04:25 Jerauld % (Auto) 1.7 % (0.0-10.0) 01/12/18 04:25 Eos % (Auto) 0.3 % (0.0-4.0) 01/12/18 04:25 Baso % (Auto) 0.3 % (0.0-2.0) 01/12/18 04:25 Neut # (Auto) 6.7 K/uL (1.8-7.0) 01/12/18 04:25 Lymph # (Auto) 0.6 K/uL (1.0-4.3) L 01/12/18 04:25 Jerauld # (Auto) 0.1 K/uL (0.0-0.8) 01/12/18 04:25 Eos # (Auto) 0.0 K/uL (0.0-0.7) 01/12/18 04:25 Baso # (Auto) 0.0 K/uL (0.0-0.2) 01/12/18 04:25 Neutrophils % (Manual) 87 % (42-75) H 01/12/18 04:25 Band Neutrophils % 3 % (0-2) H 01/12/18 04:25 Lymphocytes % (Manual) 6 % (20-50) L 01/12/18 04:25 Monocytes % (Manual) 4 % (0-10) 01/12/18 04:25 Basophils % (Manual) 1 % (0-2) 01/05/18 05:15 Metamyelocytes % 1 % (0-0) H 01/05/18 05:15 Myelocytes % 1 % (0-0) H 01/05/18 05:15 Nucleated RBC % 1 % (0-0) H 12/30/17 04:35 Toxic Granulation Present 01/12/18 04:25 Platelet Estimate Decreased (NORMAL) L 01/12/18 04:25 Plt Clumps, EDTA Present 12/27/17 14:45 Polychromasia Slight 01/05/18 05:15 Hypochromasia (manual) Slight 01/12/18 04:25 Poikilocytosis (manual Slight 12/29/17 06:00 Anisocytosis (manual) Slight 01/12/18 04:25 Macrocytosis (manual) Slight 01/04/18 12:50 Tear Drop Cells Slight 12/29/17 06:00 Ovalocytes Slight 01/12/18 04:25 Retic Count 1.0 % (0.5-1.5) 01/04/18 06:30 PT 14.4 Seconds (9.8-13.1) H 01/12/18 04:25 INR 1.3 01/12/18 04:25 APTT 35.8 Seconds (25.6-37.1) 01/12/18 04:25 pCO2 30 mm/Hg (35-45) L 12/27/17 14:08 pO2 47 mm/Hg (30-55) 12/27/17 18:52 HCO3 13.1 mmol/L (21-28) L 12/27/17 14:08 ABG pH 7.22 (7.35-7.45) L 12/27/17 14:08 ABG Total CO2 13.2 mmol/L (22-28) L 12/27/17 14:08 ABG O2 Saturation 74.8 % (95-98) L 12/27/17 14:08 ABG Base Excess -14.1 mmol/L (-2.0-3.0) L 12/27/17 14:08 Holden Test Yes 12/27/17 14:08 ABG Potassium 5.6 mmol/L (3.6-5.2) H 12/27/17 14:08 VBG pH 7.25 (7.32-7.43) L 12/27/17 18:52 VBG pCO2 31 mmHg (40-60) L 12/27/17 18:52 VBG HCO3 14.7 mmol/L 12/27/17 18:52 VBG Total CO2 14.6 mmol/L (22-28) L 12/27/17 18:52 VBG O2 Sat (Calc) 80.0 % (40-65) H 12/27/17 18:52 VBG Base Excess -12.4 mmol/L (0.0-2.0) L 12/27/17 18:52 A-a O2 Difference 150.0 mm/Hg 12/27/17 14:08 Sodium 196.0 mmol/L (132-148) H* 12/27/17 18:52 Chloride 124.0 mmol/L (98-107) H 12/27/17 18:52 Glucose 598 mg/dL (65-105) H* D 12/27/17 18:52 Lactate 4.9 mmol/L (0.7-2.1) H* 12/27/17 18:52 Vent Mode Nc 12/27/17 14:08 FiO2 21.0 % 12/27/17 18:52 Blood Gas Comments Vb 12/27/17 18:52 Crit Value Called To Gia marin r.n. 12/27/17 18:52 Crit Value Called By Dolores 12/27/17 18:52 Crit Value Read Back Y 12/27/17 18:52 Blood Gas Notified Time 190312/27/17 18:52 Sodium 145 mmol/l (132-148) 01/16/18 04:25 Potassium 4.0 MMOL/L (3.6-5.0) 01/16/18 04:25 Chloride 114 mmol/L (98-107) H 01/16/18 04:25 Carbon Dioxide 24 mmol/L (22-30) 01/16/18 04:25 Anion Gap 11 (10-20) 01/16/18 04:25 BUN 33 mg/dl (7-17) H 01/16/18 04:25 Creatinine 0.6 mg/dl (0.7-1.2) L 01/16/18 04:25 Est GFR ( Amer) > 60 01/16/18 04:25 Est GFR (Non-Af Amer) > 60 01/16/18 04:25 POC Glucose (mg/dL) 101 mg/dL (65-110) 01/17/18 21:36 Random Glucose 240 mg/dL (65-105) H 01/16/18 04:25 Hemoglobin A1c 11.6 % (4.2-6.5) H 12/29/17 06:00 Serum Osmolality 446 mosm/kg (272-300) H 12/27/17 18:30 Calcium 7.2 mg/dL (8.4-10.2) L 01/16/18 04:25 Phosphorus 2.9 mg/dl (2.5-4.5) 01/12/18 04:25 Magnesium 1.5 MG/DL (1.6-2.3) L 01/13/18 05:10 Ferritin 1720.0 ng/Ml (11.1-264.0) H 01/04/18 06:30 Total Bilirubin 0.8 mg/dl (0.2-1.3) 01/16/18 04:25 AST 30 U/L (14-36) 01/16/18 04:25 ALT 29 U/L (9-52) 01/16/18 04:25 Alkaline Phosphatase 233 U/L (38-126) H 01/16/18 04:25 Total Creatine Kinase 210 U/L (30-135) H 12/28/17 14:40 Troponin I 0.1620 ng/mL (0.00-0.120) H* 12/28/17 14:40 NT-Pro-B Natriuret Pep 5150 pg/ml (0-900) H 12/28/17 05:00 Total Protein 5.1 G/DL (6.3-8.2) L 01/16/18 04:25 Albumin 2.2 g/dL (3.5-5.0) L 01/16/18 04:25 Globulin 2.9 gm/dL (2.2-3.9) 01/16/18 04:25 Albumin/Globulin Ratio 0.8 (1.0-2.1) L 01/16/18 04:25 UF Heparin Interp Negative (Negative) 01/04/18 06:30 Vitamin B12 905 pg/mL (239-931) 01/04/18 06:30 Folate 4.8 ng/mL 01/04/18 06:30 Free T4 0.70 ng/dL (0.78-2.19) L 01/16/18 04:25 Thyroxine (T4) 3.70 ug/dl (5.5-11.0) L 01/16/18 04:25 TSH 3rd Generation 0.56 mIU/ML (0.46-4.68) 01/16/18 04:25 Thyroid Stim Immunoglob <89 % baseline (<140) 12/29/17 06:00 Arterial Blood Potassium 5.6 mmol/L (3.6-5.2) H 12/27/17 14:08 Urine Color Michelle (YELLOW) 12/28/17 15:56 Urine Clarity Cloudy (Clear) 12/28/17 15:56 Urine pH 5.0 (5.0-8.0) 12/28/17 15:56 Ur Specific Carman 1.016 (1.003-1.030) 12/28/17 15:56 Urine Protein 100 mg/dL (NEGATIVE) 12/28/17 15:56 Urine Glucose (UA) 50 mg/dL (Normal) 12/28/17 15:56 Urine Ketones Negative mg/dL (NEGATIVE) 12/28/17 15:56 Urine Blood Large (NEGATIVE) 12/28/17 15:56 Urine Nitrate Negative (NEGATIVE) 12/28/17 15:56 Urine Bilirubin Negative (NEGATIVE) 12/28/17 15:56 Urine Urobilinogen 4.0 mg/dL (0.2-1.0) H 12/28/17 15:56 Ur Leukocyte Esterase Mod Terry/uL (Negative) 12/28/17 15:56 Urine RBC (Auto) 7 /hpf (0-3) H 12/28/17 15:56 Urine WBC Clumps (Auto) Few /hpf (NONE) H 18 23:00 Urine Microscopic WBC 29 /hpf (0-5) H 12/28/17 15:56 Ur Squamous Epith Cells 2 /hpf (0-5) 12/28/17 15:56 Amorphous Sediment Rare /ul (<OCC) H 12/27/17 23:00 Urine Bacteria Occ (<OCC) H 12/28/17 15:56 Hyaline Casts 3-5 /hpf (0-2) H 12/27/17 23:00 Urine Yeast (Budding) Occ /hpf (NEGATIVE) H 12/28/17 15:56 Heparin-induced Plt Ab Positive (Negative) H 01/04/18 06:30 [facility] Low Dose 0.1 0 % Release 01/04/18 06:30 [facility] Low Dose 0.5 0 % Release 01/04/18 06:30 [facility] High Dose 100 0 % Release 01/04/18 06:30 Hepatitis A IgM Ab Negative (NEGATIVE) 01/04/18 06:30 Hep Bs Antigen Negative (NEGATIVE) 01/04/18 06:30 Hep B Core IgM Ab Negative (NEGATIVE) 01/04/18 06:30 Hepatitis C Antibody Reactive (NEGATIVE) 01/04/18 06:30 Hepatitis C RNA <15 not detected IU/mL (Not Detected) 01/05/18 16:14 HCV RNA Quant (PCR) <1.18 not detected Log IU/mL (Not Detected) 01/05/18 16:14 HIV 1&2 Antibody Screen Negative (NEGATIVE) 01/04/18 06:30 Blood Type AB POSITIVE 01/13/18 10:55 Blood Type Confirm AB POSITIVE 01/05/18 12:45 Antibody Screen Negative 01/13/18 10:55 Crossmatch See Detail 01/13/18 10:55 BBK History Checked Patient has bt 01/13/18 10:55 Discharge Exam - Head Exam Head Exam: ATRAUMATIC Discharge Plan - Follow Up Plan Condition: SERIOUS Disposition: WITH WITHOUT AUTOPSY
--- NOTE | 2018-01-18 21:29 | CP.PCM.PN ---
Subjective - Date & Time of Evaluation Date of Evaluation: 01/17/18 Time of Evaluation: 18:00 - Subjective Subjective: Drowsy, no complaints. Objective - Vital Signs/Intake and Output Vital Signs (last 24 hours): Temp Pulse Resp BP Pulse Ox 97.5 F L 84 20 141/86 93 L 01/18/18 05:00 01/18/18 05:00 01/18/18 05:00 01/18/18 05:00 01/18/18 05:00 - Labs Labs: 01/16/18 12:14 01/16/18 04:25 PT 14.4 Seconds (9.8-13.1) H 01/12/18 04:25 INR 1.3 01/12/18 04:25 APTT 35.8 Seconds (25.6-37.1) 01/12/18 04:25 - Head Exam Head Exam: ATRAUMATIC - Eye Exam Eye Exam: Normal appearance - ENT Exam ENT Exam: Mucous Membranes Dry - Respiratory Exam Respiratory Exam: NORMAL BREATHING PATTERN - Cardiovascular Exam Cardiovascular Exam: +S1, +S2 - GI/Abdominal Exam GI & Abdominal Exam: Normal Bowel Sounds - Extremities Exam Extremities Exam: Pedal Edema Assessment and Plan (1) Thrombocytopenia Assessment & Plan: continues to fluctuate despite steroids Status: Acute (2) Anemia Assessment & Plan: chronic disease Status: Acute (3) Malignancy Assessment & Plan: unable to biopsy because of thrombocytopenia Status: Acute
== END 2018-01-18 08:45 | DRG 871 ==
LOC: H.ER 13:54 → H.ERHOLD 17:06 → H.ICU/CCU 23:19 → H.TEL 01-01 18:53
PROVIDERS: ADMIT Internal Medicine; ATTEND Internal Medicine
PROC: 3E02340 Introduction of Influenza Vaccine into Muscle, Percutaneous Approach (ICD-10-PCS; principal; 2017-12-28)
PROC: 3E0234Z Introduction of Serum, Toxoid and Vaccine into Muscle, Percutaneous Approach (ICD-10-PCS; 2017-12-28)
PROC: 30233R1 Transfusion of Nonautologous Platelets into Peripheral Vein, Percutaneous Approach (ICD-10-PCS; 2018-01-06)
PROC: 30233R1 Transfusion of Nonautologous Platelets into Peripheral Vein, Percutaneous Approach (ICD-10-PCS; 2018-01-07)
PROC: 30233R1 Transfusion of Nonautologous Platelets into Peripheral Vein, Percutaneous Approach (ICD-10-PCS; 2018-01-13)
PROC: 30233R1 Transfusion of Nonautologous Platelets into Peripheral Vein, Percutaneous Approach (ICD-10-PCS; 2018-01-14)
PROC: 30233N1 Transfusion of Nonautologous Red Blood Cells into Peripheral Vein, Percutaneous Approach (ICD-10-PCS; 2018-01-14)
DX: A41.51 Sepsis due to Escherichia coli [E. coli] (principal); G93.41 Metabolic encephalopathy; R65.21 Severe sepsis with septic shock; N17.0 Acute kidney failure with tubular necrosis; E11.10 Type 2 diabetes mellitus with ketoacidosis without coma; E11.00 Type 2 diabetes mellitus with hyperosmolarity without nonketotic hyperglycemic-hyperosmolar coma (NKHHC); N39.0 Urinary tract infection, site not specified; S32.592A Other specified fracture of left pubis, initial encounter for closed fracture; C78.7 Secondary malignant neoplasm of liver and intrahepatic bile duct; C79.51 Secondary malignant neoplasm of bone; I48.92 Unspecified atrial flutter; J98.11 Atelectasis; C79.70 Secondary malignant neoplasm of unspecified adrenal gland; D69.3 Immune thrombocytopenic purpura; A41.50 Gram-negative sepsis, unspecified; L89.152 Pressure ulcer of sacral region, stage 2; I48.0 Paroxysmal atrial fibrillation; D69.6 Thrombocytopenia, unspecified; E86.0 Dehydration; F41.9 Anxiety disorder, unspecified; I12.9 Hypertensive chronic kidney disease with stage 1 through stage 4 chronic kidney disease, or unspecified chronic kidney disease; I25.10 Atherosclerotic heart disease of native coronary artery without angina pectoris; I27.20 Pulmonary hypertension, unspecified; I48.91 Unspecified atrial fibrillation; I71.9 Aortic aneurysm of unspecified site, without rupture; J45.909 Unspecified asthma, uncomplicated; K82.8 Other specified diseases of gallbladder; N18.9 Chronic kidney disease, unspecified; N63.10 Unspecified lump in the right breast, unspecified quadrant; Z66 Do not resuscitate; Z72.0 Tobacco use; Z79.4 Long term (current) use of insulin; Z80.9 Family history of malignant neoplasm, unspecified; D72.829 Elevated white blood cell count, unspecified; R06.82 Tachypnea, not elsewhere classified; R15.9 Full incontinence of feces; R59.0 Localized enlarged lymph nodes; R74.0 Nonspecific elevation of levels of transaminase and lactic acid dehydrogenase [LDH]; R74.8 Abnormal levels of other serum enzymes; D63.8 Anemia in other chronic diseases classified elsewhere; E05.90 Thyrotoxicosis, unspecified without thyrotoxic crisis or storm; E11.22 Type 2 diabetes mellitus with diabetic chronic kidney disease; E11.649 Type 2 diabetes mellitus with hypoglycemia without coma; E78.00 Pure hypercholesterolemia, unspecified; E78.5 Hyperlipidemia, unspecified; E11.65 Type 2 diabetes mellitus with hyperglycemia; Z23 Encounter for immunization